=== PATIENT | female | born 1955 | race Caucasian/White ===

== ENCOUNTER → 2017-07-01 12:02 | Outpatient (CLI) | payer MEDICARE, SELFPAY ==
[2017-07-01 13:16] LABS: Absolute Lymphocyte Count 2.76 X10^3/ul (0.83-4.51); Absolute Neutrophil Count 7.7 X10^3/uL (2.0-7.7); Basophil# 0.02 X10^3/uL; Basophil% 0.2 % (0-1); Eosinophil# 0.08 X10^3/uL; Eosinophils% 0.7 % (0-5); Hematocrit 40.4 % (37-47); Hemoglobin 12.9 g/dl (12.0-15.0); Lymphocyte # 2.76 X10^3/ul (4.0); Lymphocyte % 24.5 % (19-41); Mean Corp Hgb Conc 31.9 g/gl (32-36); Mean Corpuscular Hgb 30.1 pg (27.0-32.0); Mean Corpuscular Volume 94.2 fL (81-99); Mean Platelet Vol. 9.1 fl (6.2-12.0); Monocyte# 0.63 X10^3/uL; Monocyte% 5.6 % (0-10); Neutrophil # 7.74 X10^3/uL (2.7-7.7); Neutrophil % 68.6 % (47-70); Platelet Count 457 K/mm3 (150-450); RBC Distribution Width CV 13.6 % (11.6-14.6); RBC Distribution Width SD 46.6 fl (35.1-43.9); Red Blood Count 4.29 M/mm3 (4.2-5.4); White Blood Count 11.3 K/mm3 (4.4-11.0)
[2017-07-01 13:17] LABS: POSITIVE COUNT NO; POSITIVE DIFFERENTIAL NO; POSITIVE MORPHOLOGY NO
[2017-07-01 13:49] LABS: ALB/GLOB Ratio 0.8 RATIO (0.9-2.4); AST(SGOT) 23 U/L (15-37); Alanine Aminotransfer ALT/SGPT 35 U/L (13-56); Albumin, Serum 3.6 g/dL (3.2-5.0); Alkaline Phosphatase 213 U/L (45-117); Anion Gap 10 (5-15); BUN 8 mg/dL (7-18); BUN/Creat Ratio 10.9 RATIO (10-20); Chloride 95 mmol/L (98-107); Cholesterol 181 mg/dL (200); Creatinine, Serum 0.73 mg/dL (0.55-1.02); EST Glomerular Filtration Rate 85 mL/min (>60); Est Glom Filt Rate - Afr Amer 103 mL/min (>60); Globulin 4.7 g/dL (2.2-4.2); Glucose 94 mg/dL (74-106); High Density Lipoprotein 74 mg/dL; Potassium 4.1 mmol/L (3.5-5.1); Protein, Total 8.3 g/dL (6.4-8.2); Sodium Level 132 mmol/L (136-145); Thyroid Stim Hormone (TSH) 1.32 uIU/mL (0.358-3.74); Triglycerides 105 mg/dL; Very Low Density Lipoprotein 21 mg/dL (5-40)
[2017-07-02 08:49] LABS: Vitamin D,25 Hydroxy 14.6 ng/mL (29.95-100.01)
== END ==
PROVIDERS: Family Provider Family Medicine Geriatric Medicine; PCP Family Medicine Geriatric Medicine; Visit Provider Family Medicine Geriatric Medicine
DX: I10 Essential (primary) hypertension (principal); E03.9 Hypothyroidism, unspecified; E78.4 Other hyperlipidemia; E55.9 Vitamin D deficiency, unspecified
CPT/HCPCS: 36415; 80053; 80061; 82306; 84443; 85025

== ENCOUNTER → 2017-10-14 13:31 | Outpatient (CLI) | payer MEDICARE, SELFPAY ==
[2017-10-14 17:38] LABS: Absolute Neutrophil Count 6.1 X10^3/uL (2.0-7.7); Basophil# 0.01 X10^3/uL; Basophil% 0.1 % (0-1); Eosinophil# 0.06 X10^3/uL; Eosinophils% 0.7 % (0-5); Hematocrit 40.1 % (37-47); Hemoglobin 13.1 g/dl (12.0-15.0); Lymphocyte % 21.1 % (19-41); Mean Corp Hgb Conc 32.7 g/gl (32-36); Mean Corpuscular Hgb 29.3 pg (27.0-32.0); Mean Corpuscular Volume 89.7 fL (81-99); Mean Platelet Vol. 9.5 fl (6.2-12.0); Monocyte# 0.58 X10^3/uL; Monocyte% 6.8 % (0-10); Neutrophil # 6.08 X10^3/uL (2.7-7.7); Neutrophil % 71.1 % (47-70); Platelet Count 467 K/mm3 (150-450); RBC Distribution Width CV 13.4 % (11.6-14.6); RBC Distribution Width SD 43.3 fl (35.1-43.9); Red Blood Count 4.47 M/mm3 (4.2-5.4); White Blood Count 8.6 K/mm3 (4.4-11.0)
[2017-10-14 17:40] LABS: POSITIVE COUNT NO; POSITIVE DIFFERENTIAL NO; POSITIVE MORPHOLOGY NO
[2017-10-14 17:56] LABS: ALB/GLOB Ratio 0.8 RATIO (0.9-2.4); AST(SGOT) 51 U/L (15-37); Alanine Aminotransfer ALT/SGPT 79 U/L (13-56); Albumin, Serum 3.5 g/dL (3.2-5.0); Alkaline Phosphatase 251 U/L (45-117); Anion Gap 7 (5-15); BUN 11 mg/dL (7-18); BUN/Creat Ratio 14.6 RATIO (10-20); Chloride 98 mmol/L (98-107); Cholesterol 193 mg/dL (200); Creatinine, Serum 0.75 mg/dL (0.55-1.02); EST Glomerular Filtration Rate 83 mL/min (>60); Est Glom Filt Rate - Afr Amer 100 mL/min (>60); Globulin 4.4 g/dL (2.2-4.2); Glucose 112 mg/dL (74-106); High Density Lipoprotein 69 mg/dL; Potassium 4.6 mmol/L (3.5-5.1); Protein, Total 7.9 g/dL (6.4-8.2); Sodium Level 131 mmol/L (136-145); Thyroid Stim Hormone (TSH) 0.79 uIU/mL (0.358-3.74); Triglycerides 77 mg/dL; Very Low Density Lipoprotein 15 mg/dL (5-40)
== END ==
PROVIDERS: Family Provider Family Medicine Geriatric Medicine; PCP Family Medicine Geriatric Medicine; Visit Provider Family Medicine Geriatric Medicine
DX: E78.4 Other hyperlipidemia (principal); I10 Essential (primary) hypertension; Z13.89 Encounter for screening for other disorder
CPT/HCPCS: 36415; 80053; 80061; 84443; 85025

== ENCOUNTER → 2017-11-03 07:46 | Outpatient (CLI) | payer MEDICARE, SELFPAY ==
--- NOTE | 2017-11-03 07:53 | US_ITS ---
STUDY: ABDOMINAL ULTRASOUND - RIGHT UPPER QUADRANT REASON FOR VISIT: Female, 61 years old. Elevated liver enzymes. TECHNIQUE: Ultrasound evaluation of the right upper quadrant was performed with real-time and static madera-scale imaging. TECHNICAL QUALITY: Adequate. COMPARISON: None. FINDINGS: Liver: The liver is enlarged and measures 18.8 cm. There is increased echogenicity consistent with fatty infiltration. The bile ducts are within normal limits. There is hepatic color flow. The direction of portal flow is hepatopetal. There is no demonstrated mass lesion. Gallbladder: Normal distended gallbladder. The gallbladder wall measures 2.0 mm. There is a negative sonographic Sy's sign. There is no pericholecystic fluid. There are no gallstones. Several small polyps are seen. The largest measures 6 mm. There is a 5 mm polyp with a ringdown artifact. This is suggestive of cholesterolosis. Common Bile Duct (C.B.D.): The common bile duct measures 4.0 mm. Pancreas: There is nonvisualization of the pancreas due to overlying bowel gas. Right Kidney: Normal size of the right kidney. The right kidney measures 11.6 cm x 4.6 cm x 6.5 cm. Normal renal cortex. The right cortex measures 1.0 cm. There is no demonstrated renal mass or cyst. There is no right hydronephrosis. US/Abdomen Limited IMPRESSION: Gallbladder polyp. Findings suggestive of cholesterolosis. Electronically Signed: Jose Segura MD at 13:31 EDT Tel [phone], Service support ,
== END ==
PROVIDERS: Family Provider Family Medicine Geriatric Medicine; PCP Family Medicine Geriatric Medicine; Visit Provider Family Medicine Geriatric Medicine
DX: R74.8 Abnormal levels of other serum enzymes (principal)
CPT/HCPCS: 76705

== ENCOUNTER → 2017-11-27 13:40 | Outpatient (CLI) | payer MEDICARE, SELFPAY ==
--- NOTE | 2017-11-27 13:42 | CT_ITS ---
STUDY: LOW DOSE CT LUNG CANCER SCREENING REASON FOR EXAM: Female, 62 years old. Tobacco use. Between 1 and 2 pack per day smoker, 55 years. Screening. RADIATION DOSAGE (If Supplied By Facility): CTDIvol = ( 2.55 ) mGy, DLP = ( 84.87 ) mGycm TECHNIQUE: No contrast was administered. Low dose technique was utilized (average mAS-38 and kVp 120). 1.25 mm axial source images with a slice interval of 1.25-mm were reconstructed in lung windows. Nodule measured using lung windows on PACS and/or independent workstation with automated measurement of minimum and maximum diameter. Nodule measurement reported as average diameter rounded to the nearest whole number. Growth is defined as an increase ins size of greater than 1.5 mm. COMPARISON: Low dose CT 10/15/2016. FINDINGS: Total lung nodules (excluding granulomas): Only a few scattered tiny pulmonary nodules are present, the most conspicuous lying within the right upper lobe anterior segment, image 130, measuring about 3.5 mm. Stable compared to prior imaging. Emphysema: Generalized mild hyperlucency without chloé features of centrilobular or paraseptal emphysema. Endobronchial lesion: There are no endobronchial lesions. Aorta: Nondilated aorta with mild arch atherosclerosis. Coronary arteries: Three-vessel coronary calcifications most prominent in the proximal to mid LAD. Heart: There is no cardiomegaly or pericardial effusion. Pulmonary artery: Nondilated central pulmonary arteries. Mediastinal nodes: Normal esophagus. No mediastinal or hilar mass or lymphadenopathy. A few small mediastinal lymph nodes are unchanged compared to prior imaging. Chronic. Other chest and abdominal findings: No other acute thoracic process is evident in limited evaluation. CT/Low Dose CT Lung Screening IMPRESSION: No acute cardiopulmonary process. Three-vessel coronary atherosclerosis. Pulmonary features suspicious for mild COPD without chloé emphysematous changes. A few scattered tiny pulmonary nodules the largest measuring about 3.5 mm are stable. ACR Lung RADS criteria: Recommendation is for follow-up annual low dose screening CT. IMPORTANT NOTES FOR USE: ACR Lung-RADS Version 1.0 Assessment Categories Release Date: August 23, 2013 Category: Coded 0-4 bases on nodule(s) with highest degree of suspicion. Negative screen is defined as categories 1 and 2; a positive screen is defined as categories 3 and 4. Category 3 and 4A nodules that are unchanged on interval CT should be coded as category 2, and individuals returned to screening in 12 months. Category 4X: Category 3 or 4 nodules with additional imaging findings that increase the suspicion of lung cancer, such as spiculation, GGN that doubles in size in 1 year, enlarged lymph notes, etc. Category Modifiers: S (significant finding unrelated to lung cancer) and C (prior history of treated lung cancer) may be added to the 0-4 Lung-RADS Electronically Signed: All Pittman, at 18:14 EDT Tel , Service support ,
== END ==
PROVIDERS: Family Provider Family Medicine Geriatric Medicine; PCP Family Medicine Geriatric Medicine; Visit Provider Family Medicine Geriatric Medicine
DX: Z12.2 Encounter for screening for malignant neoplasm of respiratory organs (principal); Z87.891 Personal history of nicotine dependence
CPT/HCPCS: G0297

== ENCOUNTER → 2017-12-16 10:15 | Outpatient (CLI) | payer MEDICARE, SELFPAY ==
[2017-12-16 13:30] LABS: ALB/GLOB Ratio 0.8 RATIO (0.9-2.4); AST(SGOT) 44 U/L (15-37); Alanine Aminotransfer ALT/SGPT 61 U/L (13-56); Albumin, Serum 3.7 g/dL (3.2-5.0); Alkaline Phosphatase 253 U/L (45-117); Anion Gap 9 (5-15); BUN 10 mg/dL (7-18); BUN/Creat Ratio 12.2 RATIO (10-20); Calcium,Total 9.6 mg/dL (8.5-10.1); Chloride 99 mmol/L (98-107); Creatinine, Serum 0.82 mg/dL (0.55-1.02); EST Glomerular Filtration Rate 75 mL/min (>60); Est Glom Filt Rate - Afr Amer 91 mL/min (>60); Globulin 4.9 g/dL (2.2-4.2); Glucose 105 mg/dL (74-106); Potassium 4.4 mmol/L (3.5-5.1); Protein, Total 8.6 g/dL (6.4-8.2); Sodium Level 134 mmol/L (136-145)
== END ==
PROVIDERS: Family Provider Family Medicine Geriatric Medicine; PCP Family Medicine Geriatric Medicine; Visit Provider Family Medicine Geriatric Medicine
DX: R74.8 Abnormal levels of other serum enzymes (principal)
CPT/HCPCS: 36415; 80053

== ENCOUNTER → 2018-01-05 06:03 | Outpatient (CLI) | payer MEDICARE, SELFPAY ==
--- NOTE | 2018-01-05 06:06 | ECHOD_ITS ---
Reason For Study: CAD/ASHD Procedure This was a 2D Doppler, Color Flow transthoracic echocardiogram. Exam performed in department. Left Ventricle Normal LV size. Left ventricular systolic function is normal. The estimated ejection fraction is 65 %. Stage 2 diastolic dysfunction. No regional wall motion abnormalities noted. Right Ventricle Normal RV size. Normal systolic function. Atria Normal left atrium. Normal right atrium. Mitral Valve Normal mitral valve. Tricuspid Valve Normal tricuspid valve. Aortic Valve Normal aortic valve. Trisinus/trileaflet aortic valve. Pulmonic Valve Normal pulmonic valve. Great Vessels Normal aortic root. The pulmonary artery is normal size. Normal inferior vena cava. MMode/2D Measurements & Calculations LVIDd: 3.8 cm IVSd: 1.7 cm Ao root diam: 3.1 cm LVIDs: 2.7 cm LVPWd: 1.0 cm LA dimension: 4.1 cm RVDd: 3.7 cm FS: 29.8 % LAV(MOD-bp): 48.3 ml LVAd ap4: 23.2 cm2 SV(MOD-sp4): 45.1 ml LAV(MOD-bp) Indexed: 26.2 ml/m2 EDV(MOD-sp4): 64.8 ml LAV(MOD-sp2): 40.0 ml EDV(sp4-el): 64.4 ml LAV(MOD-sp4): 53.5 ml LVAs ap4: 11.4 cm2 ESV(MOD-sp4): 19.7 ml ESV(sp4-el): 20.2 ml EF(MOD-sp4): 69.6 % EF(sp4-el): 68.7 % SV(sp4-el): 44.2 ml LA A4 area: 18.9 cm2 RA A4 area: 11.4 cm2 Doppler Measurements & Calculations MV E max ramiro: 85.2 cm/sec Lat Peak E' Ramiro: 5.7 cm/sec Med Peak E' Ramiro: 6.2 cm/sec MV A max ramiro: 79.3 cm/sec E/E' lat: 14.8 E/E' med: 13.8 MV E/A: 1.1 Ao V2 max: 168.9 cm/sec LV V1 max: 137.9 cm/sec PA V2 max: 131.9 cm/sec Ao max P.4 mmHg LV V1 max P.6 mmHg Ao V2 mean: 125.5 cm/sec Ao mean P.8 mmHg Ao V2 VTI: 32.7 cm Interpretation Summary Normal LV size. Left ventricular systolic function is normal. The estimated ejection fraction is 65 %. Stage 2 diastolic dysfunction. Structurally normal valves. Ordering Physician: Jesus Gillette Referring Physician: Cornelius Srinivasan Chi Performed By: Bryanna Rodriguez, DHARMESH, RVT
--- NOTE | 2018-01-05 09:02 | STRESSREP ---
Stress Test Report Pharmacologic myocardial perfusion stress test. 62-year-old lady with a history of coronary artery disease and chest pain. Medications: Amlodipine, lisinopril, amitriptyline. Stress protocol: Resting EKG demonstrates normal sinus rhythm with a rate of 91 bpm normal intervals and noted resting blood pressure is 148/80 mmHg. 0.4 mg of regadenoson was infused per usual protocol followed by rapid intravenous saline flush injection continuous EKG monitoring was performed. The patient maintained sinus rhythm throughout the recording. At rest were no ST or T-wave changes noted suggest abnormal flow reserve. The maximum heart rate attained was 131 bpm which was 83% of maximum predicted heart rate the maximum workload attained was 1 metabolic equivalent. The resting blood pressure is 148/80 mmHg with a final blood pressure 144/60 mmHg. Myocardial perfusion protocol. 14.3 mCi of technetium 99m sestamibi was injected at rest. 0.4 mg of regadenoson was infused per usual protocol peak infusion 44.2 mCi of technetium 99m sestamibi was injected stress images were obtained stress and rest images were reconstructed and compared in the short axis vertical long and horizontal long axis. Gated images were also obtained pre- Perfusion SPECT analysis: Review of the stress images demonstrate normal uptake of tracer noted in all areas of the myocardium. The resting images similarly demonstrate normal uptake of tracer noted in all areas of the myocardium. No areas of reversibility are noted suggest ischemia. Gated SPECT analysis: The gated ejection fraction is noted to be 82%. Conclusion: Normal pharmacologic myocardial perfusion stress test. Preserved ejection fraction.
== END ==
PROVIDERS: Family Provider Family Medicine Geriatric Medicine; PCP Family Medicine Geriatric Medicine; Visit Provider Internal Medicine Cardiovascular Disease
DX: I25.10 Atherosclerotic heart disease of native coronary artery without angina pectoris (principal); I25.84 Coronary atherosclerosis due to calcified coronary lesion; R07.9 Chest pain, unspecified
CPT/HCPCS: 78452; 93017; 93306; A9500; A4216; J2785

== ENCOUNTER → 2018-01-19 14:21 | Outpatient (CLI) | payer MEDICARE, SELFPAY ==
[2018-01-19 15:38] LABS: AST(SGOT) 40 U/L (15-37); Alanine Aminotransfer ALT/SGPT 59 U/L (13-56); Albumin, Serum 3.6 g/dL (3.2-5.0); Alkaline Phosphatase 213 U/L (45-117); Bilirubin, Direct 0.08 mg/dL (0.00-0.30); Ferritin 127 ng/mL (8-252); Globulin 4.6 g/dL (2.2-4.2); Protein, Total 8.2 g/dL (6.4-8.2)
[2018-01-20 08:41] LABS: GGTP 591 U/L (5-55)
[2018-01-21 16:10] LABS: ANTINUCLEAR ANTIBODIES DIRECT Negative (Negative)
[2018-01-23 08:20] LABS: Alpha Antitrypsin Serum 182 mg/dL (90-200); Anti-Mitochondrial AB <20.0 Units (0.0-20.0); Anti-Smooth Muscle ABS 14 Units (0-19)
== END ==
PROVIDERS: Family Provider Family Medicine Geriatric Medicine; PCP Family Medicine Geriatric Medicine; Visit Provider Internal Medicine Gastroenterology
DX: K75.9 Inflammatory liver disease, unspecified (principal)
CPT/HCPCS: 36415; 80076; 82103; 82728; 82977; 83516; 86038

== ENCOUNTER → 2018-04-15 10:02 | Outpatient (CLI) | payer MEDICARE, SELFPAY ==
[2018-04-15 11:30] LABS: Absolute Lymphocyte Count 1.69 X10^3/ul (0.83-4.51); Absolute Neutrophil Count 7.5 X10^3/uL (2.0-7.7); Basophil# 0.02 X10^3/uL; Basophil% 0.2 % (0-1); Eosinophil# 0.13 X10^3/uL; Eosinophils% 1.3 % (0-5); Hematocrit 37.7 % (37-47); Hemoglobin 11.9 g/dl (12.0-15.0); Lymphocyte # 1.69 X10^3/ul (4.0); Lymphocyte % 16.6 % (19-41); Mean Corp Hgb Conc 31.6 g/gl (32-36); Mean Corpuscular Hgb 29.5 pg (27.0-32.0); Mean Corpuscular Volume 93.5 fL (81-99); Mean Platelet Vol. 9.3 fl (6.2-12.0); Monocyte# 0.78 X10^3/uL; Monocyte% 7.7 % (0-10); Neutrophil # 7.47 X10^3/uL (2.7-7.7); Neutrophil % 73.4 % (47-70); Platelet Count 442 K/mm3 (150-450); RBC Distribution Width CV 13.9 % (11.6-14.6); Red Blood Count 4.03 M/mm3 (4.2-5.4); White Blood Count 10.2 K/mm3 (4.4-11.0)
[2018-04-15 11:36] LABS: POSITIVE COUNT NO; POSITIVE DIFFERENTIAL NO; POSITIVE MORPHOLOGY NO
[2018-04-15 12:11] LABS: ALB/GLOB Ratio 0.8 RATIO (0.9-2.4); AST(SGOT) 38 U/L (15-37); Alanine Aminotransfer ALT/SGPT 64 U/L (13-56); Albumin, Serum 3.3 g/dL (3.2-5.0); Alkaline Phosphatase 312 U/L (45-117); Anion Gap 11 (5-15); BUN 12 mg/dL (7-18); BUN/Creat Ratio 13.9 RATIO (10-20); Calcium,Total 8.5 mg/dL (8.5-10.1); Chloride 93 mmol/L (98-107); Creatinine, Serum 0.86 mg/dL (0.55-1.02); EST Glomerular Filtration Rate 71 mL/min (>60); Est Glom Filt Rate - Afr Amer 85 mL/min (>60); Globulin 4.3 g/dL (2.2-4.2); Glucose 109 mg/dL (74-106); Potassium 4.6 mmol/L (3.5-5.1); Protein, Total 7.6 g/dL (6.4-8.2); Sodium Level 129 mmol/L (136-145); Thyroid Stim Hormone (TSH) 1.89 uIU/mL (0.358-3.74)
--- OUTSIDE RECORDS SUMMARY | 2018-07-17 13:12 | XMS RPT_ITS ---
:1955 Author Organization OHIP Support Name Relationship Address Phone NACHO ROBERSON Unavailable [address] + [place] [address] D Unavailable Unavailable Unavailable NACHO ROBERSON Unavailable Unavailable + NACHO ROBERSON Unavailable Unavailable + NACHO ROBERSON Unavailable Unavailable + NACHO ROBERSON Unavailable Unavailable + NACHO ROBERSON Unavailable [address] + [place] [address] D Unavailable Unavailable Unavailable NACHO ROBERSON Unavailable [address] + [place] [address] D Unavailable Unavailable Unavailable NACHO ROBERSON Unavailable [address] + [place] [address] D Unavailable Unavailable Unavailable NACHO ROBERSON Unavailable Unavailable + NACHO ROBERSON Unavailable Unavailable + NACHO ROBERSON Unavailable [address] + [place] [address] D Unavailable Unavailable Unavailable NACHO ROBERSON Unavailable [address] + [place] [address] D Unavailable Unavailable Unavailable NACHO ROBERSON Unavailable [address] + [place] [address] D Unavailable Unavailable Unavailable NACHO ROBERSON Unavailable [address] + [place] [address] D Unavailable Unavailable Unavailable NACHO ROBERSON Unavailable [address] + [place] [address] D Unavailable Unavailable Unavailable NACHO ROBERSON Unavailable [address] + [place] [address] D Unavailable Unavailable Unavailable NACHO ROBERSON Unavailable Unavailable + NACHO ROBERSON Unavailable Unavailable + NACHO ROBERSON Unavailable [address] + [place] [address] D Unavailable Unavailable Unavailable Care Team Providers Name Role Phone MANDO DALEY, DR. GAN Primary Care Unavailable LEONA DALEY, DR. GARCIA Attending Unavailable NACHO CARRILLO Attending Unavailable MANDO DALEY, DR. GAN Primary Care Unavailable NACHO CARRILLO Attending Unavailable MANDO DALEY, DR. GAN Primary Care Unavailable NACHO CARRILLO Attending Unavailable MANDO DALEY, DR. GAN Primary Care Unavailable Leona, Cornelius Chi Attending Unavailable Leona, Cornelius Chi Primary Care Unavailable Leona, Cornelius Chi Attending Unavailable Leona, Cornelius Chi Primary Care Unavailable Leona, Cornelius Chi Attending Unavailable Leona, Cornelius Chi Primary Care Unavailable Leona, Cornelius Chi Attending Unavailable Leona, Cornelius Chi Referring Unavailable Leona, Cornelius Chi Primary Care Unavailable Leona, Cornelius Chi Attending Unavailable Leona, Cornelius Chi Primary Care Unavailable Leona, Cornelius Chi Attending Unavailable Leona, Cornelius Chi Referring Unavailable Leona, Cornelius Chi Primary Care Unavailable Catalina Montoya Attending Unavailable Leta, Vancouver Attending Unavailable Leona, Cornelius Chi Referring Unavailable Leona, Cornelius Chi Primary Care Unavailable Leta, [place] Attending Unavailable Leta, Jesus Referring Unavailable Leona, Cornelius Chi Primary Care Unavailable Jabour, Vincent Attending Unavailable Jabour, Vincent Referring Unavailable Leona, Cornelius Chi Primary Care Unavailable Leta, Vancouver Attending Unavailable Leta, Vancouver Referring Unavailable PROBLEMS PROBLEMS DATE TYPE CONDITION / CODE ATTENDING STATUS SOURCE 02/02/2018 Unknown R07.9 - Chest pain, Leta, Vancouver Active [place] unspecified / Community R07.9(ICD-10) Hospital Repository 12/17/2017 Unknown I10 - Essential Leta, Jesus Active [place] (primary) Community hypertension / Hospital I10(ICD-10) Repository 12/17/2017 Unknown E78.5 - Leta, Vancouver Active [facility]lipidemia, Community unspecified / Hospital E78.5(ICD-10) Repository 12/17/2017 Unknown F17.200 - Nicotine Leta, Jesus Active [facility] dependence, Community unspecified, Hospital uncomplicated / Repository F17.200(ICD-10) 12/17/2017 Unknown E66.9 - Obesity, Leta, Jesus Active [facility] unspecified / Community E66.9(ICD-10) Hospital Repository 12/03/2017 Unknown Z87.891 - Personal Cornelius Srinivasan Chi Active [place] history of nicotine Community dependence / Hospital Z87.891(ICD-10) Repository 10/16/2017 Unknown E78.4 - Other Leona Cornelius Chi Active [facility] hyperlipidemia / Community E78.4(ICD-10) Hospital Repository 07/01/2017 Unknown E55.9 - Vitamin D Leona Cornelius Chi Active [place] deficiency, Community unspecified / Hospital E55.9(ICD-10) Repository PROCEDURES PROCEDURES No Procedure Records FoundRESULTS RESULTS CBC W/DIFF, AUTOMATED Collected: 04/15/2018 Status: F Source: [place] 10:09 AM [facility] TYPE CODE TESTS RESULT OUT OF RANGE REFERENCE UNITS LAB L100.1000 4.4-11.0 K/mm3 Normal WBC 10.2 LAB L100.1200 4.2-5.4 M/mm3 Low RBC 4.03 LAB L100.1300 12.0-15.0 g/dl Low HGB 11.9 LAB L100.1400 37-47 % Normal HCT 37.7 LAB L100.1500 81-99 fL Normal MCV 93.5 LAB L100.1600 27.0-32.0 pg Normal MCH 29.5 LAB L100.1700 32-36 g/gl Low MCHC 31.6 LAB L100.1810 11.6-14.6 % Normal RDW CV 13.9 LAB L100.1820 35.1-43.9 fl High RDW SD 46.0 LAB L100.1900 150-450 K/mm3 Normal PLT 442 LAB L100.2000 6.2-12.0 fl Normal MPV 9.3 LAB L100.2100 47-70 % High NEUT% 73.4 LAB L100.2200 19-41 % Low LY% 16.6 LAB L100.2300 0-10 % Normal MONO% 7.7 LAB L100.2400 0-5 % Normal EO% 1.3 LAB L100.2500 0-1 % Normal BASO% 0.2 LAB L100.2550 0.0-0.9 % Normal IM GRAN % 0.800 Result Comment: IG% - Immature Granulocytes (promyelocytes, myelocytes and metamyelocytes) > 1% indicates that a LEFT SHIFT is Present. LAB L100.2620 2.0-7.7 X10 3/uL Normal Absolute Neut 7.5 LAB L100.2720 0.83-4.51 X10 3/ul Normal Absolute Lymph 1.69 Performed By: #### L100.0100 #### [facility] [address] [place], [address] COMPREHENSIVE METABOLIC Collected: 04/15/2018 Status: F Source: [place] [facility] 10:09 AM [facility] REPOSITORY TYPE CODE TESTS RESULT OUT OF RANGE REFERENCE UNITS LAB L501.0100 74-106 mg/dL High GLU 109 Result Comment: Fasting Glucose result from 100 to 125 mg/dL suggests IMPAIRED HOMEOSTASIS per A.D.A. criteria. Please note revised GLUCOSE reference range effective 2017. LAB L501.1000 7-18 mg/dL Normal BUN 12 LAB L501.1100 0.55-1.02 mg/dL Normal CREAT,SERUM 0.86 Result Comment: The validity of the calculated GFR AND GFRAA in patients over 70 years has not been determined. Clinical correlation is essential. LAB L501.1110 >60 mL/min Normal EST GFR 71 Result Comment: Non- GFR Calc LAB L501.1115 >60 mL/min Normal EST GFR - AA 85 Result Comment: GFR Calc LAB L501.1300 10-20 RATIO Normal BUN/CRE 13.9 LAB L501.1500 6.4-8.2 g/dL T Normal PROT 7.6 LAB L501.1800 3.2-5.0 g/dL Normal ALB 3.3 LAB L501.1950 2.2-4.2 g/dL High GLOB 4.3 LAB L501.2000 0.9-2.4 RATIO Low A/G 0.8 LAB L501.2200 8.5-10.1 mg/dL CA Normal 8.5 LAB L501.4100 15-37 U/L High AST 38 LAB L501.4305 45-117 U/L High ALK P 312 LAB L501.4405 13-56 U/L High ALT 64 LAB L501.4600 0.20-1.00 mg/dL T Normal BILI 0.40 LAB L501.5300 136-145 mmol/L Low NA 129 LAB L501.5600 3.5-5.1 mmol/L K Normal 4.6 LAB L501.5900 98-107 mmol/L Low CL 93 LAB L501.6100 21.0-32.0 mmol/L Normal CO2 25.0 LAB L501.6200 5-15 Normal GAP 11 Performed By: #### L500.4050, L501.9520 #### [facility] [address] [place], [place], [address] THYROID STIM HORMONE Collected: 04/15/2018 Status: F Source: [place] ([facility]) 10:09 AM [facility] REPOSITORY TYPE CODE TESTS RESULT OUT OF RANGE REFERENCE UNITS LAB L501.9520 0.358-3.74 uIU/mL Normal TSH 1.89 Performed By: #### L500.4050, L501.9520 #### [facility] [address] [facility] [place], [place], [address] XR FLUORO GUIDANCE FOR Observed: 02/26/2018 Status: F Source: [facility] THERAPY INJECTION 10:12 AM [facility] REPOSITORY ORIGINAL Images acquired, not reported on this accession number. LIVER PROFILE Collected: 01/19/2018 Status: F Source: [place] 2:27 PM [facility] REPOSITORY Order Comment: GGTP ADDED TYPE CODE TESTS RESULT OUT OF RANGE REFERENCE UNITS LAB L501.1500 6.4-8.2 g/dL Normal T PROT 8.2 LAB L501.1800 3.2-5.0 g/dL Normal ALB 3.6 LAB L501.1950 2.2-4.2 g/dL High GLOB 4.6 LAB L501.4100 15-37 U/L High AST 40 LAB L501.4305 45-117 U/L High ALK P 213 LAB L501.4405 13-56 U/L High ALT 59 LAB L501.4600 0.20-1.00 mg/dL Normal T BILI 0.20 LAB L501.4700 0.00-0.30 mg/dL Normal D BILI 0.08 Performed By: #### L500.3400, L503.6550, L501.5100 #### [facility] [address] [place], [place], [address] FERRITIN Collected: 01/19/2018 Status: F Source: [place] 2:27 PM [facility] REPOSITORY Order Comment: GGTP ADDED TYPE CODE TESTS RESULT OUT OF RANGE REFERENCE UNITS LAB L503.6550 8-252 ng/mL Normal FERRITIN 127 Performed By: #### L500.3400, L503.6550, L501.5100 #### [facility] [address] [place], [place], [address] GGTP Collected: 01/19/2018 Status: F Source: [place] 2:27 PM [facility] REPOSITORY Order Comment: GGTP ADDED TYPE CODE TESTS RESULT OUT OF RANGE REFERENCE UNITS LAB L501.5100 5-55 U/L High GGTP 591 Performed By: #### L500.3400, L503.6550, L501.5100 #### [facility] [address] [place], [place], [address] ANTI-MITOCHONDRIAL AB Collected: Status: F Source: [place] 01/19/2018 2:27 PM [facility] REPOSITORY TYPE CODE TESTS RESULT OUT OF RANGE REFERENCE UNITS LAB L800.1280 0.0-20.0 Units Normal MITOCHN AB <20.0 Result Comment: Negative 0.0 - 20.0 Equivocal 20.1 - 24.9 Positive >24.9 Mitochondrial (M2) Antibodies are found in 90-96% of patients with primary biliary cirrhosis. Performed By: #### L800.1280, L3100.5475, L3900.2100 #### [facility] (refer to report for specific site) refer to report for address and phone number ANTINUCLEAR ANTIBODIES Collected: 01/19/2018 Status: F Source: [place] DIRECT 2:27 PM [facility] REPOSITORY TYPE CODE TESTS RESULT OUT OF RANGE REFERENCE UNITS LAB L3100.5475 Negative Normal Negative [facility] Performed By: #### L800.1280, L3100.5475, L3900.2100 #### [facility] (refer to report for specific site) refer to report for address and phone number ALPHA ANTITRYPSIN SERUM Collected: 01/19/2018 Status: F Source: [place] 2:27 PM [facility] REPOSITORY TYPE CODE TESTS RESULT OUT OF RANGE REFERENCE UNITS LAB L3900.2100 90-200 mg/dL Normal A- 182 [id number] Result Comment: Performed at: [facility] [address] [place], [place] [id number] Solar Tech: Arpit Bernstein PhD, Phone: [phone] Performed By: #### L800.1280, L3100.2674, L3900.1980 #### [facility] (refer to report for specific site) refer to report for address and phone number ANTI-SMOOTH MUSCLE ABS Collected: 01/19/2018 Status: F Source: [place] 2:27 PM [facility] REPOSITORY TYPE CODE TESTS RESULT OUT OF RANGE REFERENCE UNITS LAB L803.2200 0-19 Units Normal ANTISMOOTH 6643 14 Result Comment: Negative 0 - 19 Weak positive 20 - 30 Moderate to strong positive >30 Actin Antibodies are found in 52-85% of patients with autoimmune hepatitis or chronic active hepatitis and in 22% of patients with primary biliary cirrhosis. Performed at: [facility] [address] [id number] Solar Tech: Arpit Bernstein PhD, Phone: [phone] Performed By: #### L803.2200 #### [facility] (refer to report for specific site) refer to report for address and phone number ECHOCARDIOGRAM COMPLETE Observed: 01/05/2018 Status: F Source: [place] 3:05 PM [facility] REPOSITORY [facility] Services [address] [place] [address] Echo Complete 01/05/18 0938 MR#: [id number] Acct: [id number] Name: NALLELY MOYA Rep #: [id number] : 1955 62 From: Jesus Gillette MD Attending Dr: Jesus Gillette MD Status: REG CLI Ordering Dr: Jesus Gillette MD Date: 01/05/18 Location: [facility] Sex: F C Admitted: Reason For Study: CAD/ASHD Procedure This was a 2D Doppler, Color Flow transthoracic echocardiogram. Exam performed in department. Left Ventricle Normal LV size. Left ventricular systolic function is normal. The estimated ejection fraction is 65 %. Stage 2 diastolic dysfunction. No regional wall motion abnormalities noted. Right Ventricle Normal RV size. Normal systolic function. Atria Normal left atrium. Normal right atrium. Mitral Valve Normal mitral valve. Tricuspid Valve Normal tricuspid valve. Aortic Valve Normal aortic valve. Trisinus/trileaflet aortic valve. Pulmonic Valve Normal pulmonic valve. Great Vessels Normal aortic root. The pulmonary artery is normal size. Normal inferior vena cava. MMode/2D Measurements AND Calculations LVIDd: 3.8 cm IVSd: 1.7 cm Ao root diam: 3.1 cm LVIDs: 2.7 cm LVPWd: 1.0 cm LA dimension: 4.1 cm RVDd: 3.7 cm FS: 29.8 % LAV(MOD-bp): 48.3 ml LVAd ap4: 23.2 cm2 SV(MOD-sp4): 45.1 ml LAV(MOD-bp) Indexed: 26.2 ml/m2 EDV(MOD-sp4): 64.8 ml LAV(MOD-sp2): 40.0 ml EDV(sp4-el): 64.4 ml LAV(MOD-sp4): 53.5 ml LVAs ap4: 11.4 cm2 ESV(MOD-sp4): 19.7 ml ESV(sp4-el): 20.2 ml EF(MOD-sp4): 69.6 % EF(sp4-el): 68.7 % SV(sp4-el): 44.2 ml LA A4 area: 18.9 cm2 RA A4 area: 11.4 cm2 Doppler Measurements AND Calculations MV E max ramiro: 85.2 cm/sec Lat Peak E' Ramiro: 5.7 cm/sec Med Peak E' Ramiro: 6.2 cm/sec MV A max ramiro: 79.3 cm/sec E/E' lat: 14.8 E/E' med: 13.8 MV E/A: 1.1 Ao V2 max: 168.9 cm/sec LV V1 max: 137.9 cm/sec PA V2 max: 131.9 cm/sec Ao max P.4 mmHg LV V1 max P.6 mmHg Ao V2 mean: 125.5 cm/sec Ao mean P.8 mmHg Ao V2 VTI: 32.7 cm Interpretation Summary Normal LV size. Left ventricular systolic function is normal. The estimated ejection fraction is 65 %. Stage 2 diastolic dysfunction. Structurally normal valves. Ordering Physician: Jesus Gillette Referring Physician: Cornelius Srinivasan Chi Performed By: Bryanna Rodriguez, DHARMESH, RVT 01/05/18 1504 Date Jesus Gillette MD CC: Jesus Gillette MD; Cornelius Srinivasan MD Date Dictated: 01/05/18 0938 Date Transcribed: 01/05/18 1504 Transportation Refrigeration Technician: Signed STRESS REPORT Observed: 01/05/2018 Status: F Source: [place] 9:05 AM [facility] REPOSITORY [facility] Cardiovascular Services [facility] [place] [address] MR#: [id number] Acct: [id number] Name: NALLELY MOYA Rep #: [id number] : 1955 62 From: Jesus Gillette MD Primary Care: Leona GARCIA,Cornelius Watkins Status: REG CLI Ordering Dr: Sex: F C Stress Test Report Pharmacologic myocardial perfusion stress test. 62-year-old lady with a history of coronary artery disease and chest pain. Medications: Amlodipine, lisinopril, amitriptyline. Stress protocol: Resting EKG demonstrates normal sinus rhythm with a rate of 91 bpm normal intervals and noted resting blood pressure is 148/80 mmHg. 0.4 mg of regadenoson was infused per usual protocol followed by rapid intravenous saline flush injection continuous EKG monitoring was performed. The patient maintained sinus rhythm throughout the recording. At rest were no ST or T-wave changes noted suggest abnormal flow reserve. The maximum heart rate attained was 131 bpm which was 83% of maximum predicted heart rate the maximum workload attained was 1 metabolic equivalent. The resting blood pressure is 148/80 mmHg with a final blood pressure 144/60 mmHg. Myocardial perfusion protocol. 14.3 mCi of technetium 99m sestamibi was injected at rest. 0.4 mg of regadenoson was infused per usual protocol peak infusion 44.2 mCi of technetium 99m sestamibi was injected stress images were obtained stress and rest images were reconstructed and compared in the short axis vertical long and horizontal long axis. Gated images were also obtained pre- Perfusion SPECT analysis: Review of the stress images demonstrate normal uptake of tracer noted in all areas of the myocardium. The resting images similarly demonstrate normal uptake of tracer noted in all areas of the myocardium. No areas of reversibility are noted suggest ischemia. Gated SPECT analysis: The gated ejection fraction is noted to be 82%. Conclusion: Normal pharmacologic myocardial perfusion stress test. Preserved ejection fraction. 01/05/18904 <Electronically signed by Jesus Gillette MD> Date Jesus Gillette MD CC: Jesus Gillette MD; Cornelius Srinivasan MD Date Dictated: 01/05/18901 Date Transcribed: 01/05/18901 Transportation Refrigeration Technician: ALEXIS Signed XR FLUORO GUIDANCE FOR Observed: 12/25/2017 Status: F Source: [facility] THERAPY INJECTION 3:44 PM [facility] REPOSITORY [facility]IGINAL Images acquired, not reported on this accession number. CARDIOLOGY VISIT Observed: 12/17/2017 Status: F Source: [place] REPORT 11:46 AM [facility] REPOSITORY [facility] [address] [place] [address] OFFICE VISIT Date of Service: 12/17/17 MR#: [id number] Acct: [id number] Name: NALLELY MOYA Rep #: [id number] : 1955 Provider: Jesus Gillette MD Age/Sex: 62/F Location: [email or web address] Status: Signed [facility] HPI Chief Complaint: Initial visit Details: NALLELY MOYA, is a 62 F who presents to the office today for an initial visit. She is a lady with a history of obstructive lung disease with some shortness of breath. She was noted on a CAT scan for cancer screening to have evidence of calcification in the proximal to mid left anterior descending artery. This was not a detailed CT angiogram but on the basis of the above as well as risk factors she was asked to see us. She has had no dizziness or diaphoresis no near syncope or syncope she does have a history of hypertension for which she is on lisinopril and amlodipine. She has been compliant with all her medications. Unfortunately she does use tobacco products. Her physical exam today demonstrated clear lung pro regular rate and rhythm soft 1/6 systolic murmur noted left sternal border and no pedal edema. Electrocardiogram demonstrates sinus rhythm with a rate of 95 bpm a previous inferior infarct cannot be completely excluded. Intake Vital Signs12/17/17 Height 5 ft 2 in 12/17/17 Weight: 189 lb 12/17/17 Body Mass Index (BMI) 34.5 12/17/17 Blood Pressure 118/58 12/17/17 Respiratory Rate 18 12/17/17 Pulse Rate 90 Intake Visit Reasons: PCP ref'd for CAD, no other cardiac Hx Allergies No Known Allergies Allergy (Verified 12/17/17 10:47) Medications Amitriptyline HCl 10 mg PO QHS 06/13/15 [History Confirmed 12/17/17] Amlodipine [Norvasc] 10 mg PO DAILY 06/13/15 [History Confirmed 12/17/17] Clonazepam [Klonopin] 0.5 mg PO PRN PRN 06/13/15 [History Confirmed 12/17/17] Lamotrigine [Lamictal] 200 mg PO DAILY 06/13/15 [History Confirmed 12/17/17] Lisinopril [Zestril] 40 mg PO DAILY 06/13/15 [History Confirmed 12/17/17] Risperidone [Risperdal] 1 mg PO DAILY 06/13/15 [History Confirmed 12/17/17] Tizanidine HCl [Zanaflex] 2 mg PO PRN PRN 06/13/15 [History Confirmed 12/17/17] morphine SR tablet [MS Contin] 30 mg PO Q12H 06/13/15 [History Confirmed 12/17/17] cholecalciferol (vitamin D3) 50,000 unit capsule 50,000 unit PO .qmonthly cap 12/13/17 [History Confirmed 12/13/17] pravastatin 40 mg tablet 40 mg PO QHS tab 12/13/17 [History Confirmed 12/17/17] bupropion HCl 75 mg tablet 150 mg PO BID tab 12/17/17 [History Confirmed 12/17/17] levothyroxine 50 mcg capsule 25 mcg PO QDAY cap 12/17/17 [History Confirmed 12/17/17] PFSH Medical History Hyperlipidemia (Chronic) Nicotine dependence (Chronic) Obesity (Chronic) Hypertension (Chronic) Cholesterolosis gallbladder (Acute) Elevated LFTs (Acute) Anxiety and depression (Chronic) Arthritis (Chronic) Bipolar disorder (Chronic) Hypothyroidism (Chronic) Insomnia (Chronic) Pulmonary nodule (Chronic) Surgical History History of cataract surgery (Resolved) Family History Mother CAD (coronary artery disease) CABG x 3 post op age 63 Brother CAD (coronary artery disease) CABG x 3 age 65 Social History Smoking Status: Heavy Smoker (>10/day) ROS Const Const: Negative for fatigue, weakness, difficulty sleeping, frequent falls, excessive sweating or headache(s) Eyes Eyes: Negative for loss of peripheral vision, transient loss of vision, blurry vision, tunnel vision or double vision ENT ENT: Negative for headache(s), dizziness, Nosebleed/epistaxis or balance problems Cardio Chest Pain: Yes (Occasional) Frequency: monthly Character: tightness Onset: exercise Location: mid sternal, left chest Duration: brief Palpitations: No Edema: None Muscle aches with walking: None Resp Respiratory: Positive for SOB with activity; negative for SOB at rest, SOB orthopnea\SOB lying down, paroxysmal nocturnal dyspnea or Cough GI GI: Negative nausea, heartburn, black,tarry stools or vomiting : Negative for hematuria Musc Musc: Positive for joint pain (back pain); negative for balance problems, muscle aches/ myalgia or muscle weakness Skin Skin: Negative non-healing lesions, unusual bruising or rash Neuro Neuro: Negative for weakness, frequent falls, headache(s), blurry vision, double vision, dizziness, lightheadedness, orthostatic symptoms, near syncope, syncope or lack of coordination [place] Hematologic/Lymphatic: Negative for easy bruising or easy bleeding Endo Endo: Negative for fatigue, excessive sweating or increased thirst/drinking Psych Psych: Negative for anxiety or depression Allergy Allergy/Immunology: Negative for hives, Negative for rash Cardiology Exam Const Appearance: cooperative, healthy appearing, well developed, well groomed and no acute distress Nutritional Appearance: well nourished and average body habitus Orientation: alert, awake and oriented x3 Head Head: normal to inspection, normocephalic and atraumatic Ears: hearing grossly normal bilaterally and external ears normal Nose: external nose normal, nasal mucous membranes and turbinates normal, nares normal, septum normal, no nasal discharge Face and Sinus: face symmetric Mouth: oral mucosae normal, tongue normal, oropharynx normal and moist mucous membranes Teeth and gingiva: dentition normal Throat: posterior oropharynx normal, tonsils normal and uvula midline Eyes General: appearance normal, both eyes and all related structures Eyelids: eyelids normal Conjunctivae: conjunctivae normal Pupils: PERRL, normal by confrontation and accommodation normal EOM: EOM intact bilaterally Neck Neck: normal visual inspection, trachea midline and no JVD JVD: +5 Carotids: normal carotid upstroke and bounding pulses Chest Chest inspection: normal inspection of the chest, symmetric chest movement and normal respiratory effort Auscultation: Bilateral: Clear to Auscultation Cardio Palpation: normal PMI Rate: regular rate Rhythm: regular rhythm Heart sounds: S1 normal, S2 normal and normal, physiologic split S2; negative rub, gallop or murmur GI GI: normal to inspection, soft, no hepatosplenomegaly and bowel sounds present Neuro General: alert, awake, oriented x3, no focal sensory deficit, gait normal and moves all extremities Skin Skin: no rashes or lesions noted Extremities Pulses: Normal: Right Femoral Pulse, Left Femoral Pulse, Right Dorsalis Pedis Pulse, Left Dorsalis Pedis Pulse, Right Posterior Tibial Pulse, Left Posterior Tibial Pulse, Right Radial Pulse, Left Radial Pulse Lower Extremity Edema: None: Bilateral Musculoskel Musculoskeletal: No joint tenderness Psych Psychological: normal affect Assessment AND Plan 1. Chest pain, unspecified type R07.9 Plan She does have atypical chest pain shortness breath and coronary calcification my recommendation will be for us to obtain a formal pharmacologic myocardial perfusion stress test. Depending on the results of the above further recommendations will be made. In addition an echocardiogram should be performed to exclude any previous inferior LA which demonstrates on the EKG. 2. Essential hypertension I10 Plan She does have a history of hypertension which appears to well controlled on the current medical therapy. She will continue with amlodipine as well as the lisinopril. Orders Orders: 3. Pure hypercholesterolemia E78.00; E78.0 Plan She has a history of hyperlipidemia. Her most recent lipid profile demonstrated total cholesterol 193, LDL of 109 and HDL of 69. 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 technical designer) Coding Level of Care Code Off vis,new,level 3 Diagnoses Chest pain, unspecified type R07.9 Chest pain type: unspecified Essential hypertension I10 Hypertension type: essential hypertension Pure hypercholesterolemia E78.00; E78.0 Hyperlipidemia type: pure hypercholesterolemia Coding Level of Care Code Off vis,new,level 3 Diagnoses Chest pain, unspecified type R07.9 Chest pain type: unspecified Essential hypertension I10 Hypertension type: essential hypertension Pure hypercholesterolemia E78.00; E78.0 Hyperlipidemia type: pure hypercholesterolemia 12/17/17 1146 <Electronically signed by Jesus Gillette MD> Date Jesus Gillette MD Cosigner Signature: Date (if applicable) CC: Cornelius Srinivasan MD 12 LEAD EKG PERFORMED Observed: 12/17/2017 Status: F Source: [place] BY [facility] 11:04 AM [facility] RE[facility] [address] [place] [address] 12 Lead EKG performed by [facility] 12/17/17 1104 MR#: [id number] Acct: [id number] Name: NALLELY MOYA Rep #: [id number] : 1955 62 From: Jesus Gillette MD Attending Dr: Jesus Gillette MD Status: DEP AMB Ordering Dr: Jesus Gillette MD Date: 12/17/17 [place] [facility] [place] F C Admitted: [facility]/12 Lead EKG performed by 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 ABNORMAL Electronically signed on 04/01/2018 at 11:32 by Jesus Gillettewood Software Version [id number] 04/01/18 1140 Date Jesus Gillette MD CC: Cornelius Srinivasan MD Date Dictated: 12/17/17 1104 Date Transcribed: 12/17/174 Transportation Refrigeration Technician: [place] Signed COMPREHENSIVE METABOLIC Collected: 12/16/2017 Status: F Source: [place]IL 10:17 AM [facility] REPOSITORY TYPE CODE TESTS RESULT OUT OF RANGE REFERENCE UNITS LAB L501.0100 74-106 mg/dL Normal GLU 105 Result Comment: Fasting Glucose result from 100 to 125 mg/dL suggests IMPAIRED HOMEOSTASIS per A.D.A. criteria. Please note revised GLUCOSE reference range effective 2017. LAB L501.1000 7-18 mg/dL Normal BUN 10 LAB L501.1100 0.55-1.02 mg/dL Normal CREAT,SERUM 0.82 Result Comment: The validity of the calculated GFR AND GFRAA in patients over 70 years has not been determined. Clinical correlation is essential. LAB L501.1110 >60 mL/min Normal EST GFR 75 Result Comment: Non- GFR Calc LAB L501.1115 >60 mL/min Normal EST GFR - AA 91 Result Comment: GFR Calc LAB L501.1300 10-20 RATIO Normal BUN/CRE 12.2 LAB L501.1500 6.4-8.2 g/dL High T PROT 8.6 LAB L501.1800 3.2-5.0 g/dL Normal ALB 3.7 LAB L501.1950 2.2-4.2 g/dL High GLOB 4.9 LAB L501.2000 0.9-2.4 RATIO Low A/G 0.8 LAB L501.2200 8.5-10.1 mg/dL CA Normal 9.6 LAB L501.4100 15-37 U/L High AST 44 LAB L501.4305 45-117 U/L High ALK P 253 LAB L501.4405 13-56 U/L High ALT 61 LAB L501.4600 0.20-1.00 mg/dL T Normal BILI 0.40 LAB L501.5300 136-145 mmol/L Low NA 134 LAB L501.5600 3.5-5.1 mmol/L K Normal 4.4 LAB L501.5900 98-107 mmol/L CL Normal 99 LAB L501.6100 21.0-32.0 mmol/L Normal CO2 26.0 LAB L501.6200 5-15 Normal GAP 9 Performed By: #### L500.4050 #### [facility] [address] [facility] [place], [address] LUNG Observed: 11/27/2017 Status: F Source: [place] SCREENING 1:42 PM [facility] Imaging Services [address] [place] [address] Lung Screening MR#: [id number] Acct: [id number] Name: NALLELY MOYA E Rep #: [id number] : 1955 F 62 From: All Pittman MD PCP: Cornelius Srinivasan MD, Chi Status: REG CLI Study: Low Dose CT Lung Screening Date of Exam: 11/27/17 Exam# [id number] Ordering Dr: Cornelius Srinivasan MD STUDY: LOW DOSE CT LUNG CANCER SCREENING REASON FOR EXAM: Female, 62 years old. Tobacco use. Between 1 and 2 pack per day smoker, 55 years. Screening. RADIATION DOSAGE (If Supplied By Facility): CTDIvol = ( 2.55 ) mGy, DLP = ( 84.87 ) mGycm TECHNIQUE: No contrast was administered. Low dose technique was utilized (average mAS-38 and kVp 120). 1.25 mm axial source images with a slice interval of 1.25- mm were reconstructed in lung windows. Nodule measured using lung windows on PACS and/or independent workstation with automated measurement of minimum and maximum diameter. Nodule measurement reported as average diameter rounded to the nearest whole number. Growth is defined as an increase ins size of greater than 1.5 mm. COMPARISON: Low dose CT 10/15/2016. FINDINGS: Total lung nodules (excluding granulomas): Only a few scattered tiny pulmonary nodules are present, the most conspicuous lying within the right upper lobe anterior segment, image 130, measuring about 3.5 mm. Stable compared to prior imaging. Emphysema: Generalized mild hyperlucency without chloé features of centrilobular or paraseptal emphysema. Endobronchial lesion: There are no endobronchial lesions. Aorta: Nondilated aorta with mild arch atherosclerosis. Coronary arteries: Three-vessel coronary calcifications most prominent in the proximal to mid LAD. Heart: There is no cardiomegaly or pericardial effusion. Pulmonary artery: Nondilated central pulmonary arteries. Mediastinal nodes: Normal esophagus. No mediastinal or hilar mass or lymphadenopathy. A few small mediastinal lymph nodes are unchanged compared to prior imaging. Chronic. Other chest and abdominal findings: No other acute thoracic process is evident in limited evaluation. CT/Low Dose CT Lung Screening IMPRESSION: No acute cardiopulmonary process. Three-vessel coronary atherosclerosis. Pulmonary features suspicious for mild COPD without chloé emphysematous changes. A few scattered tiny pulmonary nodules the largest measuring about 3.5 mm are stable. ACR Lung RADS criteria: Recommendation is for follow-up annual low dose screening CT. IMPORTANT NOTES FOR USE: ACR Lung-RADS Version 1.0 Assessment Categories Release Date: August 23, 2013 Category: Coded 0-4 bases on nodule(s) with highest degree of suspicion. Negative screen is defined as categories 1 and 2; a positive screen is defined as categories 3 and 4. Category 3 and 4A nodules that are unchanged on interval CT should be coded as category 2, and individuals returned to screening in 12 months. Category 4X: Category 3 or 4 nodules with additional imaging findings that increase the suspicion of lung cancer, such as spiculation, GGN that doubles in size in 1 year, enlarged lymph notes, etc. Category Modifiers: S (significant finding unrelated to lung cancer) and C (prior history of treated lung cancer) may be added to the 0-4 Lung-RADS Electronically Signed: All Pittman, at 18:14 EDT Tel , Service support , CC: Cornelius Srinivasan MD Transportation Refrigeration Technician: Signed ABDOMEN LIMITED Observed: 11/03/2017 Status: F Source: [place] 7:54 AM [facility]IT[facility] Imaging Services [address] [place] [address] Abdomen Limited MR#: [id number] Acct: [id number] Name: NALLELY MOYA Rep #: [id number] : 1955 F 61 From: Jose Segura MD PCP: Cornelius Srniivasan MD, Chi Status: REG CLI Study: Abdomen Limited Date of Exam: 11/03/17 Exam# [id number] Ordering Dr: Cornelius Srinivasan MD STUDY: ABDOMINAL ULTRASOUND - RIGHT UPPER QUADRANT REASON FOR VISIT: Female, 61 years old. Elevated liver enzymes. TECHNIQUE: Ultrasound evaluation of the right upper quadrant was performed with real-time and static madera-scale imaging. TECHNICAL QUALITY: Adequate. COMPARISON: None. FINDINGS: Liver: The liver is enlarged and measures 18.8 cm. There is increased echogenicity consistent with fatty infiltration. The bile ducts are within normal limits. There is hepatic color flow. The direction of portal flow is hepatopetal. There is no demonstrated mass lesion. Gallbladder: Normal distended gallbladder. The gallbladder wall measures 2.0 mm. There is a negative sonographic Sy's sign. There is no pericholecystic fluid. There are no gallstones. Several small polyps are seen. The largest measures 6 mm. There is a 5 mm polyp with a ringdown artifact. This is suggestive of cholesterolosis. Common Bile Duct (C.B.D.): The common bile duct measures 4.0 mm. Pancreas: There is nonvisualization of the pancreas due to overlying bowel gas. Right Kidney: Normal size of the right kidney. The right kidney measures 11.6 cm x 4.6 cm x 6.5 cm. Normal renal cortex. The right cortex measures 1.0 cm. There is no demonstrated renal mass or cyst. There is no right hydronephrosis. US/Abdomen Limited IMPRESSION: Gallbladder polyp. Findings suggestive of cholesterolosis. Electronically Signed: Jose Segura MD at 13:31 EDT Tel [phone], Service support , CC: Cornelius Srinivasan MD Transportation Refrigeration Technician: Signed CBC W/DIFF, AUTOMATED Collected: 10/14/2017 Status: F Source: [place] 1:39 PM [facility] REPOS[facility] TYPE CODE TESTS RESULT OUT OF RANGE REFERENCE UNITS LAB L100.1000 4.4-11.0 K/mm3 Normal WBC 8.6 LAB L100.1200 4.2-5.4 M/mm3 Normal RBC 4.47 LAB L100.1300 12.0-15.0 g/dl Normal HGB 13.1 LAB L100.1400 37-47 % Normal HCT 40.1 LAB L100.1500 81-99 fL Normal MCV 89.7 LAB L100.1600 27.0-32.0 pg Normal MCH 29.3 LAB L100.1700 32-36 g/gl Normal MCHC 32.7 LAB L100.1810 11.6-14.6 % Normal RDW CV 13.4 LAB L100.1820 35.1-43.9 fl Normal RDW SD 43.3 LAB L100.1900 150-450 K/mm3 High PLT 467 LAB L100.2000 6.2-12.0 fl Normal MPV 9.5 LAB L100.2100 47-70 % High NEUT% 71.1 LAB L100.2200 19-41 % Normal LY% 21.1 LAB L100.2300 0-10 % Normal MONO% 6.8 LAB L100.2400 0-5 % Normal EO% 0.7 LAB L100.2500 0-1 % Normal BASO% 0.1 LAB L100.2550 0.0-0.9 % Normal IM GRAN % 0.200 Result Comment: IG% - Immature Granulocytes (promyelocytes, myelocytes and metamyelocytes) > 1% indicates that a LEFT SHIFT is Present. LAB L100.2620 2.0-7.7 X10 3/uL Normal Absolute Neut 6.1 LAB L100.2720 0.83-4.51 X10 3/ul Normal Absolute Lymph 1.80 Performed By: #### L100.0100 #### [facility] [address] [place], [place], [address] COMPREHENSIVE METABOLIC Collected: 10/14/2017 Status: F Source: [facility] 1:39 PM [facility] REPOSIT[facility] TYPE CODE TESTS RESULT OUT OF RANGE REFERENCE UNITS LAB L501.0100 74-106 mg/dL High GLU 112 Result Comment: Fasting Glucose result from 100 to 125 mg/dL suggests IMPAIRED HOMEOSTASIS per A.D.A. criteria. Please note revised GLUCOSE reference range effective 2017. LAB L501.1000 7-18 mg/dL Normal BUN 11 LAB L501.1100 0.55-1.02 mg/dL Normal CREAT,SERUM 0.75 Result Comment: The validity of the calculated GFR AND GFRAA in patients over 70 years has not been determined. Clinical correlation is essential. LAB L501.1110 >60 mL/min Normal EST GFR 83 Result Comment: Non- GFR Calc LAB L501.1115 >60 mL/min Normal EST GFR - AA 100 Result Comment: GFR Calc LAB L501.1300 10-20 RATIO Normal BUN/CRE 14.6 LAB L501.1500 6.4-8.2 g/dL T Normal PROT 7.9 LAB L501.1800 3.2-5.0 g/dL Normal ALB 3.5 LAB L501.1950 2.2-4.2 g/dL High GLOB 4.4 LAB L501.2000 0.9-2.4 RATIO Low A/G 0.8 LAB L501.2200 8.5-10.1 mg/dL CA Normal 9.0 LAB L501.4100 15-37 U/L High AST 51 LAB L501.4305 45-117 U/L High ALK P 251 LAB L501.4405 13-56 U/L High ALT 79 LAB L501.4600 0.20-1.00 mg/dL T Normal BILI 0.40 LAB L501.5300 136-145 mmol/L Low NA 131 LAB L501.5600 3.5-5.1 mmol/L K Normal 4.6 LAB L501.5900 98-107 mmol/L CL Normal 98 LAB L501.6100 21.0-32.0 mmol/L Normal CO2 26.0 LAB L501.6200 5-15 Normal GAP 7 Performed By: #### L500.4050, L500.4100, L501.9520 #### [facility] [address] [place], [address] LIPID PROFILE Collected: 10/14/2017 Status: F Source: [place] 1:39 PM [facility] REPOSITORY TYPE CODE TESTS RESULT OUT OF RANGE REFERENCE UNITS LAB L501.4900 200 mg/dL Normal CHOL 193 Result Comment: <200 mg/dL Desirable 200-240 mg/dL Borderline >240 mg/dL High Risk LAB L501.5000 mg/dL Normal TRIG 77 Result Comment: The drugs N-Acetylcysteine and Metamizole may falsely depress this assay. Serum Triglycerides Reference Interval Normal <150 mg/dL Borderline high 150 - 199 mg/dL High 200 - 499 mg/dL Very High > or = 500 mg/dL LAB L501.6400 mg/dL Normal HDL 69 Result Comment: The drugs N-Acetylcysteine and Metamizole may falsely depress this assay. Reference Range HDL <40 mg/dL Low HDL Cholesterol HDL >or= 60 mg/dL High HDL Cholesterol LAB L501.6500 0-130 mg/dL Normal LDL 109 LAB L501.6600 5-40 mg/dL Normal VLDL 15 Performed By: #### L500.4050, L500.4100, L501.9520 #### [facility] [address] [place], [address] THYROID STIM HORMONE Collected: 10/14/2017 Status: F Source: [place] (TSH) 1:39 PM [facility] REPOSITORY TYPE CODE TESTS RESULT OUT OF RANGE REFERENCE UNITS LAB L501.9520 0.358-3.74 uIU/mL Normal TSH 0.79 Performed By: #### L500.4050, L500.4100, L501.9520 #### [facility] [address] [facility] [place], [address] XR FLUORO GUIDANCE FOR Observed: 07/08/2017 Status: F Source: [facility] THERAPY INJECTION 8:14 AM [facility] REPOSITORY ORIGINAL Images acquired, not reported on this accession number. CBC W/DIFF, AUTOMATED Collected: 07/01/2017 Status: F Source: [place] 12:04 PM [facility] REPOSITORY TYPE CODE TESTS RESULT OUT OF RANGE REFERENCE UNITS LAB L100.1000 4.4-11.0 K/mm3 High WBC 11.3 LAB L100.1200 4.2-5.4 M/mm3 Normal RBC 4.29 LAB L100.1300 12.0-15.0 g/dl Normal HGB 12.9 LAB L100.1400 37-47 % Normal HCT 40.4 LAB L100.1500 81-99 fL Normal MCV 94.2 LAB L100.1600 27.0-32.0 pg Normal MCH 30.1 LAB L100.1700 32-36 g/gl Low MCHC 31.9 LAB L100.1810 11.6-14.6 % Normal RDW CV 13.6 LAB L100.1820 35.1-43.9 fl High RDW SD 46.6 LAB L100.1900 150-450 K/mm3 High PLT 457 LAB L100.2000 6.2-12.0 fl Normal MPV 9.1 LAB L100.2100 47-70 % Normal NEUT% 68.6 LAB L100.2200 19-41 % Normal LY% 24.5 LAB L100.2300 0-10 % Normal MONO% 5.6 LAB L100.2400 0-5 % Normal EO% 0.7 LAB L100.2500 0-1 % Normal BASO% 0.2 LAB L100.2550 0.0-0.9 % Normal IM GRAN % 0.400 Result Comment: IG% - Immature Granulocytes (promyelocytes, myelocytes and metamyelocytes) > 1% indicates that a LEFT SHIFT is Present. LAB L100.2620 2.0-7.7 X10 3/uL Normal Absolute Neut 7.7 LAB L100.2720 0.83-4.51 X10 3/ul Normal Absolute Lymph 2.76 Performed By: #### L100.0100 #### [facility] [address] [place], [address] COMPREHENSIVE METABOLIC Collected: 07/01/2017 Status: F Source: [facility] 12:04 PM [facility] REPOSITORY TYPE CODE TESTS RESULT OUT OF RANGE REFERENCE UNITS LAB L501.0100 74-106 mg/dL Normal GLU 94 Result Comment: Please note revised GLUCOSE reference range effective 2017. LAB L501.1000 7-18 mg/dL Normal BUN 8 LAB L501.1100 0.55-1.02 mg/dL Normal CREAT,SERUM 0.73 Result Comment: The validity of the calculated GFR AND GFRAA in patients over 70 years has not been determined. Clinical correlation is essential. LAB L501.1110 >60 mL/min Normal EST GFR 85 Result Comment: Non- GFR Calc LAB L501.1115 >60 mL/min Normal EST GFR - AA 103 Result Comment: GFR Calc LAB L501.1300 10-20 RATIO Normal BUN/CRE 10.9 LAB L501.1500 6.4-8.2 g/dL High T PROT 8.3 LAB L501.1800 3.2-5.0 g/dL Normal ALB 3.6 LAB L501.1950 2.2-4.2 g/dL High GLOB 4.7 LAB L501.2000 0.9-2.4 RATIO Low A/G 0.8 LAB L501.2200 8.5-10.1 mg/dL CA Normal 9.0 LAB L501.4100 15-37 U/L Normal AST 23 LAB L501.4305 45-117 U/L High ALK P 213 LAB L501.4405 13-56 U/L Normal ALT 35 Result Comment: Please note revised ALT reference range effective 2017. LAB L501.4600 0.20-1.00 mg/dL Normal T BILI 0.30 LAB L501.5300 136-145 mmol/L Low NA 132 LAB L501.5600 3.5-5.1 mmol/L Normal K 4.1 LAB L501.5900 98-107 mmol/L Low CL 95 LAB L501.6100 21.0-32.0 mmol/L Normal CO2 27.0 LAB L501.6200 5-15 Normal GAP 10 Performed By: #### L500.4050, L500.4100, L501.9520 #### [facility] [address] [facility] [place], [place], [id number] LIPID PROFILE Collected: 07/01/2017 Status: F Source: [place] 12:04 PM [facility] REPOSITORY TYPE CODE TESTS RESULT OUT OF RANGE REFERENCE UNITS LAB L501.4900 200 mg/dL Normal CHOL 181 Result Comment: <200 mg/dL Desirable 200-240 mg/dL Borderline >240 mg/dL High Risk LAB L501.5000 mg/dL Normal TRIG 105 Result Comment: The drugs N-Acetylcysteine and Metamizole may falsely depress this assay. Serum Triglycerides Reference Interval Normal <150 mg/dL Borderline high 150 - 199 mg/dL High 200 - 499 mg/dL Very High > or = 500 mg/dL LAB L501.6400 mg/dL Normal HDL 74 Result Comment: The drugs N-Acetylcysteine and Metamizole may falsely depress this assay. Reference Range HDL <40 mg/dL Low HDL Cholesterol HDL >or= 60 mg/dL High HDL Cholesterol LAB L501.6500 0-130 mg/dL Normal LDL 86 LAB L501.6600 5-40 mg/dL Normal VLDL 21 Performed By: #### L500.4050, L500.4100, L501.9520 #### [facility] [address] [place], [place], [id number] THYROID STIM HORMONE Collected: 07/01/2017 Status: F Source: [place] ([place]SH) 12:04 PM [facility] REPOSITORY TYPE CODE TESTS RESULT OUT OF RANGE REFERENCE UNITS LAB L501.9520 0.358-3.74 uIU/mL Normal TSH 1.32 Performed By: #### L500.4050, L500.4100, L501.9520 #### [facility] [address] [place], [address] VITAMIN D,25 HYDROXY Collected: 07/01/2017 Status: F Source: [place] 12:04 PM [facility] REPOSITORY TYPE CODE TESTS RESULT OUT OF REFERENCE UNITS RANGE LAB L506.1000 29.95-100.01 ng/mL Low Vitamin D 14.6 25-OH Result Comment: Vitamin D 25(OH) Status Range Deficiency <20 ng/mL (50nmol/L) Insuffciency 20 - 30 ng/mL (50 - 75 nmol/L) Sufficiency 30 - 100 ng/mL (75 - 250 nmol/L) Toxicity >100 ng/mL (>250 nmol/L) Performed By: #### L506.1000 #### [facility] [address] [place], [address] ALLERGIES ALLERGIES DATE TYPE / CODE NAME / CODE REACTION SEVERITY SOURCE 12/17/2017 Drug No Known Unknown [facility] Allergy/4160 Allergies/F00 [facility] [address](SNOMED 4718572(RXNOR Repository CT) M) ENCOUNTERS ENCOUNTERS ADMIT/DISCHARGE ACCOUNT NUMBER ADMITTING ENCOUNTER LOCATION SOURCE CLASS 04/15/2018 [id number] Ambulatory [facility] ding:POLAB3 Repository 04/09/2018 [id number] Ambulatory [facility]Building:[facility] Repository 02/26/2018/02/27/20 [id number] Ambulatory BBuilding:OS [facility] 18 DURm: Health 0001Bed: A [facility] Repository 01/19/2018 [id number] Ambulatory [facility] ding:MTLAB Repository 01/05/2018 [id number] Ambulatory [facility] ding:CVS Repository 01/05/2018 [id number] Ambulatory BMSBuilding: [facility] Repository 12/25/2017/12/26/19 [id number] Ambulatory BBuilding:OS [facility] 18 DURoom: Health 0001Bed: C [facility] Repository 12/17/2017/12/18/19 [id number] Ambulatory BMSBuilding: [place] 18 BMS.[facility] Repository 12/16/2017 [id number] Ambulatory [facility] ding:POLAB3 Repository 12/13/2017 [id number] Ambulatory BMSBuilding: [place] BMS.[facility] Repository 11/27/2017 [id number] Ambulatory [facility] ding:CT Repository 11/03/2017 [id number] Ambulatory [facility] ding:US Repository 10/14/2017 [id number] Ambulatory [facility] ding:POLAB3 Repository 07/08/2017/07/09/19 [id number] Ambulatory BBuilding:OS [facility] 18 DURoom: Health 0001Bed: A [facility] Repository 07/01/2017 [id number] Ambulatory [facility] ding:POLAB3 Repository PAYERS PAYERS ENCOUNTER GUARANTOR PAYER SUBSCRIBER SOURCE 04/15/2018 NALLELY Ha [id number] Primary NALLELY Asencio [facility] Insurance:EFRAIN ROSASOB[place] [id number] Hospital [address]Bdm: 330 ADVANTAPolicy Number: Repository [phone] ) [id number] Date:[id number] [address]RP: 04/15/2018 Secondary NOT GIVENUNK [place] Insurance:SELF PAY [facility] Number: Effective Repository Date:2018-04-15 04/09/2018 LIANA [facility] Insurance:EFRAIN ROSASOB: [facility]BLUEUniversal [facility] Services [id number] Repository [facility], Number: [facility] [id number] [place], [place] [address] [address] Date:2018-01-05Tel: (330) @[email or web address]: [phone] [phone] Name:NPO Box (HP)Tel: (000) (HP)Tel: [phone], [place] 000-0000 (WP) [phone] (WP) 769[address]HZ: 02/26/2018 LIANA Primary NALLELY Ha [facility] BRADENDOB: Insurance:ANTHEM BRADENDOB: [facility] W [facility] [id number] Repository [facility], Number: [facility] [id number] [place] [address]~[place] [address] Date:2018-02-18Tel: (330) @[email or web address]: [phone] [phone] Name:NPO Box (HP)Tel: (000) (HP)Tel: [phone], [place] 000-0000 (WP) [phone] (WP) [phone]: 01/19/2018 NALLELY MOYA410 Primary NALLELY Shah W [employer] Insurance:EFRAIN ROSASOB: [place] [id number] Hospital [address]Rzi: (330) ADVANTAPolicy Number: Repository [phone] () [id number] Date:6573-82-70AO [address] [place] [address]IJ: 01/19/2018 Secondary NOT GIVENUNK [place] Insurance:SELF PAY [facility] Number: Effective Repository Date:2018-01-19 01/05/2018 NALLELY MOYA410 Primary NALLELY Shah W [facility] Insurance:EFRAIN ROSASOB: [place] [id number] Hospital [address]Fey: (330) ADVANTAPolicy Number: Repository [phone] () [id number] Date:3913-73-32ND [address] [place] [address] 19[address]FT: 01/05/2018 Secondary NOT GIVENUNK [place] Insurance:SELF PAY [facility] Number: Effective Repository Date:2017-12-17 01/05/2018 NALLELY MOYA410 Primary LIANANisha Shah W [place] Insurance:ANTHEM BRADENDOB: [place] [id number] Hospital [address]Huh: ([phone]) ADVANTAPolicy Number: Repository [phone] () [id number] Date:9437-04-91XU [address] [place] [address] 288[address]BX: 01/05/2018 Secondary NOT GIVENUNK [place] Insurance:SELF PAY [facility] Number: Effective Repository Date:2018-01-05 12/25/2017 LIANA Primary NALLELY Ha [facility] BRADENDOB: Insurance:ANTHEM BRADENDOB: [facility] W MEDIBLUEPolicy [id number] Repository [facility], Number: [facility] [id number] [place] [address]~[id number] Date:2017-12-22Tel: 330) @[facility]ULLIVANel: [id number] [phone] Name:KERRY Malagon ()Tel: (000) ()Tel: [phone] [place] [address] 000-0000 (WP) [phone] (WP) [phone]: 12/17/2017 NALLELY MOYA410 Primary NALLELY Shah [address] [employer] Insurance:ANTHEM BRADENDOB: [place] [id number] Hospital [address]Mol: (330) ADVANTAPolicy Number: Repository [phone] () [id number] Date:3064-24-28[id number] [place] [address]TF: 12/17/2017 Secondary NOT GIVENUNK [place] Insurance:SELF PAY [facility] Number: Effective Repository Date:2017-12-17 12/16/2017 NALLELY MOYA410 Primary LIANA [place] [address] Insurance:EFRAIN ROSASOB: [place] [id number] Hospital [address]Irb: (330) ADVANTAPolicy Number: Repository [phone] () [id number] Date:7817-69-11SL [address] [place] [address]HG: 12/16/2017 Secondary NOT GIVENUNK [place] Insurance:SELF PAY [facility] Number: Effective Repository Date:2017-11-11 12/13/2017 NALLELY MOYA410 Primary LIANA [place] [address] Insurance:SUSANASTEPH ROSASOB: [place] MEDICARE SENIOR [id number] Ville [id number]: [phone] ADVANTAPolicy Number: Repository [phone] () [id number] Date:[id number] [address] [place] [address] 844[address]EP: 12/13/2017 Secondary NOT GIVENUNK Alyssa Insurance:SELF PAY [facility] Number: Effective Repository Date:2017-12-13 11/27/2017 NALLELY MOYA410 Primary LIANA Venus [address] Insurance:SUSANASTEPH ALISONOB: [place] SEN[place] [id number] [facility] [address]Enn: [phone]) ADVANTAPolicy Number: Repository [phone] () [id number] Date:[id number] [address] [place] [address] 08840IW: 11/27/2017 Secondary NOT GIVENUNK Alyssa Insurance:SELF PAY [facility] Number: Effective Repository Date:2017-11-24 11/03/2017 NALLELY MOYA410 Primary LIANA Venus [address] Insurance:EFRAIN ROSASOB: [place] [id number] Hospital [address]Dmd: [phone] ADVANTAPolicy Number: Repository [phone] () [id number] Date:[id number] [address], [place] [address]OV: 11/03/2017 Secondary NOT GIVENUNK Alyssa Insurance:SELF PAY [facility] Number: Effective Repository Date:2017-10-28 10/14/2017 NALLELY MOYA410 Primary NALLELY Shah [address] [facility] Insurance:ANTHEM BRADENDOB: [place], [place] SENIOR [id number] [address]Rtc: ADVANTAPolicy Number: Repository [id number] (HP) Date:[id number] [address], [place] [address]WM: 10/14/2017 Secondary NOT GIVENUNK Alyssa Insurance:SELF PAY [facility] Number: Effective Repository Date:2017-10-14 07/08/2017 NALLELY Ha Primary NALLELY Ha [facility] BRADENDOB: Insurance:HUMANA GOLD BRADENDOB: [facility] W CHOICE MEDICAREPolicy [id number] Repository [facility], Number: [facility] [id number] [address]~[id number] Date:2017-07-04Tel: 330 @[facility]ULLIVANel: [id number] [phone] Name:[address] ()Tel: [phone]) (HP)Tel: [phone] [place] [address] [phone] (JY) [id number]: 07/01/2017 Nallely Moya410 Primary Nallely Shah [address] [place] Insurance:HUMANA BradenDOB: [place], MEDICARE PPOPolicy [id number] [facility] Health Center [address]Vri: Number: Repository [id number] (HP) Date:[id number] [address] [place] [id number]: 07/01/2017 Secondary NOT GIVENUNK Venus Insurance:SELF PAY [facility] Number: Effective Repository Date:2017-03-10
== END ==
PROVIDERS: Family Provider Family Medicine Geriatric Medicine; PCP Family Medicine Geriatric Medicine; Visit Provider Family Medicine Geriatric Medicine
DX: I10 Essential (primary) hypertension (principal)
CPT/HCPCS: 36415; 80053; 84443; 85025

== ENCOUNTER → 2018-10-20 10:18 | Outpatient (CLI) | payer MEDICARE, SELFPAY ==
[2018-10-20 12:44] LABS: Absolute Lymphocyte Count 1.99 X10^3/ul (0.83-4.51); Absolute Neutrophil Count 11.2 X10^3/uL (2.0-7.7); Basophil# 0.02 X10^3/uL; Basophil% 0.1 % (0-1); Eosinophil# 0.06 X10^3/uL; Eosinophils% 0.4 % (0-5); Hematocrit 43.1 % (37-47); Hemoglobin 14.2 g/dl (12.0-15.0); Lymphocyte # 1.99 X10^3/ul (4.0); Lymphocyte % 13.8 % (19-41); Mean Corp Hgb Conc 32.9 g/gl (32-36); Mean Corpuscular Hgb 28.9 pg (27.0-32.0); Mean Corpuscular Volume 87.8 fL (81-99); Mean Platelet Vol. 9.4 fl (6.2-12.0); Monocyte# 1.08 X10^3/uL; Monocyte% 7.5 % (0-10); Neutrophil # 11.17 X10^3/uL (2.7-7.7); Neutrophil % 77.7 % (47-70); Platelet Count 530 K/mm3 (150-450); RBC Distribution Width CV 14.8 % (11.6-14.6); RBC Distribution Width SD 47.2 fl (35.1-43.9); Red Blood Count 4.91 M/mm3 (4.2-5.4); White Blood Count 14.4 K/mm3 (4.4-11.0)
[2018-10-20 12:45] LABS: POSITIVE COUNT NO; POSITIVE DIFFERENTIAL NO; POSITIVE MORPHOLOGY NO
[2018-10-20 13:11] LABS: ALB/GLOB Ratio 0.7 RATIO (0.9-2.4); AST(SGOT) 55 U/L (15-37); Alanine Aminotransfer ALT/SGPT 77 U/L (13-56); Albumin, Serum 3.4 g/dL (3.2-5.0); Alkaline Phosphatase 410 U/L (45-117); Anion Gap 11 (5-15); BUN 14 mg/dL (7-18); BUN/Creat Ratio 18.5 RATIO (10-20); Calcium,Total 9.2 mg/dL (8.5-10.1); Chloride 94 mmol/L (98-107); Creatinine, Serum 0.76 mg/dL (0.55-1.02); EST Glomerular Filtration Rate 82 mL/min (>60); Est Glom Filt Rate - Afr Amer 99 mL/min (>60); Globulin 4.9 g/dL (2.2-4.2); Glucose 94 mg/dL (74-106); Potassium 4.2 mmol/L (3.5-5.1); Protein, Total 8.3 g/dL (6.4-8.2); Sodium Level 130 mmol/L (136-145); Thyroid Stim Hormone (TSH) 1.68 uIU/mL (0.358-3.74)
== END ==
PROVIDERS: Family Provider Family Medicine Geriatric Medicine; PCP Family Medicine Geriatric Medicine; Visit Provider Family Medicine Geriatric Medicine
DX: I10 Essential (primary) hypertension (principal)
CPT/HCPCS: 36415; 80053; 84443; 85025

== ENCOUNTER → 2019-01-22 14:39 | Outpatient (CLI) | payer MEDICARE, SELFPAY ==
[2018-12-17 09:44] VITALS: BMI 34.5
--- NOTE | 2019-01-22 14:44 | CT_ITS ---
STUDY: LOW DOSE CT LUNG CANCER SCREENING REASON FOR EXAM: Female, 63 years old. Tobacco use RADIATION DOSAGE (If Supplied By Facility): CTDIvol = ( 3.02 ) mGy, DLP = ( 91.01 ) mGycm COMPARISON: CT chest November 27, 2017 TECHNIQUE: No contrast was administered. Low dose technique was utilized (average mAS-38 and kVp 120). 1.25 mm axial source images with a slice interval of 1.25-mm were reconstructed in lung windows. 2.5 mm axial source images with a slice interval of 2.5-mm were reconstructed in lung windows. 5.0 mm axial source images with a slice interval of 5.0-mm were reconstructed in soft tissue windows. Nodule measured using lung windows on PACS and/or independent workstation with automated measurement of minimum and maximum diameter. Nodule measurement reported as average diameter rounded to the nearest whole number. Growth is defined as an increase ins size of greater than 1.5 mm. COMPARISON: None. NODULES: Total lung nodules (excluding granulomas): 0 Emphysema: Minimal Endobronchial lesion: None Aorta: Normal Coronary arteries: Coronary artery calcifications. Heart: Normal Pulmonary artery: Normal Mediastinal nodes: Normal Other chest and abdominal findings: Unremarkable CT/Low Dose CT Lung Screening IMPRESSION: No significant pulmonary nodules. Coronary artery calcifications. LRADS 1. IMPORTANT NOTES FOR USE: ACR Lung-RADS Version 1.0 Assessment Categories Release Date: August 23, 2013 Category: Coded 0-4 bases on nodule(s) with highest degree of suspicion. Negative screen is defined as categories 1 and 2; a positive screen is defined as categories 3 and 4. Category 3 and 4A nodules that are unchanged on interval CT should be coded as category 2, and individuals returned to screening in 12 months. Category 4X: Category 3 or 4 nodules with additional imaging findings that increase the suspicion of lung cancer, such as spiculation, GGN that doubles in size in 1 year, enlarged lymph notes, etc. Category Modifiers: S (significant finding unrelated to lung cancer) and C (prior history of treated lung cancer) may be added to the 0-4 Lung-RADS Electronically Signed: Narendra Lemos, at 19:00 EDT Tel , Service support ,
== END ==
PROVIDERS: Family Provider Family Medicine Geriatric Medicine; PCP Family Medicine Geriatric Medicine; Referring Provider Family Medicine Geriatric Medicine; Visit Provider Family Medicine Geriatric Medicine
DX: Z87.891 Personal history of nicotine dependence (principal)
CPT/HCPCS: G0297

== ENCOUNTER 2019-05-31 14:51 | Emergency (ER) | payer MEDICARE, SELFPAY ==
[2018-12-17 09:44] VITALS: BMI 34.5
[2019-05-31 14:52] VITALS: BP 140/62; PULSE 95; RESP 18; TEMP 36.9; O2SAT 90; BMI 35.4
--- NOTE | 2019-05-31 15:15 | RAD_ITS ---
STUDY: X-RAY - LEFT WRIST REASON FOR EXAM: Female, 63 years old. PAIN AND DEFORMITY S/P FALL TECHNIQUE: 3 view(s) of the wrist were obtained. COMPARISON: None. FINDINGS: There is a comminuted fracture of the distal radial metaphysis with extension to the articular surface. The alignment is maintained. Avulsion fracture of the ulnar styloid. Normal distal radioulnar articulation. Normal carpal bones. Normal carpal articulations. Normal carpometacarpal articulation of the thumb. Normal second through fifth carpometacarpal articulations. Normal visualized metacarpal bones. Soft tissue swelling. RAD/Wrist min 3 Views IMPRESSION: Comment fracture of the distal radial metaphysis with extension of the articular surface as well as an avulsion fracture of the ulnar styloid. Soft tissue swelling. Electronically Signed: Jose Segura, at 15:30 EST , Service support ,
--- NOTE | 2019-05-31 15:38 | ED.DCSUM_ITS ---
- ER Visit Summary Date of Service: 05/31/19 Chief Complaint: Fall History of Present Illness: The patient is a 63 F presenting after fall. Patient was chasing her puppy and slipped and fell on a hill. She landed on outstretched left upper extremity. She did not hit her head or lose consciousness. She is not on anticoagulants. She is on morphine for chronic back pain per pain management. She denies other injuries. She is able to ambulate. Physical Examination: Vitals are stable. Patient is afebrile. Alert no acute distress. HEENT exam is unremarkable. Neck is nontender. Lungs are clear and equal bilaterally. Heart is regular rate and rhythm. Abdomen is soft nontender nondistended. Extremities left wrist diffuse tenderness with painful range of motion. Neurovascularly intact distally. Skin is warm and dry. No focal neurologic deficit. Remainder of exam is unremarkable. Emergency Department Course and Treatment: Ice pack was applied. Left wrist x- ray shows comminuted fracture of the distal radial metaphysis with extension to the articular surface. The alignment is maintained. Avulsion fracture of the ulnar styloid. Patient was given morphine, Zofran IM. Ortho- Glass splint was applied. Neurovascularly intact. Advised to follow-up with orthopedics. Advised return to ED if worsening complaints. Disposition: Discharge home Impression: Left distal radius fracture status post mechanical fall This note was generated with [employer] dictation software. It may contain incorrect words, spelling, and punctuation that were not noted in review of the chart prior to signing ED Disposition - Plan for ED Patient: Instructions: FRACTURE, Wrist [General] Referrals: Sophy Shah DO [STAFF PHYSICIAN] - Cornelius Srinivasan Chi, MD [Primary Care Provider] -
--- NOTE | 2019-05-31 15:43 | ED.DEP ---
ED Disposition - Plan for ED Patient: Instructions: FRACTURE, Wrist [General] Referrals: Cornelius Srinivasan Chi, MD [Primary Care Provider] - Sophy Shah DO [STAFF PHYSICIAN] -
[2019-05-31] MEDS: Morphine 4 MG/ML Syringe 8 MG IM (15:56)
[2019-05-31] MEDS: Ondansetron 4 MG/2 ML Vial IM (15:56)
[2019-05-31 16:33] VITALS: BP 135/72; PULSE 90; RESP 16; O2SAT 90
== END 2019-05-31 16:34 | disposition home or self-care (01) ==
LOC: ED 15:40
PROVIDERS: Emergency Provider Emergency Medicine; PCP Family Medicine Geriatric Medicine
DX: S52.532A Colles' fracture of left radius, initial encounter for closed fracture (principal); S52.612A Displaced fracture of left ulna styloid process, initial encounter for closed fracture; W01.0XXA Fall on same level from slipping, tripping and stumbling without subsequent striking against object, initial encounter; G89.29 Other chronic pain
CPT/HCPCS: 73110; 96372; 99282; J2405

== ENCOUNTER 2019-06-04 08:41 | Day surgery (SDC) | payer MEDICARE, SELFPAY ==
[2019-06-02 09:33] VITALS: BMI 35.4
[2019-06-04] VITALS (7 sets, daily range): BP systolic 85–132; BP diastolic 50–85; PULSE 76–80; RESP 16–17; TEMP 36.4–36.7; O2SAT 88–97; BMI 33.8
--- NOTE | 2019-06-04 09:03 | EKG12_ITS ---
Test Reason : PREOP Blood Pressure : / mmHG Vent. Rate : 077 BPM Atrial Rate : 077 BPM P-R Int : 124 ms QRS Dur : 094 ms QT Int : 386 ms P-R-T Axes : 000 023 085 degrees QTc Int : 436 ms Normal sinus rhythm Nonspecific ST abnormality Abnormal ECG When compared with ECG of 03-JUL-2015 12:44, No significant change was found Confirmed by JA GARCIA, KAMRYN ([id number]), power plant operations manager [address] ([id number]) on 06/07/2019 11:12:47 AM Referred By: Miguel Vieyra Confirmed By:BENY PERES MD
[2019-06-04 09:30] LABS: Hematocrit 40.4 % (37-47); Hemoglobin 13.8 g/dL (12.0-15.0); Mean Corp Hgb Conc 34.2 g/dL (32-36); Mean Corpuscular Hgb 29.9 pg (27.0-32.0); Mean Corpuscular Volume 87.4 fL (81-99); Mean Platelet Vol. 8.7 fl (6.2-12.0); Platelet Count 365 K/mm3 (150-450); RBC Distribution Width CV 13.4 % (11.6-14.6); Red Blood Count 4.62 M/mm3 (4.2-5.4)
[2019-06-04] MEDS: Lactated Ringers 1,000 ML 100 ML IV (09:31)
[2019-06-04 09:52] LABS: Thyroid Stim Hormone (TSH) 0.84 uIU/mL (0.358-3.74)
--- NOTE | 2019-06-04 10:06 | HP.PCM_ITS ---
History and Physical Date of Admission: 06/04/19 Intake Intake Visit Reasons: LEFT WRIST Is patient in pain?: Yes Allergies No Known Allergies Allergy (Verified 05/31/19 14:52) Medications Amlodipine [Norvasc] 10 mg PO DAILY 06/13/15 [History Confirmed 06/02/19] Clonazepam [Klonopin] 0.5 mg PO PRN PRN 06/13/15 [History Confirmed 06/02/19] Lisinopril [Zestril] 40 mg PO DAILY 06/13/15 [History Confirmed 06/02/19] Risperidone [Risperdal] 1 mg PO DAILY 06/13/15 [History Confirmed 06/02/19] morphine SR tablet [MS Contin] 30 mg PO Q12H 06/13/15 [History Confirmed 06/02/19] cholecalciferol (vitamin D3) 1,250 mcg (50,000 unit) capsule 50,000 unit PO . qmonthly cap 12/13/17 [History Confirmed 06/02/19] bupropion HCl 75 mg tablet 150 mg PO BID tab 12/17/17 [History Confirmed 06/02/19] levothyroxine 50 mcg capsule 25 mcg PO QDAY cap 12/17/17 [History Confirmed 06/02/19] amitriptyline 50 mg tablet 10 mg PO QHS 06/02/19 [History Confirmed 06/02/19] lamotrigine 100 mg tablet 200 mg PO DAILY 06/02/19 [History Confirmed 06/02/19] tizanidine 2 mg tablet 4 mg PO PRN PRN tab 06/02/19 [History Confirmed 06/02/19] PFSH Social History (Updated 06/02/19 @ 10:23 by Miguel Vieyra DO) Smoking Status: Current every day smoker HPI LEFT WRIST: Details: Parts of this documentation were recorded by a scribe, this documentation accurately reflects the service provided and the decisions made by me, Miguel Vieyra DO 06/02/19 0758. ERIKA MOYA is a 63 year old F here today for ED f/u from 05/31/2019, patient was trying to get her puppy from running away when she slipped on a hill in the yard. She had immediate swelling and pain with a deformity. She presents today in the splint from the ED that was wrapped with non giving kerlix, she has swelling of her fingers and pain with any finger rom. There is tingling in the fingers that comes and goes. She is using pain meds from her back pain 30 mg extended release morphine twice a day from her pain management doctor she does smoke home rolled cigarettes [address] [facility] [place] as per HPI, Reports joint pain, Reports joint swelling, Reports limited joint movement, Reports stiffness Skin/Breast Reports system reviewed and no additional complaints, except as docu Neuro Yes system reviewed and no additional complaints, except as docu Ortho Exam Right Wrist/Hand Skin/Wound: Yes Swelling (moderate), Yes Ecchymosis Left Wrist/Hand Date of injury: 05/31/19 Skin/Wound: Yes wound care, Yes Swelling (moderate), Yes Ecchymosis, Yes capillary refill normal Left Wrist: Yes TTP Fracture site; no ROM-Extension 0-60, no ROM-Flexion 0-80, no ROM-Pronation 0-80 or no ROM-Supination 0-90 WRIST: small superficial abrasion approx 5mm on dorsal lateral forearm, intact sensation to light touch throughout all fingers compartments soft moderate swell ing but able to make a wrinkle Supplemental Info 05/31/2019 x-ray left wrist: X-rays comminuted intra-articular displaced distal radius fracture ulnar styloid tip fracture Assessment & Plan Problems 1. Other closed intra-articular fracture of distal end of right radius, initial encounter S52.961A Plan Reviewed the severity of her fracture and that it needs surgical repair, the risk of developing OA but that surgery will align the joint and decrease the risk of OA development sooner. Reviewed the surgical options of ex fix vs orif. Instructed to elevate higher than heart to decrease swelling so that she can have surgery on friday. Reviewed the pre-operative plans with the patient. Risks and benefits of the procedure were fully explained, including but not limited to infection, neurovascular injury, continued pain, arthritis, stiffness, need for further surgery, re-injury, DVT, PE, general risks of anesthesia, and loss of limb or life. The patient understands all the risks and does wish to proceed with written consent. Follow up postop or sooner if pain, swelling, numbness or associated symptoms, or concerns develop. All questions answered. Patient in agreement of plan. Coding Level of Care Code Off vis,new,level 3 Diagnoses Other closed intra-articular fracture of distal end of right radius, initial encounter S52.365U ??Encounter type: initial encounter ??Fracture morphology: other intra-articular ??Fracture type: closed ??Radius location: distal I have re-examined the patient. There are no clinical changes since date of exam
--- NOTE | 2019-06-04 10:30 | RAD_ITS ---
STUDY: X-RAY - LEFT WRIST REASON FOR EXAM: Female, 63 years old. ORIF of a distal radial fracture TECHNIQUE: 5 intraoperative view(s) of the wrist were obtained. COMPARISON: None. FINDINGS: 5 limited intraoperative C-arm films were performed as a distal radial fracture has been stabilized with external fixators attached to the radius proximal to the fracture and in the second metacarpal. Alignment at the fracture site is anatomic. Follow up is recommended to ensure complete osseous union RAD/Wrist min 3 Views IMPRESSION: Placement of external fixators to stabilize a distal radial fracture. Alignment is anatomic. Follow-up recommended to ensure osseous union Electronically Signed: Dhaval Castro MD at 11:50 EST , Service support ,
[2019-06-04] MEDS: Cefazolin 2 GM in 0.9% Normal Saline 100 ML IV (10:35)
--- NOTE | 2019-06-04 11:10 | PCM.DC.ORTHO ---
Discharge Diet: No Restrictions Call your doctor if you observe: Shortness of breath, Chest pain Additional Instructions: Strict ice and elevation next 2 weeks okay to move fingers but no lifting anything with operative extremity keep bandage on clean and dry do not get wet. Not let animals near incisional areas. Only use narcotic as needed substitute with Tylenol and NSAID when able to. Call pain management for narcotic management although oxycodone will be prescribed today oral morphine chronic use and adjustments should be maintained by pain management physician. Follow-up 2 weeks Allergies/Adverse Reactions: Allergies No Known Allergies Allergy (Verified 06/04/19 08:59) Medications to take at Discharge Amlodipine [Norvasc] 10 mg PO DAILY 06/13/15 Clonazepam [Klonopin] 0.5 mg PO PRN PRN 06/13/15 Lisinopril [Zestril] 40 mg PO DAILY 06/13/15 Risperidone [Risperdal] 1 mg PO DAILY 06/13/15 morphine SR tablet [MS Contin] 30 mg PO Q12H 06/13/15 bupropion HCl 75 mg tablet 150 mg PO BID tab 12/17/17 levothyroxine 50 mcg capsule 25 mcg PO QDAY cap 12/17/17 amitriptyline 50 mg tablet 10 mg PO QHS 06/02/19 lamotrigine 100 mg tablet 200 mg PO DAILY 06/02/19 tizanidine 2 mg tablet 4 mg PO PRN PRN tab 06/02/19 Cholecalciferol (Vitamin D3) [Vitamin D3] 2,000 unit PO DAILY 06/03/19 Oxycodone [Oxyir] 5 mg PO Q4H PRN PRN #60 tablet 06/04/19 The following prescriptions were given: Oxycodone [Oxyir] 5 mg PO Q4H PRN PRN #60 tablet PRN Reason: Pain Score 6-10/10 Transmission Status: Received by [facility]/pharmacy #[id number] Primary Care Physician: Cornelius Srinivasan Chi, MD [Primary Care Provider] - Test Results: Test results from this visit will be discussed in further detail at your follow-up appointment, if applicable. Please Follow Up With: Miguel Vieyra DO - 2 weeks
--- NOTE | 2019-06-04 11:16 | PCM.OPRPT ---
Report of Operation Date of Procedure: 06/04/19 Description of Surgical Findings:: Preoperative diagnosis: Left comminuted intra-articular distal radius fracture with displacement Postoperative diagnosis: Same Procedure: Spanning external fixation of left distal radius Anesthesia: General EBL: 2cc Complications: None Condition: Stable to PACU Implants: External fixator Synthes distal radius Indication for procedure: 63-year-old smoker on 60 mg of morphine twice daily for chronic back pain sustained a ground-level fall injuring her left nondominant wrist proceeded to an outside facility ER did follow-up in my office for definitive care discussed operative versus nonoperative intervention including risk benefits and alternatives of both surgical nonsurgical fixation as well as open reduction internal fixation and external fixation. Including the fact that pins will be exposed through the skin with the external fixator and will require a second surgery for removal. However some benefits of not opening include low risk of hardware infection and need for hardware removal flexor tendon irritation. She agreed to proceed with attempted closed reduction and external fixation and if any adequate reduction could be obtained would proceed with this if not we would proceed to open the wrist. She was okay with this risk benefits and alternatives were reviewed including risk of bleeding infection nerve, artery, bone, tissue damage, blood clot need for further surgery and continued pain. Procedure: Patient was met in the preoperative holding area once again the operative extremity was identified by both patient and physician and was marked. Axillary block was placed by anesthesia preoperatively patient was brought back to the operating room and will cart transfer the operative table in supine position anesthesia was started. A well-padded tourniquet was applied but was not inflated. Patient was prepped and draped in the usual sterile fashion a timeout was called to ensure the proper patient procedure and extremity are being contemplated. Fluoroscopy was brought in and close reduction was performed it was felt an adequate closed reduction could be performed with articular reduction. Therefore we did proceed placing 2 Steinmann pins in the radius forearm at 40 degrees and then repeated this in the second metacarpal stab incisions were used as well as a hemostat and pins were placed bicortically. The external fixator clamps were applied close reduction was performed checked under fluoroscopy and while alignment was maintained clamps were saved tightened we then proceeded to take final fluoroscopic images both AP lateral projections which maintained alignment of the articular surface and were saved to the PACS system Xeroform was wrapped around the pins followed by pain and an J Carlos wrap simple sling applied patient tolerated the procedure well all counts were correct no intraoperative complications patient will follow-up in 2 weeks. We will need to obtain morphine from her pain management doctor however I will write her with a temporary prescription of oxycodone 5 mg as she states she is out of her pain medication.
== END 2019-06-04 12:29 | disposition home or self-care (01) ==
LOC: SDC 08:41 → AC 08:42
PROVIDERS: Anesthesiology; PCP Family Medicine Geriatric Medicine; Referring Provider Orthopaedic Surgery; Visit Provider Orthopaedic Surgery
PROC: (CPT 25605; principal; 2019-06-04 10:15)
DX: S52.571A Other intraarticular fracture of lower end of right radius, initial encounter for closed fracture (principal); W18.30XA Fall on same level, unspecified, initial encounter; G89.29 Other chronic pain; M54.9 Dorsalgia, unspecified; I10 Essential (primary) hypertension; F17.210 Nicotine dependence, cigarettes, uncomplicated
CPT/HCPCS: 25605; 64418; 73110; 76000; 84443; 85027; 93005; C1713; J7120; J2405

== ENCOUNTER → 2019-06-18 10:50 | Outpatient (CLI) | payer MEDICARE, SELFPAY ==
[2019-06-04 09:12] VITALS: BMI 33.8
== END ==
PROVIDERS: PCP Family Medicine Geriatric Medicine; Referring Provider Orthopaedic Surgery; Visit Provider Orthopaedic Surgery
DX: Z00.00 Encounter for general adult medical examination without abnormal findings (principal)

== ENCOUNTER → 2019-06-22 11:13 | Outpatient (CLI) | payer MEDICARE, SELFPAY ==
[2019-06-18 11:24] VITALS: BMI 33.8
[2019-06-22 12:37] LABS: Absolute Lymphocyte Count 1.36 X10^3/uL (0.83-4.51); Absolute Neutrophil Count 5.5 X10^3/uL (2.0-7.7); Basophil# 0.03 X10^3/uL; Basophil% 0.4 % (0-1); Eosinophils% 1.3 % (0-5); Hematocrit 39.4 % (37-47); Hemoglobin 12.7 g/dL (12.0-15.0); Lymphocyte # 1.36 X10^3/ul (4.0); Lymphocyte % 17.9 % (19-41); Mean Corp Hgb Conc 32.2 g/dL (32-36); Mean Corpuscular Hgb 28.8 pg (27.0-32.0); Mean Corpuscular Volume 89.3 fL (81-99); Mean Platelet Vol. 9.6 fl (6.2-12.0); Monocyte% 7.9 % (0-10); NRBC Flagged by Analyzer 0 % (0-5); Neutrophil # 5.46 X10^3/uL (2.7-7.7); Neutrophil % 72.1 % (47-70); Platelet Count 489 K/mm3 (150-450); RBC Distribution Width CV 13.6 % (11.6-14.6); RBC Distribution Width SD 44.7 fl (35.1-43.9); Red Blood Count 4.41 M/mm3 (4.2-5.4); White Blood Count 7.6 K/mm3 (4.4-11.0)
[2019-06-22 12:51] LABS: Vitamin D,25 Hydroxy 15.7 ng/mL
[2019-06-22 13:01] LABS: ALB/GLOB Ratio 0.6 RATIO (0.9-2.4); AST(SGOT) 28 U/L (15-37); Alanine Aminotransfer ALT/SGPT 41 U/L (13-56); Alkaline Phosphatase 386 U/L (45-117); Anion Gap 7 (5-15); BUN 15 mg/dL (7-18); BUN/Creat Ratio 15.6 RATIO (10-20); Calcium,Total 9.2 mg/dL (8.5-10.1); Chloride 99 mmol/L (98-107); Creatinine, Serum 0.96 mg/dL (0.55-1.02); EST Glomerular Filtration Rate 62 mL/min (>60); Est Glom Filt Rate - Afr Amer 75 mL/min (>60); Globulin 4.7 g/dL (2.2-4.2); Glucose 146 mg/dL (74-106); Potassium 4.9 mmol/L (3.5-5.1); Protein, Total 7.7 g/dL (6.4-8.2); Sodium Level 130 mmol/L (136-145); Thyroid Stim Hormone (TSH) 2.07 uIU/mL (0.358-3.74)
== END ==
PROVIDERS: PCP Family Medicine Geriatric Medicine; Visit Provider Family Medicine Geriatric Medicine
DX: E55.9 Vitamin D deficiency, unspecified (principal); I10 Essential (primary) hypertension
CPT/HCPCS: 36415; 80053; 82306; 84443; 85025

== ENCOUNTER 2019-07-15 11:08 | Inpatient (IN) | payer MEDICARE, SELFPAY ==
[2019-06-18 11:24] VITALS: BMI 33.8
[2019-07-15] VITALS (13 sets, daily range): BP systolic 145–158; BP diastolic 53–78; PULSE 53–88; RESP 16–22; TEMP 36.1–37.4; O2SAT 85–95; BMI 33.6; BMI 33.9; BMI 34.0
--- NOTE | 2019-07-15 11:34 | CT_ITS ---
STUDY: CT CERVICAL SPINE WITHOUT CONTRAST REASON FOR EXAM: Female, 63 years old. PT STATED FALL, RECENTLY SHORT OF BREATH RADIATION DOSAGE (If Supplied By Facility): CTDIvol = ( 38.07 ) mGy, DLP = ( 784.88 ) mGycm TECHNIQUE: High resolution transaxial imaging was performed without contrast material. Sagittal and coronal images were reconstructed. Individualized dose optimization techniques were used for this CT. COMPARISON: None FINDINGS: Normal craniovertebral junction. Normal anterior atlantoaxial articulation. Normal odontoid process. There is straightening of the normal cervical lordosis. Normal vertebral bodies and posterior osseous elements. C2-3: Normal endplates. Normal disc height and morphology. Normal central canal and intervertebral neuroforamina. C3-4: Normal endplates. Normal disc height and morphology. Normal central canal and intervertebral neuroforamina. C4-5: Moderate degree of disc space narrowing. Anterior spondylosis. No evidence of stenosis. C5-6: Marked degree of disc space narrowing. Anterior spondylosis. Uncovertebral arthrosis. C6-7: Moderate degree of disc space narrowing. Uncovertebral arthrosis. Facet joint osteoarthritis. Mild degree of bilateral neural foraminal stenosis. C7-T1: Normal endplates. Normal disc height and morphology. Normal central canal and intervertebral neuroforamina. Is evidence of a right pleural effusion with patchy infiltrates in the upper lobes. CT/Spine Cervical without Contras IMPRESSION: Multilevel degenerative changes, as described above. Right pleural effusion with patchy infiltrates in the upper lobes. Electronically Signed: Jose Segura, at 12:44 EDT , Service support ,
--- NOTE | 2019-07-15 11:34 | CT_ITS ---
STUDY: CT BRAIN WITHOUT CONTRAST REASON FOR EXAM: Female, 63 years old. PT STATED FALL, RECENTLY SHORT OF BREATH RADIATION DOSAGE (If Supplied By Facility): CTDIvol = ( 60.81 ) mGy, DLP = ( 1021.47 ) mGycm TECHNIQUE: Transaxial CT imaging of the brain was performed without administration of intravenous contrast material. Individualized dose optimization techniques were used for this CT. COMPARISON: No relevant priors. FINDINGS: Normal soft tissue structures. Normal calvarium. There is mild cerebral atrophy with widening of the extra-axial spaces and ventricular dilatation. There are areas of decreased attenuation within the white matter tracts of the supratentorial brain, consistent with microvascular disease changes. Normal basal ganglia and thalami. Normal brainstem. Normal cerebellum. There is no intracranial hemorrhage. There are no findings of an acute ischemic infarction. Atherosclerotic calcification of the cavernous portions of the internal carotid arteries bilaterally. Normal visualized paranasal sinuses. CT/Brain/Head without Contrast IMPRESSION: Chronic involutional changes of the brain. Electronically Signed: Jose Segura, at 12:38 EDT , Service support ,
--- NOTE | 2019-07-15 11:37 | ED.VIS.GEN ---
History of Present Illness Chief Complaint: Fall Narrative: Patient presents after a head injury that she sustained earlier today. She denies any other injury. She was in a car, she was getting out fell and hit her head she does not have any arm injury any buttock injury any extremity injury she denies chest pain or shortness of breath. She denies loss of consciousness. She is not anticoagulated. She felt slightly dazed. She is not vomiting. Past Medical History - Allergies and Home Meds Allergies/Adverse Reactions: Allergies No Known Allergies Allergy (Verified 07/15/19 11:10) Primary Care Physician: Cornelius Srinivasan Chi, MD [Primary Care Provider] - Past Medical History: - - She has chronic back pain, she is a current smoker she has multiple medical problems that were reviewed. Smoking Status: Current every day smoker Review of Systems All systems negative except as indicated General: Reports: - - No loss of consciousness Eyes: Denies: Visual changes - bilaterally, Diplopia Cardiovascular: Denies: Chest pain, Heart racing Respiratory: Reports: Dyspnea, Cough, - - She has had a cough for a few months, she is a smoker Gastrointestinal: Denies: Abdominal pain Genitourinary: Denies: Dysuria Musculoskeletal: Denies: Myalgias, Neck pain Neurological: Reports: Headache. Denies: Weakness Hematologic: Denies: Easy bruising Allergy: Denies: Uticaria, Swelling of the mouth, Swelling of the tongue Physical Exam Vital Signs/Narrative: Vital Signs Temp Pulse Resp BP Pulse Ox 07/15/19 11:09 97 F L 56 L 16 158/78 H 85 General: Well nourished, Well developed Head: Normocephalic, - - There is a posterior contusion about 7 cm. Eyes: Perrl, EOMI ENT: Moist mucous membranes, No rhinorrhea Neck: Supple Cardiovascular: Regular rate, Regular rhythm Respiratory: - - Coarse bilateral breath sounds some bronchial breath sounds no obvious wheezing, she is hypoxic Abdomen: Soft, Nontender Back: Nontender, - - Slight lumbar tenderness, she tells me this is chronic she takes morphine for it every day and has not changed. Extremities: Nontender. Negative for: No edema, Tenderness Skin: Negative for: Normal color Neurological: Alert, Oriented x3, Cranial nerves II-XII grossly intact, Normal Strength, Normal Sensation Diagnostic/Tx/Re-eval Chest X-Ray - ED: 1 View, Read by ED Physician, Normal, Heart, Lungs - Medical Decision Making Patient is found to be hypoxic the x-ray does not show pneumonia however the CT of the C-spine does show infiltrates, patient will be worked up, antibiotics will be given and patient will be admitted for pneumonia and hypoxia. She likely has underlying COPD. She is also hyponatremic, and discussing further she admits to occasional drinking however when I talked to family they claimed that she drinks quite a bit. I will talk to the hospitalist she will need withdrawal precautions. She may also be in failure based on x-ray therefore Lasix was given. Patient was seen by me during peak influenza as well as the coronavirus outbreak. It is an epidemic. It is in National state of emergency. Emergency departments are full. The hospitals are full. There is quite a bit of a risk in all patients presenting to the emergency department. However per [facility] protocol all attempts were made by myself as well as the staff to keep the contamination level down. I was fully mask and gloved the entire time in the patient's presence. ED Disposition - Plan for ED Patient: Disposition: Acute Care Hospital [facility] Diagnosis: Pneumonia, Hyponatremia Referrals: Cornelius Srinivasan Chi, MD [Primary Care Provider] -
--- NOTE | 2019-07-15 11:43 | RAD_ITS ---
STUDY: X-RAY CHEST REASON FOR EXAM: Female, 63 years old. COUGH, SOB, WHEEZING -- S/P FALL TECHNIQUE: Single AP portable view of the chest. COMPARISON: None. FINDINGS: EKG electrodes are seen. There is evidence of vascular congestion and CHF. There is no demonstrated pleural abnormality. There is mild cardiac enlargement. Normal mediastinum and tiffany. Normal visualized pulmonary arteries. There is atherosclerotic calcification of the aortic arch with tortuosity. Normal visualized thoracic spine. There is degenerative osteoarthritis of the bilateral shoulders. There is no demonstrated abnormality of the visualized soft tissue structures of the upper abdomen. RAD/Chest 1 View (Portable) IMPRESSION: Mild cardiomegaly and CHF. Electronically Signed: Jose Segura, at 12:02 EDT , Service support ,
[2019-07-15] MEDS: Ipratropium/Albuterol Sulfate 3 ML AMPUL.NEB INHALATION (12:18)
--- NOTE | 2019-07-15 13:02 | EKG12_ITS ---
Test Reason : Blood Pressure : / mmHG Vent. Rate : 055 BPM Atrial Rate : 055 BPM P-R Int : 200 ms QRS Dur : 108 ms QT Int : 450 ms P-R-T Axes : 000 032 054 degrees QTc Int : 430 ms Sinus bradycardia Possible Inferior infarct , age undetermined Abnormal ECG Confirmed by TIARA MOJICA ([id number]), fan mail editor [address] ([id number]) on 07/19/2019 11:03:15 AM Referred By: SALMA Confirmed By:TIARA MOJICA
[2019-07-15] MEDS: 0.9% Normal Saline 1,000 ML 1000 ML IV (14:00)
[2019-07-15 14:04] LABS: Absolute Lymphocyte Count 1.19 X10^3/uL (0.83-4.51); Absolute Neutrophil Count 9.1 X10^3/uL (2.0-7.7); Basophil# 0.02 X10^3/uL; Basophil% 0.2 % (0-1); Eosinophil# 0.02 X10^3/uL; Eosinophils% 0.2 % (0-5); Hematocrit 35.4 % (37-47); Hemoglobin 11.7 g/dL (12.0-15.0); Lymphocyte # 1.19 X10^3/ul (4.0); Lymphocyte % 10.7 % (19-41); Mean Corp Hgb Conc 33.1 g/dL (32-36); Mean Corpuscular Hgb 28.9 pg (27.0-32.0); Mean Corpuscular Volume 87.4 fL (81-99); Mean Platelet Vol. 8.1 fl (6.2-12.0); Monocyte# 0.65 X10^3/uL; Monocyte% 5.9 % (0-10); NRBC Flagged by Analyzer 0 % (0-5); Neutrophil # 9.11 X10^3/uL (2.7-7.7); Neutrophil % 82.3 % (47-70); Platelet Count 376 K/mm3 (150-450); RBC Distribution Width CV 14.6 % (11.6-14.6); RBC Distribution Width SD 46.5 fl (35.1-43.9); Red Blood Count 4.05 M/mm3 (4.2-5.4); White Blood Count 11.1 K/mm3 (4.4-11.0)
[2019-07-15 14:16] LABS: ALB/GLOB Ratio 0.8 RATIO (0.9-2.4); AST(SGOT) 21 U/L (15-37); Alanine Aminotransfer ALT/SGPT 33 U/L (13-56); Albumin, Serum 3.1 g/dL (3.2-5.0); Alkaline Phosphatase 450 U/L (45-117); Anion Gap 9 (5-15); BUN 14 mg/dL (7-18); BUN/Creat Ratio 17.8 RATIO (10-20); Calcium,Total 8.5 mg/dL (8.5-10.1); Chloride 92 mmol/L (98-107); Creatinine, Serum 0.79 mg/dL (0.55-1.02); EST Glomerular Filtration Rate 78 mL/min (>60); Est Glom Filt Rate - Afr Amer 94 mL/min (>60); Glucose 99 mg/dL (74-106); Potassium 4.9 mmol/L (3.5-5.1); Protein, Total 7.1 g/dL (6.4-8.2); Sodium Level 122 mmol/L (136-145)
[2019-07-15] MEDS: Ceftriaxone 1 GM/50 ML BAG IV (14:36)
--- NOTE | 2019-07-15 14:52 | PCM.HP.STD ---
<Cristi Joseph - Last Filed: 07/15/19 14:52> Problem List (1) CHF (congestive heart failure) Status: Acute (2) COPD (chronic obstructive pulmonary disease) Status: Chronic (3) Alcohol abuse Status: Chronic (4) Hyponatremia Status: Chronic (5) Essential (primary) hypertension Status: Chronic (6) Hyperlipidemia Status: Chronic Qualifiers: Hyperlipidemia type: pure hypercholesterolemia Qualified Code(s): E78.00 - Pure hypercholesterolemia, unspecified; E78.0 - Pure hypercholesterolemia (7) Nicotine dependence Status: Chronic History of Present Illness Date of Admission: 07/15/19 Chief Complaint: SOB The patient is a 63 year old F with past medical history of alcohol abuse, nicotine abuse, COPD, who presented to the emergency room with complaints of a fall. The patient was attempting to get out of her car at [facility] to go filler picker her prescriptions and she lost balance and fell to the ground striking the right posterior lateral portion of her head. She has also had ongoing shortness of breath. In the ER she was worked up for her fall and head injury. CT brain showed chronic changes, CT C-spine had multilevel degenerative changes, and right pleural effusion with patchy infiltrates in the upper lobes of the lungs, and chest x-ray showed cardiomegaly and CHF. The patient was found to have hypoxia in the ER even though she did not report for hypoxia. She had a pulse ox of 85% on room air. She does not use oxygen at home. She admits that she has been progressively more short of breath over the past 2 weeks. She notes paroxysmal nocturnal dyspnea and orthopnea. She became very short of breath when lying flat for the CAT scans today. She has a rare dry cough. No fevers or chills. No sick contacts. She has not noticed significant weight gain or lower extremity edema. She is currently still short of breath despite supplemental oxygen at 4 L/min via nasal cannula, saturations 90% on 4 L. Also of note the patient has a left wrist splint. She fell and broke her wrist approximately 2 weeks ago, she has been followed up with by Dr. Guidry. Her daughter is present and is concerned about her mothers drinking. The patient states she has not drank in about a month and a half, however the daughter says she lies about her drinking and drinks at least 3 tall beers daily. [] Past Medical History Past Medical History (Chronic Problems): Chronic Problems (Last Reviewed 12/17/18 @ 11:[address] Jesus Gillette MD) Hyponatremia (Chronic) COPD (chronic obstructive pulmonary disease) (Chronic) Alcohol abuse (Chronic) Diastolic dysfunction (Chronic) Essential (primary) hypertension (Chronic) Abnormal electrocardiogram (Chronic) Hyperlipidemia (Chronic) Nicotine dependence (Chronic) Medical History: Medical History (Last Reviewed 12/17/18 @ 11:[address] 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 Elevated LFTs R94.5 Hypothyroidism E03.9 Insomnia G47.00 Obesity E66.9 Pulmonary nodule R91.1 Allergies No Known Allergies Allergy (Verified 07/15/19 11:10) Home Medications: Ambulatory Orders Medication Instructions Recorded Amlodipine [Norvasc] 10 mg PO DAILY 06/13/15 Clonazepam [Klonopin] 0.5 mg PO BID PRN PRN 06/13/15 Lisinopril [Zestril] 40 mg PO DAILY 06/13/15 Risperidone [Risperdal] 1 mg PO DAILY 06/13/15 morphine SR tablet [MS Contin] 30 mg PO Q12H 06/13/15 Amitriptyline HCl 75 mg PO QHS 07/15/19 Lamotrigine 200 mg PO DAILY 07/15/19 Levothyroxine [Synthroid] 50 mcg PO DAILY 07/15/19 Tizanidine HCl 4 mg PO BID 07/15/19 buPROPion XL [Wellbutrin Xl] 300 mg PO DAILY 07/15/19 Surgical History: Surgical History (Last Reviewed 12/17/18 @ 11:[address] Jesus Gillette MD) History of cataract surgery Z98.49 Surgical History: cataract, hysterectomy Psychiatric History: No pertinent psych hx NON PROFIT JOB TITLES History: No pertinent NON PROFIT JOB TITLES history Lives: Spouse/ Significant Other Smoking Status: Current every day smoker Tobacco Use: Cigarettes Review of Systems Constitutional: Reports: Weakness. Denies: Chills, Fever, Weight Change HEENT: Denies: Head Aches, Sinus Congestion, Sinus Drainage Cardiovascular: Reports: Light Headedness, Orthopnea, Paroxysmal Noc. Dyspnea. Denies: Chest Pain, Chest Pressure, Chest Tightness, Edema, Heaviness, Palpitations, Syncope Respiratory: Reports: Cough, Shortness of Breath, Shortness of breath at rest, Shortness of breath upon exertion, Wheezing. Denies: Hemoptysis, Pleuritic Pain, Sputum production Gastrointestinal: Denies: Abdominal Pain, Diarrhea, Nausea, Vomiting Genitourinary: Denies: Dysuria Musculoskeletal: Denies: Joint Pain, Joint Tenderness Skin: Denies: Rash, Wounds Neurological: Denies: Numbness, Tingling, Focal weakness Psychiatric: Denies: Anxiety, Depression, Homicidal Ideations, Suicidal Ideations Hematologic/ Lymphatic: Denies: Easy Bruising, Easy Bleeding VTE Information - Inpt Only VTE Present on Admission: No VTE Mechan Device Prophylaxis: None VTE Pharm Prophylaxis ordered?: Yes Patient Problems: Active and Suspected Problems (Last Reviewed 12/17/18 @ 11:[address] Jesus Gillette MD) Pneumonia (Acute) CHF (congestive heart failure) (Acute) - Physical Exam Vitals/I&O's: Vital Signs Temp Pulse Resp BP Pulse Ox 97 F L 53 L 22 H 157/66 H 93 07/15/19 11:09 07/15/19 12:20 07/15/19 12:20 07/15/19 12:20 07/15/19 12:20 Oxygen Flow Rate (L/min) 3 Oxygen Delivery Method Nasal Cannula Weight: 184 lb Body Mass Index (BMI) 33.6 General: Alert, Oriented x3, Cooperative HEENT: Atraumatic, PERRLA, EOMI, Normocephalic Neck: Supple, No JVD, Negative Carotid Bruits Lungs: Clear to auscultation, Normal air movement, Diminished, Rales, Wheezes - faint end expiratory wheeze Cardiovascular: Regular rate, No murmurs Abdomen: Bowel Sounds Present, Soft, Non Tender, Obese Extremities: No edema, Capillary Refill Less than 3 Seconds Skin: No rashes, No breakdown Musculoskeletal: No Tenderness to Palpation of Joints or Extremities Neurological: Cranial nerves II-XII grossly intact Psych/Mental Status: Normal Affect, Appropriate, Alert and oriented to time, place, person, mood and affect Microbiology Past 72 Hours 07/15/19 13:20 Mucosa - Nose Influenza Types A,B Direct FA ([facility]) - Final Laboratory Results 07/15/19 13:49: WBC 11.1 H, RBC 4.05 L, Hgb 11.7 L, Hct 35.4 L, MCV 87.4, MCH 28.9, MCHC 33.1, RDW Std Deviation 46.5 H, RDW Coeff of Lisa 14.6, Plt Count 376, MPV 8.1, Immature Gran % (Auto) 0.700, Neut % (Auto) 82.3 H, Lymph % (Auto) 10.7 L, Moca % (Auto) 5.9, Eos % (Auto) 0.2, Baso % (Auto) 0.2, Absolute Neuts (auto) 9.1 H, Absolute Lymphs (auto) 1.19, Nucleated RBC % 0 07/15/19 13:49: Sodium 122 L, Potassium 4.9, Chloride 92 L, Carbon Dioxide 21.0, Anion Gap 9, BUN 14, Creatinine 0.79, Estim Creat Clear Calc 56.90, Est GFR (MDRD) Af Amer 94, Est GFR (MDRD) Non-Af 78, BUN/Creatinine Ratio 17.8, Glucose 99, Calcium 8.5, Total Bilirubin 1.30 H, AST 21, ALT 33, Alkaline Phosphatase 450 H, Total Protein 7.1, Albumin 3.1 L, Globulin 4.0, Albumin/Globulin Ratio 0.8 L 07/15/19 13:49: Lactic Acid 1.0 Assessment/Plan All Active Problems (Last Reviewed 12/17/18 @ 11:[address] Jesus Gillette MD) Pneumonia (Acute) CHF (congestive heart failure) (Acute) Chest pain (Resolved) Dyspnea (Resolved) 1. Acute hypoxic respiratory failure 2/2 Acute diastolic CHF - pt requiring 4 additional LPM o2 to maintain sat of 90%. She doesnt use home o2. prior echo 2018 with EF 65%, stage 2 diastolic dysfunction. Will need repeat echo. CXR suggestive of CHF, carmdiomegaly. Doubt pna. Given abx in ER. Will defer further abx for now. Check BNP. Start IV lasix. 2. COPD - doubt acute exacerbation at this time, but contributing to above. Continue aerosols, incentive spirometer. 3. Hyponatremia - suspect volume overload, possibly potomania. Will monitor with lasix. 4. Alcohol abuse- per daughter pt drinking at least 3 tall beers daily. Pt denies drinking. Provide prn ativan, CIWA protocol, folate/thiamine, case management consult. 5. Hx Bipolar disorder - continue lamictal, risperdal, klonopin, wellbutrin, amitriptyline 6. Hypothyroidism - check tsh with heart failure. continue synthroid,. 7. Chronic back pain - morphine, zanaflex, elavil DVT ppx: lovenox. DC planning: many falls, recent wrist fracture. PTOT. This patient was seen by Cristi Joseph PA-C under the supervision of Dr. Alcala. <Сергей Alcala - Last Filed: 07/15/19 15:19> History of Present Illness The patient is a 63 year old F [] Past Medical History Medical History: Medical History (Last Reviewed 12/17/18 @ 11:[address] 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 Jesus Gillette MD) History of cataract surgery Z98.49 - Physical Exam Vitals/I&O's: Vital Signs Temp Pulse Resp BP Pulse Ox 36.9 C 54 L 21 H 153/63 H 92 07/15/19 14:51 07/15/19 14:51 07/15/19 14:51 07/15/19 14:51 07/15/19 14:51 Oxygen Flow Rate (L/min) 5 Oxygen Delivery Method Nasal Cannula Weight: 83.461 kg Body Mass Index (BMI) 33.6 General: Alert, Cooperative, - - Appears older than stated age HEENT: Atraumatic, Normocephalic Lungs: Clear to auscultation, Normal air movement, Wheezes Cardiovascular: Regular rate, No murmurs Abdomen: Bowel Sounds Present, Soft, Non Tender, Obese Extremities: No edema, No Calf Tenderness Skin: No rashes, No breakdown Psych/Mental Status: Normal Affect, Appropriate Microbiology Past 72 Hours 07/15/19 13:20 Mucosa - Nose Influenza Types A,B Direct FA ([facility]) - Final Laboratory Results 07/15/19 13:49: WBC 11.1 H, RBC 4.05 L, Hgb 11.7 L, Hct 35.4 L, MCV 87.4, MCH 28.9, MCHC 33.1, RDW Std Deviation 46.5 H, RDW Coeff of Lisa 14.6, Plt Count 376, MPV 8.1, Immature Gran % (Auto) 0.700, Neut % (Auto) 82.3 H, Lymph % (Auto) 10.7 L, Moca % (Auto) 5.9, Eos % (Auto) 0.2, Baso % (Auto) 0.2, Absolute Neuts (auto) 9.1 H, Absolute Lymphs (auto) 1.19, Nucleated RBC % 0 07/15/19 13:49: Sodium 122 L, Potassium 4.9, Chloride 92 L, Carbon Dioxide 21.0, Anion Gap 9, BUN 14, Creatinine 0.79, Estim Creat Clear Calc 56.90, Est GFR (MDRD) Af Amer 94, Est GFR (MDRD) Non-Af 78, BUN/Creatinine Ratio 17.8, Glucose 99, Calcium 8.5, Total Bilirubin 1.30 H, AST 21, ALT 33, Alkaline Phosphatase 450 H, Total Protein 7.1, Albumin 3.1 L, Globulin 4.0, Albumin/Globulin Ratio 0.8 L 07/15/19 13:49: Lactic Acid 1.0 07/15/19 14:58: Ethyl Alcohol Pending Assessment/Plan Patient seen and examined independently. Data reviewed. I agree with the above note by the physician therapy administrative assistant. 1. Acute hypoxic respiratory failure: Secondary to CHF. Treating underlying process. I do not suspect pneumonia at this time. May be complicated by underlying COPD. 2. Acute heart failure with preserved ejection fraction: Patient had an EF of 6 5% from 2018. Patient will be initiated on furosemide. Recheck echocardiogram. 3. Hyponatremia: Unclear etiology. May be volume overload versus beer Poto gregor. Monitor. Check urine for sodium as well as osmolality. Check serum osmolality and TSH. Based on those results, may consider checking a ACTH stim test. If an ACTH stim test is ordered make sure that is performed in the morning. 4. Alcohol abuse: Patient drinking 3 tall beers per day though she denies it. Thiamine and folate. No signs or symptoms of withdrawal at this time. 5. Recent falls. Patient has been falling frequently lately. Patient did fracture her left wrist. Patient currently has an external fixator in place. Check a 25-hydroxy vitamin D level. Patient to follow-up with orthopedics for the wrist fracture. 6. Advanced care planning: Patient wishes to be full CODE STATUS. Inpatient E&M: [id number] Init Hosp L3
[2019-07-15] MEDS: Furosemide 40 MG/4 ML Vial IV ×2 (15:16→17:43)
--- NOTE | 2019-07-15 15:58 | ECHOCS_ITS ---
Reason For Study: CHF Procedure This was a 2D Doppler, Color Flow transthoracic echocardiogram. Exam performed portable in patient room. Left Ventricle Mild concentric left ventricular hypertrophy. The estimated ejection fraction is 65 %. Stage 2 diastolic dysfunction. No regional wall motion abnormalities noted. Right Ventricle Moderately dilated right ventricle. Normal systolic function. Atria The left atrium is mildly enlarged. Normal right atrium. Normal atrial septum. Mitral Valve The mitral valve is structurally normal. No prolapse or stenosis seen. Tricuspid Valve Normal tricuspid valve. Mild (1+) tricuspid valve insufficiency. Right ventricular systolic pressure estimated to be 51 mmHg. Moderate pulmonary hypertension. Aortic Valve Trisinus/trileaflet aortic valve. Aortic sclerosis, no stenosis. Pulmonic Valve Normal pulmonic valve. Trivial pulmonic valve insufficiency. Great Vessels Normal aortic root. Normal arch. The inferior vena cava is dilated. Inferior vena cava collapse with sniff. Pericardium/Pleural No pericardial effusion. Medication Diluted definity 4.0ml given slow IV push to enhance endocardial definition. MMode/2D Measurements & Calculations LVIDd: 4.1 cm IVSd: 1.3 cm Ao root diam: 3.3 cm LVIDs: 2.4 cm LVPWd: 1.2 cm RVDd: 4.3 cm FS: 42.7 % LAV(MOD-bp): 73.0 ml LVAd ap4: 29.5 cm2 SV(MOD-sp4): 64.4 ml LAV(MOD-bp) Indexed: 39.5 ml/m2 EDV(MOD-sp4): 95.7 ml LAV(MOD-sp2): 70.2 ml EDV(sp4-el): 100.9 ml LAV(MOD-sp4): 67.4 ml LVAs ap4: 15.2 cm2 ESV(MOD-sp4): 31.3 ml ESV(sp4-el): 32.4 ml EF(MOD-sp4): 67.3 % EF(sp4-el): 67.9 % SV(sp4-el): 68.5 ml LA A4 area: 22.8 cm2 LA dimension(2D): 4.1 cm RA A4 area: 19.3 cm2 Time Measurements MV dec time: 0.18 sec Doppler Measurements & Calculations MV E max ramiro: 130.3 cm/sec Lat Peak E' Ramiro: 7.0 cm/sec Med Peak E' Ramiro: 6.5 cm/sec MV A max ramiro: 70.7 cm/sec E/E' lat: 18.5 E/E' med: 20.2 MV E/A: 1.8 Ao V2 max: 189.9 cm/sec LV V1 max: 173.2 cm/sec PA V2 max: 115.1 cm/sec Ao max P.4 mmHg LV V1 max P.0 mmHg PI end-d ramiro: 115.6 cm/sec TR max ramiro: 337.6 cm/sec TR max P.6 mmHg Interpretation Summary Mild concentric left ventricular hypertrophy. The estimated ejection fraction is 65 %. Stage 2 diastolic dysfunction. Moderately dilated right ventricle. The left atrium is mildly enlarged. Mild (1+) tricuspid valve insufficiency. Right ventricular systolic pressure estimated to be 51 mmHg. Moderate pulmonary hypertension. Compared to echo report dated 01/05/2018, LV function has remained the same, RVSP was not noted at that time. The study was technically difficult. Contrast injection was performed. Ordering Physician: Сергей Alcala Referring Physician: ZOILA DELGADILLO [facility] Performed By: Kenya Blanca, RDCS, RVT
[2019-07-15 16:27] LABS: BNP,B-Type NATRIURETIC PEPTIDE 801.9 pg/mL (0-100)
[2019-07-15 16:32] LABS: Vitamin D,25 Hydroxy 20.2 ng/mL
[2019-07-15 16:55] LABS: Thyroid Stim Hormone (TSH) 1.89 uIU/mL (0.358-3.74)
[2019-07-15 17:39] LABS: Mucous, Urine 0 SEEN /hpf (<or=2+); Red Blood Cells-Urine 0 SEEN /hpf (0-5); White Blood Cells 0 SEEN /hpf (0-5)
[2019-07-15 17:42] LABS: Color, Urine Straw (Yellow); Glucose, Dipstick Normal (Normal); Ketone-Dipstick Negative (Negative); Leukocyte Esterase-Dipstick Negative /ul (Negative); Nitrite-Dipstick Negative (Negative); Occult Blood-Urine Negative /ul (Negative); Protein-Dipstick Negative (Negative); Urine Bilirubin Dipstick Negative (Negative); Urine Clarity Clear (Clear); Urine Urobilinogen Normal (Normal)
[2019-07-15] MEDS: 0.9% Saline Lock 10 ML Syringe IV (17:43)
[2019-07-15] MEDS: Thiamine Hydrochloride 100 MG Tablet PO (17:43)
[2019-07-15 17:48] LABS: Urine Sodium 43 mmol/L (Not Establ.)
[2019-07-15 18:23] LABS: Squamous Epithelial Cells - UA 0-5 SEEN /hpf (5-10)
[2019-07-15 18:24] LABS: Bacteria RARE /hpf (None Seen)
[2019-07-15 18:28] LABS: Osmolality, Urine 153 mOsm/KG
[2019-07-15 18:28] LABS: Osmolality, Serum 249 mOsm/KG (280-301)
[2019-07-15] MEDS: Amitriptyline 25 MG Tablet 75 MG PO (22:14)
[2019-07-15] MEDS: tiZANidine HCl 2 MG Tablet 4 MG PO (22:16)
[2019-07-16] VITALS (14 sets, daily range): BP systolic 123–146; BP diastolic 39–73; PULSE 43–92; RESP 12–24; TEMP 36.4–37; O2SAT 92–98
[2019-07-16] MEDS: Levothyroxine 50 MCG Tablet PO (05:33)
[2019-07-16 06:55] LABS: Absolute Lymphocyte Count 1.39 X10^3/uL (0.83-4.51); Basophil# 0.04 X10^3/uL; Basophil% 0.5 % (0-1); Eosinophils% 1.2 % (0-5); Hematocrit 35.2 % (37-47); Hemoglobin 11.5 g/dL (12.0-15.0); Lymphocyte # 1.39 X10^3/ul (4.0); Lymphocyte % 17.1 % (19-41); Mean Corp Hgb Conc 32.7 g/dL (32-36); Mean Corpuscular Hgb 29.1 pg (27.0-32.0); Mean Corpuscular Volume 89.1 fL (81-99); Mean Platelet Vol. 8.4 fl (6.2-12.0); Monocyte# 0.55 X10^3/uL; Monocyte% 6.8 % (0-10); NRBC Flagged by Analyzer 0 % (0-5); Neutrophil # 5.99 X10^3/uL (2.7-7.7); Neutrophil % 73.7 % (47-70); Platelet Count 390 K/mm3 (150-450); RBC Distribution Width CV 14.6 % (11.6-14.6); RBC Distribution Width SD 46.9 fl (35.1-43.9); Red Blood Count 3.95 M/mm3 (4.2-5.4); White Blood Count 8.1 K/mm3 (4.4-11.0)
[2019-07-16 07:17] LABS: Anion Gap 7 (5-15); BUN 14 mg/dL (7-18); BUN/Creat Ratio 15.9 RATIO (10-20); Calcium,Total 8.6 mg/dL (8.5-10.1); Chloride 97 mmol/L (98-107); Creatinine, Serum 0.88 mg/dL (0.55-1.02); EST Glomerular Filtration Rate 69 mL/min (>60); Est Glom Filt Rate - Afr Amer 83 mL/min (>60); Estimated Creatinine Clearance 51.08 ml/min; Glucose 91 mg/dL (74-106); Potassium 3.6 mmol/L (3.5-5.1); Sodium Level 130 mmol/L (136-145)
--- NOTE | 2019-07-16 09:05 | RAD_ITS ---
STUDY: X-RAY CHEST REASON FOR EXAM: Female, 63 years old. CHF;SOB TECHNIQUE: PA and lateral views of the chest. COMPARISON: Comparison is made with prior study dated July 15, 2019. FINDINGS: EKG electrodes are seen. Stable appearance of the thoracic congestion and mild CHF with probable mild atelectasis at the lung bases. Small bilateral pleural effusions posteriorly. Normal size heart. Normal mediastinum and tiffany. Normal visualized pulmonary arteries. There is atherosclerotic calcification of the aortic arch with tortuosity. There are diffuse degenerative changes of the visualized thoracic spine. Normal visualized ribs, clavicles, and shoulders. There is no demonstrated abnormality of the visualized soft tissue structures of the upper abdomen. RAD/Chest PA and Lateral IMPRESSION: Stable mild degree of CHF with small bilateral pleural effusions. Electronically Signed: Jose Segura, at 9:44 EDT , Service support ,
--- NOTE | 2019-07-16 09:42 | CASEMGMT ---
KRISTIE LOPEZ assessment: Face to Face with patient for initial transition planning/care coordination assessment. KRISTIE LOPEZ introduced self and role at [facility], pt voices understanding and consents to assessment at this time. Pt is lying in bed in no distress at this time but does complaint of fatigue as she states she was up most of the night. Pt is A/Ox4 at this time and answers all questions appropriately at this time. Care providers, pharmacy, and demographics verified at this time. Presentation: Fall at [facility], squad called/refused transport, hit head Admitting dx: CHF PCP: Craig Specialists: Pt states currently no specialists. Preferred Pharmacy: [facility] Alyssa Insurance: [employer] Prescription Benefit: [employer] Living Will/HPOA: Pt states does not have LW/HPOA and declines need for AD info at this time. LNOK: Michael Camarena, sig other; Bianca Gray, daughter Living Arrangements: Pt states lives with sig other in 2 story home and states no concerns at home at this time. Pt states is independent with ADL's but per reports, pt has had frequent falls at home and recently fractured wrist from on of the falls. Transportation: Pt states drives self and states no transportation concerns at this time. DME/HHC: Pt states no current DME and declines need for any DME at this time. Pt states no hx of HHC or SNF in the past. Pt states no concerns with going home at time of discharge. Pt states is on disability. Pt states smokes 5 cigs/day and states 'drinks occasionally' but per daughters report, pt drinks '3 tall boys daily.' Pt states no further concerns/needs at this time. CM to follow for home oxygen need(list in-network provided), PT/OT evals, and for any further discharge planning/needs. Advised pt to ask for CM if any further questions/concerns/needs arise, voices understanding. Pt Goal: Home Plan: TBD, pending PT/OT evals, home oxygen testing. [place] KRISTIE LOPEZ
[2019-07-16] MEDS: Folic Acid 1 MG Tablet PO (10:04)
[2019-07-16] MEDS: lamoTRIgine 100 MG Tablet 200 MG PO (10:04)
[2019-07-16] MEDS: amLODIPine 10 MG Tablet PO (10:04)
[2019-07-16] MEDS: buPROPion (XL) 300 MG TABLET.XL PO (10:04)
[2019-07-16] MEDS: tiZANidine HCl 2 MG Tablet 4 MG PO ×2 (10:04→21:55)
[2019-07-16] MEDS: Lisinopril 40 MG Tablet PO (10:05)
[2019-07-16] MEDS: Furosemide 40 MG/4 ML Vial IV ×2 (10:07→17:30)
[2019-07-16] MEDS: 0.9% Saline Lock 10 ML Syringe IV ×2 (10:08→17:30)
[2019-07-16] MEDS: Enoxaparin 40 MG/0.4 ML Syringe SC (10:11)
[2019-07-16] MEDS: Ipratropium/Albuterol Sulfate 3 ML AMPUL.NEB INHALATION ×2 (11:35→19:41)
--- NOTE | 2019-07-16 12:01 | PN_ITS ---
<Cristi Joseph - Last Filed: 07/16/19 12:15> Patient Problems: Active and Suspected Problems (Last Reviewed 12/17/18 @ 11:[address] Jesus Gillette MD) CHF (congestive heart failure) (Acute) Reason for Visit: sob Subjective: pt with sob, worse with exertion. Still requiring o2 - baseline none. Wheezing resolved. still very weak/fatigued - cannot sit up in bed without assistance. No CP/pressure/heaviness/palpitations. Vitals/I&O's: Vital Signs Temp Pulse Resp BP Pulse Ox 98.2 F 80 24 H 146/51 H 92 07/16/19 10:00 07/16/19 11:35 07/16/19 11:35 07/16/19 10:00 07/16/19 11:35 Oxygen Flow Rate (L/min) 4 Oxygen Delivery Method Nasal Cannula Weight: 182 lb 8.684 oz Body Mass Index (BMI) 33.9 Intake and Output for Last 24 Hours 07/14/19 07/15/19 07/16/19 23:59 23:59 23:59 Intake Total 1605 / 1605 180 / 180 Output Total 2850 / 2850 600 / 600 Balance -1245 / -1245 -420 / -420 General: Alert, Oriented x3, Cooperative HEENT: Atraumatic, PERRLA, EOMI, Normocephalic Neck: Supple, No JVD, Negative Carotid Bruits Lungs: Clear to auscultation, Normal air movement Cardiovascular: Regular rate, No murmurs Abdomen: Bowel Sounds Present, Soft, Non Tender, Obese Extremities: No edema, Capillary Refill Less than 3 Seconds Skin: No rashes, No breakdown Musculoskeletal: No Tenderness to Palpation of Joints or Extremities Neurological: Cranial nerves II-XII grossly intact Psych/Mental Status: Normal Affect, Appropriate, Alert and oriented to time, place, person, mood and affect Microbiology Past 72 Hours 07/15/19 13:20 Mucosa - Nose Influenza Types A,B Direct FA (PAM) - Final Laboratory Results 07/15/19 13:49: WBC 11.1 H, RBC 4.05 L, Hgb 11.7 L, Hct 35.4 L, MCV 87.4, MCH 28.9, MCHC 33.1, RDW Std Deviation 46.5 H, RDW Coeff of Lisa 14.6, Plt Count 376, MPV 8.1, Immature Gran % (Auto) 0.700, Neut % (Auto) 82.3 H, Lymph % (Auto) 10.7 L, [place] % (Auto) 5.9, Eos % (Auto) 0.2, Baso % (Auto) 0.2, Absolute Neuts (auto) 9.1 H, Absolute Lymphs (auto) 1.19, Nucleated RBC % 0 07/15/19 13:49: Sodium 122 L, Potassium 4.9, Chloride 92 L, Carbon Dioxide 21.0, Anion Gap 9, BUN 14, Creatinine 0.79, Estim Creat Clear Calc 56.90, Est GFR (MDRD) Af Amer 94, Est GFR (MDRD) Non-Af 78, BUN/Creatinine Ratio 17.8, Glucose 99, Calcium 8.5, Total Bilirubin 1.30 H, AST 21, ALT 33, Alkaline Phosphatase 450 H, Total Protein 7.1, Albumin 3.1 L, Globulin 4.0, Albumin/Globulin Ratio 0.8 L 07/15/19 13:49: Lactic Acid 1.0 07/15/19 13:49: Ethyl Alcohol 6.0 07/15/19 13:49: B-Natriuretic Peptide 801.9 H 07/15/19 13:49: Serum Osmolality 249 L 07/15/19 13:49: TSH 1.89 07/15/19 13:49: Vitamin D 25-Hydroxy 20.2 07/15/19 17:25: Urine Osmolality 153 07/15/19 17:25: Urine Color Straw, Urine Clarity Clear, Urine pH 6.0, Ur Specific [place] 1.010, Urine Protein Negative, Urine Glucose (UA) Normal, Urine Ketones Negative, Urine Occult Blood Negative, Urine Nitrite Negative, Urine Bilirubin Negative, Urine Urobilinogen Normal, Ur Leukocyte Esterase Negative, Urine RBC 0 SEEN, Urine WBC 0 SEEN, Ur Squamous Epith Cells 0-5 SEEN, Urine Bacteria RARE, Urine Mucus 0 SEEN 07/15/19 17:25: Ur Random Sodium 43 07/16/19 06:05: Sodium 130 L, Potassium 3.6, Chloride 97 L, Carbon Dioxide 26.0, Anion Gap 7, BUN 14, Creatinine 0.88, Estim Creat Clear Calc 51.08, Est GFR (MDRD) Af Amer 83, Est GFR (MDRD) Non-Af 69, BUN/Creatinine Ratio 15.9, Glucose 91, Calcium 8.6 07/16/19 06:05: WBC 8.1, RBC 3.95 L, Hgb 11.5 L, Hct 35.2 L, MCV 89.1, MCH 29.1, MCHC 32.7, RDW Std Deviation 46.9 H, RDW Coeff of Lisa 14.6, Plt Count 390, MPV 8.4, Immature Gran % (Auto) 0.700, Neut % (Auto) 73.7 H, Lymph % (Auto) 17.1 L, [place] % (Auto) 6.8, Eos % (Auto) 1.2, Baso % (Auto) 0.5, Absolute Neuts (auto) 6.0, Absolute Lymphs (auto) 1.39, Nucleated RBC % 0 Current Medications Acetaminophen (Tylenol) 650 mg PO Q6H PRN PRN PRN Reason: Pain Score 1-10/Temp > 100.7 F Albuterol/Ipratropium (Duoneb) 3 ml INHALATION Q6HWA.RT [facility] Last Admin: 07/16/19 11:35 Dose: 3 ml Documented by: Amitriptyline HCl (Elavil) 75 mg PO QHS [facility] Last Admin: 07/15/19 22:14 Dose: 75 mg Documented by: Amlodipine Besylate (Norvasc) 10 mg PO DAILY [facility] Last Admin: 07/16/19 10:04 Dose: 10 mg Documented by: Bupropion HCl (Wellbutrin Xl) 300 mg PO DAILY [facility] Last Admin: 07/16/19 10:04 Dose: 300 mg Documented by: Clonazepam (Klonopin) 0.5 mg PO BID PRN PRN PRN Reason: ANXIETY Dextrose (D50w Syringe) 0 gm IV X1 PRN; Protocol PRN Reason: Hypoglycemia Enoxaparin Sodium (Lovenox) 40 mg SC DAILY [facility] Last Admin: 07/16/19 10:11 Dose: 40 mg Documented by: Folic Acid (Folic Acid) 1 mg PO DAILY@0800 [facility] Last Admin: 07/16/19 10:04 Dose: 1 mg Documented by: Furosemide (Lasix) 40 mg IV BID@1000,1800 [facility] Last Admin: 07/16/19 10:07 Dose: 40 mg Documented by: Glucagon () 1 mg IM .X1 PRN PRN Reason: Hypoglycemia Hydrogen Peroxide/Benzyl Alcohol (Hydrogen Peroxide) 1 applic TOPICAL DAILY [facility]; Protocol Last Admin: 07/16/19 10:10 Dose: 1 applic Documented by: Lamotrigine (Lamictal) 200 mg PO DAILY [facility] Last Admin: 07/16/19 10:04 Dose: 200 mg Documented by: Levothyroxine Sodium (Synthroid) 50 mcg PO DAILY@0600 [facility] Last Admin: 07/16/19 05:33 Dose: 50 mcg Documented by: Lisinopril (Zestril) 40 mg PO DAILY [facility] Last Admin: 07/16/19 10:05 Dose: 40 mg Documented by: Morphine Sulfate (Ms Contin) 30 mg PO Q12 [facility] Last Admin: 07/16/19 10:03 Dose: 30 mg Documented by: Nutritional Formula (Lactose Free) (Ensure Enlive) 60 ml PO TID [facility] Last Admin: 07/16/19 05:33 Dose: 60 ml Documented by: Ondansetron HCl (Zofran) 4 mg IV Q8H PRN PRN PRN Reason: NAUSEA/VOMITING Risperidone (Risperdal) 1 mg PO QHS [facility] Sodium Chloride () 10 - 40 ml IV UD PRN PRN Reason: SALINE FLUSH Last Admin: 07/16/19 10:08 Dose: 10 ml Documented by: Tizanidine HCl (Zanaflex) 4 mg PO BID [facility] Last Admin: 07/16/19 10:04 Dose: 4 mg Documented by: STROKE Vital Signs/Narrative: Vital Signs Temp Pulse Resp BP Pulse Ox 07/16/19 11:35 80 24 H 92 07/16/19 11:00 92 07/16/19 10:00 98.2 F 85 16 146/51 H 96 Medical Necessity - Tobacco Use Smoking Status: Current every day smoker Tobacco Use: Cigarettes Assessment/Plan All Active Problems (Last Reviewed 12/17/18 @ 11:[address] Jesus Gillette MD) CHF (congestive heart failure) (Acute) 1. Acute hypoxic respiratory failure 2/2 Acute diastolic CHF, complicated by pulmonary htn - wean o2 if possble, She doesnt use home o2. CXR suggestive of CHF, carmdiomegaly. Pna ruled out. Elevated BNP. Continue IV lasix. -Junctional rhythm on monitor. will monitor overnight. -Echo shows diastolic dysfunction stage 2, EF 65%, moderate pulmonary HTN -subjective improvement of breathing and lungs are clear today. 2. COPD - doubt acute exacerbation at this time, but contributing to above. Continue aerosols, incentive spirometer. 3. Hyponatremia - suspect volume overload, possibly potomania. Improving with lasix. 4. Alcohol abuse- per daughter pt drinking at least 3 tall beers daily. Pt denies drinking. folate/thiamine, case management consult. 5. Hx Bipolar disorder - continue lamictal, risperdal, klonopin, wellbutrin, amitriptyline 6. Hypothyroidism - check tsh with heart failure. continue synthroid,. 7. Chronic back pain - morphine, zanaflex, elavil 8. Nicotine abuse - smoked since teenager. patch if desired. DVT ppx: lovenox. DC planning: many falls, recent wrist fracture. PTOT. This patient was seen by Cristi Joseph PA-C under the supervision of Dr. Jensen <Mario Jensen E - Last Filed: 07/16/19 13:16> Vitals/I&O's: Vital Signs Temp Pulse Resp BP Pulse Ox 98.2 F 80 24 H 146/51 H 92 07/16/19 10:00 07/16/19 11:35 07/16/19 11:35 07/16/19 10:00 07/16/19 11:35 Oxygen Flow Rate (L/min) 4 Oxygen Delivery Method Nasal Cannula Weight: 182 lb 8.684 oz Body Mass Index (BMI) 33.9 Intake and Output for Last 24 Hours 07/14/19 07/15/19 07/16/19 23:59 23:59 23:59 Intake Total 1605 / 1605 180 / 180 Output Total 2850 / 2850 600 / 600 Balance -1245 / -1245 -420 / -420 Microbiology Past 72 Hours 07/15/19 13:20 Mucosa - Nose Influenza Types A,B Direct FA (PAM) - Final Laboratory Results 07/15/19 13:49: WBC 11.1 H, RBC 4.05 L, Hgb 11.7 L, Hct 35.4 L, MCV 87.4, MCH 28.9, MCHC 33.1, RDW Std Deviation 46.5 H, RDW Coeff of Lisa 14.6, Plt Count 376, MPV 8.1, Immature Gran % (Auto) 0.700, Neut % (Auto) 82.3 H, Lymph % (Auto) 10.7 L, [place] % (Auto) 5.9, Eos % (Auto) 0.2, Baso % (Auto) 0.2, Absolute Neuts (auto) 9.1 H, Absolute Lymphs (auto) 1.19, Nucleated RBC % 0 07/15/19 13:49: Sodium 122 L, Potassium 4.9, Chloride 92 L, Carbon Dioxide 21.0, Anion Gap 9, BUN 14, Creatinine 0.79, Estim Creat Clear Calc 56.90, Est GFR (MDR D) Af Amer 94, Est GFR (MDRD) Non-Af 78, BUN/Creatinine Ratio 17.8, Glucose 99, Calcium 8.5, Total Bilirubin 1.30 H, AST 21, ALT 33, Alkaline Phosphatase 450 H, Total Protein 7.1, Albumin 3.1 L, Globulin 4.0, Albumin/Globulin Ratio 0.8 L 07/15/19 13:49: Lactic Acid 1.0 07/15/19 13:49: Ethyl Alcohol 6.0 07/15/19 13:49: B-Natriuretic Peptide 801.9 H 07/15/19 13:49: Serum Osmolality 249 L 07/15/19 13:49: TSH 1.89 07/15/19 13:49: Vitamin D 25-Hydroxy 20.2 07/15/19 17:25: Urine Osmolality 153 07/15/19 17:25: Urine Color Straw, Urine Clarity Clear, Urine pH 6.0, Ur Specific [place] 1.010, Urine Protein Negative, Urine Glucose (UA) Normal, Urine Ketones Negative, Urine Occult Blood Negative, Urine Nitrite Negative, Urine Bilirubin Negative, Urine Urobilinogen Normal, Ur Leukocyte Esterase Negative, Urine RBC 0 SEEN, Urine WBC 0 SEEN, Ur Squamous Epith Cells 0-5 SEEN, Urine Bacteria RARE, Urine Mucus 0 SEEN 07/15/19 17:25: Ur Random Sodium 43 07/16/19 06:05: Sodium 130 L, Potassium 3.6, Chloride 97 L, Carbon Dioxide 26.0, Anion Gap 7, BUN 14, Creatinine 0.88, Estim Creat Clear Calc 51.08, Est GFR (MDRD) Af Amer 83, Est GFR (MDRD) Non-Af 69, BUN/Creatinine Ratio 15.9, Glucose 91, Calcium 8.6 07/16/19 06:05: WBC 8.1, RBC 3.95 L, Hgb 11.5 L, Hct 35.2 L, MCV 89.1, MCH 29.1, MCHC 32.7, RDW Std Deviation 46.9 H, RDW Coeff of Lisa 14.6, Plt Count 390, MPV 8.4, Immature Gran % (Auto) 0.700, Neut % (Auto) 73.7 H, Lymph % (Auto) 17.1 L, [place] % (Auto) 6.8, Eos % (Auto) 1.2, Baso % (Auto) 0.5, Absolute Neuts (auto) 6.0, Absolute Lymphs (auto) 1.39, Nucleated RBC % 0 Current Medications Acetaminophen (Tylenol) 650 mg PO Q6H PRN PRN PRN Reason: Pain Score 1-10/Temp > 100.7 F Albuterol/Ipratropium (Duoneb) 3 ml INHALATION Q6HWA.RT [facility] Last Admin: 07/16/19 11:35 Dose: 3 ml Documented by: Amitriptyline HCl (Elavil) 75 mg PO QHS [facility] Last Admin: 07/15/19 22:14 Dose: 75 mg Documented by: Amlodipine Besylate (Norvasc) 10 mg PO DAILY [facility] Last Admin: 07/16/19 10:04 Dose: 10 mg Documented by: Bupropion HCl (Wellbutrin Xl) 300 mg PO DAILY [facility] Last Admin: 07/16/19 10:04 Dose: 300 mg Documented by: Clonazepam (Klonopin) 0.5 mg PO BID PRN PRN PRN Reason: ANXIETY Dextrose (D50w Syringe) 0 gm IV X1 PRN; Protocol PRN Reason: Hypoglycemia Enoxaparin Sodium (Lovenox) 40 mg SC DAILY [facility] Last Admin: 07/16/19 10:11 Dose: 40 mg Documented by: Folic Acid (Folic Acid) 1 mg PO DAILY@0800 [facility] Last Admin: 07/16/19 10:04 Dose: 1 mg Documented by: Furosemide (Lasix) 40 mg IV BID@1000,1800 [facility] Last Admin: 07/16/19 10:07 Dose: 40 mg Documented by: Glucagon () 1 mg IM .X1 PRN PRN Reason: Hypoglycemia Hydrogen Peroxide/Benzyl Alcohol (Hydrogen Peroxide) 1 applic TOPICAL DAILY [facility]; Protocol Last Admin: 07/16/19 10:10 Dose: 1 applic Documented by: Lamotrigine (Lamictal) 200 mg PO DAILY [facility] Last Admin: 07/16/19 10:04 Dose: 200 mg Documented by: Levothyroxine Sodium (Synthroid) 50 mcg PO DAILY@0600 [facility] Last Admin: 07/16/19 05:33 Dose: 50 mcg Documented by: Lisinopril (Zestril) 40 mg PO DAILY [facility] Last Admin: 07/16/19 10:05 Dose: 40 mg Documented by: Morphine Sulfate (Ms Contin) 30 mg PO Q12 [facility] Last Admin: 07/16/19 10:03 Dose: 30 mg Documented by: Nutritional Formula (Lactose Free) (Ensure Enlive) 60 ml PO TID [facility] Last Admin: 07/16/19 05:33 Dose: 60 ml Documented by: Ondansetron HCl (Zofran) 4 mg IV Q8H PRN PRN PRN Reason: NAUSEA/VOMITING Risperidone (Risperdal) 1 mg PO QHS [facility] Sodium Chloride () 10 - 40 ml IV UD PRN PRN Reason: SALINE FLUSH Last Admin: 07/16/19 10:08 Dose: 10 ml Documented by: Tizanidine HCl (Zanaflex) 4 mg PO BID [facility] Last Admin: 07/16/19 10:04 Dose: 4 mg Documented by: STROKE Vital Signs/Narrative: Vital Signs Temp Pulse Resp BP Pulse Ox 07/16/19 11:35 80 24 H 92 07/16/19 11:00 92 07/16/19 10:00 98.2 F 85 16 146/51 H 96 Assessment/Plan Hospitalist note: I am seeing this patient in conjunction with Cristi Joseph. I independently seen and examined the patient. Progress note above, laboratory data and imaging studies reviewed and I concur with above treatment plan. Today, patient reported some improvement in her symptoms, less short of breath but still looks short of breath at rest. Denied chest pain. She is afebrile, blood pressure and heart rate are stable, she is requiring up to 5 L of oxygen. - Physical Exam General: Alert, Oriented x3, Cooperative, mildly short of breath. HEENT: Atraumatic, PERRLA, EOMI. Neck: Supple, No JVD, Negative Carotid Bruits, Trachea Midline, Thyroid Normal. Lungs: Decreased breath sounds at the bases, bilateral rhonchi, no wheezes, no Rales. Short of breath. Cardiovascular: Regular rate, Regular Rhythm, Normal S1, Normal S2, PMI Normal. Abdomen: Bowel Sounds Present, Soft, Non Tender, Non-Distended, No Hepato- splenomegaly, obese. Extremities: No clubbing, No cyanosis, No edema Skin: No rashes, No breakdown Neurological: Cranial nerves are intact, neuro grossly intact Assessment and plan: #1 acute hypoxic respiratory failure: Multifactorial secondary to acute CHF in addition to history of COPD without exacerbation as well as pulmonary hypertension. She is requiring up to 5 L of oxygen. She is not on home oxygen. Chest x-ray reviewed. She is on IV Lasix, bronchodilators as well. Plan to continue IV diuresis and bronchodilators. #2 acute diastolic CHF: She is on IV Lasix, on lisinopril as well. 2D echocardiogram revealed ejection fraction of 65%, stage II diastolic dysfunction, RVSP 51 consistent with moderate pulmonary hypertension. Kidney function stable. #3 COPD: Doubt acute exacerbation. Plan to continue DuoNeb and albuterol, chest physiotherapy and incentive spirometer. #4 hyponatremia: This is chronic and could be exaggerated by volume overload. It is likely due to chronic liver disease. Sodium is improving with IV diuresis. #5 alcohol abuse: She is on folic acid and thiamine supplement, on Klonopin as needed. #6 other chronic medical problems: Stable, continue current medications as ab ove. This note was generated with [employer] dictation software. It may contain incorrect words, spelling, and punctuation that were not noted in checking the note before signing. Inpatient E&M: 25831 Subs Hosp L2
--- NOTE | 2019-07-16 14:22 | CASEMGMT ---
Pt provided with list of in-network DME companies for possible home oxygen need at discharge. This RN CM back to room multiple times to see if pt made a decision and pt is sleeping without distress but will not wake up to knock on door or verbal stimuli. Green sheet left on chart with multiple DME quick scripts at this time. [place] RN CM
[2019-07-16] MEDS: RisperiDONE 1 MG Tablet PO (21:55)
[2019-07-16] MEDS: Amitriptyline 25 MG Tablet 75 MG PO (21:55)
[2019-07-17] VITALS (13 sets, daily range): BP systolic 109–122; BP diastolic 33–56; PULSE 51–92; RESP 16–20; TEMP 36.4–37; O2SAT 92–96
--- NOTE | 2019-07-17 05:55 | EKG12_ITS ---
Test Reason : AM EKG Blood Pressure : / mmHG Vent. Rate : 059 BPM Atrial Rate : 057 BPM P-R Int : 000 ms QRS Dur : 102 ms QT Int : 440 ms P-R-T Axes : 000 011 072 degrees QTc Int : 435 ms Normal sinus rhythm Inferior infarct , age undetermined Abnormal ECG When compared with ECG of 15-JUL-2019 13:11, MANUAL COMPARISON REQUIRED, DATA IS UNCONFIRMED Confirmed by TEENA GARCIA, ARIAN ([id number]), television news video editor BRETT CROOK ([id number]) on 07/20/2019 8:42:26 AM Referred By: DARIO Confirmed By:ARIAN DICKINSON MD
[2019-07-17] MEDS: Levothyroxine 50 MCG Tablet PO (06:26)
[2019-07-17] MEDS: Ipratropium/Albuterol Sulfate 3 ML AMPUL.NEB INHALATION ×3 (07:13→19:24)
[2019-07-17 07:19] LABS: Anion Gap 9 (5-15); BUN 19 mg/dL (7-18); BUN/Creat Ratio 16.4 RATIO (10-20); Calcium,Total 8.3 mg/dL (8.5-10.1); Chloride 94 mmol/L (98-107); Creatinine, Serum 1.16 mg/dL (0.55-1.02); EST Glomerular Filtration Rate 50 mL/min (>60); Est Glom Filt Rate - Afr Amer 60 mL/min (>60); Estimated Creatinine Clearance 38.75 ml/min; Glucose 97 mg/dL (74-106); Potassium 3.7 mmol/L (3.5-5.1); Sodium Level 129 mmol/L (136-145)
[2019-07-17] MEDS: Thiamine Hydrochloride 100 MG Tablet PO (08:54)
[2019-07-17] MEDS: Folic Acid 1 MG Tablet PO (08:54)
[2019-07-17] MEDS: buPROPion (XL) 300 MG TABLET.XL PO (10:06)
[2019-07-17] MEDS: amLODIPine 10 MG Tablet PO (10:07)
[2019-07-17] MEDS: Lisinopril 40 MG Tablet PO (10:07)
[2019-07-17] MEDS: tiZANidine HCl 2 MG Tablet 4 MG PO ×2 (10:07→21:06)
[2019-07-17] MEDS: lamoTRIgine 100 MG Tablet 200 MG PO (10:07)
[2019-07-17] MEDS: 0.9% Saline Lock 10 ML Syringe IV ×2 (10:09→17:15)
[2019-07-17] MEDS: Furosemide 40 MG/4 ML Vial IV ×2 (10:09→17:15)
[2019-07-17] MEDS: Enoxaparin 40 MG/0.4 ML Syringe SC (10:12)
--- NOTE | 2019-07-17 11:26 | PCM.PN.HOSP ---
<Cristi Joseph - Last Filed: 07/17/19 11:26> Patient Problems: Active and Suspected Problems (Last Reviewed 12/17/18 @ 11:[address] Jesus Gillette MD) CHF (congestive heart failure) (Acute) Reason for Visit: sob Subjective: gradual improvement in breathing. remains on o2. + orthopnea, + exertional dyspnea. No cp/palp/LH. No le edema. No difficulty emptying bladder. Vitals/I&O's: Vital Signs Temp Pulse Resp BP Pulse Ox 97.9 F 92 18 121/33 H 95 07/17/19 10:00 07/17/19 10:00 07/17/19 10:00 07/17/19 10:00 07/17/19 10:00 Oxygen Flow Rate (L/min) 3 Oxygen Delivery Method Nasal Cannula Weight: 177 lb 0.499 oz Body Mass Index (BMI) 33.9 Intake and Output for Last 24 Hours 07/15/19 07/16/19 07/17/19 23:59 23:59 23:59 Intake Total 1605 / 1605 470 / 470 115 / 115 Output Total 2850 / 2850 600 / 600 Balance -1245 / -1245 -130 / -130 115 / 115 General: Alert, Oriented x3, Cooperative HEENT: Atraumatic, PERRLA, EOMI, Normocephalic Neck: Supple, No JVD, Negative Carotid Bruits Lungs: Normal air movement, Rales - faint rales BL bases Cardiovascular: Regular rate, No murmurs Abdomen: Bowel Sounds Present, Soft, Non Tender Extremities: No edema, Capillary Refill Less than 3 Seconds Skin: No rashes, No breakdown Musculoskeletal: No Tenderness to Palpation of Joints or Extremities Neurological: Cranial nerves II-XII grossly intact Psych/Mental Status: Normal Affect, Appropriate, Alert and oriented to time, place, person, mood and affect Microbiology Past 72 Hours 07/15/19 13:20 Mucosa - Nose Influenza Types A,B Direct FA (PAM) - Final Laboratory Results 07/17/19 05:58: Sodium 129 L, Potassium 3.7, Chloride 94 L, Carbon Dioxide 26.0, Anion Gap 9, BUN 19 H, Creatinine 1.16 H, Estim Creat Clear Calc 38.75, Est GFR (MDRD) Af Amer 60, Est GFR (MDRD) Non-Af 50 L, BUN/Creatinine Ratio 16.4, Glucose 97, Calcium 8.3 L Current Medications Acetaminophen (Tylenol) 650 mg PO Q6H PRN PRN PRN Reason: Pain Score 1-10/Temp > 100.7 F Albuterol/Ipratropium (Duoneb) 3 ml INHALATION Q6HWA.RT [facility] Last Admin: 07/17/19 07:13 Dose: 3 ml Documented by: Amitriptyline HCl (Elavil) 75 mg PO QHS [facility] Last Admin: 07/16/19 21:55 Dose: 75 mg Documented by: Amlodipine Besylate (Norvasc) 10 mg PO DAILY [facility] Last Admin: 07/17/19 10:07 Dose: 10 mg Documented by: Bupropion HCl (Wellbutrin Xl) 300 mg PO DAILY [facility] Last Admin: 07/17/19 10:06 Dose: 300 mg Documented by: Clonazepam (Klonopin) 0.5 mg PO BID PRN PRN PRN Reason: ANXIETY Dextrose (D50w Syringe) 0 gm IV X1 PRN; Protocol PRN Reason: Hypoglycemia Enoxaparin Sodium (Lovenox) 40 mg SC DAILY [facility] Last Admin: 07/17/19 10:12 Dose: 40 mg Documented by: Folic Acid (Folic Acid) 1 mg PO DAILY@0800 [facility] Last Admin: 07/17/19 08:54 Dose: 1 mg Documented by: Furosemide (Lasix) 40 mg IV BID@1000,1800 [facility] Last Admin: 07/17/19 10:09 Dose: 40 mg Documented by: Glucagon () 1 mg IM .X1 PRN PRN Reason: Hypoglycemia Hydrogen Peroxide/Benzyl Alcohol (Hydrogen Peroxide) 1 applic TOPICAL DAILY [facility]; Protocol Last Admin: 07/17/19 10:06 Dose: 1 applic Documented by: Lamotrigine (Lamictal) 200 mg PO DAILY [facility] Last Admin: 07/17/19 10:07 Dose: 200 mg Documented by: Levothyroxine Sodium (Synthroid) 50 mcg PO DAILY@0600 [facility] Last Admin: 07/17/19 06:26 Dose: 50 mcg Documented by: Lisinopril (Zestril) 40 mg PO DAILY [facility] Last Admin: 07/17/19 10:07 Dose: 40 mg Documented by: Morphine Sulfate (Ms Contin) 30 mg PO Q12 [facility] Last Admin: 07/17/19 10:16 Dose: 30 mg Documented by: Nutritional Formula (Lactose Free) (Ensure Enlive) 60 ml PO TID [facility] Last Admin: 07/17/19 06:26 Dose: 60 ml Documented by: Ondansetron HCl (Zofran) 4 mg IV Q8H PRN PRN PRN Reason: NAUSEA/VOMITING Risperidone (Risperdal) 1 mg PO QHS [facility] Last Admin: 07/16/19 21:55 Dose: 1 mg Documented by: Sodium Chloride () 10 - 40 ml IV UD PRN PRN Reason: SALINE FLUSH Last Admin: 07/17/19 10:09 Dose: 10 ml Documented by: Thiamine HCl (Vitamin B1) 100 mg PO DAILYCM [facility] Last Admin: 07/17/19 08:54 Dose: 100 mg Documented by: Tizanidine HCl (Zanaflex) 4 mg PO BID [facility] Last Admin: 07/17/19 10:07 Dose: 4 mg Documented by: STROKE Vital Signs/Narrative: Vital Signs Temp Pulse Resp BP Pulse Ox 07/17/19 10:00 97.9 F 92 18 121/33 H 95 Medical Necessity - Tobacco Use Smoking Status: Current every day smoker Tobacco Use: Cigarettes Assessment/Plan All Active Problems (Last Reviewed 12/17/18 @ 11:[address] Jesus Gillette MD) CHF (congestive heart failure) (Acute) 1. Acute hypoxic respiratory failure 2/2 Acute diastolic CHF, complicated by pulmonary htn - wean o2, Continue IV lasix. -Junctional rhythm on monitor, EKG. -Echo shows diastolic dysfunction stage 2, EF 65%, moderate pulmonary HTN -subjective improvement of breathing and lungs are clear today. 2. COPD - doubt acute exacerbation at this time, but contributing to above. Continue aerosols, incentive spirometer. 3. Hyponatremia - 130--> 129. recheck in am. 4. Alcohol abuse- per daughter pt drinking at least 3 tall beers daily. Pt denies drinking. folate/thiamine, case management consult. 5. Hx Bipolar disorder - continue lamictal, risperdal, klonopin, wellbutrin, amitriptyline 6. Hypothyroidism - tsh normal, continue synthroid,. 7. Chronic back pain - morphine, zanaflex, elavil 8. Nicotine abuse - smoked since teenager. pt expresses that she plans to go home and smoke. DVT ppx: lovenox. DC planning: per pt / ot no homegoing needs. will likely need home o2. This patient was seen by Cristi Joseph PA-C under the supervision of Dr. Jensen <Mario Jensen E - Last Filed: 07/17/19 11:40> Vitals/I&O's: Vital Signs Temp Pulse Resp BP Pulse Ox 97.9 F 92 18 121/33 H 95 07/17/19 10:00 07/17/19 10:00 07/17/19 10:00 07/17/19 10:00 07/17/19 10:00 Oxygen Flow Rate (L/min) 3 Oxygen Delivery Method Nasal Cannula Weight: 177 lb 0.499 oz Body Mass Index (BMI) 33.9 Intake and Output for Last 24 Hours 07/15/19 07/16/19 07/17/19 23:59 23:59 23:59 Intake Total 1605 / 1605 470 / 470 115 / 115 Output Total 2850 / 2850 600 / 600 Balance -1245 / -1245 -130 / -130 115 / 115 Microbiology Past 72 Hours 07/15/19 13:20 Mucosa - Nose Influenza Types A,B Direct FA (PAM) - Final Laboratory Results 07/17/19 05:58: Sodium 129 L, Potassium 3.7, Chloride 94 L, Carbon Dioxide 26.0, Anion Gap 9, BUN 19 H, Creatinine 1.16 H, Estim Creat Clear Calc 38.75, Est GFR (MDRD) Af Amer 60, Est GFR (MDRD) Non-Af 50 L, BUN/Creatinine Ratio 16.4, Glucose 97, Calcium 8.3 L Current Medications Acetaminophen (Tylenol) 650 mg PO Q6H PRN PRN PRN Reason: Pain Score 1-10/Temp > 100.7 F Albuterol/Ipratropium (Duoneb) 3 ml INHALATION Q6HWA.RT [facility] Last Admin: 07/17/19 07:13 Dose: 3 ml Documented by: Amitriptyline HCl (Elavil) 75 mg PO QHS [facility] Last Admin: 07/16/19 21:55 Dose: 75 mg Documented by: Amlodipine Besylate (Norvasc) 10 mg PO DAILY [facility] Last Admin: 07/17/19 10:07 Dose: 10 mg Documented by: Bupropion HCl (Wellbutrin Xl) 300 mg PO DAILY [facility] Last Admin: 07/17/19 10:06 Dose: 300 mg Documented by: Clonazepam (Klonopin) 0.5 mg PO BID PRN PRN PRN Reason: ANXIETY Dextrose (D50w Syringe) 0 gm IV X1 PRN; Protocol PRN Reason: Hypoglycemia Enoxaparin Sodium (Lovenox) 40 mg SC DAILY [facility] Last Admin: 07/17/19 10:12 Dose: 40 mg Documented by: Folic Acid (Folic Acid) 1 mg PO DAILY@0800 [facility] Last Admin: 07/17/19 08:54 Dose: 1 mg Documented by: Furosemide (Lasix) 40 mg IV BID@1000,1800 [facility] Last Admin: 07/17/19 10:09 Dose: 40 mg Documented by: Glucagon () 1 mg IM .X1 PRN PRN Reason: Hypoglycemia Hydrogen Peroxide/Benzyl Alcohol (Hydrogen Peroxide) 1 applic TOPICAL DAILY [facility]; Protocol Last Admin: 07/17/19 10:06 Dose: 1 applic Documented by: Lamotrigine (Lamictal) 200 mg PO DAILY [facility] Last Admin: 07/17/19 10:07 Dose: 200 mg Documented by: Levothyroxine Sodium (Synthroid) 50 mcg PO DAILY@0600 [facility] Last Admin: 07/17/19 06:26 Dose: 50 mcg Documented by: Lisinopril (Zestril) 40 mg PO DAILY [facility] Last Admin: 07/17/19 10:07 Dose: 40 mg Documented by: Morphine Sulfate (Ms Contin) 30 mg PO Q12 [facility] Last Admin: 07/17/19 10:16 Dose: 30 mg Documented by: Nutritional Formula (Lactose Free) (Ensure Enlive) 60 ml PO TID [facility] Last Admin: 07/17/19 06:26 Dose: 60 ml Documented by: Ondansetron HCl (Zofran) 4 mg IV Q8H PRN PRN PRN Reason: NAUSEA/VOMITING Risperidone (Risperdal) 1 mg PO QHS [facility] Last Admin: 07/16/19 21:55 Dose: 1 mg Documented by: Sodium Chloride () 10 - 40 ml IV UD PRN PRN Reason: SALINE FLUSH Last Admin: 07/17/19 10:09 Dose: 10 ml Documented by: [facility] Admin: 07/17/19 08:54 Dose: 100 mg Documented by: Tizanidine HCl (Zanaflex) 4 mg PO BID [facility] Last Admin: 07/17/19 10:07 Dose: 4 mg Documented by: STROKE Vital Signs/Narrative: Vital Signs Temp Pulse Resp BP Pulse Ox 07/17/19 10:00 97.9 F 92 18 121/33 H 95 Assessment/Plan Hospitalist note: I am seeing this patient in conjunction with Cristi Joseph. I independently seen and examined the patient. Progress note above, laboratory data and imaging studies reviewed and I concur with above treatment plan. She reported gradual slow improvement in terms of her shortness of breath, still requiring oxygen. Leg edema improved. Denied chest pain. Pulse ox is 95% on 3 L, other vital signs are stable. - Physical Exam General: Alert, Oriented x3, Cooperative, mildly short of breath. HEENT: Atraumatic, PERRLA, EOMI. Neck: Supple, No JVD, Negative Carotid Bruits, Trachea Midline, Thyroid Normal. Lungs: Decreased breath sounds at the bases, basilar crackles, scattered rhonchi, no wheezes. Cardiovascular: Regular rate, Regular Rhythm, Normal S1, Normal S2, PMI Normal. Abdomen: Bowel Sounds Present, Soft, Non Tender, Non-Distended, No Hepato-splenomegaly, obese. Extremities: No clubbing, No cyanosis, No edema Skin: No rashes, No breakdown Neurological: Cranial nerves are intact, neuro grossly intact Assessment and plan: #1 acute hypoxic respiratory failure: Multifactorial secondary to acute CHF in addition to history of COPD without exacerbation as well as pulmonary hypertension. Remains on oxygen at 3 L, oxygen requirement is decreasing, she was on 5 L of oxygen yesterday. She is not on home oxygen. Chest x-ray reviewed. She is on IV Lasix, bronchodilators as well. Plan to continue IV diuresis and bronchodilators, possible DC home tomorrow. Patient will probably need home oxygen. #2 acute diastolic CHF: Remained on IV Lasix, on lisinopril as well. 2D echocardiogram revealed ejection fraction of 65%, stage II diastolic dysfunction, RVSP 51 consistent with moderate pulmonary hypertension. Kidney function stable. Plan to continue IV diuresis, discharge home tomorrow. #3 COPD: Doubt acute exacerbation. continue DuoNeb and albuterol, chest physiotherapy and incentive spirometer. #4 hyponatremia: This is chronic and could be exaggerated by volume overload. It is likely due to chronic liver disease. Sodium is improving with IV diuresis. #5 alcohol abuse: She is on folic acid and thiamine supplement, on Klonopin as needed. #6 other chronic medical problems: Stable, continue current medications as above. This note was generated with Ygle dictation software. It may contain incorrect words, spelling, and punctuation that were not noted in checking the note before signing. Inpatient E&M: 78629 Subs Hosp L2
[2019-07-17] MEDS: RisperiDONE 1 MG Tablet PO (21:06)
[2019-07-17] MEDS: Amitriptyline 25 MG Tablet 75 MG PO (21:06)
[2019-07-17] MEDS: Polyethylene Glycol 3350 17 GM PACKET PO (22:37)
[2019-07-18] VITALS (8 sets, daily range): BP systolic 115–120; BP diastolic 45–50; PULSE 52–60; RESP 18; TEMP 36.6–36.7; O2SAT 86–93
[2019-07-18] MEDS: Levothyroxine 50 MCG Tablet PO (06:10)
[2019-07-18] MEDS: Ipratropium/Albuterol Sulfate 3 ML AMPUL.NEB INHALATION ×2 (07:21→13:15)
[2019-07-18] MEDS: Thiamine Hydrochloride 100 MG Tablet PO (08:24)
[2019-07-18] MEDS: Folic Acid 1 MG Tablet PO (08:24)
[2019-07-18] MEDS: Lisinopril 40 MG Tablet PO (09:58)
[2019-07-18] MEDS: lamoTRIgine 100 MG Tablet 200 MG PO (09:58)
[2019-07-18] MEDS: amLODIPine 10 MG Tablet PO (09:59)
[2019-07-18] MEDS: buPROPion (XL) 300 MG TABLET.XL PO (09:59)
[2019-07-18] MEDS: tiZANidine HCl 2 MG Tablet 4 MG PO (10:00)
[2019-07-18] MEDS: Enoxaparin 40 MG/0.4 ML Syringe SC (10:03)
[2019-07-18] MEDS: Furosemide 40 MG/4 ML Vial IV (10:04)
[2019-07-18] MEDS: 0.9% Saline Lock 10 ML Syringe IV (10:05)
--- NOTE | 2019-07-18 10:50 | DCINST_ITS ---
- Discharge Diagnoses Current Active Problems: Current Active and Chronic Problems Hyponatremia (Chronic) CHF (congestive heart failure) (Acute) COPD (chronic obstructive pulmonary disease) (Chronic) Alcohol abuse (Chronic) You will use the following diet at home:: Cardiac - 2-3 g sodium per day, 1800 cc / day fluid restriction, Other - no alcohol Your food should be the consistency of: Regular Your liquids should be the consistency of: Regular/Thin Discharge Activity: Return to Normal Activity, - - no smoking Additional Instructions: Check weight daily: if >2 lb weight gain in 24 hours or 5 lb weight gain in 7 days call doctor for instructions regarding lasix. You will need a BMP (blood test) within a week, talk to your family medicine doctor about having this done. Allergies/Adverse Reactions: Allergies No Known Allergies Allergy (Verified 07/15/19 11:10) Medications to take at Discharge Amlodipine [Norvasc] 10 mg PO DAILY 06/13/15 Clonazepam [Klonopin] 0.5 mg PO BID PRN PRN 06/13/15 Lisinopril [Zestril] 40 mg PO DAILY 06/13/15 Risperidone [Risperdal] 1 mg PO DAILY 06/13/15 morphine SR tablet [Ms Contin] 30 mg PO Q12H 06/13/15 Amitriptyline HCl 75 mg PO QHS 07/15/19 Lamotrigine 200 mg PO DAILY 07/15/19 Levothyroxine [Synthroid] 50 mcg PO DAILY 07/15/19 Tizanidine HCl 4 mg PO BID 07/15/19 buPROPion XL [Wellbutrin Xl] 300 mg PO DAILY 07/15/19 Albuterol Inhaler [Ventolin Hfa] 1 puff INHALATION Q6H PRN PRN #1 inhaler 07/18/19 Furosemide [Lasix] 40 mg PO BID #60 tab 07/18/19 Potassium Chloride [K-Dur] 20 meq PO DAILY #30 tab 07/18/19 The following prescriptions were given: Potassium Chloride [K-Dur] 20 meq PO DAILY #30 tab Transmission Status: Pending to [id number] Furosemide [Lasix] 40 mg PO BID #60 tab Transmission Status: Pending to [id number] Albuterol Inhaler [Ventolin Hfa] 1 puff INHALATION Q6H PRN PRN #1 inhaler PRN Reason: Sob &/Or Wheezing Transmission Status: Pending to [id number] Primary Care Physician: Cornelius Srinivasan Chi, MD [Primary Care Provider] - Please follow up with your Primary Care Physician in: 1-2 weeks Test Results: Test results from this visit will be discussed in further detail at your follow- up appointment, if applicable. Please Follow Up With: Jesus Gillette MD When: 2 weeks Proposed Discharge Date: 07/18/19
--- NOTE | 2019-07-18 11:05 | DS.PCM_ITS ---
<Cristi Joseph - Last Filed: 07/18/19 11:05> Discharge Date and Diagnosis - Problem List Patient Problems: Active and Suspected Problems (Last Reviewed 12/17/18 @ 11:[address] Jesus Gillette MD) CHF (congestive heart failure) (Acute) Date of Admission: 07/15/19 Date of Discharge: 07/18/19 - Primary Discharge Diagnosis Active and Suspected Problems Acute hypoxic respiratory failure secondary to acute diastolic congestive heart failure complicated by pulmonary hypertension Junctional rhythm COPD without acute exacerbation Ongoing nicotine abuse Hyponatremia secondary to hypervolemic hyponatremia Alcohol abuse History of bipolar disorder Hypothyroidism Chronic back pain - Secondary Discharge Diagnosis Chronic Problems (Last Reviewed 12/17/18 @ 11:[address] Jesus Gillette MD) Hyponatremia (Chronic) COPD (chronic obstructive pulmonary disease) (Chronic) Alcohol abuse (Chronic) Diastolic dysfunction (Chronic) Essential (primary) hypertension (Chronic) Abnormal electrocardiogram (Chronic) Hyperlipidemia (Chronic) Nicotine dependence (Chronic) Hospital Course and Treatment Imaging Results: CT/Brain/Head without Contrast IMPRESSION: Chronic involutional changes of the brain. CT/Spine Cervical without Contras IMPRESSION: Multilevel degenerative changes, as described above. Right pleural effusion with patchy infiltrates in the upper lobes. Operations: None Procedures: 2-D Echocardiogram Summary of Care Provided: Hospital course: The patient is a 63 year old F with past medical history as above, no discrete history of congestive heart failure, who presented to the emergency room with complaints of shortness of breath and a fall. Patient had recently fallen and fractured her wrist, left (she is being treated by ortho - Dr. Guidry), and then fell again on the day of presentation as she was getting out of her car at [facility] to pick out hand prescriptions. She struck the right posterior lateral portion of her head. She had had worsening shortness of breath for 2 weeks in addition to this. Initially in the ER she was worked up for her fall and head injury. CT of the brain, CT of the C-spine showed chronic changes. She was hypoxic with a pulse ox of 85% on room air. Chest x-ray was consistent with congestive heart failure. She had severe shortness of breath when lying flat for the CAT scan. She required 4 L of oxygen to maintain adequate saturation of 90% in the ER. Her daughter was present and very concerned that her mother had been drinking heavily, at least 3 tall beers daily. The patient denied this. She had hyponatremia which was felt to be secondary to hypervolemic hyponatremia, possibly some component of possible gregor. She did not have significant lower extremity edema. Her beta natruretic peptide was 801.9. She was admitted to the PCU on telemetry for acute heart failure exacerbation. Echocardiogram was obtained and demonstrated EF 65%, stage II diastolic dysfunction, RVSP 51 mmHg, moderate pulmonary hypertension. She was treated with IV Lasix with good response. She had good improvement in her breathing however was unable to be weaned off of oxygen. She is active at home and in the community and will require up to 4 L of oxygen in order to maintain adequate saturations. This has been ordered for her. With her recent falls and left wrist fracture she was evaluated by PT and OT. She did well and did not require any further ongoing therapy. Unfortunately the patient indicated that she plan to go home and return to smoking. I strongly advised her not to smoke while using oxygen. She will also go on oral Lasix with potassium supplementation. She will need a BMP in 1 week. She will need to follow-up with her PCP in 1 to 2 weeks. I have advised her to follow-up with cardiology in 2 weeks. She was discharged home in stable condition. This patient was seen by Cristi Joseph PA-C under the supervision of Doctor Jensen. [] Patient Problems: Active and Suspected Problems (Last Reviewed 12/17/18 @ 11:[address] Jesus Gillette MD) CHF (congestive heart failure) (Acute) - Physical Exam Vitals/I&O's: Vital Signs Temp Pulse Resp BP Pulse Ox 97.9 F 59 L 18 120/45 L 93 07/18/19 09:15 07/18/19 09:15 07/18/19 09:15 07/18/19 09:15 07/18/19 09:15 Oxygen Flow Rate (L/min) 4 Oxygen Delivery Method Nasal Cannula Weight: 180 lb 15.992 oz Body Mass Index (BMI) 33.9 Intake and Output for Last 24 Hours 07/16/19 07/17/19 07/18/19 23:59 23:59 23:59 Intake Total 470 / 470 895 / 895 50 / 50 Output Total 600 / 600 Balance -130 / -130 895 / 895 50 / 50 General: Alert, Oriented x3, Cooperative HEENT: Atraumatic, PERRLA, EOMI, Normocephalic Neck: Supple, No JVD, Negative Carotid Bruits Lungs: Clear to auscultation, Normal air movement, Rales - faint rales BL bases Cardiovascular: Regular rate, No murmurs Abdomen: Bowel Sounds Present, Soft, Non Tender Extremities: No edema, Capillary Refill Less than 3 Seconds Skin: No rashes, No breakdown Musculoskeletal: No Tenderness to Palpation of Joints or Extremities Neurological: Cranial nerves II-XII grossly intact Psych/Mental Status: Normal Affect, Appropriate, Alert and oriented to time, place, person, mood and affect Microbiology Past 72 Hours 07/15/19 13:49 Blood Culture (Wb) - Anticubital Right Blood Culture - Preliminary No growth in 48 hours. 07/15/19 13:49 Blood Culture (Wb) - Anticubital Left Blood Culture - Preliminary No growth in 48 hours. 07/15/19 13:20 Mucosa - Nose Influenza Types A,B Direct FA (PAM) - Final Current Medications Acetaminophen (Tylenol) 650 mg PO Q6H PRN PRN PRN Reason: Pain Score 1-10/Temp > 100.7 F Albuterol/Ipratropium (Duoneb) 3 ml INHALATION Q6HWA.RT [facility] Last Admin: 07/18/19 07:21 Dose: 3 ml Documented by: Amitriptyline HCl (Elavil) 75 mg PO QHS [facility] Last Admin: 07/17/19 21:06 Dose: 75 mg Documented by: Amlodipine Besylate (Norvasc) 10 mg PO DAILY [facility] Last Admin: 07/18/19 09:59 Dose: 10 mg Documented by: Bupropion HCl (Wellbutrin Xl) 300 mg PO DAILY [facility] Last Admin: 07/18/19 09:59 Dose: 300 mg Documented by: Clonazepam (Klonopin) 0.5 mg PO BID PRN PRN PRN Reason: ANXIETY Dextrose (D50w Syringe) 0 gm IV X1 PRN; Protocol PRN Reason: Hypoglycemia Enoxaparin Sodium (Lovenox) 40 mg SC DAILY [facility] Last Admin: 07/18/19 10:03 Dose: 40 mg Documented by: Folic Acid (Folic Acid) 1 mg PO DAILY@0800 [facility] Last Admin: 07/18/19 08:24 Dose: 1 mg Documented by: Furosemide (Lasix) 40 mg IV BID@1000,1800 [facility] Last Admin: 07/18/19 10:04 Dose: 40 mg Documented by: Glucagon () 1 mg IM .X1 PRN PRN Reason: Hypoglycemia Hydrogen Peroxide/Benzyl Alcohol (Hydrogen Peroxide) 1 applic TOPICAL DAILY [facility]; Protocol Last Admin: 07/18/19 09:59 Dose: 1 applic Documented by: Lamotrigine (Lamictal) 200 mg PO DAILY [facility] Last Admin: 07/18/19 09:58 Dose: 200 mg Documented by: Levothyroxine Sodium (Synthroid) 50 mcg PO DAILY@0600 [facility] Last Admin: 07/18/19 06:10 Dose: 50 mcg Documented by: Lisinopril (Zestril) 40 mg PO DAILY [facility] Last Admin: 07/18/19 09:58 Dose: 40 mg Documented by: Morphine Sulfate (Ms Contin) 30 mg PO Q12 [facility] Last Admin: 07/18/19 09:59 Dose: 30 mg Documented by: Nutritional Formula (Lactose Free) (Ensure Enlive) 60 ml PO TID [facility] Last Admin: 07/18/19 06:10 Dose: 60 ml Documented by: Ondansetron HCl (Zofran) 4 mg IV Q8H PRN PRN PRN Reason: NAUSEA/VOMITING Polyethylene Glycol (Miralax) 17 gm PO DAILY [facility] Last Admin: 07/18/19 09:59 Dose: Not Given Documented by: Risperidone (Risperdal) 1 mg PO QHS [facility] Last Admin: 07/17/19 21:06 Dose: 1 mg Documented by: Sodium Chloride () 10 - 40 ml IV UD PRN PRN Reason: SALINE FLUSH Last Admin: 07/18/19 10:05 Dose: 10 ml Documented by: Thiamine HCl (Vitamin B1) 100 mg PO DAILYCM [facility] Last Admin: 07/18/19 08:24 Dose: 100 mg Documented by: Tizanidine HCl (Zanaflex) 4 mg PO BID [facility] Last Admin: 07/18/19 10:00 Dose: 4 mg Documented by: Discharge Diet: Low fat/ Low Cholesterol, 2000 mg Sodium Diet Discharge Activity: Return to Normal Activity, - - no smoking Home Medications: Medications to take at Discharge Amlodipine [Norvasc] 10 mg PO DAILY 06/13/15 Clonazepam [Klonopin] 0.5 mg PO BID PRN PRN 06/13/15 Lisinopril [Zestril] 40 mg PO DAILY 06/13/15 Risperidone [Risperdal] 1 mg PO DAILY 06/13/15 morphine SR tablet [Ms Contin] 30 mg PO Q12H 06/13/15 Amitriptyline HCl 75 mg PO QHS 07/15/19 Lamotrigine 200 mg PO DAILY 07/15/19 Levothyroxine [Synthroid] 50 mcg PO DAILY 07/15/19 Tizanidine HCl 4 mg PO BID 07/15/19 buPROPion XL [Wellbutrin Xl] 300 mg PO DAILY 07/15/19 Albuterol Inhaler [Ventolin Hfa] 1 puff INHALATION Q6H PRN PRN #1 inhaler 07/18/19 Furosemide [Lasix] 40 mg PO BID #60 tab 07/18/19 Potassium Chloride [K-Dur] 20 meq PO DAILY #30 tab 07/18/19 Following Prescrptions Were Given to Patient: Potassium Chloride [K-Dur] 20 meq PO DAILY #30 tab Transmission Status: Received by [id number] Furosemide [Lasix] 40 mg PO BID #60 tab Transmission Status: Received by [id number] Albuterol Inhaler [Ventolin Hfa] 1 puff INHALATION Q6H PRN PRN #1 inhaler PRN Reason: Sob &/Or Wheezing Transmission Status: Received by [id number] Primary Care Physician: Cornelius Srinivasan Chi, MD [Primary Care Provider] - Please follow up with your Primary Care Physician in: 1-2 weeks Please Follow Up With: Jesus Gillette MD When: 2 weeks Please Follow Up With: Cornelius Srinivasan Chi, MD When: 1-2 weeks Disposition: Home Minutes spent on discharge:: 35 Patient Condition:: Stable Medical Necessity - Tobacco Use Smoking Status: Current every day smoker Tobacco Use: Cigarettes Meaningful Use Info Meaningful Use Diagnoses (Choose all that apply): CHF - CHF SHARRON/ARB ordered at discharge?: Yes Documented LVEF (%): 65 <Mario Jensen E - Last Filed: 07/18/19 12:13> Discharge Date and Diagnosis - Primary Discharge Diagnosis Active and Suspected Problems (Last Reviewed 12/17/18 @ 11:[address] Jesus Gillette MD) CHF (congestive heart failure) (Acute) - Secondary Discharge Diagnosis Chronic Problems (Last Reviewed 12/17/18 @ 11:[address] Jesus Gillette MD) Hyponatremia (Chronic) COPD (chronic obstructive pulmonary disease) (Chronic) Alcohol abuse (Chronic) Diastolic dysfunction (Chronic) Essential (primary) hypertension (Chronic) Abnormal electrocardiogram (Chronic) Hyperlipidemia (Chronic) Nicotine dependence (Chronic) Hospital Course and Treatment Summary of Care Provided: Hospitalist note: Discharge summary above reviewed and I concur with the above discharge treatment plan. Patient presented to the emergency room because of fall and shortness of breath, found to have acute hypoxic respiratory failure and acute diastolic CHF. This patient is a longtime smoker and she does have a history of COPD. There was no evidence of COPD exacerbation at this time. Because of the fall, CT scan brain and cervical spine performed and showed no acute findings. She was treated with IV Lasix for diuresis as well as lisinopril. Chest x-ray revealed cardiomegaly and findings consistent with congestive heart failure. 2D echocardiogram revealed ejection fraction of 65%, stage II diastolic function, RVSP of 51 consistent with moderate pulmonary hypertension. Her routine blood work was remarkable for hyponatremia which is probably chronic due to alcohol abuse and also may be exaggerated by IV Lasix. Other routine blood work was unremarkable. EKG revealed no acute acute changes. TSH was normal. With IV diuresis and breathing treatments, patient symptoms improved. Initially, she required up to 6 L of oxygen and with treatment, her oxygen requirement decreased down to 4 L. Ambulatory pulse oximetry performed and her pulse ox dropped down to 86% on room air with ambulation and that she did qualify for home oxygen as she has been ambulatory at home. Patient discharged home in a stable condition, discharged on home oxygen at 4 L, discharged on Lasix 40 mg p.o. twice daily, with potassium supplement, continued on her home inhalers, recommended follow-up with PCP in 1 to 2 weeks and follow-up with cardiology in 2 weeks. - Physical Exam General: Alert, Oriented x3, Cooperative, mildly short of breath. HEENT: Atraumatic, PERRLA, EOMI. Neck: Supple, No JVD, Negative Carotid Bruits, Trachea Midline, Thyroid Normal. Lungs: Decreased breath sounds at the bases, faint basilar crackles, no rhonchi, no wheezes. Cardiovascular: Regular rate, Regular Rhythm, Normal S1, Normal S2, PMI Normal. Abdomen: Bowel Sounds Present, Soft, Non Tender, Non-Distended, No Hepato- splenomegaly, obese. Extremities: No clubbing, No cyanosis, No edema Skin: No rashes, No breakdown Neurological: Cranial nerves are intact, neuro grossly intact. This note was generated with [employer] dictation software. It may contain incorrect words, spelling, and punctuation that were not noted in checking the note before signing. - Physical Exam Vitals/I&O's: Vital Signs Temp Pulse Resp BP Pulse Ox 97.9 F 59 L 18 120/45 L 93 07/18/19 11:38 07/18/19 11:38 07/18/19 11:38 07/18/19 11:38 07/18/19 11:38 Oxygen Flow Rate (L/min) [ 4 AMBULATION with Oxygen] Oxygen Flow Rate (L/min) 4 Oxygen Delivery Method Nasal Cannula Weight: 180 lb 15.992 oz Body Mass Index (BMI) 33.9 Intake and Output for Last 24 Hours 07/16/19 07/17/19 07/18/19 23:59 23:59 23:59 Intake Total 470 / 470 895 / 895 50 / 50 Output Total 600 / 600 Balance -130 / -130 895 / 895 50 / 50 Microbiology Past 72 Hours 07/15/19 13:49 Blood Culture (Wb) - Anticubital Right Blood Culture - Preliminary No growth in 48 hours. 07/15/19 13:49 Blood Culture (Wb) - Anticubital Left Blood Culture - Preliminary No growth in 48 hours. 07/15/19 13:20 Mucosa - Nose Influenza Types A,B Direct FA (PAM) - Final Current Medications Acetaminophen (Tylenol) 650 mg PO Q6H PRN PRN PRN Reason: Pain Score 1-10/Temp > 100.7 F Albuterol/Ipratropium (Duoneb) 3 ml INHALATION Q6HWA.RT [facility] Last Admin: 07/18/19 07:21 Dose: 3 ml Documented by: Amitriptyline HCl (Elavil) 75 mg PO QHS [facility] Last Admin: 07/17/19 21:06 Dose: 75 mg Documented by: Amlodipine Besylate (Norvasc) 10 mg PO DAILY [facility] Last Admin: 07/18/19 09:59 Dose: 10 mg Documented by: Bupropion HCl (Wellbutrin Xl) 300 mg PO DAILY [facility] Last Admin: 07/18/19 09:59 Dose: 300 mg Documented by: Clonazepam (Klonopin) 0.5 mg PO BID PRN PRN PRN Reason: ANXIETY Dextrose (D50w Syringe) 0 gm IV X1 PRN; Protocol PRN Reason: Hypoglycemia Enoxaparin Sodium (Lovenox) 40 mg SC DAILY [facility] Last Admin: 07/18/19 10:03 Dose: 40 mg Documented by: Folic Acid (Folic Acid) 1 mg PO DAILY@0800 [facility] Last Admin: 07/18/19 08:24 Dose: 1 mg Documented by: Furosemide (Lasix) 40 mg IV BID@1000,1800 [facility] Last Admin: 07/18/19 10:04 Dose: 40 mg Documented by: Glucagon () 1 mg IM .X1 PRN PRN Reason: Hypoglycemia Hydrogen Peroxide/Benzyl Alcohol (Hydrogen Peroxide) 1 applic TOPICAL DAILY [facility]; Protocol Last Admin: 07/18/19 09:59 Dose: 1 applic Documented by: Lamotrigine (Lamictal) 200 mg PO DAILY [facility] Last Admin: 07/18/19 09:58 Dose: 200 mg Documented by: Levothyroxine Sodium (Synthroid) 50 mcg PO DAILY@0600 [facility] Last Admin: 07/18/19 06:10 Dose: 50 mcg Documented by: Lisinopril (Zestril) 40 mg PO DAILY [facility] Last Admin: 07/18/19 09:58 Dose: 40 mg Documented by: Morphine Sulfate (Ms Contin) 30 mg PO Q12 [facility] Last Admin: 07/18/19 09:59 Dose: 30 mg Documented by: Nutritional Formula (Lactose Free) (Ensure Enlive) 60 ml PO TID [facility] Last Admin: 07/18/19 06:10 Dose: 60 ml Documented by: Ondansetron HCl (Zofran) 4 mg IV Q8H PRN PRN PRN Reason: NAUSEA/VOMITING Polyethylene Glycol (Miralax) 17 gm PO DAILY [facility] Last Admin: 07/18/19 09:59 Dose: Not Given Documented by: Risperidone (Risperdal) 1 mg PO QHS [facility] Last Admin: 07/17/19 21:06 Dose: 1 mg Documented by: Sodium Chloride () 10 - 40 ml IV UD PRN PRN Reason: SALINE FLUSH Last Admin: 07/18/19 10:05 Dose: 10 ml Documented by: [facility] Admin: 07/18/19 08:24 Dose: 100 mg Documented by: Tizanidine HCl (Zanaflex) 4 mg PO BID [facility] Last Admin: 07/18/19 10:00 Dose: 4 mg Documented by: Disposition: Home Minutes spent on discharge:: 31 Patient Condition:: Stable Meaningful Use Info Meaningful Use Diagnoses (Choose all that apply): CHF - CHF SHARRON/ARB ordered at discharge?: Yes Documented LVEF (%): 65 Inpatient E&M: 82238 Disch Hosp
--- NOTE | 2019-07-24 15:43 | CM.UR ---
KRISTIE CM Discharge F/U Phone Call LACE: 12 Strata: 3 Discharge date: 07/18/2019 Call date: 07/24/2019 Call time: 15:44 Admission dx: CHF Attempted to call patient however no answer. Unable to leave vm d/t mailbox being full. Maxwell Moreno RN, CCM.
== END 2019-07-18 14:21 | disposition home or self-care (01) | DRG 291 ==
LOC: ED 14:22 → PCU 15:07
PROVIDERS: Physician Assistant; Emergency Provider Emergency Medicine; PCP Family Medicine Geriatric Medicine; Visit Provider Hospitalist
DX: I11.0 Hypertensive heart disease with heart failure (principal); J96.01 Acute respiratory failure with hypoxia; I50.31 Acute diastolic (congestive) heart failure; E87.1 Hypo-osmolality and hyponatremia; I27.20 Pulmonary hypertension, unspecified; J44.9 Chronic obstructive pulmonary disease, unspecified; F10.10 Alcohol abuse, uncomplicated; E03.9 Hypothyroidism, unspecified; G89.29 Other chronic pain; M54.9 Dorsalgia, unspecified; E78.5 Hyperlipidemia, unspecified; F17.210 Nicotine dependence, cigarettes, uncomplicated; F31.9 Bipolar disorder, unspecified
CPT/HCPCS: 36415; 70450; 71045; 71046; 72125; 80048; 80053; 80320; 81001; 82306; 83605; 83880; 83930; 83935; 84300; 84443; 85025; 87040; 87804; 93005; 93306; 94640; 97161; 97166; 97802; 99251; 99285; 99406; J7030; J7050; Q9957; A4216; C8929; G0463; G0480; J1940

== ENCOUNTER → 2019-07-20 15:46 | Outpatient (CLI) | payer MEDICARE, SELFPAY ==
[2019-07-15 15:51] VITALS: BMI 33.9
[2019-07-20 16:33] LABS: Anion Gap 5 (5-15); BUN 20 mg/dL (7-18); BUN/Creat Ratio 21.5 RATIO (10-20); Calcium,Total 9.7 mg/dL (8.5-10.1); Chloride 95 mmol/L (98-107); Creatinine, Serum 0.93 mg/dL (0.55-1.02); EST Glomerular Filtration Rate 64 mL/min (>60); Est Glom Filt Rate - Afr Amer 78 mL/min (>60); Glucose 86 mg/dL (74-106); Potassium 4.3 mmol/L (3.5-5.1); Sodium Level 130 mmol/L (136-145)
[2019-07-20 16:48] LABS: BNP,B-Type NATRIURETIC PEPTIDE 946.3 pg/mL (0-100)
== END ==
PROVIDERS: PCP Family Medicine Geriatric Medicine; Visit Provider Family Medicine Geriatric Medicine
DX: R06.09 Other forms of dyspnea (principal); Z13.89 Encounter for screening for other disorder
CPT/HCPCS: 36415; 80048; 83880

== ENCOUNTER → 2019-07-26 11:47 | Outpatient (CLI) | payer MEDICARE, SELFPAY ==
[2019-07-21 11:34] VITALS: BMI 33.9
[2019-07-26 13:31] LABS: Anion Gap 5 (5-15); BUN 19 mg/dL (7-18); BUN/Creat Ratio 14.3 RATIO (10-20); Calcium,Total 9.7 mg/dL (8.5-10.1); Chloride 93 mmol/L (98-107); Creatinine, Serum 1.33 mg/dL (0.55-1.02); EST Glomerular Filtration Rate 43 mL/min (>60); Est Glom Filt Rate - Afr Amer 52 mL/min (>60); Glucose 104 mg/dL (74-106); Potassium 4.5 mmol/L (3.5-5.1); Sodium Level 129 mmol/L (136-145)
[2019-07-26 13:51] LABS: Osmolality, Serum 277 mOsm/KG (280-301)
[2019-07-27 10:58] LABS: Urine Sodium 38 mmol/L (Not Establ.)
[2019-07-27 11:11] LABS: Osmolality, Urine 234 mOsm/KG
== END ==
PROVIDERS: PCP Family Medicine Geriatric Medicine; Referring Provider Family Medicine Geriatric Medicine; Visit Provider Family Medicine Geriatric Medicine
DX: E87.1 Hypo-osmolality and hyponatremia (principal)
CPT/HCPCS: 36415; 80048; 83930; 83935; 84300

== ENCOUNTER → 2019-08-05 14:13 | Outpatient (CLI) | payer MEDICARE, SELFPAY ==
[2019-07-21 11:34] VITALS: BMI 33.9
[2019-07-30 14:26] VITALS: BMI 29.6
[2019-08-05 15:16] LABS: Absolute Lymphocyte Count 1.85 X10^3/uL (0.83-4.51); Basophil# 0.05 X10^3/uL; Basophil% 0.6 % (0-1); Eosinophil# 0.37 X10^3/uL; Eosinophils% 4.2 % (0-5); Hemoglobin 13.2 g/dL (12.0-15.0); Lymphocyte # 1.85 X10^3/ul (4.0); Lymphocyte % 20.8 % (19-41); Mean Corp Hgb Conc 31.4 g/dL (32-36); Mean Corpuscular Hgb 27.8 pg (27.0-32.0); Mean Corpuscular Volume 88.6 fL (81-99); Mean Platelet Vol. 9.8 fl (6.2-12.0); Monocyte# 0.61 X10^3/uL; Monocyte% 6.9 % (0-10); NRBC Flagged by Analyzer 0 % (0-5); Neutrophil % 67.3 % (47-70); Platelet Count 500 K/mm3 (150-450); RBC Distribution Width CV 14.3 % (11.6-14.6); RBC Distribution Width SD 45.9 fl (35.1-43.9); Red Blood Count 4.74 M/mm3 (4.2-5.4); White Blood Count 8.9 K/mm3 (4.4-11.0)
[2019-08-05 15:43] LABS: ALB/GLOB Ratio 0.7 RATIO (0.9-2.4); AST(SGOT) 25 U/L (15-37); Alanine Aminotransfer ALT/SGPT 23 U/L (13-56); Albumin, Serum 3.5 g/dL (3.2-5.0); Alkaline Phosphatase 247 U/L (45-117); Anion Gap 7 (5-15); BUN 15 mg/dL (7-18); BUN/Creat Ratio 11.4 RATIO (10-20); Calcium,Total 9.4 mg/dL (8.5-10.1); Chloride 96 mmol/L (98-107); Creatinine, Serum 1.32 mg/dL (0.55-1.02); EST Glomerular Filtration Rate 43 mL/min (>60); Est Glom Filt Rate - Afr Amer 52 mL/min (>60); Globulin 4.7 g/dL (2.2-4.2); Glucose 95 mg/dL (74-106); Potassium 4.4 mmol/L (3.5-5.1); Protein, Total 8.2 g/dL (6.4-8.2); Sodium Level 132 mmol/L (136-145); Thyroid Stim Hormone (TSH) 1.39 uIU/mL (0.358-3.74)
== END ==
PROVIDERS: PCP Family Medicine Geriatric Medicine; Visit Provider Family Medicine Geriatric Medicine
DX: E87.1 Hypo-osmolality and hyponatremia (principal)
CPT/HCPCS: 36415; 80053; 84443; 85025

== ENCOUNTER → 2019-08-12 14:22 | Outpatient (CLI) | payer MEDICARE, SELFPAY ==
[2019-08-11 11:35] VITALS: BMI 29.6
[2019-08-12 15:35] LABS: Anion Gap 7 (5-15); BUN 16 mg/dL (7-18); BUN/Creat Ratio 13.3 RATIO (10-20); Calcium,Total 9.3 mg/dL (8.5-10.1); Chloride 97 mmol/L (98-107); EST Glomerular Filtration Rate 48 mL/min (>60); Est Glom Filt Rate - Afr Amer 58 mL/min (>60); Glucose 94 mg/dL (74-106); Potassium 4.3 mmol/L (3.5-5.1); Sodium Level 132 mmol/L (136-145)
== END ==
PROVIDERS: PCP Family Medicine Geriatric Medicine; Visit Provider Family Medicine Geriatric Medicine
DX: N17.9 Acute kidney failure, unspecified (principal)
CPT/HCPCS: 36415; 80048

== ENCOUNTER → 2019-09-15 11:23 | Outpatient (CLI) | payer MEDICARE, SELFPAY ==
[2019-08-11 11:35] VITALS: BMI 29.6
--- NOTE | 2019-09-15 11:33 | RAD_ITS ---
STUDY: X-RAY - LEFT WRIST REASON FOR EXAM: Female, 63 years old. RECHECK LEFT WRIST. HX OF A FALL ON 05/31/2019 WITH SURGERY ON 06/04/2019. TECHNIQUE: 2 view(s) of the wrist were obtained. COMPARISON: 06/04/2019. FINDINGS: The external fixator device has been removed. There is callus formation due to healing fracture across the distal radial metaphyses. There is residual lucency in the distal radial metaphyses due to incomplete osseous union. Nonunion avulsion fracture of the distal ulnar styloid process with smoother margins. Normal radiocarpal articulation. Normal distal radioulnar articulation. Normal carpal bones. Normal carpal articulations. Normal carpometacarpal articulation of the thumb. Normal second through fifth carpometacarpal articulations. Normal visualized metacarpal bones. The soft tissue structures are unremarkable. RAD/Wrist 2 Views IMPRESSION: 1. Healing fracture across the left distal radial metaphysis with incomplete osseous union at this time. 2. Nonunion avulsion fracture fragment of the left distal ulnar styloid process. 3. Interval removal of metallic external fixator device when compared to 06/04/2019. Electronically Signed: Manuel Contreras MD at 11:49 EDT , Service support ,
== END ==
PROVIDERS: PCP Family Medicine Geriatric Medicine; Referring Provider Orthopaedic Surgery; Visit Provider Orthopaedic Surgery
DX: T14.8XXA Other injury of unspecified body region, initial encounter (principal); Z98.890 Other specified postprocedural states
CPT/HCPCS: 73100; 97530

== ENCOUNTER 2019-09-15 13:30 | Outpatient (RCR) | payer MEDICARE, SELFPAY ==
[2019-07-21 11:34] VITALS: BMI 33.9
--- NOTE | 2019-07-23 12:17 | HP.OTEVAL_ITS ---
Patient's Visit Information ERIKA MOYA is a 63 year old F, referred to Occupational Therapy by Miguel Vieyra DO, with a diagnosis of left distal radius fx. Date of Evaluation: 07/23/19 Occupational Therapist: Donna Ordonez OTR/Gabriel, CHT - Subjective Subjective: This 63-year-old female was seen for OT eval with dx of left distal radius fx. pt states she had a fall on 06/04/19 chasing her dog. Pt states she went to ER and pt has sx same day for spanning external fixation of left distal radius fx- external fixation removed on 07-21-19. has ordered skilled OT services for eval/tx, strengthening, ROM, pain relief/desensitization- with 5# restriction for 2 weeks than No restrictions. (lifted on August 04, 2019) pt with recent D/c from hospital with CHF and COPD and now home with 4 liters O2. - ADLs Dressing: Pants Bathing: Handle washcloth & soap, Wash hair, Squeeze shampoo bottle - Pain left wrist 0 Pain Intensity Range: 5 - ROM Forearm: right WNL left N Wrist: right 70/70 left 15/50 - Strength Acid Pumper: right 55# left NT Lateral Pinch: right 12# left NT Tripod Pinch: right 10# left NT - Sensation Sensation Comments: denies - Quick DASH-Disab of Arm,Shoulder& Hand Quick DASH Score: 75.0000 - Hand/Wrist Evaluation Total Score of Pain & Functional Sections: 73 - Goals Goal:: PT will demo an increase in pick up driver strength by 20# to increase independent with basic occupations of daily living to return pt to PLOF by D/C. Pt will demo an increase in lateral and tripod pinch by 2# to increase pts independent with opening baggies, containers at PLOF by D/C. Goal:: Pt will demo an increase in wrist ROM equal to unaffected wrist to return pt to PLOF with grooming, dressing and home mtg tasks by D/C. Pt will demo an increase in forearm supination by 60* or greater to increase pts ind. With ADls and IADLS by d/c Goal:: Pt will report pain no greater than 1/10 with use of affected hand with BADLs and IADLs by d/c. - Rehabilitation General Assessment: Pt currently 7 weeks s/p from spanning external fixation left distal radius. Pts external fixation removed on 07-21-19. Today pt demo limited left forearm supination, wrist and digit ROM along with a decrease in strength limiting pts IND. with ADLs and IALDs. pt would benefit from skilled OT services 1-2x week for 6 weeks to return pt to IND. level with ADLS and IADLS. Today therapist ed. to pt and to neighbor AROM ex for forearm, wrist and digits, along with scar mtg and edema control. Pt was given handouts and agree to POC. Rehabilitation Potential: Good - Anticipated Interventions Anticipated Interventions: A/AAROM/PROM, Strengthening, Triggerpoint Release, Desensitization, Modalities, Joint Protection/Energy Conservation, Ergonomic Education, Caregiver Training, Home Program - Visit Plan Frequency: 2-3x /Week Duration: 6 Weeks TEXT: Thank you for the opportunity to evaluate your patient. For Medicare and Medicare HMO plans, please review the plan of care and approve it. It will need to be FAXED BACK to us at [phone] for Medicare purposes. Please let me know if there are questions or concerns regarding this plan of care. Physician Signature: Date:
--- NOTE | 2019-09-15 14:07 | HP.OTDCSUM_ITS ---
It has been my pleasure to treat ERIKA MOYA under orders from Dr. Miguel Vieyra DO, for the diagnosis of left distal radius fx for a total of 7 visit(s). Please see the following information for a summary of their discharge status. % Improvement: 90 Objective/Function: left wrist 50/50. left forearm supination 15*. supination is limited but pt is compensating with shoulder-. left outsole compressor strength 20# pt asked to continue with HEP Patient Goals: Decrease Pain, Use Hand/Wrist/Arm Normally Again, Be More Independent in ADLS Goal:: PT will demo an increase in outsole compressor strength by 20# to increase independent with basic occupations of daily living to return pt to PLOF by D/C. Pt will demo an increase in lateral and tripod pinch by 2# to increase pts independent with opening baggies, containers at PLOF by D/C. Goal:: Pt will demo an increase in wrist ROM equal to unaffected wrist to return pt to PLOF with grooming, dressing and home mtg tasks by D/C. Pt will demo an increase in forearm supination by 60* or greater to increase pts ind. With ADls and IADLS by d/c Goal:: Pt will report pain no greater than 1/10 with use of affected hand with BADLs and IADLs by d/c. Plan: D/C with HEP Discharge Comments: Pt was seen for 7 OT sessions. Theapy provided guided AROM and PRE to return pt to PLOF. PT reports some discomfortwith doing dishes or lifting sauces pans, but otherwise has returned to normal ADLs at [place] level. pt is to cont. with a PRE for outsole compressor strength. pt was given handouts on HEP If there are questions or concerns regarding this patient's occupational therap y, please fell free to call me at [phone]. Thank you for the referral of this patient. Sincerely, Donna Ordonez, OTR/L, CHT
== END 2019-09-15 19:00 | disposition home or self-care (01) ==
LOC: OT 13:30
PROVIDERS: PCP Family Medicine Geriatric Medicine; Referring Provider Orthopaedic Surgery; Visit Provider Orthopaedic Surgery
DX: Z98.890 Other specified postprocedural states (principal)
CPT/HCPCS: 97110; 97140; 97166; 97530

== ENCOUNTER → 2019-10-22 10:47 | Outpatient (CLI) | payer MEDICARE, SELFPAY ==
[2019-07-21 11:34] VITALS: BMI 33.9
[2019-09-15 11:37] VITALS: BMI 29.6
[2019-10-22 12:21] LABS: Absolute Neutrophil Count 5.7 X10^3/uL (2.0-7.7); Basophil# 0.02 X10^3/uL; Basophil% 0.3 % (0-1); Eosinophils% 1.3 % (0-5); Hematocrit 38.7 % (37-47); Hemoglobin 12.3 g/dL (12.0-15.0); Lymphocyte % 19.3 % (19-41); Mean Corp Hgb Conc 31.8 g/dL (32-36); Mean Corpuscular Hgb 28.6 pg (27.0-32.0); Mean Platelet Vol. 10.4 fl (6.2-12.0); Monocyte# 0.42 X10^3/uL; Monocyte% 5.4 % (0-10); NRBC Flagged by Analyzer 0 % (0-5); Neutrophil # 5.71 X10^3/uL (2.7-7.7); Neutrophil % 73.2 % (47-70); Platelet Count 407 K/mm3 (150-450); RBC Distribution Width CV 15.6 % (11.6-14.6); RBC Distribution Width SD 51.5 fl (35.1-43.9); White Blood Count 7.8 K/mm3 (4.4-11.0)
[2019-10-22 12:46] LABS: ALB/GLOB Ratio 0.8 RATIO (0.9-2.4); AST(SGOT) 26 U/L (15-37); Alanine Aminotransfer ALT/SGPT 33 U/L (13-56); Albumin, Serum 3.7 g/dL (3.2-5.0); Alkaline Phosphatase 244 U/L (45-117); Anion Gap 9 (5-15); BUN 19 mg/dL (7-18); BUN/Creat Ratio 20.5 RATIO (10-20); Calcium,Total 9.7 mg/dL (8.5-10.1); Chloride 100 mmol/L (98-107); Creatinine, Serum 0.93 mg/dL (0.55-1.02); EST Glomerular Filtration Rate 65 mL/min (>60); Est Glom Filt Rate - Afr Amer 78 mL/min (>60); Globulin 4.8 g/dL (2.2-4.2); Glucose 123 mg/dL (74-106); Potassium 4.4 mmol/L (3.5-5.1); Protein, Total 8.5 g/dL (6.4-8.2); Sodium Level 135 mmol/L (136-145); Thyroid Stim Hormone (TSH) 1.28 uIU/mL (0.358-3.74)
== END ==
PROVIDERS: PCP Family Medicine Geriatric Medicine; Visit Provider Family Medicine Geriatric Medicine
DX: I10 Essential (primary) hypertension (principal); E87.1 Hypo-osmolality and hyponatremia
CPT/HCPCS: 36415; 80053; 84443; 85025

== ENCOUNTER → 2019-12-09 16:41 | Outpatient (CLI) | payer MEDICARE, SELFPAY ==
[2019-09-15 11:37] VITALS: BMI 29.6
[2019-12-09 17:37] LABS: Absolute Lymphocyte Count 2.41 X10^3/uL (0.83-4.51); Absolute Neutrophil Count 5.1 X10^3/uL (2.0-7.7); Basophil# 0.02 X10^3/uL; Basophil% 0.2 % (0-1); Eosinophil# 0.18 X10^3/uL; Eosinophils% 2.2 % (0-5); Hematocrit 39.9 % (37-47); Hemoglobin 12.8 g/dL (12.0-15.0); Lymphocyte # 2.41 X10^3/ul (4.0); Lymphocyte % 29.1 % (19-41); Mean Corp Hgb Conc 32.1 g/dL (32-36); Mean Corpuscular Hgb 30.1 pg (27.0-32.0); Mean Corpuscular Volume 93.9 fL (81-99); Mean Platelet Vol. 10.3 fl (6.2-12.0); Monocyte# 0.54 X10^3/uL; Monocyte% 6.5 % (0-10); NRBC Flagged by Analyzer 0 % (0-5); Neutrophil # 5.12 X10^3/uL (2.7-7.7); Neutrophil % 61.8 % (47-70); Platelet Count 355 K/mm3 (150-450); RBC Distribution Width CV 13.8 % (11.6-14.6); RBC Distribution Width SD 47.4 fl (35.1-43.9); Red Blood Count 4.25 M/mm3 (4.2-5.4); White Blood Count 8.3 K/mm3 (4.4-11.0)
[2019-12-09 18:10] LABS: ALB/GLOB Ratio 0.8 RATIO (0.9-2.4); AST(SGOT) 34 U/L (15-37); Alanine Aminotransfer ALT/SGPT 59 U/L (13-56); Albumin, Serum 3.6 g/dL (3.2-5.0); Alkaline Phosphatase 303 U/L (45-117); Anion Gap 5 (5-15); BUN 12 mg/dL (7-18); Calcium,Total 8.9 mg/dL (8.5-10.1); Chloride 104 mmol/L (98-107); Creatinine, Serum 0.86 mg/dL (0.55-1.02); EST Glomerular Filtration Rate 71 mL/min (>60); Est Glom Filt Rate - Afr Amer 85 mL/min (>60); Globulin 4.3 g/dL (2.2-4.2); Glucose 85 mg/dL (74-106); Potassium 3.6 mmol/L (3.5-5.1); Protein, Total 7.9 g/dL (6.4-8.2); Sodium Level 137 mmol/L (136-145); Thyroid Stim Hormone (TSH) 0.83 uIU/mL (0.358-3.74)
== END ==
PROVIDERS: PCP Family Medicine Geriatric Medicine; Visit Provider Family Medicine Geriatric Medicine
DX: R53.83 Other fatigue (principal)
CPT/HCPCS: 36415; 80053; 84443; 85025

== ENCOUNTER 2019-12-11 17:08 | Emergency (ER) | payer MEDICARE, SELFPAY ==
[2019-09-15 11:37] VITALS: BMI 29.6
[2019-12-11 17:10] VITALS: BP 169/74; PULSE 93; RESP 18; TEMP 36.2; O2SAT 95; BMI 26.8
--- NOTE | 2019-12-11 17:49 | CT_ITS ---
STUDY: CT ABDOMEN AND PELVIS WITHOUT CONTRAST REASON FOR EXAM: Female, 64 years old. RLQ PAIN -- HX:HTN,HYSTERECTOMY-HAS 1 OVARY RADIATION DOSAGE (If Supplied By Facility): CTDIvol = ( 8.63 ) mGy, DLP = ( 387.94 ) mGycm TECHNIQUE: Transaxial images were obtained from the dome of the diaphragm to the symphysis pubis without oral contrast, and without intravenous contrast. Sagittal and coronal images were reconstructed. Individualized dose optimization techniques were used for this CT. COMPARISON: None. FINDINGS: The visualized lung bases are unremarkable. The visualized portions of the heart are within normal limits. Normal liver. Possible cholelithiasis. No significant dilatation of the extrahepatic biliary system. Normal spleen. Normal pancreas. Normal bilateral adrenal glands. Normal right kidney. Normal left kidney. Normal visualized stomach. Normal small intestine. Mild fecal retention in the colon. The appendix is visualized and appears normal. Calcified abdominal aorta with a fusiform infrarenal aneurysm measuring 3.1 x 3.4 cm in the axial plane. It extends across a 5.5 cm in craniocaudal length. 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 Normal inferior vena cava. Normal retroperitoneum. Normal urinary bladder. Normal abdominal wall. Mild degenerative vertebral changes and scoliosis. CT/Abdomen/Pelvis without Cont IMPRESSION: Possible cholelithiasis. Colonic fecal retention. Normal appendix. Infrarenal abdominal aortic aneurysm. Focal right common iliac artery aneurysm. Electronically Signed: Bipin Contreras DO at 19:19 EDT Tel [phone], Service support ,
--- NOTE | 2019-12-11 17:50 | ED.VIS.GI ---
History of Present Illness Chief Complaint: Abd Pain Informant: Patient - Abdominal Pain/Flank Pain Onset: Today - Around 10-11 hours ago Context: Sudden Onset Timing: Continuous Quality: Aching Location: RLQ - Without migration or radiation Current Severity: Moderate Maximum Severity: Severe Worsened by: Movement - And walking Relieved by: Remaining Still - Nausea/Vomiting/Emesis GI Symptom: Negative for: Nausea, Vomiting - Diarrhea/Melena/Hematochezia GI Symptom: Negative for: Diarrhea, Melena, Hematochezia Associated Symptoms: Negative for: Dysuria, Frequency, Hematuria, Urgency Narrative: Sudden onset pain that was relatively severe this morning in her right lower quadrant. Has been there all day. No nausea or vomiting, no radiation into her back, no history of kidney stones or having had this pain before. History of a hysterectomy and right salpingo-oophorectomy, no other abdominal surgeries. - Past Medical History (1) COPD (chronic obstructive pulmonary disease) Status: Chronic (2) Chronic diastolic (congestive) heart failure Status: Chronic (3) Diastolic dysfunction Status: Chronic (4) Essential (primary) hypertension Status: Chronic (5) Hyperlipidemia Status: Chronic (6) Secondary pulmonary arterial hypertension Status: Chronic (7) DDD (degenerative disc disease), lumbosacral Status: Chronic Past Medical History - Allergies and Home Meds Allergies/Adverse Reactions: Allergies No Known Allergies Allergy (Verified 07/30/19 15:06) Primary Care Physician: Cornelius Srinivasan Chi, MD [Primary Care Provider] - 3-5 Days Surgical History: cataract, hysterectomy, - - Right salpingo-oophorectomy Lives: Spouse/ Significant Other Smoking Status: Current every day smoker Review of Systems General: Denies: Chills, Fever, Sweats Eyes: Denies: Visual changes - bilaterally, Diplopia ENT: Denies: Rhinorrhea, Sore throat Cardiovascular: Denies: Chest pain, Palpitations Respiratory: Denies: Dyspnea, Cough, Dyspnea on exertion Gastrointestinal: Reports: Abdominal pain. Denies: Nausea, Vomiting, Diarrhea, Melena, Hematochezia Genitourinary: Denies: Dysuria, Hematuria, Frequency Musculoskeletal: Reports: Back pain - Chronic, unchanged. Denies: Neck pain, Extremity Pain Skin: Denies: Rash, Wounds Neurological: Denies: Headache, Weakness, Numbness Physical Exam Vital Signs/Narrative: Vital Signs Temp Pulse Resp BP Pulse Ox 12/11/19 17:10 97.2 F L 93 18 169/74 H 95 Inital Vital Signs reviewed: Yes General: Well nourished, Well developed, No Acute Distress Head: Normocephalic, Atraumatic Eyes: Perrl, EOMI ENT: Moist mucous membranes, No rhinorrhea Neck: Supple, Nontender Cardiovascular: Regular rate, Regular rhythm, No murmurs Respiratory: No distress, CTA bilaterally, Chest nontender Abdomen: Soft, Nondistended, Normal bowel sounds, Tender - Mild in right lower quadrant, distal to McBurney's point. Negative for: Guarding, Rebound tenderness, Pulsatile mass Back: Nontender, Normal Inspection. Negative for: CVA tenderness Extremities: Nontender, No edema Skin: Normal color, No rash, No Trauma Neurological: Alert, Oriented x3, Cranial nerves II-XII grossly intact, Normal Strength, Normal Sensation, Normal Gait Psychological: Normal affect, Normal Mood Diagnostic/Tx/Re-eval Impressions Abdomen/Pelvis CT 12/11/19 17:49 IMPRESSION: Possible cholelithiasis. Colonic fecal retention. Normal appendix. Infrarenal abdominal aortic aneurysm. Focal right common iliac artery aneurysm. Electronically Signed: Bipin Contreras DO at 19:19 EDT Tel [phone], Service support , 12/11/19 17:49 Abdomen/Pelvis without Cont [CT] Stat Laboratory Results 12/11/19 12/11/19 12/11/19 17:40 17:40 19:45 WBC 8.3 RBC 4.43 Hgb 13.4 Hct 41.6 MCV 93.9 MCH 30.2 MCHC 32.2 RDW Std Deviation 47.7 H RDW Coeff of Lisa 13.7 Plt Count 379 MPV 9.6 Immature Gran % (Auto) 0.400 Neut % (Auto) 65.8 Lymph % (Auto) 26.6 [place] % (Auto) 5.2 Eos % (Auto) 1.8 Baso % (Auto) 0.2 Absolute Neuts (auto) 5.5 Absolute Lymphs (auto) 2.22 Nucleated RBC % 0 Sodium 136 Potassium 4.1 Chloride 99 Carbon Dioxide 32.0 Anion Gap 5 BUN 14 Creatinine 0.99 Estim Creat Clear Calc 44.81 Est GFR (MDRD) Af Amer 73 Est GFR (MDRD) Non-Af 60 BUN/Creatinine Ratio 14.2 Glucose 189 H Calcium 9.2 Urine Color Yellow Urine Clarity Sl. Cloudy Urine pH 6.0 Ur Specific [place] 1.015 Urine Protein 15 H Urine Glucose (UA) Normal Urine Ketones 5 H Urine Occult Blood Negative Urine Nitrite Negative Urine Bilirubin Negative Urine Urobilinogen 1 H Ur Leukocyte Esterase 25 H Urine RBC 0-5 SEEN Urine WBC 0-5 SEEN Ur Squamous Epith Cells 0-5 SEEN Urine Bacteria 1+ Hyaline Casts 0-5 SEEN Urine Mucus 0 SEEN - Medical Decision Making The CT findings do not explain this patient's distal right lower quadrant pain. I suggested the patient perhaps this is muscular, she states it does hurt more when she moves and is better when she remains still. She does not have a bulge there to suggest an inguinal hernia. We discussed the aneurysmal aorta and need for follow-up there, but I do not think this is dissecting or related to her discomfort, its location is different. She does not need emergent vascular attention to this at this time as there is no rupture and the size is not critical. She states that she had 2 bowel movements this morning after the pain started and it did not relieve it, so I do not think the colonic fecal retention is causing her pain necessarily either. She is feeling much better after a small dose of Toradol, and she is stable to be discharged home with close outpatient follow-up. ED Disposition - Plan for ED Patient: Disposition: Home or Assisted Living Diagnosis: Right lower quadrant abdominal pain, AAA (abdominal aortic aneurysm) without rupture Instructions: ED Abdominal Pain Unkn Cause Fem, ED Aneurysm Abdominal Aortic Stable Referrals: Cornelius Srinivasan Chi, MD [Primary Care Provider] - 3-5 Days
[2019-12-11 17:58] LABS: Absolute Lymphocyte Count 2.22 X10^3/uL (0.83-4.51); Absolute Neutrophil Count 5.5 X10^3/uL (2.0-7.7); Basophil# 0.02 X10^3/uL; Basophil% 0.2 % (0-1); Eosinophil# 0.15 X10^3/uL; Eosinophils% 1.8 % (0-5); Hematocrit 41.6 % (37-47); Hemoglobin 13.4 g/dL (12.0-15.0); Lymphocyte # 2.22 X10^3/ul (4.0); Lymphocyte % 26.6 % (19-41); Mean Corp Hgb Conc 32.2 g/dL (32-36); Mean Corpuscular Hgb 30.2 pg (27.0-32.0); Mean Corpuscular Volume 93.9 fL (81-99); Mean Platelet Vol. 9.6 fl (6.2-12.0); Monocyte# 0.43 X10^3/uL; Monocyte% 5.2 % (0-10); NRBC Flagged by Analyzer 0 % (0-5); Neutrophil # 5.49 X10^3/uL (2.7-7.7); Neutrophil % 65.8 % (47-70); Platelet Count 379 K/mm3 (150-450); RBC Distribution Width CV 13.7 % (11.6-14.6); RBC Distribution Width SD 47.7 fl (35.1-43.9); Red Blood Count 4.43 M/mm3 (4.2-5.4); White Blood Count 8.3 K/mm3 (4.4-11.0)
[2019-12-11 18:08] LABS: Anion Gap 5 (5-15); BUN 14 mg/dL (7-18); BUN/Creat Ratio 14.2 RATIO (10-20); Calcium,Total 9.2 mg/dL (8.5-10.1); Chloride 99 mmol/L (98-107); Creatinine, Serum 0.99 mg/dL (0.55-1.02); EST Glomerular Filtration Rate 60 mL/min (>60); Est Glom Filt Rate - Afr Amer 73 mL/min (>60); Estimated Creatinine Clearance 44.81 ml/min; Glucose 189 mg/dL (74-106); Potassium 4.1 mmol/L (3.5-5.1); Sodium Level 136 mmol/L (136-145)
[2019-12-11] MEDS: Ketorolac 15 MG/ML Vial IV (18:16)
[2019-12-11 19:21] VITALS: RESP 16
[2019-12-11 19:51] LABS: Mucous, Urine 0 SEEN /hpf (<or=2+)
[2019-12-11 19:57] LABS: Color, Urine Yellow (Yellow); Glucose, Dipstick Normal (Normal); Ketone-Dipstick 5 mg/dl (Negative); Leukocyte Esterase-Dipstick 25 /ul (Negative); Nitrite-Dipstick Negative (Negative); Occult Blood-Urine Negative /ul (Negative); Protein-Dipstick 15 mg/dl (Negative); Specific Gravity, Urine 1.015 (1.002-1.030); Urine Bilirubin Dipstick Negative (Negative); Urine Clarity Sl. Cloudy (Clear); Urine Urobilinogen 1 mg/dl (Normal)
[2019-12-11 20:17] LABS: Hyaline Cast 0-5 SEEN /lpf (0-5); Squamous Epithelial Cells - UA 0-5 SEEN /hpf (5-10)
[2019-12-11 20:19] LABS: White Blood Cells 0-5 SEEN /hpf (0-5)
[2019-12-11 20:20] LABS: Bacteria 1+ /hpf (None Seen); Red Blood Cells-Urine 0-5 SEEN /hpf (0-5)
[2019-12-11 20:34] VITALS: BP 160/72; PULSE 68; RESP 16; O2SAT 98
== END 2019-12-11 20:49 | disposition home or self-care (01) ==
PROVIDERS: Emergency Provider Emergency Medicine; PCP Family Medicine Geriatric Medicine
DX: R10.31 Right lower quadrant pain (principal); I71.4 Abdominal aortic aneurysm, without rupture; E78.5 Hyperlipidemia, unspecified; F17.200 Nicotine dependence, unspecified, uncomplicated; I27.21 Secondary pulmonary arterial hypertension; I50.32 Chronic diastolic (congestive) heart failure; I11.0 Hypertensive heart disease with heart failure; I72.3 Aneurysm of iliac artery; J44.9 Chronic obstructive pulmonary disease, unspecified; Z90.710 Acquired absence of both cervix and uterus
CPT/HCPCS: 74176; 80048; 81001; 85025; 96374; 99283; A4216

== ENCOUNTER → 2019-12-14 11:32 | Outpatient (CLI) | payer MEDICARE, SELFPAY ==
[2019-12-11 17:10] VITALS: BMI 26.8
--- NOTE | 2019-12-14 | LES_PTH ---
PATIENT: ERIKA MOYA LOC: [facility] U#:[id number] AGE/SX: 69/F ROOM: RE12/14/[address]: Dr. Cornelius Srinivasan MD : [id number] BED: DIS: SPEC #: [id number] RECD: 12/15/19 08:55 STATUS: SANNA AMILCAR #: [id number] TANIKA: 12/14/19 00:[address]: Cornelius Srinivasan Chi DEPT: SURGICAL PATHOLOGY RECD BY: Zach Mansfield Tissues: Skin of arm Procedures: Surgery Specimen Level IV HEADER OPERATION: PRE-OP DIAGNOSIS: Left arm lesion TISSUE SUBMITTED: Left arm lesion MICROSCOPIC DIAGNOSIS Left arm lesion, biopsy: Verruca vulgaris. Actinic keratosis. Negative for malignancy. SJ:chang 12/16/19 MICROSCOPIC DESCRIPTION Slides are reviewed. GROSS DESCRIPTION Received in fixative is one container labeled with the patient's name and designated left arm. The specimen consists of a piece of ronquillo-white skin measuring 0.7 x 0.6 x 0.2 cm. The specimen is inked, serially sectioned and submitted entirely in one cassette. / SJ:rg 12/15/19 TC:1 [facility]: [id number]
== END ==
PROVIDERS: PCP Family Medicine Geriatric Medicine; Visit Provider Family Medicine Geriatric Medicine
DX: L81.9 Disorder of pigmentation, unspecified (principal)
CPT/HCPCS: 88305

== ENCOUNTER → 2019-12-17 09:37 | Outpatient (CLI) | payer MEDICARE, SELFPAY ==
[2019-09-15 11:37] VITALS: BMI 29.6
[2019-12-11 17:10] VITALS: BMI 26.8
--- NOTE | 2019-12-17 09:40 | US_ITS ---
STUDY: ABDOMINAL ULTRASOUND - RIGHT UPPER QUADRANT REASON FOR VISIT: Female, 64 years old. Abnormal liver function tests TECHNIQUE: Ultrasound evaluation of the right upper quadrant was performed with real-time and static mad[place]-scale imaging. TECHNICAL QUALITY: Adequate. COMPARISON: December [address] FINDINGS: Liver: The liver measures 16.7 cm. There is normal echogenicity of the liver. The bile ducts are within normal limits. There is hepatic color flow. The direction of portal flow is hepatopetal. There is no demonstrated mass lesion. Gallbladder: Normal distended gallbladder. The gallbladder wall measures 2 mm. There is a negative sonographic Sy''s sign. There is no pericholecystic fluid. There are no gallstones. There is a minimal polyp.. Common Bile Duct (C.B.D.): The common bile duct measures 10 mm. Pancreas: There is increased echogenicity of the pancreatic head.. There is normal echogenicity of the pancreas. There is no demonstrated pancreatic mass or cyst. Right Kidney: Normal size of the right kidney. The right kidney measures 10.8 x 6.4 x 5.7 cm. Normal renal cortex. The right cortex measures 1.3 cm. There is no demonstrated renal mass or cyst. There is no right hydronephrosis. US/Liver IMPRESSION: Unremarkable liver ultrasound. Miniscule gallbladder polyp. Electronically Signed: Randal Santoyo, at 20:10 EDT Tel , Service support ,
== END ==
PROVIDERS: PCP Family Medicine Geriatric Medicine; Referring Provider Family Medicine Geriatric Medicine; Visit Provider Family Medicine Geriatric Medicine
DX: R68.89 Other general symptoms and signs (principal)
CPT/HCPCS: 76705

== ENCOUNTER → 2020-01-19 10:20 | Outpatient (CLI) | payer MEDICARE, SELFPAY ==
[2019-12-22 11:23] VITALS: BMI 27.1
[2020-01-19 12:43] LABS: Absolute Lymphocyte Count 1.75 X10^3/uL (0.83-4.51); Absolute Neutrophil Count 5.3 X10^3/uL (2.0-7.7); Basophil# 0.02 X10^3/uL; Basophil% 0.3 % (0-1); Eosinophil# 0.19 X10^3/uL; Eosinophils% 2.4 % (0-5); Hematocrit 37.9 % (37-47); Hemoglobin 12.3 g/dL (12.0-15.0); Lymphocyte # 1.75 X10^3/ul (4.0); Mean Corp Hgb Conc 32.5 g/dL (32-36); Mean Corpuscular Hgb 30.3 pg (27.0-32.0); Mean Corpuscular Volume 93.3 fL (81-99); Mean Platelet Vol. 10.2 fl (6.2-12.0); Monocyte# 0.64 X10^3/uL; Monocyte% 8.1 % (0-10); NRBC Flagged by Analyzer 0 % (0-5); Neutrophil # 5.34 X10^3/uL (2.7-7.7); Neutrophil % 67.1 % (47-70); Platelet Count 334 K/mm3 (150-450); RBC Distribution Width CV 13.1 % (11.6-14.6); RBC Distribution Width SD 45.1 fl (35.1-43.9); Red Blood Count 4.06 M/mm3 (4.2-5.4)
[2020-01-19 13:08] LABS: Vitamin D,25 Hydroxy 28.8 ng/mL
[2020-01-19 13:25] LABS: ALB/GLOB Ratio 0.8 RATIO (0.9-2.4); AST(SGOT) 36 U/L (15-37); Alanine Aminotransfer ALT/SGPT 48 U/L (13-56); Albumin, Serum 3.6 g/dL (3.2-5.0); Alkaline Phosphatase 216 U/L (45-117); Anion Gap 7 (5-15); BUN 20 mg/dL (7-18); BUN/Creat Ratio 21.8 RATIO (10-20); Calcium,Total 9.2 mg/dL (8.5-10.1); Chloride 101 mmol/L (98-107); Creatinine, Serum 0.92 mg/dL (0.55-1.02); EST Glomerular Filtration Rate 65 mL/min (>60); Est Glom Filt Rate - Afr Amer 79 mL/min (>60); Globulin 4.3 g/dL (2.2-4.2); Glucose 89 mg/dL (74-106); Potassium 4.2 mmol/L (3.5-5.1); Protein, Total 7.9 g/dL (6.4-8.2); Sodium Level 133 mmol/L (136-145); Thyroid Stim Hormone (TSH) 1.34 uIU/mL (0.358-3.74)
== END ==
PROVIDERS: PCP Family Medicine Geriatric Medicine; Visit Provider Family Medicine Geriatric Medicine
DX: I10 Essential (primary) hypertension (principal); E55.9 Vitamin D deficiency, unspecified
CPT/HCPCS: 36415; 80053; 82306; 84443; 85025

== ENCOUNTER → 2020-05-10 10:33 | Outpatient (CLI) | payer MEDICARE, SELFPAY ==
[2019-09-15 11:37] VITALS: BMI 29.6
[2019-12-22 11:23] VITALS: BMI 27.1
[2020-05-10 12:14] LABS: Absolute Lymphocyte Count 2.21 X10^3/uL (0.83-4.51); Absolute Neutrophil Count 7.1 X10^3/uL (2.0-7.7); Basophil# 0.03 X10^3/uL; Basophil% 0.3 % (0-1); Eosinophil# 0.26 X10^3/uL; Eosinophils% 2.5 % (0-5); Hematocrit 43.1 % (37-47); Hemoglobin 13.3 g/dL (12.0-15.0); Lymphocyte # 2.21 X10^3/ul (4.0); Lymphocyte % 21.4 % (19-41); Mean Corp Hgb Conc 30.9 g/dL (32-36); Mean Corpuscular Hgb 29.2 pg (27.0-32.0); Mean Corpuscular Volume 94.7 fL (81-99); Mean Platelet Vol. 10.1 fl (6.2-12.0); Monocyte# 0.72 X10^3/uL; NRBC Flagged by Analyzer 0 % (0-5); Neutrophil % 68.5 % (47-70); Platelet Count 350 K/mm3 (150-450); RBC Distribution Width CV 12.7 % (11.6-14.6); RBC Distribution Width SD 44.6 fl (35.1-43.9); Red Blood Count 4.55 M/mm3 (4.2-5.4); White Blood Count 10.4 K/mm3 (4.4-11.0)
[2020-05-10 12:37] LABS: AST(SGOT) 30 U/L (15-37); Alanine Aminotransfer ALT/SGPT 44 U/L (13-56); Albumin, Serum 3.7 g/dL (3.2-5.0); Alkaline Phosphatase 204 U/L (45-117); Anion Gap 5 (5-15); BUN 16 mg/dL (7-18); BUN/Creat Ratio 14.5 RATIO (10-20); Calcium,Total 8.7 mg/dL (8.5-10.1); Chloride 100 mmol/L (98-107); EST Glomerular Filtration Rate 53 mL/min (>60); Est Glom Filt Rate - Afr Amer 64 mL/min (>60); Globulin 3.8 g/dL (2.2-4.2); Glucose 145 mg/dL (74-106); Phosphorus 3.6 mg/dL (2.5-4.9); Potassium 3.7 mmol/L (3.5-5.1); Protein, Total 7.5 g/dL (6.4-8.2); Sodium Level 134 mmol/L (136-145); Thyroid Stim Hormone (TSH) 0.71 uIU/mL (0.358-3.74)
[2020-05-10 12:42] LABS: Vitamin D,25 Hydroxy 19.8 ng/mL
== END ==
PROVIDERS: Internal Medicine Nephrology; PCP Family Medicine Geriatric Medicine; Visit Provider Family Medicine Geriatric Medicine
DX: I10 Essential (primary) hypertension (principal); N17.9 Acute kidney failure, unspecified; E55.9 Vitamin D deficiency, unspecified; E78.5 Hyperlipidemia, unspecified
CPT/HCPCS: 36415; 80053; 82306; 84100; 84443; 85025

== ENCOUNTER → 2020-06-05 10:17 | Outpatient (CLI) | payer MEDICARE, SELFPAY ==
[2019-12-22 11:23] VITALS: BMI 27.1
[2020-06-05 11:09] LABS: Amphetamine Urine VISTA NEGATIVE (<1000 ng/mL); Barbiturate Urine VISTA NEGATIVE (< 200 ng/mL); Benzodiazepine Urine VISTA NEGATIVE (< 200 ng/mL); Cocaine Urine VISTA POSITIVE (< 300 ng/mL); Ecstacy Urine VISTA NEGATIVE (< 500 ng/mL); Methadone Urine VISTA NEGATIVE (< 300 ng/mL); PCP Urine VISTA NEGATIVE (< 25 ng/mL); THC Urine VISTA NEGATIVE (< 50 ng/mL); Vista UDS pH Range 6
== END ==
PROVIDERS: PCP Family Medicine Geriatric Medicine; Referring Provider Anesthesiology Pain Medicine; Visit Provider Anesthesiology Pain Medicine
DX: F11.20 Opioid dependence, uncomplicated (principal)
CPT/HCPCS: 80307

== ENCOUNTER → 2020-06-23 11:44 | Outpatient (CLI) | payer MEDICARE, SELFPAY ==
[2020-06-23 11:03] VITALS: BMI 24.7
[2020-06-23 12:56] LABS: BNP,B-Type NATRIURETIC PEPTIDE 173.5 pg/mL (0-100)
== END ==
PROVIDERS: PCP Family Medicine Geriatric Medicine; Referring Provider Physician Assistant Medical; Visit Provider Physician Assistant Medical
DX: I50.32 Chronic diastolic (congestive) heart failure (principal)
CPT/HCPCS: 36415; 83880

== ENCOUNTER → 2020-07-05 06:57 | Outpatient (CLI) | payer MEDICARE, SELFPAY ==
[2020-06-23 11:03] VITALS: BMI 24.7
--- NOTE | 2020-07-05 18:16 | STRESSREP ---
Stress Test Report Exercise myocardial perfusion stress test. 64-year-old lady with a history of coronary atherosclerosis and hypertension and diastolic dysfunction. Medications metoprolol, Lasix, lisinopril. Stress protocol: Resting EKG demonstrates normal sinus rhythm with a rate of 60 bpm normal intervals are noted resting blood pressure is 1 32 over 60 mmHg. The patient exercised according to regular Kevin protocol for a total duration of 5 minutes. The maximum heart rate was 96 bpm which was 61% of max impacted heart rate the maximum workload was 7 metabolic equivalents. At rest there were no ST or T wave changes noted suggest ischemia at peak exercise upsloping ST changes were noted with did not meet the criteria for ischemia. Patient was noted to be on a beta-lindsey and did not attain 85% of max impacted heart rate. The peak blood pressure was 132/60 mmHg. There was no appropriate rise in blood pressure with exercise Myocardial perfusion protocol. 10.9 mCi of technetium 99m sestamibi was injected at rest. Patient exercised according to regular Kevin protocol for a total duration of 5 minutes and at peak exercise 33.6 mCi of technetium 99m sestamibi was injected stress images were obtained stress and rest images were reconstructed and compared in the short axis vertical long horizontal long axis. Gated images were also obtained Perfusion SPECT analysis: Review of the stress images demonstrate normal uptake of tracer noted in all areas of myocardium the resting images similar demonstrate normal uptake of tracer noted in all areas of myocardium. No areas of reversibility are noted to suggest ischemia no previous infarct is noted. Gated SPECT analysis: Gated ejection fraction was noted to be 80%. Conclusion: Exercise stress test with no EKG criteria for ischemia at a moderate workload. Failure to attain 85% of maximum predicted heart rate. This could affect sensitivity for detection of ischemia.] Patient refused pharmacologic stress testing. Blunting of blood pressure response to exercise noted.
== END ==
PROVIDERS: PCP Family Medicine Geriatric Medicine; Referring Provider Physician Assistant Medical; Visit Provider Physician Assistant Medical
DX: R07.89 Other chest pain (principal)
CPT/HCPCS: 78452; 93017; A9500; A4216

== ENCOUNTER → 2020-08-09 11:16 | Outpatient (CLI) | payer MEDICARE, SELFPAY ==
[2020-06-23 11:03] VITALS: BMI 24.7
[2020-08-09 12:48] LABS: Absolute Lymphocyte Count 2.27 X10^3/uL (0.83-4.51); Absolute Neutrophil Count 3.9 X10^3/uL (2.0-7.7); Basophil# 0.02 X10^3/uL; Basophil% 0.3 % (0-1); Eosinophil# 0.22 X10^3/uL; Eosinophils% 3.2 % (0-5); Hemoglobin 13.1 g/dL (12.0-15.0); Lymphocyte # 2.27 X10^3/ul (0.83-4.51); Lymphocyte % 32.6 % (19-41); Mean Corp Hgb Conc 30.5 g/dL (32-36); Mean Corpuscular Hgb 28.9 pg (27.0-32.0); Mean Corpuscular Volume 94.7 fL (81-99); Mean Platelet Vol. 10.5 fl (6.2-12.0); Monocyte% 7.2 % (0-10); NRBC Flagged by Analyzer 0 % (0-5); Neutrophil # 3.94 X10^3/uL (2.7-7.7); Neutrophil % 56.4 % (47-70); Platelet Count 334 K/mm3 (150-450); RBC Distribution Width CV 12.8 % (11.6-14.6); Red Blood Count 4.54 M/mm3 (4.2-5.4)
[2020-08-09 13:17] LABS: ALB/GLOB Ratio 0.9 RATIO (0.9-2.4); AST(SGOT) 34 U/L (15-37); Alanine Aminotransfer ALT/SGPT 53 U/L (13-56); Albumin, Serum 3.7 g/dL (3.2-5.0); Alkaline Phosphatase 295 U/L (45-117); Anion Gap 5 (5-15); BUN 13 mg/dL (7-18); BUN/Creat Ratio 16.7 RATIO (10-20); Calcium,Total 9.3 mg/dL (8.5-10.1); Chloride 101 mmol/L (98-107); Cholesterol 210 mg/dL (200); Creatinine, Serum 0.78 mg/dL (0.55-1.02); EST Glomerular Filtration Rate 79 mL/min (>60); Est Glom Filt Rate - Afr Amer 95 mL/min (>60); Globulin 4.3 g/dL (2.2-4.2); Glucose 95 mg/dL (74-106); High Density Lipoprotein 62 mg/dL; Potassium 3.7 mmol/L (3.5-5.1); Sodium Level 134 mmol/L (136-145); Thyroid Stim Hormone (TSH) 0.85 uIU/mL (0.358-3.74); Triglycerides 107 mg/dL; Very Low Density Lipoprotein 21 mg/dL (5-40)
== END ==
PROVIDERS: PCP Family Medicine Geriatric Medicine; Visit Provider Family Medicine Geriatric Medicine
DX: E78.5 Hyperlipidemia, unspecified (principal); I10 Essential (primary) hypertension; E55.9 Vitamin D deficiency, unspecified
CPT/HCPCS: 36415; 80053; 80061; 82306; 84443; 85025

== ENCOUNTER → 2020-09-07 09:58 | Outpatient (CLI) | payer MEDICARE, SELFPAY ==
[2020-06-23 11:03] VITALS: BMI 24.7
--- NOTE | 2020-09-07 10:01 | CDU_ITS ---
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 Velocities/BP Lt. Velocities/BP Prox CCA 108.6/20 cm/sec. Prox CCA 80.2/12.6 cm/sec. Mid CCA 94.3/18.6 cm/sec. Mid CCA 88.8/17.6 cm/sec. Dist CCA 89.1/17.3 cm/sec. Dist CCA 108.4/16.3 cm/sec. Prox ICA 147.7/35.8 cm/sec. Prox ICA 112.6/22.6 cm/sec. Mid ICA 85.1/18.8 cm/sec. Mid ICA 97.2/22.6 cm/sec. Dist ICA 92.5/22.5 cm/sec. Dist ICA 79/24.9 cm/sec. Rt. ICA/CCA = 1.57. Lt. ICA/CCA = 1.27. Prox ECA 72.1/12.1 cm/sec. Prox ECA 160.9/18.2 cm/sec. Rt. Vert. 42.1/12.4 cm/sec. Lt. Vert. 42.8/12.6 cm/sec. Right Extracranial There is homogeneous, smooth atherosclerotic plaque noted in the right common carotid artery. There is heterogeneous, irregular atherosclerotic plaque noted in the right internal carotid artery. There is intimal thickening but no significant atherosclerotic plaque noted in the right external carotid artery. Antegrade flow is noted in the right vertebral artery. Left Extracranial There is homogeneous, smooth atherosclerotic plaque noted in the left common carotid artery. There is intimal thickening but no significant atherosclerotic plaque noted in the left internal carotid artery. There is intimal thickening but no significant atherosclerotic plaque noted in the left external carotid artery. Antegrade flow is noted in the left vertebral artery. Procedure Carotid Duplex 12889. This is a Carotid Duplex examination using B-mode, color flow and specral Doppler. Exam performed in department. VL/Carotid Duplex Ultrasound Interpretation Summary Irregular plaque at the proximal right internal carotid artery with 50 to 69% s tenosis. Less than 50% stenosis right external carotid artery Intimal thickening but no hemodynamically significant plaque proximal left inte rnal carotid artery with less than 50% stenosis Less than 50% stenosis left external carotid artery Patent and antegrade vertebral arteries bilaterally Ordering Physician: Devika De La Cruz Referring Physician: Cornelius Srinivasan Chi Performed By: Shala Delgado RVT
== END ==
PROVIDERS: PCP Family Medicine Geriatric Medicine; Referring Provider Ophthalmology; Visit Provider Ophthalmology
DX: H34.232 Retinal artery branch occlusion, left eye (principal)
CPT/HCPCS: 93880

== ENCOUNTER → 2020-10-04 12:02 | Outpatient (CLI) | payer MEDICARE, SELFPAY ==
[2020-06-23 11:03] VITALS: BMI 24.7
[2020-10-04 12:30] LABS: Erythrocyte Sedimentation Rate 43 mm/hr (0-30)
[2020-10-04 12:32] LABS: Absolute Lymphocyte Count 2.12 X10^3/uL (0.83-4.51); Absolute Neutrophil Count 3.9 X10^3/uL (2.0-7.7); Basophil# 0.03 X10^3/uL; Basophil% 0.4 % (0-1); Eosinophil# 0.23 X10^3/uL; Eosinophils% 3.4 % (0-5); Hematocrit 39.1 % (37-47); Hemoglobin 12.5 g/dL (12.0-15.0); Lymphocyte # 2.12 X10^3/ul (0.83-4.51); Lymphocyte % 31.3 % (19-41); Mean Corpuscular Hgb 30.2 pg (27.0-32.0); Mean Corpuscular Volume 94.4 fL (81-99); Mean Platelet Vol. 11.1 fl (6.2-12.0); Monocyte# 0.47 X10^3/uL; Monocyte% 6.9 % (0-10); NRBC Flagged by Analyzer 0 % (0-5); Neutrophil % 57.7 % (47-70); Platelet Count 278 K/mm3 (150-450); RBC Distribution Width CV 12.8 % (11.6-14.6); RBC Distribution Width SD 44.1 fl (35.1-43.9); Red Blood Count 4.14 M/mm3 (4.2-5.4); White Blood Count 6.8 K/mm3 (4.4-11.0)
[2020-10-04 13:00] LABS: ALB/GLOB Ratio 0.9 RATIO (0.9-2.4); AST(SGOT) 57 U/L (15-37); Alanine Aminotransfer ALT/SGPT 68 U/L (13-56); Albumin, Serum 3.6 g/dL (3.2-5.0); Alkaline Phosphatase 291 U/L (45-117); Anion Gap 6 (5-15); BUN 11 mg/dL (7-18); BUN/Creat Ratio 13.6 RATIO (10-20); CRP 3.44 mg/L (0.0-3.0); Chloride 102 mmol/L (98-107); Creatinine, Serum 0.81 mg/dL (0.55-1.02); EST Glomerular Filtration Rate 75 mL/min (>60); Est Glom Filt Rate - Afr Amer 91 mL/min (>60); Globulin 3.9 g/dL (2.2-4.2); Glucose 145 mg/dL (74-106); Potassium 4.1 mmol/L (3.5-5.1); Protein, Total 7.5 g/dL (6.4-8.2); Rheumatoid Factor < 10.0 IU/mL (<15); Sodium Level 136 mmol/L (136-145)
[2020-10-05 05:07] LABS: HEPATITIS B SURFACE AG Negative (Negative); Hepatitis A AB, Total Positive (Negative); Hepatitis A IgM Antibody Negative (Negative); Hepatitis B Core AB IgM Negative (Negative); Hepatitis B Core Ab Total Negative (Negative); Hepatitis C Ab <0.1 s/co ratio (0.0-0.9)
[2020-10-05 08:44] LABS: Hep B Surface Antibodies Non Reactive (.)
[2020-10-05 16:27] LABS: ANTINUCLEAR ANTIBODIES DIRECT Negative (Negative)
== END ==
PROVIDERS: PCP Family Medicine Geriatric Medicine; Visit Provider Family Medicine Geriatric Medicine
DX: I77.6 Arteritis, unspecified (principal); R74.8 Abnormal levels of other serum enzymes
CPT/HCPCS: 36415; 80053; 85025; 85652; 86038; 86140; 86431; 86704; 86705; 86706; 86708; 86709; 86803; 87340

== ENCOUNTER 2020-10-08 05:33 | Emergency (ER) | payer MEDICARE, SELFPAY ==
[2020-06-23 11:03] VITALS: BMI 24.7
[2020-10-08 05:34] VITALS: BP 120/71; PULSE 75; RESP 16; TEMP 36.8; O2SAT 98; BMI 20.3
--- NOTE | 2020-10-08 05:48 | EKG12_ITS ---
Test Reason : VOMITING Blood Pressure : / mmHG Vent. Rate : 064 BPM Atrial Rate : 064 BPM P-R Int : 124 ms QRS Dur : 094 ms QT Int : 482 ms P-R-T Axes : 037 057 080 degrees QTc Int : 497 ms Normal sinus rhythm Cannot rule out Inferior infarct , age undetermined Abnormal ECG Confirmed by TEENA GARCIA, ARIAN ([id number]), fashion editor BRETT CROOK ([id number]) on 10/12/2020 9:30:37 AM Referred By: DIEGO Confirmed By:ARIAN DICKINSON MD
[2020-10-08] MEDS: 0.9% Normal Saline 1,000 ML 1000 ML IV (06:00)
[2020-10-08 06:07] LABS: Hematocrit 47.1 % (37-47); Hemoglobin 15.6 g/dL (12.0-15.0); Mean Corp Hgb Conc 33.1 g/dL (32-36); Mean Corpuscular Hgb 29.8 pg (27.0-32.0); Mean Corpuscular Volume 89.9 fL (81-99); Mean Platelet Vol. 10.3 fl (6.2-12.0); Platelet Count 350 K/mm3 (150-450); RBC Distribution Width CV 12.4 % (11.6-14.6); Red Blood Count 5.24 M/mm3 (4.2-5.4)
[2020-10-08 06:19] LABS: ALB/GLOB Ratio 0.9 RATIO (0.9-2.4); AST(SGOT) 34 U/L (15-37); Alanine Aminotransfer ALT/SGPT 57 U/L (13-56); Alkaline Phosphatase 305 U/L (45-117); Anion Gap 10 (5-15); BUN 13 mg/dL (7-18); BUN/Creat Ratio 11.3 RATIO (10-20); Calcium,Total 10.3 mg/dL (8.5-10.1); Chloride 94 mmol/L (98-107); Creatinine, Serum 1.15 mg/dL (0.55-1.02); EST Glomerular Filtration Rate 50 mL/min (>60); Est Glom Filt Rate - Afr Amer 61 mL/min (>60); Estimated Creatinine Clearance 44.04 ml/min; Globulin 4.6 g/dL (2.2-4.2); Glucose 134 mg/dL (74-106); Lipase 54 U/L (73-393); Protein, Total 8.6 g/dL (6.4-8.2); Sodium Level 132 mmol/L (136-145)
--- NOTE | 2020-10-08 06:21 | CT_ITS ---
STUDY: CT ABDOMEN AND PELVIS WITH CONTRAST REASON FOR EXAM: Female, 64 years old. Left lower quadrant pain RADIATION DOSAGE (If Supplied By Facility): CTDIvol = ( 11.74 ) mGy, DLP = ( 333.85 ) mGycm TECHNIQUE: Transaxial images were obtained from the dome of the diaphragm to the symphysis pubis with oral contrast. 100 ml of ISOVUE-370 contrast was administered. Sagittal and coronal images were reconstructed. Individualized dose optimization techniques were used for this CT. COMPARISON: None. FINDINGS: The visualized lung bases are clear. The visualized portions of the heart and pericardium are within normal limits. There are no calcified gallstones present. The liver is within normal limits. There are no suspicious hepatic lesions. The spleen is normal in size. The pancreas is within normal limits. The adrenal glands are within normal limits. There are no renal or ureteral stones. There is no hydronephrosis. There are no focal renal lesions. Normal visualized stomach. There is no bowel obstruction. There are mildly thickened loops of distal small bowel and proximal colon, consistent with enterocolitis. The appendix is not visualized. There is a 3.5 x 3.2 cm infrarenal aortic aneurysm. There is a small amount of free fluid. There is no free air, fluid collection or lymphadenopathy. There are no destructive osseous lesions. There are degenerative changes noted in the spine. CT/Abdomen/Pelvis WITH Contrast IMPRESSION: Mildly thickened loops of distal small bowel and proximal colon, consistent with enterocolitis. No bowel obstruction. Normal appendix. Small amount of free fluid. No free air or fluid collection. 3.5 cm infrarenal abdominal aortic aneurysm. Electronically Signed: Salvador Escalona MD at 8:46 EDT Tel , Service support ,
[2020-10-08 06:46] LABS: Mucous, Urine 0 SEEN /hpf (<or=2+); Red Blood Cells-Urine 0 SEEN /hpf (0-5)
--- NOTE | 2020-10-08 06:46 | EDS_ITS ---
HPI History of Present Illness Chief Complaint: Nausea/Vomiting/Diarrhea Narrative Narrative: 64-year-old female presenting with nausea, vomiting, diarrhea. She states this started on Friday. She has had a few episodes of vomiting without blood in her emesis. She has had multiple episodes of diarrhea. She denies blood in her stool. Denies sick contacts. Denies bad food exposure. Denies recent antibiotics. Denies exposure to Covid. Prior similar symptoms: Yes Recent Illness/Hospitalization: No PFSH PFSH Medical History Alcohol abuse Aneurysm of infrarenal abdominal aorta Anxiety and depression Arthritis Bipolar disorder Cholesterolosis gallbladder Chronic diastolic (congestive) heart failure COPD (chronic obstructive pulmonary disease) DDD (degenerative disc disease), lumbosacral Diastolic dysfunction Elevated LFTs Essential (primary) hypertension Hyperlipidemia Hyponatremia Hypothyroidism Insomnia Nicotine dependence Obesity Pulmonary nodule Secondary pulmonary arterial hypertension Home Medications lamotrigine 200 mg PO DAILY 07/15/19 [History Last Taken 07/15/19] levothyroxine 50 mcg PO DAILY 07/15/19 [History Last Taken 07/15/19] potassium chloride 20 meq PO DAILY #30 tab 07/18/19 [Rx Last Taken Unknown] cyanocobalamin (vitamin B-12) 1,000 mcg capsule 1,000 mcg PO DAILY 12/22/19 [History Last Taken Unknown] furosemide 40 mg tablet 40 mg PO DAILY tab 12/22/19 [History Last Taken Unknown] metoprolol succinate 50 mg tablet,extended release 24 hr 50 mg PO DAILY #90 tab 12/22/19 [Rx Last Taken Unknown] vitamin E (dl, acetate) 450 mg (1,000 unit) capsule 450 mg PO DAILY 12/22/19 [History Last Taken Unknown] lisinopril 20 mg tablet 20 mg PO DAILY #90 tab 06/23/20 [Rx Last Taken Unknown] morphine 30 mg tablet,extended release 15 mg PO Q12H tab 06/23/20 [History Last Taken Unknown] Allergy/AdvReac Type Severity Reaction Status Date / Time No Known Allergies Allergy Verified 10/08/20 05:37 Family History Mother CAD (coronary artery disease) CABG x 3 post op age 63 Brother CAD (coronary artery disease) CABG x 3 age 65 Surgical History History of cataract surgery Social History (Updated 06/23/20 @ 16:39 by Donna ABBASI, PA) Smoking Status: Current every day smoker tobacco type: cigarettes ROS ROS ED Constitutional Constitutional ED: Denies fever(s) Eyes Eyes: Denies change in vision ENT ENT ED: Denies rhinorrhea or sore throat Cardiovascular Cardiovascular: Denies chest pain or palpitations Respiratory/Chest Respiratory/Chest: Denies cough or dyspnea Gastrointestinal Gastrointestinal: Reports abdominal pain, diarrhea, nausea and vomiting Genitourinary Genitourinary ED: Denies dysuria Musculoskeletal Musculoskeletal: Denies myalgias Integumentary Denies rash Neurologic Neurologic: Denies headache(s) Psychiatric Psychiatric: Denies suicidal thoughts EXAM Physical Exam Const Vital Signs: 10/08/20 05:34 Temperature 98.2 F Temperature Source Temporal Pulse Rate 75 Respiratory Rate 16 Blood Pressure 120/71 Blood Pressure Mean 87 Pulse Ox 98 Oxygen Delivery Method Room Air Positive well nourished and well developed General Appearance ED: well developed HEENT Reports normocephalic and head/scalp atraumatic Eyes PERRL and EOMs intact bilaterally Neck supple General: Negative for tenderness Chest Wall inspection of chest normal Resp normal respiratory effort and clear to auscultation bilaterally Cardio regular rate and regular rhythm GI non-distended Palpation: soft and tender LLQ; Negative for guarding or rebound tenderness present no CVA tenderness Extremity normal to inspection Neuro oriented x3 Sensorium / Orientation: alert Psych mental status grossly normal MDM MDM MDM Narrative Medical decision making narrative: Patient was given IV fluids. CT abdomen/pelvis is pending and will be signed out to the oncoming physician. Lab Data Attestation: I reviewed the patient's lab results. Labs: Laboratory Results - last 24 hr 10/08/20 10/08/20 10/08/20 05:37 05:37 06:42 WBC 10.0 RBC 5.24 Hgb 15.6 H Hct 47.1 H MCV 89.9 MCH 29.8 MCHC 33.1 RDW Std Deviation 41.0 RDW Coeff of Lisa 12.4 Plt Count 350 MPV 10.3 Sodium 132 L Potassium 4.0 Chloride 94 L Carbon Dioxide 28.0 Anion Gap 10 BUN 13 Creatinine 1.15 H Estim Creat Clear Calc 44.04 Est GFR (MDRD) Af Amer 61 Est GFR (MDRD) Non-Af 50 L BUN/Creatinine Ratio 11.3 Glucose 134 H Calcium 10.3 H Total Bilirubin 0.70 AST 34 ALT 57 H Alkaline Phosphatase 305 H Total Protein 8.6 H Albumin 4.0 Globulin 4.6 H Albumin/Globulin Ratio 0.9 Lipase 54 L Urine Color Yellow Urine Clarity Clear Urine pH 9.0 Ur Specific [place] 1.015 Urine Protein 15 H Urine Glucose (UA) Normal Urine Ketones 5 H Urine Occult Blood 250 H Urine Nitrite Negative Urine Bilirubin 6 H Urine Urobilinogen 1 H Ur Leukocyte Esterase 500 H Urine RBC 0 SEEN Urine WBC 0-5 SEEN Ur Squamous Epith Cells 0-5 SEEN Urine Bacteria 4+ Urine Mucus 0 SEEN EKG Initial EKG: Attestation: I personally reviewed and interpreted this EKG as follows: Interpretation: Sinus Rhythm and No Acute Injury Pattern Discharge Plan Triage Chief Complaint: Nausea/Vomiting/Diarrhea ED Provider: Pam Lorenzana Dx/Rx/DC Orders Prescriptions: No Action furosemide 40 mg tablet 40 mg PO DAILY RF: 0 vitamin E (dl, acetate) 450 mg (1,000 unit) capsule 450 mg PO DAILY RF: 0 cyanocobalamin (vitamin B-12) 1,000 mcg capsule 1,000 mcg PO DAILY RF: 0 metoprolol succinate [Toprol XL] 50 mg tablet extended release 24 hr 50 mg PO DAILY Qty: 90 RF: 3 lisinopril 20 mg tablet 20 mg PO DAILY Qty: 90 RF: 3 morphine 30 mg tablet extended release 15 mg PO Q12H RF: 0 lamotrigine 200 MG tablet 200 mg PO DAILY RF: 0 levothyroxine 50 MCG tablet 50 mcg PO DAILY RF: 0 potassium chloride 20 MEQ tablet 20 meq PO DAILY Qty: 30 RF: 0 Primary Care Provider: Cornelius Srinivasan Chi
[2020-10-08 06:47] LABS: Color, Urine Yellow (Yellow); Glucose, Dipstick Normal (Normal); Ketone-Dipstick 5 mg/dl (Negative); Leukocyte Esterase-Dipstick 500 /ul (Negative); Nitrite-Dipstick Negative (Negative); Occult Blood-Urine 250 /ul (Negative); Protein-Dipstick 15 mg/dl (Negative); Specific Gravity, Urine 1.015 (1.002-1.030); Urine Clarity Clear (Clear); Urine Urobilinogen 1 mg/dl (Normal)
[2020-10-08 06:50] LABS: Urine Bilirubin Dipstick 6 mg/dL (Negative)
[2020-10-08 07:01] LABS: White Blood Cells 0-5 SEEN /hpf (0-5)
[2020-10-08 07:02] LABS: Bacteria 4+ /hpf (None Seen); Squamous Epithelial Cells - UA 0-5 SEEN /hpf (5-10)
[2020-10-08 08:27] VITALS: BP 154/76; PULSE 60; RESP 15
[2020-10-08] MEDS: Ondansetron 4 MG/2 ML Vial IV (08:29)
[2020-10-08] MEDS: Morphine 4 MG/ML Syringe IV (08:29)
[2020-10-08 10:30] VITALS: BP 134/78; PULSE 78; RESP 16; O2SAT 98
== END 2020-10-08 10:31 | disposition home or self-care (01) ==
PROVIDERS: Emergency Medicine; Emergency Provider Emergency Medicine; PCP Family Medicine Geriatric Medicine
DX: R11.2 Nausea with vomiting, unspecified (principal); R19.7 Diarrhea, unspecified; F17.210 Nicotine dependence, cigarettes, uncomplicated; Z98.49 Cataract extraction status, unspecified eye; E03.9 Hypothyroidism, unspecified; E78.5 Hyperlipidemia, unspecified; F31.9 Bipolar disorder, unspecified; G47.00 Insomnia, unspecified; I50.32 Chronic diastolic (congestive) heart failure; J44.9 Chronic obstructive pulmonary disease, unspecified; M19.90 Unspecified osteoarthritis, unspecified site
CPT/HCPCS: 74177; 80053; 81001; 83690; 85027; 87426; 93005; 96361; 96374; 96375; 99282; J7030; Q9967; A4216; J2405

== ENCOUNTER → 2020-10-26 10:47 | Outpatient (CLI) | payer MEDICARE, SELFPAY ==
[2020-10-08 05:34] VITALS: BMI 20.3
[2020-10-26 12:04] LABS: Absolute Lymphocyte Count 2.18 X10^3/uL (0.83-4.51); Absolute Neutrophil Count 3.7 X10^3/uL (2.0-7.7); Basophil# 0.03 X10^3/uL; Basophil% 0.5 % (0-1); Eosinophil# 0.18 X10^3/uL; Eosinophils% 2.7 % (0-5); Hematocrit 38.7 % (37-47); Hemoglobin 12.4 g/dL (12.0-15.0); Lymphocyte # 2.18 X10^3/ul (0.83-4.51); Lymphocyte % 32.8 % (19-41); Mean Corpuscular Hgb 29.5 pg (27.0-32.0); Mean Corpuscular Volume 91.9 fL (81-99); Monocyte# 0.49 X10^3/uL; Monocyte% 7.4 % (0-10); NRBC Flagged by Analyzer 0 % (0-5); Neutrophil # 3.74 X10^3/uL (2.7-7.7); Neutrophil % 56.1 % (47-70); Platelet Count 320 K/mm3 (150-450); RBC Distribution Width CV 12.8 % (11.6-14.6); RBC Distribution Width SD 43.2 fl (35.1-43.9); Red Blood Count 4.21 M/mm3 (4.2-5.4); White Blood Count 6.7 K/mm3 (4.4-11.0)
[2020-10-26 12:17] LABS: Vitamin D,25 Hydroxy 42.2 ng/mL
[2020-10-26 12:31] LABS: ALB/GLOB Ratio 0.8 RATIO (0.9-2.4); AST(SGOT) 38 U/L (15-37); Alanine Aminotransfer ALT/SGPT 64 U/L (13-56); Albumin, Serum 3.5 g/dL (3.2-5.0); Alkaline Phosphatase 276 U/L (45-117); Anion Gap 6 (5-15); BUN 11 mg/dL (7-18); BUN/Creat Ratio 14.4 RATIO (10-20); Chloride 98 mmol/L (98-107); Creatinine, Serum 0.77 mg/dL (0.55-1.02); EST Glomerular Filtration Rate 80 mL/min (>60); Est Glom Filt Rate - Afr Amer 97 mL/min (>60); Globulin 4.2 g/dL (2.2-4.2); Glucose 105 mg/dL (74-106); Potassium 4.2 mmol/L (3.5-5.1); Protein, Total 7.7 g/dL (6.4-8.2); Sodium Level 135 mmol/L (136-145); Thyroid Stim Hormone (TSH) 0.79 uIU/mL (0.358-3.74)
== END ==
PROVIDERS: PCP Family Medicine Geriatric Medicine; Visit Provider Family Medicine Geriatric Medicine
DX: I10 Essential (primary) hypertension (principal); E55.9 Vitamin D deficiency, unspecified
CPT/HCPCS: 36415; 80053; 82306; 84443; 85025

== ENCOUNTER 2020-11-04 11:37 | Emergency (ER) | payer MEDICARE, SELFPAY ==
[2020-11-04 11:38] VITALS: BP 128/74; PULSE 92; RESP 16; TEMP 36.1; O2SAT 97; BMI 23.8
--- NOTE | 2020-11-04 12:10 | CT_ITS ---
EXAM: CT ABDOMEN AND PELVIS WITH INTRAVENOUS CONTRAST : 1955 CLINICAL INDICATION: abdominal pain TECHNIQUE: Helically acquired images were obtained of the abdomen and pelvis with intravenous contrast. This CT exam was performed using one or more of the following dose reduction techniques: automated exposure control, adjustment of the mA and/or kV according to patient size, and/or use of iterative reconstruction technique. This report was created using [employer] report generation technology. CONTRAST: IV 100mL Isovue-370 COMPARISON: 10/08/2020 FINDINGS: LOWER THORAX: Unremarkable. Lung bases are clear. No cardiomegaly. No significant pericardial effusion. ABDOMEN: LIVER: Unremarkable. Homogeneous. No focal mass. GALLBLADDER AND BILE DUCTS: Unremarkable. No calcified gallstones. No gallbladder distention or wall edema. No intra- or extrahepatic biliary ductal dilation. PANCREAS: Unremarkable. No focal cystic or solid mass. SPLEEN: Unremarkable. Normal size without focal cystic or solid mass. ADRENALS: Unremarkable. No nodules. KIDNEYS AND URETERS: Unremarkable. Normal renal size and position. No hydronephrosis. STOMACH AND BOWEL: There are borderline dilated fluid-filled loops of small bowel throughout the abdomen. There is also fluid seen within the colon. This may represent enteritis with diarrhea. PELVIS: APPENDIX: No evidence of acute appendicitis. BLADDER: Unremarkable. REPRODUCTIVE: Patient status post hysterectomy. ABDOMEN and PELVIS: INTRAPERITONEAL SPACE: There is mild free fluid in the pelvis. No free air. BONES/JOINTS: Unremarkable. No suspicious lytic or blastic abnormality. SOFT TISSUES: Unremarkable. No discrete abdominal or pelvic wall hernia. VASCULATURE: There are atherosclerotic calcifications present. Abdominal aorta is non-dilated. LYMPH NODES: Unremarkable. No enlarged lymph nodes. CT/Abdomen/Pelvis W IV Cont ONLY IMPRESSION: Fluid-filled borderline dilated loops of small bowel. There is also fluid in the colon. This may represent enteritis with incipient diarrhea. There is a mild amount of free fluid in the pelvis. Individualized dose optimization techniques were used for this CT. at 1349 Reported and signed by: Esteban Sow MD Electronically Signed: Esteban Sow MD at 13:47 EDT Tel , Service support ,
--- NOTE | 2020-11-04 12:12 | EDS_ITS ---
HPI History of Present Illness Chief Complaint: Nausea/Vomiting/Diarrhea Detail of Chief Complaint: Vomiting, diarrhea, and abdominal pain started last evening Informant: patient Narrative Narrative: Patient presents to the emergency department complaint of vomiting and diarrhea that started last evening. Patient complains of diffuse abdominal pain. Patient states that she had similar episode about a month ago and was told she had colitis and also hepatitis A. Patient was placed on antibiotics and she did eventually improve. She denies recent travel. She denies fevers. She denies blood in her stool or black tarry stool. She has had some chills. Prior similar symptoms: Yes [facility] Medical History (Updated 11/04/20 @ 14:[address] Blanca Estrada, DO) Alcohol abuse Aneurysm of infrarenal abdominal aorta Anxiety and depression Arthritis Bipolar disorder Chronic diastolic (congestive) heart failure COPD (chronic obstructive pulmonary disease) DDD (degenerative disc disease), lumbosacral Diastolic dysfunction Elevated LFTs Essential (primary) hypertension Hyperlipidemia Hyponatremia Hypothyroidism Insomnia Nicotine dependence Pulmonary nodule Secondary pulmonary arterial hypertension Home Medications lamotrigine 200 mg PO DAILY 07/15/19 [History Last Taken 07/15/19] levothyroxine 50 mcg PO DAILY 07/15/19 [History Last Taken 07/15/19] cyanocobalamin (vitamin B-12) 1,000 mcg capsule 1,000 mcg PO DAILY 12/22/19 [History Last Taken Unknown] furosemide 40 mg tablet 40 mg PO DAILY tab 12/22/19 [History Last Taken Unknown] metoprolol succinate 50 mg tablet,extended release 24 hr 50 mg PO DAILY #90 tab 12/22/19 [Rx Last Taken Unknown] vitamin E (dl, acetate) 450 mg (1,000 unit) capsule 450 mg PO DAILY 12/22/19 [History Last Taken Unknown] lisinopril 20 mg tablet 20 mg PO DAILY #90 tab 06/23/20 [Rx Last Taken Unknown] morphine 30 mg tablet,extended release 15 mg PO Q12H tab 06/23/20 [History Last Taken Unknown] furosemide [Lasix] 20 mg PO DINNER 11/04/20 [History Last Taken Unknown] loperamide [Imodium A-D] 2 mg PO Q6H PRN #10 tab 11/04/20 [Rx Last Taken Unk nown] ondansetron 4 mg PO Q8H PRN PRN #10 tab 11/04/20 [Rx Last Taken Unknown] Allergy/AdvReac Type Severity Reaction Status Date / Time No Known Allergies Allergy Verified 11/04/20 11:41 Family History Mother CAD (coronary artery disease) CABG x 3 post op age 63 Brother CAD (coronary artery disease) CABG x 3 age 65 Surgical History History of cataract surgery Social History (Updated 06/23/20 @ 16:39 by Donna ABBASI, PA) Smoking Status: Current every day smoker tobacco type: cigarettes ROS ROS ED Constitutional Constitutional ED: Reports systems reviewed and no addt'l complaints, except as documented; Denies body ache(s), change in weight or chills Eyes Eyes: Denies acute decrease in peripheral vision, change in vision, double vision or loss of vision ENT ENT ED: Reports none; Denies ear pain, lip swelling, loss taste/smell, neck pain, otalgia or sore throat Cardiovascular Cardiovascular: Reports none; Denies abdominal pain, chest pain with activity, leg edema, lightheadedness, palpitations, rapid heart rate or syncope Respiratory/Chest Respiratory/Chest: Reports none; Denies change in mental status, dry cough, dyspnea, hemoptysis, shortness of breath at rest or shortness of breath with exertion Gastrointestinal Gastrointestinal: Reports none, abdominal pain, diarrhea, nausea and vomiting; Denies change in stool character, hematemesis, hematochezia, melena or rectal bleeding Genitourinary Genitourinary ED: Reports none; Denies abdominal discomfort, anuria, dysuria, genital pain or polyuria Musculoskeletal Musculoskeletal: Reports none; Denies arthralgias, back pain, difficulty walking, extremity pain, muscle weakness or myalgias Integumentary Reports none; Denies abscess or rash Neurologic Neurologic: Reports none; Denies abnormal gait, confusion, focal weakness, frequent falls, headache(s), loss of vision, numbness, paresthesias, radicular pain, vertigo or weakness Psychiatric Psychiatric: Reports systems reviewed and no addt'l complaints, except as documented and none; Denies behavioral changes, confusion, difficulty concentrating, hallucinations, suicidal ideation, tactile hallucinations or visual hallucinations Endocrine Endocrinology: Denies none, cold intolerance, excessive sweating, fatigue or heat intolerance Hematologic/Lymphatic Hematologic/Lymphatic: Reports none; Denies anemia, easy bleeding or easy bruising Allergic/Immunologic Allergic/Immunologic ED: Denies as per HPI, none, lip swelling, mouth swelling, throat swelling, tongue swelling or hives EXAM Physical Exam Const Vital Signs: 11/04/20 11:38 11/04/20 12:40 Temperature 97 F L 97 F L Temperature Source Temporal Temporal Pulse Rate 92 92 Respiratory Rate 16 16 Blood Pressure 128/74 H 128/74 H Blood Pressure Mean 92 92 Pulse Ox 97 97 Oxygen Delivery Method Room Air Room Air Positive well nourished and well developed General Appearance ED: well developed and NAD HEENT Reports TM's clear and moist mucous membranes normocephalic and atraumatic; Negative for trauma or tenderness Tympanic Membrane ED: Yes TM's clear Eyes PERRL and EOMs intact bilaterally General Eye ED: Negative for pale conjunctiva or scleral icterus Neck no lymphadenopathy, supple and no JVD General: Negative for tenderness Chest Wall inspection of chest normal and palpation of chest normal Chest: Negative for tenderness Resp normal respiratory effort and clear to auscultation bilaterally Effort and Inspection: Negative for respiratory distress or pain with movement Auscultation: Negative for rhonchi, wheezes or diminished lung sounds Cardio regular rate, regular rhythm, S1 normal heart sound, S2 normal heart sound and no murmurs Peripheral Pulses: pulses 2+ throughout GI normal to inspection, nondistended, normoactive bowel sounds, soft to palpation, non-distended and no masses GI Narrative: Patient has mild diffuse tenderness on exam. There is no rebound, rigidity, or peritoneal signs. Palpation: tender Back/Spine no CVA tenderness and no thoracic nor lumbar tenderness Extremity normal to inspection General Extremety ED: Negative for edema General Extremity: Negative for edema Neuro oriented x3, CN's II-XII intact bilaterally, no sensory deficits noted and gait normal Sensorium / Orientation: awake, alert, oriented to person, oriented to place and oriented to time Motor Exam: strength 5/5 throughout and strength abnormal Psych mental status grossly normal Skin no rashes or lesions noted and no wounds MDM MDM MDM Narrative Medical decision making narrative: Patient work-up unremarkable in the department. CT scan of the abdomen pelvis showed fluid within the small bowel and large bowel consistent with enteritis. Patient felt improved after Zofran and morphine. She did not collect a stool sample here and does not want to wait any longer in the department would like to bring when and when she can produce 1. I discussed case with patient's primary care physician who will call her on Friday morning to schedule follow-up with her that day. Patient advised return if persistent vomiting, diarrhea, dehydration, worsening pain, fevers, or condition should worsen anyway. Lab Data Attestation: I reviewed the patient's lab results. Labs: Laboratory Results - last 24 hr 11/04/20 11/04/20 11/04/20 12:30 12:30 12:56 WBC 11.1 H RBC 5.59 H Hgb 16.6 H Hct 50.5 H MCV 90.3 MCH 29.7 MCHC 32.9 RDW Std Deviation 41.3 RDW Coeff of Lisa 12.7 Plt Count 369 MPV 9.9 Immature Gran % (Auto) 0.400 Neut % (Auto) 84.3 H Lymph % (Auto) 11.5 L [place] % (Auto) 3.3 Eos % (Auto) 0.2 Baso % (Auto) 0.3 Absolute Neuts (auto) 9.4 H Absolute Lymphs (auto) 1.28 Nucleated RBC % 0 Sodium 137 Potassium 4.2 Chloride 101 Carbon Dioxide 30.0 Anion Gap 6 BUN 16 Creatinine 0.95 Estim Creat Clear Calc 46.69 Est GFR (MDRD) Af Amer 76 Est GFR (MDRD) Non-Af 63 BUN/Creatinine Ratio 16.8 Glucose 153 H Lactic Acid 0.9 Calcium 10.4 H Total Bilirubin 0.60 AST 35 ALT 63 H Alkaline Phosphatase 318 H Total Protein 9.0 H Albumin 4.1 Globulin 4.9 H Albumin/Globulin Ratio 0.8 L Lipase 62 L Urine Color Urine Clarity Urine pH Ur Specific [place] Urine Protein Urine Glucose (UA) Urine Ketones Urine Occult Blood Urine Nitrite Urine Bilirubin Urine Urobilinogen Ur Leukocyte Esterase Urine RBC Urine WBC Ur Squamous Epith Cells Urine Bacteria Urine Mucus 11/04/20 13:35 WBC RBC Hgb Hct MCV MCH MCHC RDW Std Deviation RDW Coeff of Lisa Plt Count MPV Immature Gran % (Auto) Neut % (Auto) Lymph % (Auto) [place] % (Auto) Eos % (Auto) Baso % (Auto) Absolute Neuts (auto) Absolute Lymphs (auto) Nucleated RBC % Sodium Potassium Chloride Carbon Dioxide Anion Gap BUN Creatinine Estim Creat Clear Calc Est GFR (MDRD) Af Amer Est GFR (MDRD) Non-Af BUN/Creatinine Ratio Glucose Lactic Acid Calcium Total Bilirubin AST ALT Alkaline Phosphatase Total Protein Albumin Globulin Albumin/Globulin Ratio Lipase Urine Color Yellow Urine Clarity Clear Urine pH 7.0 Ur Specific [place] 1.010 Urine Protein Negative Urine Glucose (UA) Normal Urine Ketones 5 H Urine Occult Blood Negative Urine Nitrite Negative Urine Bilirubin Negative Urine Urobilinogen Normal Ur Leukocyte Esterase Negative Urine RBC 0 SEEN Urine WBC 0 SEEN Ur Squamous Epith Cells 0-5 SEEN Urine Bacteria 0 SEEN Urine Mucus 0 SEEN Radiography Diagnostic Testing: Radiology Impression Abdomen/Pelvis CT 11/04/20 12:10 IMPRESSION: Fluid-filled borderline dilated loops of small bowel. There is also fluid in the colon. This may represent enteritis with incipient diarrhea. There is a mild amount of free fluid in the pelvis. Individualized dose optimization techniques were used for this CT. at 1349 Reported and signed by: Esteban Sow MD Electronically Signed: Esteban Sow MD at 13:47 EDT Tel , Service support , Discharge Plan Triage Chief Complaint: Nausea/Vomiting/Diarrhea ED Provider: Blanca Estrada Dx/Rx/DC Orders Clinical Impression: Gastroenteritis Instructions: ED Diarrhea, Unknown Cause Prescriptions: New ondansetron [ondansetron] 4 MG tablet 4 mg PO Q8H PRN PRN (Reason: Nausea) Qty: 10 RF: 0 loperamide [Imodium A-D] 2 mg tablet 2 mg PO Q6H PRN (Reason: loose stool) Qty: 10 RF: 0 No Action furosemide 40 mg tablet 40 mg PO DAILY RF: 0 vitamin E (dl, acetate) 450 mg (1,000 unit) capsule 450 mg PO DAILY RF: 0 cyanocobalamin (vitamin B-12) 1,000 mcg capsule 1,000 mcg PO DAILY RF: 0 metoprolol succinate [Toprol XL] 50 mg tablet extended release 24 hr 50 mg PO DAILY Qty: 90 RF: 3 lisinopril 20 mg tablet 20 mg PO DAILY Qty: 90 RF: 3 morphine 30 mg tablet extended release 15 mg PO Q12H RF: 0 lamotrigine 200 MG tablet 200 mg PO DAILY RF: 0 levothyroxine 50 MCG tablet 50 mcg PO DAILY RF: 0 furosemide [Lasix] 20 mg Tablet 20 mg PO DINNER RF: 0 Primary Care Provider: Cornelius Srinivasan Chi Referrals: Cornelius Srinivasan Chi, MD [Primary Care Provider] - 2 Days Disposition Disposition: Home, Self Care
[2020-11-04] MEDS: 0.9% Normal Saline 1,000 ML 1000 ML IV (12:28)
[2020-11-04] MEDS: Ondansetron 4 MG/2 ML Vial IV (12:29)
[2020-11-04] MEDS: Morphine 4 MG/ML Syringe IV (12:29)
[2020-11-04 12:40] VITALS: BP 128/74; PULSE 92; RESP 16; TEMP 36.1; O2SAT 97
[2020-11-04 12:48] LABS: Absolute Lymphocyte Count 1.28 X10^3/uL (0.83-4.51); Absolute Neutrophil Count 9.4 X10^3/uL (2.0-7.7); Basophil# 0.03 X10^3/uL; Basophil% 0.3 % (0-1); Eosinophil# 0.02 X10^3/uL; Eosinophils% 0.2 % (0-5); Hematocrit 50.5 % (37-47); Hemoglobin 16.6 g/dL (12.0-15.0); Lymphocyte # 1.28 X10^3/ul (0.83-4.51); Lymphocyte % 11.5 % (19-41); Mean Corp Hgb Conc 32.9 g/dL (32-36); Mean Corpuscular Hgb 29.7 pg (27.0-32.0); Mean Corpuscular Volume 90.3 fL (81-99); Mean Platelet Vol. 9.9 fl (6.2-12.0); Monocyte# 0.37 X10^3/uL; Monocyte% 3.3 % (0-10); NRBC Flagged by Analyzer 0 % (0-5); Neutrophil # 9.38 X10^3/uL (2.7-7.7); Neutrophil % 84.3 % (47-70); Platelet Count 369 K/mm3 (150-450); RBC Distribution Width CV 12.7 % (11.6-14.6); RBC Distribution Width SD 41.3 fl (35.1-43.9); Red Blood Count 5.59 M/mm3 (4.2-5.4); White Blood Count 11.1 K/mm3 (4.4-11.0)
[2020-11-04 12:59] LABS: ALB/GLOB Ratio 0.8 RATIO (0.9-2.4); AST(SGOT) 35 U/L (15-37); Alanine Aminotransfer ALT/SGPT 63 U/L (13-56); Albumin, Serum 4.1 g/dL (3.2-5.0); Alkaline Phosphatase 318 U/L (45-117); Anion Gap 6 (5-15); BUN 16 mg/dL (7-18); BUN/Creat Ratio 16.8 RATIO (10-20); Calcium,Total 10.4 mg/dL (8.5-10.1); Chloride 101 mmol/L (98-107); Creatinine, Serum 0.95 mg/dL (0.55-1.02); EST Glomerular Filtration Rate 63 mL/min (>60); Est Glom Filt Rate - Afr Amer 76 mL/min (>60); Estimated Creatinine Clearance 46.69 ml/min; Globulin 4.9 g/dL (2.2-4.2); Glucose 153 mg/dL (74-106); Lipase 62 U/L (73-393); Potassium 4.2 mmol/L (3.5-5.1); Sodium Level 137 mmol/L (136-145)
[2020-11-04 13:24] LABS: Lactic Acid 0.9 mmol/L (0.4-1.9)
[2020-11-04 13:42] LABS: Bacteria 0 SEEN /hpf (None Seen); Mucous, Urine 0 SEEN /hpf (<or=2+); Red Blood Cells-Urine 0 SEEN /hpf (0-5); White Blood Cells 0 SEEN /hpf (0-5)
[2020-11-04 13:46] LABS: Color, Urine Yellow (Yellow); Glucose, Dipstick Normal (Normal); Ketone-Dipstick 5 mg/dl (Negative); Leukocyte Esterase-Dipstick Negative /ul (Negative); Nitrite-Dipstick Negative (Negative); Occult Blood-Urine Negative /ul (Negative); Protein-Dipstick Negative (Negative); Urine Bilirubin Dipstick Negative (Negative); Urine Clarity Clear (Clear); Urine Urobilinogen Normal (Normal)
[2020-11-04 13:58] LABS: Squamous Epithelial Cells - UA 0-5 SEEN /hpf (5-10)
[2020-11-04 14:19] VITALS: RESP 16
[2020-11-04 14:42] VITALS: BP 120/74; PULSE 90; RESP 14; O2SAT 97
== END 2020-11-04 14:43 | disposition home or self-care (01) ==
PROVIDERS: Emergency Provider Emergency Medicine; PCP Family Medicine Geriatric Medicine
DX: K52.9 Noninfective gastroenteritis and colitis, unspecified (principal); F17.210 Nicotine dependence, cigarettes, uncomplicated; I11.0 Hypertensive heart disease with heart failure; I50.32 Chronic diastolic (congestive) heart failure; E03.9 Hypothyroidism, unspecified; Z79.899 Other long term (current) drug therapy
CPT/HCPCS: 74177; 80053; 81001; 83605; 83690; 85025; 96361; 96374; 96375; 99283; Q9967; J2405

== ENCOUNTER → 2020-11-05 08:45 | Outpatient (CLI) | payer MEDICARE, SELFPAY ==
[2020-11-04 11:38] VITALS: BMI 23.8
== END ==
PROVIDERS: PCP Family Medicine Geriatric Medicine; Visit Provider Family Medicine Geriatric Medicine
DX: R19.7 Diarrhea, unspecified (principal)
CPT/HCPCS: 87177; 87209; 87493; 87506

== ENCOUNTER → 2020-11-06 09:19 | Outpatient (CLI) | payer MEDICARE, SELFPAY ==
[2020-06-23 11:03] VITALS: BMI 24.7
[2020-11-04 11:38] VITALS: BMI 23.8
--- NOTE | 2020-11-06 09:25 | US_ITS ---
STUDY: ABDOMINAL ULTRASOUND - RIGHT UPPER QUADRANT REASON FOR VISIT: Female, 64 years old LIVER ENZYMES ABNORMAL TECHNIQUE: Ultrasound evaluation of the right upper quadrant was performed with real-time and static madera-scale imaging. TECHNICAL QUALITY: Adequate. COMPARISON: Comparison is made with prior examination in 12/17/2019. FINDINGS: Liver: The liver measures 14.6 cm. There is normal echogenicity of the liver. The bile ducts are within normal limits. There is hepatic color flow. The direction of portal flow is hepatopetal. There is no demonstrated mass lesion. Gallbladder: Normal distended gallbladder. The gallbladder wall measures 3 mm. There is a negative sonographic Sy''s sign. There is no pericholecystic fluid. There is a solitary echogenic gallstone within the gallbladder. This measures 6 mm x 5 mm. Focal area of adenomyomatosis in the fundal portion of the gallbladder. Common Bile Duct (C.B.D.): The common bile duct measures 7 mm. Pancreas: Normal size of the head, body of the pancreas. The tail portion is obscured due to overlying bowel gas. There is normal echogenicity of the pancreas. There is no demonstrated pancreatic mass or cyst. Right Kidney: Normal size of the right kidney. The right kidney measures 10.5 cm x 5.4 cm x 5 cm. Normal renal cortex. The right cortex measures 1.2 cm. There is no demonstrated renal mass or cyst. There is no right hydronephrosis. US/Abdomen Limited IMPRESSION: Small solitary gallstone. Findings suggestive of adenomyomatosis of the fundal portion of the gallbladder. Electronically Signed: Jose Segura MD at 14:29 EDT , Service support ,
--- NOTE | 2020-11-06 09:33 | CT_ITS ---
STUDY: LOW DOSE CT LUNG CANCER SCREENING REASON FOR EXAM: Female, 64 years old. Patient smoked 1 pack per day for 49 years. RADIATION DOSAGE (If Supplied By Facility): CTDIvol = ( 2.01 ) mGy, DLP = ( 67.20 ) mGycm TECHNIQUE: No contrast was administered. Low dose technique was utilized (average mAS-38 and kVp 120). 1.25 mm axial source images with a slice interval of 1.25-mm were reconstructed in lung windows. 2.5 mm axial source images with a slice interval of 2.5-mm were reconstructed in lung windows. 5.0 mm axial source images with a slice interval of 5.0-mm were reconstructed in soft tissue windows. Nodule measured using lung windows on PACS and/or independent workstation with automated measurement of minimum and maximum diameter. Nodule measurement reported as average diameter rounded to the nearest whole number. Growth is defined as an increase ins size of greater than 1.5 mm. COMPARISON: Comparison is made with prior study dated 01/22/2019. NODULES: No suspicious nodules are seen. Emphysema: Mild degree of the emphysematous change. Endobronchial lesion: None Aorta: Atherosclerotic plaque formation. Coronary arteries: Coronary artery calcification. Heart: Unremarkable Pulmonary artery: Unremarkable Mediastinal nodes: Small benign-appearing mediastinal lymph nodes. Other chest and abdominal findings: CT/Low Dose CT Lung Screening IMPRESSION: Lung-RADS category 2 - Continue annual screening with LDCT in 12 months. IMPORTANT NOTES FOR USE: ACR Lung-RADS Version 1.1 Assessment Categories Release Date: 2018 Category: Coded 0-4 bases on nodule(s) with highest degree of suspicion. Negative screen is defined as categories 1 and 2; a positive screen is defined as categories 3 and 4. Category 3 and 4A nodules that are unchanged on interval CT should be coded as category 2, and individuals returned to screening in 12 months. Category 4X: Category 3 or 4 nodules with additional imaging findings that increase the suspicion of lung cancer, such as spiculation, GGN that doubles in size in 1 year, enlarged lymph notes, etc. Category Modifiers: S (significant finding unrelated to lung cancer) Electronically Signed: Jose Segura MD at 13:11 EDT , Service support ,
== END ==
PROVIDERS: PCP Family Medicine Geriatric Medicine; Referring Provider Family Medicine Geriatric Medicine; Visit Provider Family Medicine Geriatric Medicine
DX: R71.8 Other abnormality of red blood cells (principal); F17.210 Nicotine dependence, cigarettes, uncomplicated
CPT/HCPCS: 71271; 76705

== ENCOUNTER → 2020-11-08 13:11 | Outpatient (CLI) | payer MEDICARE, SELFPAY ==
[2020-11-04 11:38] VITALS: BMI 23.8
--- NOTE | 2020-11-08 13:14 | MRI_ITS ---
STUDY: MRI LUMBAR SPINE WITHOUT CONTRAST REASON FOR EXAM: Female, 64 years old. SPINAL STENOSIS TECHNIQUE: Standardized fat and water weighted pulse sequences were obtained in the sagittal and axial planes. COMPARISON: 10/15/2016 FINDINGS: T12-L1: Degenerative endplate changes. Narrowed disc space with desiccation of disc and minor annular bulge and small right foraminal disc protrusion... Normal bilateral facet joints. Normal central canal and bilateral lateral recesses. Mild right neuroforaminal stenosis. Normal lumbar lordosis. There is severe dextro scoliosis. Normal conus medullaris that terminates at the L1-2: Normal endplates. Narrowed disc space with desiccation of disc and normal morphology. Normal bilateral facet joints. Normal central canal and bilateral lateral recesses. Normal bilateral intervertebral neural foramina. L2-3: Normal endplates. Normal disc height, desiccation and minor annular bulge.. Normal bilateral facet joints. Normal central canal and bilateral lateral recesses. Normal bilateral intervertebral neural foramina. L3-4: Narrowed disc space with degenerative endplate changes and small Schmorl''s node deformity within the inferior endplate of L3. Desiccation of disc and minor annular bulge. Mild facet arthropathy.. Normal central canal and bilateral lateral recesses. Minor bilateral neuroforaminal encroachment L4-5: Normal endplates. Normal disc height, desiccation and small right foraminal disc protrusion. Bilateral facet arthropathy. Normal central canal and bilateral lateral recesses.. Mild right neuroforaminal stenosis. L5-S1: Narrowed disc space with degenerative endplate changes. Desiccation of disc and minimal annular bulge with small left paracentral disc protrusion. Facet arthropathy and mild thickening of ligamenta flava. Mild narrowing of the central canal. Normal bilateral lateral recesses and mild bilateral neuroforaminal stenosis Normal visualized sacral ala. Incidental finding of distal abdominal aortic aneurysm measuring approximately 3.45 x 3 cm Normal visualized paraspinous soft tissue structures. There has been mild interval progression of degenerative changes since previous study MRI/Spine Lumbar (Routine) IMPRESSION: No evidence for acute fracture or other significant bony pathology. Scoliosis and degenerative changes. Multilevel spinal stenosis secondary to disc disease and bony hypertrophy most pronounced at L4-5 on the right and L5-S1 on the left Electronically Signed: Narendra Joseph MD at 16:26 EDT , Service support ,
== END ==
PROVIDERS: PCP Family Medicine Geriatric Medicine; Referring Provider Family Medicine Geriatric Medicine; Visit Provider Family Medicine Geriatric Medicine
DX: M48.061 Spinal stenosis, lumbar region without neurogenic claudication (principal)
CPT/HCPCS: 72148

== ENCOUNTER → 2020-11-13 07:11 | Outpatient (CLI) | payer MEDICARE, SELFPAY ==
[2020-11-04 11:38] VITALS: BMI 23.8
--- NOTE | 2020-11-13 07:15 | BI_ITS ---
MAMMOGRAPHY - BILATERAL SCREENING REASON FOR EXAM: Female, 64 years old. Routine annual screening examination. PERTINENT HISTORY: Non-contributory. TECHNIQUE: Digital bilateral breast tammie (3D mammographic acquisition) in the CC and MLO projections. 2-D mediolateral oblique (MLO) and craniocaudad (CC) views of both breasts were obtained. CAD: Full Field Digital Mammography with Computer Added Detection was performed. COMPARISON: Comparison is made with prior outside examination dated 01/31/2016. FINDINGS: Breast Composition: There are scattered areas of fibroglandular density. There are no dominant masses or suspicious calcifications. Stable benign-appearing bilateral axillary lymph nodes. No other significant abnormalities are identified. There has been no significant change since the prior study. BI/SCRN MAMM (CAD)W/TAMMIE BILAT IMPRESSION: Stable bilateral screening mammogram. Yearly follow-up mammogram recommended. (A) ASSESSMENT CATEGORY: BIRADS Category 2: Benign. A letter regarding these results will be sent to the patient by the facility within 30 days. Approximately 10% of breast cancers are not detected by mammography. A normal mammogram should not delay biopsy of a clinically suspicious abnormality. [id number] Electronically Signed: Jose Segura MD at 8:44 EDT , Service support ,
== END ==
PROVIDERS: PCP Family Medicine Geriatric Medicine; Referring Provider Family Medicine Geriatric Medicine; Visit Provider Family Medicine Geriatric Medicine
DX: Z12.31 Encounter for screening mammogram for malignant neoplasm of breast (principal)
CPT/HCPCS: 77063; 77067

== ENCOUNTER 2020-11-30 10:30 | Outpatient (RCR) | payer MEDICARE, SELFPAY ==
--- NOTE | 2020-10-27 11:10 | HP.PTEVAL ---
Patient's Visit Information ERIKA MOYA is a 64 year old F referred to Physical Therapy by Dr. Cornelius Srinivasan MD with a diagnosis of LUMBAR SPINAL STENOSIS. Date of Evaluation: 10/27/20 Physical Therapist: Tobi Torres, PT, Cert MDT, OCS - Visit Plan Frequency: 2x /Week Duration: 4 Weeks Plan: PT INTERVENTIONS AQUATIC THERAPY FOR LUMBAR ROM,DLS,BLE FLEXABLITY /STRENGTHENING AND POSTURAL EX'S,PROGRESS TO LAND EX'S WADE - Subjective This 64 y/o female presents to physical therapy with back pain with leg symptoms along with weakness. Patient has had low back pain 30 years and symptoms worse in legs past year. Symptoms worse left but started in right. Patient has had pain management in past with epidural injections. Patient has had prior PT ,TENS unit chiropractor. Patient plans to have MRI. Pain located symmetrical left > right leg. Aggravating factors walking, standing ,bending, lifting. Alleviating factors rest and some sitting. C/P paresthesia/tingling left leg. Bowel/bladder -. Coughing/sneezing -. No abnormal night pain. Patient pain affects sleeping. MEDS: morphine 15mg x2. Patient c/o weakness in legs .Patient pain affects QOL and function with ADL's housework tasks. SOCIAL: single. VOACTION: retired - Pain Bilateral Back Pain Intensity (Out of 10): 6 Pain Intensity Range: 10 Bilateral Pain Intensity (Out of 10): 3 Pain Intensity Range: 10 - Objective POSTURE: mild forward posture. PALPATION: unremarkable. SYMMTIES: align. NEURO: c/o paresthesia left leg reflexes L3-4,L4-5,L5-S1 2/3. FLEXABLITY: hams mild tight. MMT: quads/hams 4/5,hip flexion 4-/5,ankle 4/5. LUMBAR ROM: min loss, extension min loss ,side glides min loss. - Special Tests L/S Slump test left side: Negative L/S Slump test right side: Negative L/S Left Straight Leg Raise: Negative L/S Right Straight Leg Raise: Negative Lumbar Standing: Flexion - Mechanical Response: No effect Lumbar Standing: Flexion - Symptoms During Testing: No effect Lumbar Standing: Flexion - Symptoms After Testing: No effect Lumbar Standing: Extension - Mechanical Response: No effect Lumbar Standing: Extension - Symptoms During Testing: Increases Lumbar Standing: Extension - Symptoms After Testing: No worse Lumbar Standing: Right Side Glides - Mechanical Response: No effect Lumbar Standing: Right Side [place] - Symptoms During Testing: No effect Lumbar Standing: Right Side [place] - Symptoms After Testing: No effect Lumbar Standing: Left Side [place] - Mechanical Response: No effect Lumbar Standing: Left Side [place] - Symptoms During Testing: No effect Lumbar Standing: Left Side [place] - Symptoms After Testing: No effect Lumbar Lying: Flexion - Mechanical Response: No effect Lumbar Lying: Flexion - Symptoms During Testing: Increases Lumbar Lying: Flexion - Symptoms After Testing: Worse Comments:: thgh Lumbar Lying: Extension - Mechanical Response: No effect Lumbar Lying: Extension - Symptoms During Testing: No effect Lumbar Lying: Extension - Symptoms After Testing: No effect - Goals Goal 1:: I with HEP Goal Time Frame: 4-6 Weeks Goal 2:: Improve posture for ADLS Goal Time Frame: 4-6 Weeks Goal 3:: Decrease LBP and radicular symptoms by 50% or > to improve function with gait Goal Time Frame: 4-6 Weeks Goal 4:: Improve lumbar ROM for function of recovery Goal Time Frame: 4-6 Weeks Goal 5:: Patient to improve back owestry score by 5 points or> to improve QOL Goal Time Frame: 4-6 Weeks - Rehabilitation Potential Rehabilitation Potential: Good - Anticipated Interventions Patient/Client Instruction: Educate patient on: Plan of Care For the Purpose of:: To decrease pain, To increase ROM, To improve muscle performance and motor function, To improve ability to perform ADL's, To increase tolerance to activity/condition/position, To improve performance and independence with ADL's, To improve ability of physical actions for home/community/work/leisure, To increase flexibility/ROM, To reduce risk of recurrence, To improve health and function, To improve ability to perform tasks related to life management Therapeutic Exercise to Include: Strength training, Endurance training, Body mechanics, Postural training, In an aquatic setting, Active ROM, Dynamic Lumbar Stabilization For the Purpose of:: To decrease pain, To increase ROM, To improve health of tissue, To decrease soft tissue restriction, To increase flexibility/ROM, To reduce risk of recurrence, To improve health and function, To improve ability to perform tasks related to life management Cryotherapy (ice pack, ice massage): Yes Thermo therapy (hot pack): Yes Ultrasound (thermal/non thermal): Yes For the Purpose of:: To decrease pain, To improve nutrient delivery to tissue, To increase oxygenation perfusion, To improve health of tissue, To decrease soft tissue restriction Thank you for the opportunity to evaluate your patient. For Medicare and Medicare HMO plans, please review the plan of care and approve it. It will need to be FAXED BACK to us at [phone] for Medicare purposes. For Medicare only, by signing this I certify the plan of care. Please let me know if there are questions or concerns regarding this plan of care. Physician Signature: Date:
--- NOTE | 2021-02-08 11:35 | HP.PTDCNRP_ITS ---
ERIKA MOYA was seen in my office for initial evaluation on 10/27/20. The following Plan of Care was established for this patient: Initial Frequency: 2x /Week Initial Duration: 4 Weeks Patient/Client Instruction: Educate patient on: Plan of Care For the Purpose of:: To decrease pain, To increase ROM, To improve muscle performance and motor function, To improve ability to perform ADL's, To increase tolerance to activity/condition/position, To improve performance and independenc e with ADL's, To improve ability of physical actions for home/community/work/leisure, To increase flexibility/ROM, To reduce risk of recurrence, To improve health and function, To improve ability to perform tasks related to life management Therapeutic Exercise to Include: Strength training, Endurance training, Body mechanics, Postural training, In an aquatic setting, Active ROM, Dynamic Lumbar Stabilization For the Purpose of:: To decrease pain, To increase ROM, To improve health of tissue, To decrease soft tissue restriction, To increase flexibility/ROM, To reduce risk of recurrence, To improve health and function, To improve ability to perform tasks related to life management Cryotherapy (ice pack, ice massage): Yes Thermo therapy (hot pack): Yes Ultrasound (thermal/non thermal): Yes For the Purpose of:: To decrease pain, To improve nutrient delivery to tissue, To increase oxygenation perfusion, To improve health of tissue, To decrease soft tissue restriction This patient was last seen in our office . Pertinent comments regarding their Physical therapy will appear below: Patient was seen for PT intial Evaluation for Aquatic therapy At this point I will be discontinuing this patient from physical therapy. I would be happy to see this patient again in the future if found appropriate by the physician. Thank you! Tobi Torres, PT, Cert MDT, OCS Balance/Gait/Functional tests - Balance/Special Test Scores Oswestry Low Back Score: 33
== END 2020-11-30 19:00 | disposition home or self-care (01) ==
LOC: PT 10:30
PROVIDERS: PCP Family Medicine Geriatric Medicine; Referring Provider Family Medicine Geriatric Medicine; Visit Provider Family Medicine Geriatric Medicine
DX: M48.061 Spinal stenosis, lumbar region without neurogenic claudication (principal)
CPT/HCPCS: 97110; 97113; 97162

== ENCOUNTER → 2020-12-18 16:40 | Outpatient (CLI) | payer MEDICARE, SELFPAY ==
[2020-12-18 17:01] LABS: Absolute Lymphocyte Count 2.13 X10^3/uL (0.83-4.51); Absolute Neutrophil Count 3.8 X10^3/uL (2.0-7.7); Basophil# 0.01 X10^3/uL; Basophil% 0.2 % (0-1); Eosinophil# 0.18 X10^3/uL; Eosinophils% 2.8 % (0-5); Lymphocyte # 2.13 X10^3/ul (0.83-4.51); Lymphocyte % 32.7 % (19-41); Mean Corp Hgb Conc 31.7 g/dL (32-36); Mean Corpuscular Hgb 29.7 pg (27.0-32.0); Mean Corpuscular Volume 93.8 fL (81-99); Mean Platelet Vol. 10.3 fl (6.2-12.0); Monocyte# 0.42 X10^3/uL; Monocyte% 6.5 % (0-10); NRBC Flagged by Analyzer 0 % (0-5); Neutrophil # 3.75 X10^3/uL (2.7-7.7); Neutrophil % 57.5 % (47-70); Platelet Count 253 K/mm3 (150-450); RBC Distribution Width CV 12.3 % (11.6-14.6); RBC Distribution Width SD 42.7 fl (35.1-43.9); Red Blood Count 4.37 M/mm3 (4.2-5.4); White Blood Count 6.5 K/mm3 (4.4-11.0)
[2020-12-18 17:41] LABS: ALB/GLOB Ratio 0.8 RATIO (0.9-2.4); AST(SGOT) 24 U/L (15-37); Alanine Aminotransfer ALT/SGPT 31 U/L (13-56); Albumin, Serum 3.6 g/dL (3.2-5.0); Alkaline Phosphatase 163 U/L (45-117); Anion Gap 5 (5-15); BUN 13 mg/dL (7-18); BUN/Creat Ratio 15.3 RATIO (10-20); Chloride 101 mmol/L (98-107); Creatinine, Serum 0.85 mg/dL (0.55-1.02); EST Glomerular Filtration Rate 71 mL/min (>60); Est Glom Filt Rate - Afr Amer 86 mL/min (>60); Globulin 4.4 g/dL (2.2-4.2); Glucose 111 mg/dL (74-106); Potassium 3.9 mmol/L (3.5-5.1); Sodium Level 133 mmol/L (136-145); Thyroid Stim Hormone (TSH) 0.87 uIU/mL (0.358-3.74)
== END ==
PROVIDERS: PCP Family Medicine Geriatric Medicine; Visit Provider Family Medicine Geriatric Medicine
DX: I10 Essential (primary) hypertension (principal)
CPT/HCPCS: 36415; 80053; 84443; 85025

== ENCOUNTER → 2020-12-19 11:03 | Outpatient (CLI) | payer MEDICARE, SELFPAY | PROVIDERS: PCP Family Medicine Geriatric Medicine; Referring Provider Family Medicine Geriatric Medicine; Visit Provider Family Medicine Geriatric Medicine | DX: R19.7 Diarrhea, unspecified (principal); B96.89 Other specified bacterial agents as the cause of diseases classified elsewhere | CPT/HCPCS: 82274; 83630; 87177; 87209; 87506 ==

== ENCOUNTER → 2021-01-10 07:49 | Outpatient (CLI) | payer MEDICARE, SELFPAY ==
--- NOTE | 2021-01-10 07:53 | US_ITS ---
STUDY: ABDOMINAL ULTRASOUND - ELASTOGRAPHY REASON FOR VISIT: Female, 65 years old. Fatty infiltration of the liver. TECHNIQUE: Liver stiffness measurements were obtained on a ADOR RS 85 ultrasound machine using a CA 1-7 probe following the SRU guidelines. 3 measurements were obtained using a 2-D-SWE method. The IQR/M was 10% suggesting a quality data set. TECHNICAL QUALITY: Adequate. COMPARISON: Comparison is made with prior ultrasound of the abdomen dated 11/06/2020. FINDINGS: Liver: Fatty infiltration of the liver. Small solitary gallstone. Median liver stiffness measured 10 kPa. US/Elastography Parenchyma/Organ IMPRESSION: Liver stiffness measures 10 kPa compatible with F3 Metavir score. Electronically Signed: Jose Segura MD at 9:09 EDT , Service support ,
== END ==
PROVIDERS: PCP Family Medicine Geriatric Medicine; Referring Provider Internal Medicine Gastroenterology; Visit Provider Internal Medicine Gastroenterology
DX: K76.0 Fatty (change of) liver, not elsewhere classified (principal)
CPT/HCPCS: 76981

== ENCOUNTER → 2021-01-23 11:08 | Outpatient (CLI) | payer MEDICARE, SELFPAY ==
[2021-01-23 12:28] LABS: Absolute Lymphocyte Count 2.58 X10^3/uL (0.83-4.51); Absolute Neutrophil Count 4.7 X10^3/uL (2.0-7.7); Basophil# 0.03 X10^3/uL; Basophil% 0.4 % (0-1); Eosinophil# 0.18 X10^3/uL; Eosinophils% 2.2 % (0-5); Hematocrit 41.5 % (37-47); Hemoglobin 13.9 g/dL (12.0-15.0); Lymphocyte # 2.58 X10^3/ul (0.83-4.51); Lymphocyte % 31.8 % (19-41); Mean Corp Hgb Conc 33.5 g/dL (32-36); Mean Corpuscular Hgb 29.8 pg (27.0-32.0); Mean Corpuscular Volume 88.9 fL (81-99); Mean Platelet Vol. 9.7 fl (6.2-12.0); Monocyte# 0.59 X10^3/uL; Monocyte% 7.3 % (0-10); NRBC Flagged by Analyzer 0 % (0-5); Neutrophil # 4.71 X10^3/uL (2.7-7.7); Neutrophil % 58.1 % (47-70); Platelet Count 300 K/mm3 (150-450); RBC Distribution Width CV 12.7 % (11.6-14.6); RBC Distribution Width SD 41.2 fl (35.1-43.9); Red Blood Count 4.67 M/mm3 (4.2-5.4); White Blood Count 8.1 K/mm3 (4.4-11.0)
[2021-01-23 13:10] LABS: ALB/GLOB Ratio 0.8 RATIO (0.9-2.4); AST(SGOT) 28 U/L (15-37); Alanine Aminotransfer ALT/SGPT 50 U/L (13-56); Albumin, Serum 3.6 g/dL (3.2-5.0); Alkaline Phosphatase 187 U/L (45-117); Anion Gap 10 (5-15); BUN 13 mg/dL (7-18); BUN/Creat Ratio 16.7 RATIO (10-20); Calcium,Total 9.6 mg/dL (8.5-10.1); Chloride 100 mmol/L (98-107); Creatinine, Serum 0.78 mg/dL (0.55-1.02); EST Glomerular Filtration Rate 79 mL/min (>60); Est Glom Filt Rate - Afr Amer 95 mL/min (>60); Globulin 4.6 g/dL (2.2-4.2); Glucose 122 mg/dL (74-106); Potassium 3.9 mmol/L (3.5-5.1); Protein, Total 8.2 g/dL (6.4-8.2); Sodium Level 135 mmol/L (136-145); Thyroid Stim Hormone (TSH) 0.81 uIU/mL (0.358-3.74)
== END ==
PROVIDERS: PCP Family Medicine Geriatric Medicine; Visit Provider Family Medicine Geriatric Medicine
DX: E55.9 Vitamin D deficiency, unspecified (principal); I10 Essential (primary) hypertension
CPT/HCPCS: 36415; 80053; 82306; 84443; 85025

== ENCOUNTER 2021-05-18 09:47 | Outpatient (CLI) | payer MEDICARE, SELFPAY ==
[2021-05-18 12:08] LABS: Absolute Lymphocyte Count 1.73 X10^3/uL (0.83-4.51); Absolute Neutrophil Count 4.6 X10^3/uL (2.0-7.7); Basophil# 0.03 X10^3/uL; Basophil% 0.4 % (0-1); Eosinophil# 0.14 X10^3/uL; Hematocrit 40.1 % (37-47); Lymphocyte # 1.73 X10^3/ul (0.83-4.51); Lymphocyte % 24.5 % (19-41); Mean Corp Hgb Conc 32.4 g/dL (32-36); Mean Corpuscular Hgb 29.5 pg (27.0-32.0); Mean Corpuscular Volume 91.1 fL (81-99); Mean Platelet Vol. 9.7 fl (6.2-12.0); Monocyte# 0.55 X10^3/uL; Monocyte% 7.8 % (0-10); NRBC Flagged by Analyzer 0 % (0-5); Neutrophil # 4.58 X10^3/uL (2.7-7.7); Platelet Count 346 K/mm3 (150-450); RBC Distribution Width CV 12.1 % (11.6-14.6); RBC Distribution Width SD 40.6 fl (35.1-43.9); White Blood Count 7.1 K/mm3 (4.4-11.0)
[2021-05-18 12:16] LABS: Vitamin D,25 Hydroxy 53.9 ng/mL
[2021-05-18 12:17] LABS: ALB/GLOB Ratio 0.8 RATIO (0.9-2.4); AST(SGOT) 19 U/L (15-37); Alanine Aminotransfer ALT/SGPT 32 U/L (13-56); Albumin, Serum 3.5 g/dL (3.2-5.0); Alkaline Phosphatase 162 U/L (45-117); Anion Gap 9 (5-15); BUN 13 mg/dL (7-18); BUN/Creat Ratio 16.1 RATIO (10-20); Chloride 102 mmol/L (98-107); Creatinine, Serum 0.81 mg/dL (0.55-1.02); EST Glomerular Filtration Rate 75 mL/min (>60); Est Glom Filt Rate - Afr Amer 91 mL/min (>60); Globulin 4.2 g/dL (2.2-4.2); Glucose 123 mg/dL (74-106); Protein, Total 7.7 g/dL (6.4-8.2); Sodium Level 136 mmol/L (136-145); Thyroid Stim Hormone (TSH) 0.85 uIU/mL (0.358-3.74)
== END 2021-05-18 23:59 | disposition short-term general hospital (02) ==
PROVIDERS: PCP Family Medicine Geriatric Medicine; Visit Provider Family Medicine Geriatric Medicine
DX: E55.9 Vitamin D deficiency, unspecified (principal); I10 Essential (primary) hypertension
CPT/HCPCS: 36415; 80053; 82306; 84443; 85025

== ENCOUNTER 2021-06-26 09:44 | Outpatient (CLI) | payer MEDICARE, SELFPAY ==
--- NOTE | 2021-06-26 09:47 | ART_ITS ---
Reason For Study: PVD Procedure A bilateral lower extremity continuous wave Doppler with analog waveform analysis and ankle brachial indexes. Left Segmental Pressures Left posterior tibial artery = 70mmHg. Left dorsalis pedis artery = 62mmHg. The left dorsalis pedis waveforms are monophasic. The left posterior tibial artery waveforms are monophasic. Right Segmental Pressures Right brachial= 143mmHg. Right posterior tibial artery = 87mmHg. Right dorsalis pedis artery = 85mmHg. The right dorsalis pedis waveforms are monophasic. The right posterior tibial artery waveforms are monophasic. Indices The right ankle brachial index by the dorsalis pedis is .59. The right ankle brachial index by the posterior tibial artery is .61. The left ankle brachial index by the posterior tibial artery is .49. The left ankle brachial index by the dorsalis pedis is .43. Prelim called to Dr. Logan's office. VL/Ankle Brachial Index Interpretation Summary Abnormal right lower extremity PT and DP ankle-brachial index of 0.61 and 0.59 respectively consistent with moderately severe disease. The right posterior tibial and dorsa lis pedis Doppler waveforms are monophasic consistent with a more severe level of disease. Left lower extremity PT and DP ankle-brachial indices are 0.49 and 0.43 respect ively consistent with severe arterial occlusive disease which would correlate with left posterior tib ial and dorsalis pedis monophasic Doppler waveforms Ordering Physician: Louie Logan Performed By: Randolph Ortez RVT
[2021-06-26 11:57] LABS: Cholesterol 155 mg/dL (200); High Density Lipoprotein 45 mg/dL; Triglycerides 171 mg/dL; Very Low Density Lipoprotein 34 mg/dL (5-40)
== END 2021-06-26 23:59 | disposition home or self-care (01) ==
PROVIDERS: PCP Family Medicine Geriatric Medicine; Referring Provider Psychiatry & Neurology Neurology; Visit Provider Psychiatry & Neurology Neurology
DX: I73.9 Peripheral vascular disease, unspecified (principal); E78.00 Pure hypercholesterolemia, unspecified
CPT/HCPCS: 36415; 80061; 93922

== ENCOUNTER 2021-07-17 08:25 | Outpatient (CLI) | payer MEDICARE, SELFPAY ==
[2021-07-17 10:12] LABS: BUN 9 mg/dL (7-18); Creatinine, Serum 0.87 mg/dL (0.55-1.02); EST Glomerular Filtration Rate 69 mL/min (>60); Est Glom Filt Rate - Afr Amer 83 mL/min (>60)
== END 2021-07-17 23:59 | disposition home or self-care (01) ==
LOC: LAB 08:27
PROVIDERS: PCP Family Medicine Geriatric Medicine; Referring Provider Surgery Vascular Surgery; Visit Provider Surgery Vascular Surgery
DX: I77.1 Stricture of artery (principal); I71.4 Abdominal aortic aneurysm, without rupture; I72.3 Aneurysm of iliac artery; E07.9 Disorder of thyroid, unspecified; F32.9 Major depressive disorder, single episode, unspecified; F41.9 Anxiety disorder, unspecified; E78.70 Disorder of bile acid and cholesterol metabolism, unspecified; I10 Essential (primary) hypertension; Z81.8 Family history of other mental and behavioral disorders; Z72.0 Tobacco use
CPT/HCPCS: 36415; 82565; 84520

== ENCOUNTER 2021-07-31 12:35 | Outpatient (CLI) | payer MEDICARE, SELFPAY ==
--- NOTE | 2021-07-31 13:05 | CT_ITS ---
STUDY: CTA OF THE ABDOMINAL AORTA AND BILATERAL LOWER EXTREMITIES REASON FOR EXAM: Female, 65 years old. ATHEROSCLEROSIS RADIATION DOSAGE (If Supplied By Facility): CTDIvol = ( 8.02 ) mGy, DLP = ( 984.15 ) mGycm TECHNIQUE: Axial CT angiography multi-detector data acquisition was obtained from the dome of the liver to the ankles following intravenous administration of IV 100mL Isovue-300. Axial images and MIP images were reconstructed from the axial data set. Post-processing of the angiographic images was performed, with multiplanar reformation and 3D reconstruction. Individualized dose optimization techniques were used for this CT. TECHNICAL QUALITY: Good COMPARISON: None. Descriptors of Narrowing: None (0%) Mild (< 50%) Moderate (50-70%) Severe (70-90%) Subtotal/Total Occlusion (90-100%) Non-Evaluable (technically non-diagnostic FINDINGS: Coronary artery calcification. Abdominal aorta: Infrarenal saccular aneurysm with a transverse dimension of 3.4 cm. Mural thrombus is seen. Atherosclerotic calcific plaques are present. Celiac and superior mesenteric arteries: Mild atherosclerotic plaque at the origin of the superior mesenteric artery. Inferior mesenteric artery: No demonstrated narrowing. Right renal artery(arteries): Atherosclerotic plaque at the origin of the right renal artery. Left renal artery(arteries): Atherosclerotic plaques at the origin of the left renal artery. Right common iliac artery: Calcific plaque seen. Mild to moderate degree of luminal narrowing. Right external iliac artery: Nonstenotic atherosclerotic plaque. Right internal iliac artery: No demonstrated narrowing. Left common iliac artery: Marked degree of calcific plaque formation with the focal occlusion. Left external iliac artery: Nonstenotic atherosclerotic plaques. Left internal iliac artery: No demonstrated narrowing. RIGHT LOWER EXTREMITY Right common femoral artery: No demonstrated narrowing. Right profundus femoris: No demonstrated narrowing. Right superficial femoral: Minimal plaque. Right popliteal artery: Not stenotic calcific plaque. Right tibioperoneal trunk: No demonstrated narrowing. Right anterior tibial artery: No demonstrated narrowing. Right posterior tibial artery: No demonstrated narrowing. Right peroneal artery: No demonstrated narrowing. LEFT LOWER EXTREMITY Left common femoral artery: Moderately stenotic plaque formation. Left profundus femoris: No demonstrated narrowing. Left superficial femoral: No demonstrated narrowing. Left popliteal artery: Nonstenotic calcific plaque. Left tibioperoneal trunk: No demonstrated narrowing. Left anterior tibial artery: No demonstrated narrowing. Left posterior tibial artery: No demonstrated narrowing. Left peroneal artery: No demonstrated narrowing. CT/CTA Abd w/Runoff W/WO Contrast IMPRESSION: Type narrowing and focal occlusion of the proximal left common iliac artery. Nonsignificant scattered calcific plaque seen in both lower extremities. Electronically Signed: Jose Segura MD at 14:20 EDT ,
== END 2021-07-31 23:59 | disposition home or self-care (01) ==
LOC: CT 12:36
PROVIDERS: PCP Family Medicine Geriatric Medicine; Referring Provider Surgery Vascular Surgery; Visit Provider Surgery Vascular Surgery
DX: I70.213 Atherosclerosis of native arteries of extremities with intermittent claudication, bilateral legs (principal); I77.1 Stricture of artery; I72.3 Aneurysm of iliac artery; I71.4 Abdominal aortic aneurysm, without rupture; E07.9 Disorder of thyroid, unspecified; Z81.8 Family history of other mental and behavioral disorders; F32.9 Major depressive disorder, single episode, unspecified; F41.9 Anxiety disorder, unspecified; F10.10 Alcohol abuse, uncomplicated; E78.70 Disorder of bile acid and cholesterol metabolism, unspecified; I10 Essential (primary) hypertension; Z72.0 Tobacco use
CPT/HCPCS: 74174; 75635; Q9967

== ENCOUNTER → 2021-10-11 | Outpatient (CLI) | payer MEDICARE, SELFPAY ==
[2021-10-11 15:16] LABS: Absolute Lymphocyte Count 2.32 X10^3/uL (0.83-4.51); Absolute Neutrophil Count 3.8 X10^3/uL (2.0-7.7); Basophil# 0.02 X10^3/uL; Basophil% 0.3 % (0-1); Eosinophil# 0.63 X10^3/uL; Eosinophils% 8.6 % (0-5); Hematocrit 38.9 % (37-47); Hemoglobin 12.5 g/dL (12.0-15.0); Lymphocyte # 2.32 X10^3/ul (0.83-4.51); Lymphocyte % 31.5 % (19-41); Mean Corp Hgb Conc 32.1 g/dL (32-36); Mean Corpuscular Hgb 29.7 pg (27.0-32.0); Mean Corpuscular Volume 92.4 fL (81-99); Mean Platelet Vol. 9.7 fl (6.2-12.0); Monocyte# 0.53 X10^3/uL; Monocyte% 7.2 % (0-10); NRBC Flagged by Analyzer 0 % (0-5); Neutrophil # 3.84 X10^3/uL (2.7-7.7); Neutrophil % 52.1 % (47-70); Platelet Count 341 K/mm3 (150-450); RBC Distribution Width CV 12.4 % (11.6-14.6); RBC Distribution Width SD 42.2 fl (35.1-43.9); Red Blood Count 4.21 M/mm3 (4.2-5.4); White Blood Count 7.4 K/mm3 (4.4-11.0)
[2021-10-11 16:07] LABS: Vitamin D,25 Hydroxy 66.9 ng/mL
[2021-10-11 16:28] LABS: AST(SGOT) 24 U/L (15-37); Alanine Aminotransfer ALT/SGPT 38 U/L (13-56); Albumin, Serum 3.9 g/dL (3.2-5.0); Alkaline Phosphatase 165 U/L (45-117); Anion Gap 7 (5-15); BUN 12 mg/dL (7-18); BUN/Creat Ratio 12.9 RATIO (10-20); Calcium,Total 9.5 mg/dL (8.5-10.1); Chloride 100 mmol/L (98-107); Creatinine, Serum 0.93 mg/dL (0.55-1.02); EST Glomerular Filtration Rate 64 mL/min (>60); Est Glom Filt Rate - Afr Amer 77 mL/min (>60); Globulin 4.1 g/dL (2.2-4.2); Glucose 90 mg/dL (74-106); Potassium 3.8 mmol/L (3.5-5.1); Sodium Level 135 mmol/L (136-145)
== END | disposition home or self-care (01) ==
LOC: POLAB3 13:15
PROVIDERS: PCP Family Medicine Geriatric Medicine; Visit Provider Family Medicine Geriatric Medicine
DX: E55.9 Vitamin D deficiency, unspecified (principal); I10 Essential (primary) hypertension
CPT/HCPCS: 36415; 80053; 82306; 84443; 85025

== ENCOUNTER → 2022-02-26 | Outpatient (CLI) | payer MEDICARE, SELFPAY ==
--- NOTE | 2022-02-26 08:54 | AAVD_ITS ---
Reason For Study: ATHEROSCLEROSIS Aorta Measurements Aorta Doppler Measurements Proximal aorta measures1.69 x 1.69cm. in cross- Peak systolic flow velocities within the proximal sectional axis. aorta measure 61.4 cm/sec. Proximal aorta measures1.73cm. in longitudinal Peak systolic flow velocities within the mid aorta axis. measure 52.4 cm/sec. Mid aorta measures3.52 x 3.48cm. in cross- Peak systolic flow velocities within the distal sectional axis. aorta measure 109.5 cm/sec. Mid aorta measures3.36cm. in longitudinal axis. Distal aorta measures2.36 x 2.35cm. in cross- sectional axis. Distal aorta measures2.43cm. in longitudinal axis. Heterogenous irregular and calcific plaque noted in distal portion of Aorta. Left Iliac Artery Left iliac artery measures 1.13 x 1.17 cm. in the cross-sectional axis. Left iliac artery measures 1.05 cm. in the longitudinal axis. Peak systolic velocity in the left iliac artery measures 98.2 cm/sec. Right Iliac Artery Right iliac artery measures 0.92 x 0.92 cm. in the cross-sectional axis. Right iliac artery measures 0.90 cm. in the longitudinal axis. Peak systolic velocity in the right iliac artery measures 203.7 cm/sec. Heterogenous irregular and calcific plaque noted and bifurcation and proximal portion of Rt Iliac. Procedure Aorta IVC Iliac vasculature or bypass grafts 72051. The exam was diagnostic. Technically Difficult study due to bowel gas, patient not NPO. Exam performed in department. VL/Abd Aortic/IVC Duplex scan Interpretation Summary Aortic aneurysm 3.5cm.Moderate right common iliac stenosis. Ordering Physician: John Causey Referring Physician: MD John Causey Performed By: Sonu Strickland, RVT
--- NOTE | 2022-02-26 08:54 | ART_ITS ---
Reason For Study: atherosclerosis Procedure A bilateral lower extremity continuous wave Doppler with analog waveform analysis and ankle brachial indexes. Left Segmental Pressures Left brachial= 149mmHg. Left posterior tibial artery = 128mmHg. Left dorsalis pedis artery = 137mmHg. Left digit = 85 mmHg. The left posterior tibial artery waveforms are triphasic. The left dorsalis pedis waveforms are triphasic. Right Segmental Pressures Right brachial= 142mmHg. Right posterior tibial artery = 130mmHg. Right dorsalis pedis artery = 130mmHg. Right digit = 87 mmHg. The right posterior tibial artery waveforms are triphasic. The right dorsalis pedis waveforms are triphasic. Indices The right ankle brachial index by the posterior tibial artery is 0.87. The right ankle brachial index by the dorsalis pedis is 0.87. The right digital-brachial index is 0.58. The left ankle brachial index by the posterior tibial artery is 0.86. The left ankle brachial index by the dorsalis pedis is 0.92. The left digital-brachial index is 0.57. VL/Ankle Brachial Index Interpretation Summary Right mild occlussive disease at rest with HOLLIE 0.87 and left normal with HOLLIE 0. 92. Bilateral triphasic flow noted. Ordering Physician: John Causey Performed By: [facility]
== END | disposition home or self-care (01) ==
LOC: CVS 08:53
PROVIDERS: PCP Family Medicine; Referring Provider Surgery Vascular Surgery; Visit Provider Surgery Vascular Surgery
DX: I70.0 Atherosclerosis of aorta (principal); I72.3 Aneurysm of iliac artery; I70.213 Atherosclerosis of native arteries of extremities with intermittent claudication, bilateral legs; I71.40 Abdominal aortic aneurysm, without rupture, unspecified; E07.9 Disorder of thyroid, unspecified; Z81.8 Family history of other mental and behavioral disorders; F32.A Depression, unspecified; F41.9 Anxiety disorder, unspecified; F10.10 Alcohol abuse, uncomplicated; E78.70 Disorder of bile acid and cholesterol metabolism, unspecified; I10 Essential (primary) hypertension; Z72.0 Tobacco use
CPT/HCPCS: 93922; 93978

== ENCOUNTER → 2022-03-08 | Outpatient (CLI) | payer MEDICARE, SELFPAY ==
[2022-03-08 10:20] LABS: AST(SGOT) 26 U/L (15-37); Alanine Aminotransfer ALT/SGPT 30 U/L (13-56); Albumin, Serum 3.6 g/dL (3.2-5.0); Alkaline Phosphatase 135 U/L (45-117); Bilirubin, Direct 0.11 mg/dL (0.00-0.30); Cholesterol 160 mg/dL (200); Globulin 4.3 g/dL (2.2-4.2); High Density Lipoprotein 52 mg/dL; Protein, Total 7.9 g/dL (6.4-8.2); Triglycerides 100 mg/dL; Very Low Density Lipoprotein 20 mg/dL (5-40)
== END | disposition home or self-care (01) ==
LOC: MTLAB 08:10
PROVIDERS: PCP Family Medicine; Referring Provider Psychiatry & Neurology Neurology; Visit Provider Psychiatry & Neurology Neurology
DX: E78.00 Pure hypercholesterolemia, unspecified (principal)
CPT/HCPCS: 36415; 80061; 80076

== ENCOUNTER → 2022-03-28 | Outpatient (CLI) | payer MEDICARE, SELFPAY ==
--- NOTE | 2022-03-28 13:49 | CDU_ITS ---
Reason For Study: carotid stenosis Rt. Velocities/BP Lt. Velocities/BP Prox CCA 91.6/19.0 cm/sec. Prox CCA 91.6/14.6 cm/sec. Mid CCA 125.6/26.2 cm/sec. Mid CCA 79.5/12.4 cm/sec. Dist CCA 94.9/20.0 cm/sec. Dist CCA 98.1/22.3 cm/sec. Prox ICA 187.4/42.2 cm/sec. Prox ICA 113.3/22.5 cm/sec. Mid ICA 145.5/31.4 cm/sec. Mid ICA 108.4/17.6 cm/sec. Dist ICA 59.7/16.8 cm/sec. Dist ICA 52.7/17.1 cm/sec. Rt. ICA/CCA = 1.5. Lt. ICA/CCA = 1.4. Prox ECA 141.2/22.6 cm/sec. Prox ECA 223.7/26.7 cm/sec. Rt. Vert. 43.2/12.4 cm/sec. Lt. Vert. 53.2/13.9 cm/sec. Right Extracranial There is heterogeneous, irregular atherosclerotic plaque noted in the right common carotid artery. There is heterogeneous, irregular atherosclerotic plaque noted in the right internal carotid artery. There is intimal thickening but no significant atherosclerotic plaque noted in the right external carotid artery. Antegrade flow is noted in the right vertebral artery. Left Extracranial There is heterogeneous, irregular atherosclerotic plaque noted in the left common carotid artery. There is intimal thickening but no significant atherosclerotic plaque noted in the left internal carotid artery. There is heterogeneous, irregular atherosclerotic plaque noted in the left external carotid artery. Antegrade flow is noted in the left vertebral artery. Procedure Carotid Duplex 83951. This is a Carotid Duplex examination using B-mode, color flow and specral Doppler. The exam was diagnostic. Exam performed in department. VL/Carotid Duplex Ultrasound Interpretation Summary Irregular calcific plaque at the proximal right internal carotid artery with 50 to 69% stenosis. Less than 50% stenosis right external carotid artery Intimal thickening at the proximal left internal carotid artery with tortuosity noted and less than 50% stenosis. Greater than 50% stenosis left external carotid artery Patent and antegrade vertebral arteries bilaterally From the previous examination of September 07, 2020 there has been advancement of jeane nosis involving the left external carotid artery. There is been no advancement regarding bilateral internal carotid arteries Ordering Physician: Louie Logan Performed By: Randolph Ortez RVT
== END | disposition home or self-care (01) ==
LOC: CVS 13:48
PROVIDERS: PCP Family Medicine; Visit Provider Psychiatry & Neurology Neurology
DX: I65.21 Occlusion and stenosis of right carotid artery (principal)
CPT/HCPCS: 93880

== ENCOUNTER → 2022-05-06 | Outpatient (CLI) | payer MEDICARE, SELFPAY ==
[2022-05-06 12:58] LABS: AST(SGOT) 22 U/L (15-37); Alanine Aminotransfer ALT/SGPT 34 U/L (13-56); Albumin, Serum 3.8 g/dL (3.2-5.0); Alkaline Phosphatase 127 U/L (45-117); Anion Gap 10 (5-15); BUN 13 mg/dL (7-18); BUN/Creat Ratio 14.1 RATIO (10-20); Calcium,Total 9.4 mg/dL (8.5-10.1); Chloride 100 mmol/L (98-107); Creatinine, Serum 0.92 mg/dL (0.55-1.02); EST Glomerular Filtration Rate 65 mL/min (>60); Est Glom Filt Rate - Afr Amer 78 mL/min (>60); Globulin 3.9 g/dL (2.2-4.2); Glucose 100 mg/dL (74-106); Potassium 4.7 mmol/L (3.5-5.1); Protein, Total 7.7 g/dL (6.4-8.2); Sodium Level 138 mmol/L (136-145)
== END | disposition home or self-care (01) ==
LOC: MFPLAB 11:00
PROVIDERS: PCP Family Medicine; Visit Provider Family Medicine
DX: I10 Essential (primary) hypertension (principal)
CPT/HCPCS: 36415; 80053

== ENCOUNTER → 2022-05-13 | Outpatient (CLI) | payer MEDICARE, SELFPAY ==
--- NOTE | 2022-05-13 15:25 | STRESSREP_ITS ---
Stress Test Report Exercise myocardial perfusion stress test. 66-year-old lady with a history of chest pain Stress protocol: Resting EKG demonstrates normal sinus rhythm with a rate of 65 bpm resting blood pressure is 140/72 mmHg. The patient exercised according to the regular Kevin protocol for a total duration of 5 minutes and 31 attaining a maximum heart rate of 109 bpm which was 71% of maximum predicted heart rate the maximum workload was 7 metabolic equivalents. At rest there were no ST or T wave changes noted suggest ischemia and at peak exercise upsloping ST changes only were noted which did not meet the criteria for ischemia. No clinical angina was noted the test was terminated due to the target heart rate being achieved. The peak blood pr essure was 138/70 mmHg. Rate-pressure product was 18,500. Myocardial perfusion protocol. 11.1 mCi of technetium 99m sestamibi was injected at rest. The patient exercised according to regular Kevin protocol for total duration of 5 minutes 31 seconds and at peak exercise 33.2 mCi of technetium 99m sestamibi was injected stress images were obtained stress and rest images were reconstructed in comp aring the short axis vertical long and horizontal long axis. Gated images were also obtained. Perfusion SPECT analysis: Review of the stress images demonstrate normal uptake of tracer noted in all a reas of the myocardium. The resting images similarly demonstrate normal uptake of tracer noted in all areas of the myocardium. No areas of reversibility are noted to suggest ischemia no previous infarct was noted. A small apical defect was noted and an infarct cannot be completely excluded. Gated SPECT analysis: The gated ejection fraction is 88%. Conclusion: Normal exercise myocardial perfusion stress test at a moderate workload. Preserved ejection fraction.
== END | disposition home or self-care (01) ==
LOC: CVS 06:24
PROVIDERS: PCP Family Medicine; Visit Provider Physician Assistant Medical
DX: R07.9 Chest pain, unspecified (principal)
CPT/HCPCS: 78452; 93017; A9500; A4216

== ENCOUNTER → 2022-05-21 | Outpatient (CLI) | payer MEDICARE, SELFPAY ==
--- NOTE | 2022-05-21 07:21 | BI_ITS ---
MAMMOGRAPHY - BILATERAL SCREENING REASON FOR EXAM: Female, 66 years old. Routine annual screening examination. PERTINENT HISTORY: Non-contributory. TECHNIQUE: Digital bilateral breast tammie (3D mammographic acquisition) in the CC and MLO projections. 2-D mediolateral oblique (MLO) and craniocaudad (CC) views of both breasts were obtained. CAD: Full Field Digital Mammography with Computer Added Detection was performed. COMPARISON: Comparison is made with prior study dated 11/13/2020. FINDINGS: Breast Composition: There are scattered areas of fibroglandular density. There are no dominant masses or suspicious calcifications. Stable small benign-appearing bilateral axillary lymph nodes. No other significant abnormalities are identified. There has been no significant change since the prior study. BI/SCRN MAMM (CAD)W/TAMMIE BILAT IMPRESSION: Stable bilateral screening mammogram. Yearly follow-up mammogram recommended. (A) ASSESSMENT CATEGORY: BIRADS Category 2: Benign. A letter regarding these results will be sent to the patient by the facility within 30 days. Approximately 10% of breast cancers are not detected by mammography. A normal mammogram should not delay biopsy of a clinically suspicious abnormality. [id number] Electronically Signed: Jose Segura MD at 8:52 EST ,
== END | disposition home or self-care (01) ==
LOC: OPBI 07:19
PROVIDERS: PCP Family Medicine; Referring Provider Family Medicine; Visit Provider Family Medicine
DX: Z12.31 Encounter for screening mammogram for malignant neoplasm of breast (principal)
CPT/HCPCS: 77063; 77067

== ENCOUNTER → 2022-07-08 | Outpatient (CLI) | payer MEDICARE, SELFPAY ==
--- NOTE | 2022-07-08 09:22 | RAD_ITS ---
STUDY: X-RAY - LEFT SHOULDER REASON FOR EXAM: Female, 66 years old. Pain and stiffness TECHNIQUE: 4 view(s) of the shoulder. COMPARISON: None. FINDINGS: There is moderate degenerative arthrosis of the glenohumeral articulation. There is degenerative arthrosis of the acromioclavicular joint without inferior osseous spur formation. Normal acromion. Normal humeral head and visualized proximal humerus. The soft tissue structures are unremarkable. Normal visualized pulmonary apex. RAD/Shoulder min 2 Views IMPRESSION: Degenerative arthrosis Electronically Signed: Dhaval Castro MD at 9:50 EDT ,
== END | disposition home or self-care (01) ==
LOC: MTRAD 09:20
PROVIDERS: PCP Family Medicine; Referring Provider Nurse Practitioner Family; Visit Provider Nurse Practitioner Family
DX: M25.512 Pain in left shoulder (principal)
CPT/HCPCS: 73030

== ENCOUNTER → 2022-08-16 | Outpatient (CLI) | payer MEDICARE, SELFPAY ==
--- NOTE | 2022-08-16 10:56 | ART_ITS ---
Reason For Study: PAD Procedure A bilateral lower extremity continuous wave Doppler with analog waveform analysis and ankle brachial indexes. Left Segmental Pressures Left brachial= 132mmHg. Left posterior tibial artery = 124mmHg. Left dorsalis pedis artery = 121mmHg. Left digit = 83 mmHg. The left dorsalis pedis waveforms are triphasic. The left posterior tibial artery waveforms are triphasic. Right Segmental Pressures Right brachial= 135mmHg. Right posterior tibial artery = 113mmHg. Right dorsalis pedis artery = 98mmHg. Right digit = 72 mmHg. The right dorsalis pedis waveforms are triphasic. The right posterior tibial artery waveforms are triphasic. Indices The right ankle brachial index by the dorsalis pedis is 0.73. The right ankle brachial index by the posterior tibial artery is 0.84. The right digital-brachial index is 0.53. The left ankle brachial index by the dorsalis pedis is 0.90. The left ankle brachial index by the posterior tibial artery is 0.92. The left digital-brachial index is 0.61. VL/Ankle Brachial Index Interpretation Summary Bilateral triphasic flow and HOLLIE 0.84 and 0.92. Ordering Physician: Louie Logan Referring Physician: Josie Lockwood Performed By: Shala Delgado RVT
== END | disposition home or self-care (01) ==
LOC: CVS 10:54
PROVIDERS: PCP Family Medicine; Referring Provider Psychiatry & Neurology Neurology; Visit Provider Psychiatry & Neurology Neurology
DX: I73.9 Peripheral vascular disease, unspecified (principal)
CPT/HCPCS: 93922

== ENCOUNTER → 2022-11-05 | Outpatient (CLI) | payer MEDICARE, SELFPAY ==
[2022-11-05 12:50] LABS: ALB/GLOB Ratio 0.9 RATIO (0.9-2.4); AST(SGOT) 22 U/L (15-37); Alanine Aminotransfer ALT/SGPT 30 U/L (13-56); Albumin, Serum 3.8 g/dL (3.2-5.0); Alkaline Phosphatase 110 U/L (45-117); Anion Gap 5 (5-15); BUN 13 mg/dL (7-18); Calcium,Total 9.2 mg/dL (8.5-10.1); Chloride 103 mmol/L (98-107); Cholesterol 158 mg/dL (200); EST Glomerular Filtration Rate 59 mL/min (>60); Est Glom Filt Rate - Afr Amer 71 mL/min (>60); Globulin 4.3 g/dL (2.2-4.2); Glucose 102 mg/dL (74-106); High Density Lipoprotein 51 mg/dL; Potassium 4.5 mmol/L (3.5-5.1); Protein, Total 8.1 g/dL (6.4-8.2); Sodium Level 135 mmol/L (136-145); T4 Free Direct 0.99 ng/dL (0.76-1.46); Thyroid Stim Hormone (TSH) 2.18 uIU/mL (0.358-3.74); Triglycerides 136 mg/dL; Very Low Density Lipoprotein 27 mg/dL (5-40)
[2022-11-05 16:56] LABS: Creatinine, Urine (random) < 13.00 mg/dL (NO RANGE EST.); Microalbumin,Random Urine < 5.0 mg/L (NO RANGE EST.)
== END | disposition home or self-care (01) ==
LOC: MFPLAB 10:06
PROVIDERS: PCP Family Medicine; Visit Provider Family Medicine
DX: I25.10 Atherosclerotic heart disease of native coronary artery without angina pectoris (principal); I10 Essential (primary) hypertension; E03.9 Hypothyroidism, unspecified
CPT/HCPCS: 36415; 80053; 80061; 82043; 82570; 84439; 84443

== ENCOUNTER → 2022-11-13 | Outpatient (CLI) | payer MEDICARE, SELFPAY ==
--- NOTE | 2022-11-13 10:10 | ECHOD_ITS ---
Reason For Study: DYSPNEA Procedure This was a 2D Doppler, Color Flow transthoracic echocardiogram. Exam performed in department. Left Ventricle Normal LV size. Left ventricular systolic function is normal. The estimated ejection fraction is 65 %. Stage 2 diastolic dysfunction. No regional wall motion abnormalities noted. Right Ventricle Normal RV size. Normal systolic function. Atria Normal left atrium. Normal right atrium. Mitral Valve There is mild mitral annular calcification. Tricuspid Valve Normal tricuspid valve. Mild (1+) tricuspid valve insufficiency. Pulmonary artery systolic pressure is 26 mmHg. Aortic Valve Trisinus/trileaflet aortic valve. Pulmonic Valve Normal pulmonic valve. Great Vessels Normal aortic root. The pulmonary artery is normal size. Normal inferior vena cava. Pericardium/Pleural No pericardial effusion. MMode/2D Measurements & Calculations LVIDd: 4.1 cm IVSd: 1.6 cm LVOT diam: 1.9 cm LVIDs: 2.0 cm LVPWd: 1.1 cm LVOT area: 2.9 cm2 RVDd: 3.2 cm FS: 51.5 % Ao root diam: 3.2 cm LAV(MOD-bp): 49.3 ml LVAd ap4: 16.3 cm2 LAV(MOD-bp) Indexed: 28.9 ml/m2 LVLd ap4: 6.6 cm LAV(MOD-sp2): 47.0 ml EDV(MOD-sp4): 33.3 ml LAV(MOD-sp4): 49.5 ml EDV(sp4-el): 34.1 ml LVAs ap4: 7.8 cm2 LVLs ap4: 5.1 cm ESV(MOD-sp4): 10.2 ml ESV(sp4-el): 10.1 ml EF(MOD-sp4): 69.4 % EF(sp4-el): 70.5 % LVAd ap2: 15.6 cm2 SV(MOD-sp4): 23.1 ml SV(MOD-sp2): 20.6 ml LVLd ap2: 6.2 cm EDV(MOD-sp2): 31.9 ml EDV(sp2-el): 33.3 ml LVAs ap2: 8.0 cm2 LVLs ap2: 5.0 cm ESV(MOD-sp2): 11.3 ml ESV(sp2-el): 10.9 ml EF(MOD-sp2): 64.5 % SV(sp4-el): 24.1 ml LA dimension(2D): 4.5 cm LA A4 area: 18.0 cm2 RA A4 area: 10.2 cm2 TAPSE: 1.7 cm Time Measurements MV dec time: 0.23 sec Doppler Measurements & Calculations MV E max ramiro: 77.5 cm/sec Lat Peak E' Ramiro: 6.0 cm/sec Med Peak E' Ramiro: 4.8 cm/sec MV A max ramiro: 58.5 cm/sec E/E' lat: 12.9 E/E' med: 16.2 MV E/A: 1.3 Ao V2 max: 125.7 cm/sec LV V1 max: 110.0 cm/sec MV dec slope: 343.7 cm/sec2 Ao max P.3 mmHg LV V1 max P.8 mmHg Ao V2 mean: 99.2 cm/sec LV V1 mean P.1 mmHg Ao mean P.2 mmHg LV V1 mean: 85.4 cm/sec Ao V2 VTI: 33.6 cm LV V1 VTI: 26.3 cm AV (velocity ratio): 0.78 MELISSA(I,D): 2.3 cm2 MELISSA(V,D): 2.5 cm2 SV(LVOT): 76.7 ml PA V2 max: 99.1 cm/sec TR max ramiro: 241.9 cm/sec PA max PG (full): 1.6 mmHg TR max P.4 mmHg ECHO/Echo Complete Interpretation Summary Normal LV size. Left ventricular systolic function is normal. The estimated ejection fraction is 65 %. Pulmonary artery systolic pressure is 26 mmHg. Stage 2 diastolic dysfunction. Ordering Physician: Donna Matthews Referring Physician: Donna Matthews Performed By: Toya Matamoros RDCS
== END | disposition home or self-care (01) ==
LOC: CVS 10:08
PROVIDERS: PCP Family Medicine; Referring Provider Physician Assistant Medical; Visit Provider Physician Assistant Medical
DX: R06.09 Other forms of dyspnea (principal); R06.02 Shortness of breath; I51.89 Other ill-defined heart diseases
CPT/HCPCS: 93306

== ENCOUNTER → 2023-01-09 | Outpatient (CLI) | payer MEDICARE, SELFPAY ==
--- NOTE | 2023-01-09 16:25 | RAD_ITS ---
EXAM: XR RIGHT HIP WITH PELVIS WHEN PERFORMED, 2 OR 3 VIEWS CLINICAL INDICATION: right hip pain TECHNIQUE: Two or three views of the right hip with pelvis when performed. COMPARISON: No relevant prior studies available. FINDINGS: BONES/JOINTS: There is narrowing of the right hip joint space. No displaced fracture. No destructive or sclerotic lesions. Note that overlapping bowel shadows may however obscure fine detail. Sacroiliac joint is unremarkable. No widening of the pubic symphysis. SOFT TISSUES: Unremarkable. No soft tissue swelling or gas. RAD/HIP, UNI W/ Pelvis 2-3 Views IMPRESSION: Degenerative changes with narrowing of the right hip joint space. There are no acute osseous abnormalities. Electronically Signed: Esteban Sow MD at 16:50 EDT ,
== END | disposition home or self-care (01) ==
LOC: MTRAD 16:24
PROVIDERS: PCP Family Medicine; Visit Provider Psychiatry & Neurology Neurology
DX: M25.551 Pain in right hip (principal)
CPT/HCPCS: 73502

== ENCOUNTER 2023-02-05 10:00 | Outpatient (RCR) | payer MEDICARE, SELFPAY ==
--- NOTE | 2023-01-16 10:01 | HP.PTEVAL_ITS ---
Patient's Visit Information Visit Information Visit Information: ERIKA MOYA is a 67 year old F referred to Physical Therapy by Dr. Louie Logan MD with a diagnosis of Right Hip Pain. Date of Evaluation: 01/16/23 Physical Therapist: Kalpana Rojas DPT Visit Plan Frequency: 2x /Week Duration: 4 Weeks Plan: Right hip OA- Focus on LE and core strength/stabilization, proprioception and functional mobility Subjective Subjective: Patient reports that she saw Dr. Logan and she is bone on bone in her hip- she has had injections in her back- and she was told a long time ago that she would need a hip replacement. She does not specifically have pain in her hip. Last year it bothered her and she had her leg ballooned and its a lot better now. The right one is the leg that is bothering her. Her has prostate cancer so she is very busy taking care of him. Worst: 02/04 Agg: mowing, getting into the car, being up and around for awhile, late afternoon and night time. Eases: rest and medication Best: 08/05. She reports the pain is from the groin down. The pain is not centered in the hip. Describes the pain as tight, achy and burning. No N/T in the toes. She has had a bad back for years- she has had injections- 4 years ago. Sleep: disturbed- stomach sleeper. X-rays: in chart PMHx/Meds: no changes since apt in chart Objective Objective: Posture: FH, RS- can correct but does not maintain Gait: slightly antalgic- decreased stance on the right LE HR/TR: able with UE A SLS: 10 sec with mild hip drop Sit to Stand: able without UE A but fatigues and weight shifts to the left Sensation: WNL to gross touch bilateral Reflex: WFL to patella ROM: Right Hip: Flexion to 90 degrees, Extn: neutral, IR/ER: neutral, Abd: 50 degrees, Knee 0-130 degrees, Ankle: WNL Strength: Core: fair minus, Hip: Flexion: 4-/5, Extn: 4-/5, Abd: 4/5, Add: 4/5, IR/ER: 4-/5, Knee: 4+/5, Ankle: 5/5 Palpation: tender along great troch Flex: HS: severe, Gastroc: severe Special Tests R Hip Scour: Positive R Hip MADELYN - Intraarticular Pathology: Positive R Hip FADDIR - Labrum: Positive R Hip Trendelenberg - Glut Medius: Positive Balance/Special Test Scores Lower Extremity Functional Score: 39 Goals Goal 1:: Patient will be I with HEP and progression Goal Time Frame: 4-6 Weeks Goal 2:: Patient will maintain proper posture t/o tx session to demo increased core s/s Goal Time Frame: 4-6 Weeks Goal 3:: Patient will sit to stand x10 without UE A in 30 seconds Goal Time Frame: 4-6 Weeks Goal 4:: Patient report 80% improvement Rehabilitation Potential Physical Therapy Diagnosis: Patient presents with hypomobility- she has decreased LE and core strength/stabilization, proprioception, pain free ROM flex and muscular endurance leading to abnormal gait and increased pain with ADL's. Rehabilitation Potential: Good Anticipated Interventions Patient/Client Instruction: Educate patient on: Benefits of Fitness Program Therapeutic Exercise to Include: Strength training, Endurance training, Balance training, Coordination, Agility training, Body mechanics, Postural training, Flexibilty training, Gait and locomotor training, Neuromotor development, Dynamic Lumbar Stabilization and Scapular Strength/Stabilization For the Purpose of:: To improve muscle performance and motor function TENS: Yes Cryotherapy (ice pack, ice massage): Yes Thermo therapy (hot pack): Yes Text: Thank you for the opportunity to evaluate your patient. For Medicare and Medicare HMO plans, please review the plan of care and approve it. It will need to be FAXED BACK to us at [phone] for Medicare purposes. For Medicare only, by signing this I certify the plan of care. Please let me know if there are questions or concerns regarding this plan of care. Physician Signature: Date:__
--- NOTE | 2023-04-24 08:08 | HP.PT.NRP ---
Patient Information Patient Information: ERIKA MOYA was seen in my office for initial evaluation on 01/16/23. The following Plan of Care was established for this patient: POC Established Initial Frequency: 2x /Week Initial Duration: 4 Weeks Anticipated Interventions Patient/Client Instruction: Educate patient on: Benefits of Fitness Program Therapeutic Exercise to Include: Strength training, Endurance training, Balance training, Coordination, Agility training, Body mechanics, Postural training, Flexibilty training, Gait and locomotor training, Neuromotor development, Dynamic Lumbar Stabilization and Scapular Strength/Stabilization For the Purpose of:: To improve muscle performance and motor function TENS: Yes Cryotherapy (ice pack, ice massage): Yes Thermo therapy (hot pack): Yes Last Seen Last Seen: This patient was last seen in our office . Pertinent comments regarding their Physical therapy will appear below: Patient attended PT for 2 visits after initial evaluation and had increased pain-she has not attended in 8 weeks and is appropriate to return to MD for further evaluation. At this point I will be discontinuing this patient from physical therapy. I would be happy to see this patient again in the future if found appropriate by the physician. Thank you! Kalpana Rojas, MILADIST Balance/Gait/Functional tests Balance/Special Test Scores Lower Extremity Functional Score: 39
== END 2023-02-05 19:00 | disposition home or self-care (01) ==
LOC: PT 10:00
PROVIDERS: PCP Family Medicine; Referring Provider Psychiatry & Neurology Neurology; Visit Provider Psychiatry & Neurology Neurology
DX: M25.551 Pain in right hip (principal)
CPT/HCPCS: 97110; 97162

== ENCOUNTER → 2023-05-16 | Outpatient (CLI) | payer MEDICARE, SELFPAY ==
--- NOTE | 2023-05-16 07:55 | ART_ITS ---
Reason For Study: PVD Procedure A bilateral lower extremity continuous wave Doppler with analog waveform analysis and ankle brachial indexes. Left Segmental Pressures Left brachial= 126mmHg. Left posterior tibial artery = 132mmHg. Left dorsalis pedis artery = 131mmHg. Left digit = 45 mmHg. The left posterior tibial artery waveforms are triphasic. The left dorsalis pedis waveforms are triphasic. Right Segmental Pressures Right brachial= 130mmHg. Right posterior tibial artery = 131mmHg. Right dorsalis pedis artery = 120mmHg. Right digit = 79 mmHg. The right posterior tibial artery waveforms are triphasic. The right dorsalis pedis waveforms are triphasic. Indices The right ankle brachial index by the posterior tibial artery is 1.01. The right ankle brachial index by the dorsalis pedis is 0.92. The right digital-brachial index is 0.61. The left ankle brachial index by the posterior tibial artery is 1.02. The left ankle brachial index by the dorsalis pedis is 1.01. The left digital-brachial index is 0.35. VL/Ankle Brachial Index Interpretation Summary Normal at rest with HOLLIE 1.01 and 1.02. Ordering Physician: John Causey Referring Physician: Josie Lockwood Performed By: Sonu Strickland RVT
--- NOTE | 2023-05-16 07:55 | CDU_ITS ---
Reason For Study: Rt Carotid Stenosis Rt. Velocities/BP Lt. Velocities/BP Prox CCA 67.0/14.2 cm/sec. Prox CCA 64.8/14.7 cm/sec. Mid CCA 79.3/16.7 cm/sec. Mid CCA 75.2/19.5 cm/sec. Dist CCA 79.3/17.1 cm/sec. Dist CCA 105.2/26.7 cm/sec. Prox ICA 159.7/37.8 cm/sec. Prox ICA 84.7/20.1 cm/sec. Mid ICA 90.4/16.7 cm/sec. Mid ICA 61.7/20.6 cm/sec. Dist ICA 49.7/11.9 cm/sec. Dist ICA 54.5/16.0 cm/sec. Rt. ICA/CCA = 2.0. Lt. ICA/CCA = 1.1. Prox ECA 122.3/6.9 cm/sec. Prox ECA 254.1/21.3 cm/sec. Rt. Vert. 46.8/15.4 cm/sec. Lt. Vert. 69.5/18.5 cm/sec. Right Extracranial There is heterogeneous, smooth atherosclerotic plaque noted in the right common carotid artery. There is heterogeneous, irregular atherosclerotic plaque noted in the right internal carotid artery. There is heterogeneous, irregular atherosclerotic plaque noted in the right external carotid artery. Antegrade flow is noted in the right vertebral artery. Left Extracranial There is heterogeneous, smooth atherosclerotic plaque noted in the left common carotid artery. There is intimal thickening but no significant atherosclerotic plaque noted in the left internal carotid artery. The left internal carotid artery is very tortuous. There is heterogeneous, irregular atherosclerotic plaque noted in the left external carotid artery. Antegrade flow is noted in the left vertebral artery. Procedure Carotid Duplex [id number]. This is a Carotid Duplex examination using B-mode, color flow and specral Doppler. The exam was diagnostic. Exam performed in department. VL/Carotid Duplex Ultrasound Interpretation Summary Moderate (50-69%) stenosis right extracranial internal carotid. Mild (<50%) jeane nosis left extracranial internal carotid. Flow within the vertebral arteries is antegrade bilaterally. Ordering Physician: John Causey Referring Physician: Josie Lockwood Performed By: Sonu Strickland RVT
--- NOTE | 2023-05-16 07:55 | AAVD_ITS ---
Reason For Study: AAA Aorta Measurements Aorta Doppler Measurements Proximal aorta measures1.96 x 1.98cm. in cross- Peak systolic flow velocities within the proximal sectional axis. aorta measure 78.4 cm/sec. Proximal aorta measures1.94cm. in longitudinal Peak systolic flow velocities within the mid aorta axis. measure 47.3 cm/sec. Mid aorta measures3.69 x 3.52cm. in cross- Peak systolic flow velocities within the distal sectional axis. aorta measure 111.2 cm/sec. Mid aorta measures3.60cm. in longitudinal axis. Distal aorta measures2.42 x 2.49cm. in cross- sectional axis. Distal aorta measures2.45cm. in longitudinal axis. Left Iliac Artery Left iliac artery measures 1.00 x 1.00 cm. in the cross-sectional axis. Left iliac artery measures 0.99 cm. in the longitudinal axis. Peak systolic velocity in the left iliac artery measures 199.2 cm/sec. Right Iliac Artery Right iliac artery measures 0.69 x 0.69 cm. in the cross-sectional axis. Right iliac artery measures 0.72 cm. in the longitudinal axis. Peak systolic velocity in the right iliac artery measures 137.1 cm/sec. Procedure Aorta IVC Iliac vasculature or bypass grafts 13489. The exam was diagnostic. Exam performed in department. VL/Abd Aortic/IVC Duplex scan Interpretation Summary 3.7cm aortic aneurysm. Ordering Physician: John Causey Referring Physician: Josie Lockwood Performed By: Sonu Strickland, RVT
--- OUTSIDE RECORDS SUMMARY | 2023-05-16 07:55 | XMS RPT_ITS | CCD ---
Author Name Unknown Address [address] [place] [address] Organization [facility] Results Test Name Value Interpretation Reference Range Facil ity Procedures Date Procedure Procedure Detail Performing Clinician Start: 08-14-2021 Ecg routine ecg w/le ast 12 lds i&r only Progress note 03-02-2021 Note Date & Type Note Facility 03-02-2021 Note HNO ID: [id number] Author: Elisabeth Murcia APRN.FARM TECHNICIAN Service: ? Author Type: Nurse Practitioner Type: Progress Notes Filed: 03/02/2021 9:06 AM Note Text: Subjective The history is provided by the patient. No languages and literature instructor was used. HPI Erika Moya is a 65 year old female who presents today for CC of cough, nausea, and headache that started in the past 2 days. Symptoms include: Fever (?100.4F): No or Chills: No Cough: Yes Shortness of breath: No or Difficulty breathing: No Fatigue: Yes Muscle aches: No Headache: Yes New loss of smell or taste: No Sore throat: No Nasal congestion: No or Rhinorrhea: No Nausea: Yes or Vomiting: No Diarrhea: No OTC meds/remedies that patient has tried: none. High risk category assessment Chronic lung disease Exposures: Sick contacts? Yes Family or close contacts with confirmed/probable COVID-19 in last 14 days? Yes BP 140/70 Pulse 82 Temp 36.2 ?C (97.2 ?F) Resp 16 Wt 63.4 kg (139 lb 12.8 oz) SpO2 99% BMI 25.16 kg/m? 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 Negative for chills and fever. HENT: Negative for congestion, ear pain, sinus pain and sore throat. Respiratory: Positive for cough. Negative for sputum production, shortness of breath and wheezing. Cardiovascular: Negative for chest pain. Gastrointestinal: Positive for nausea. Negative for abdominal pain, diarrhea and vomiting. Musculoskeletal: Negative for myalgias. Neurological: Positive for headaches. Objective Physical Exam Vitals and nursing note reviewed. HENT: Head: Normocephalic and atraumatic. Right Ear: Tympanic membrane, ear canal and external ear normal. Left Ear: Tympanic membrane and ear canal normal. Mouth/Throat: Pharynx: Uvula midline. Abdominal: General: Bowel sounds are normal. Palpations: Abdomen is soft. Tenderness: There is no abdominal tenderness. Lymphadenopathy: Head: Right side of head: No submental, submandibular or tonsillar adenopathy. Left side of head: No submental, submandibular or tonsillar adenopathy. Cervical: No cervical adenopathy. Skin: General: Skin is warm and dry. Neurological: Mental Status: She is alert. Psychiatric: Mood and Affect: Affect normal. ASSESSMENT/PLAN: 1. Suspected COVID-19 virus infection - ICD9: V01.79, ICD10: Z20.822 Home isolation Testing ordered Comfort measures discussed When to seek higher level of care Notified in 24-48 hours with results, available on [email or web address] CORONAVIRUS Diagnosis and treatment plan were discussed and questions were answered to the patient's satisfaction. Pt acknowledged understanding of concepts and follow up plan. Specific signs and symptoms that would indicate the need for higher level of care were discussed in detail warranting prompt ER evaluation. Elisabeth Murcia APRN.TOBIN [facility] Progress note 10-03-2020 Note Date & Type Note Facility 10-03-2020 Note HNO ID: [id number] Author: Narendra Foster APRN.TOBIN Service: ? Author Type: Nurse Practitioner Type: Progress Notes Filed: 10/03/2020 5:04 PM Note Text: Subjective HPI Nontoxic-appearing female presents urgent care chief complaint rash. Duration of symptoms 2 days. Associated symptoms pruritic red rash. Rashes on inner aspect bilateral lower ankles. Has been using peroxide and rubbing alcohol. No success. Presents today to ensure this is not a cellulitic infection. Denies any new medication changes environmental changes. No recent antibiotic use. Denies any fever, nausea, vomiting, abdominal pain, chest pain, shortness of breath, pleuritic pain, trauma, change in bowel or bladder habits. Past medical history prescription medication use allergies reviewed. 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 cyanocobalamin, vitamin B-12, (VITAMIN B-12 ORAL) Take 8,000 mg by mouth. furosemide (LASIX) 40 mg tablet Take 40 mg by mouth twice daily. potassium chloride (KLOR-CON M20 ORAL) Take by mouth. lisinopril (ZESTRIL, PRINIVIL) 40 mg tablet TAKE 1 TABLET EVERY DAY lamotrigine 200 mg ORAL tablet Take one(1) tablet daily. levothyroxine (SYNTHROID) 50 mcg tablet Take 50 mcg by mouth once daily. metoprolol succinate ER (TOPROL XL) 50 mg 24 hr tablet Take 50 mg by mouth once daily. amLODIPine (NORVASC) 10 mg tablet TAKE 1 TABLET EVERY DAY morphine immediate release 30 mg tablet Take 15 mg by mouth q 12 HR. tiZANidine HCl 4 mg capsule Take 4 mg by mouth twice daily. amitriptyline 10 mg ORAL tablet Take one(1) tablet at bedtime as needed. clonazePAM (KLONOPIN) 0.5 mg ORAL tablet Take one(1) tablet twice daily as needed. buPROPion 75 mg ORAL tablet Take one(1) tablet two(2) times daily. risperidone (RISPERDAL) 1 mg ORAL tablet Take one(1) tablet two(2) times daily. FAMILY HISTORY Problem Relation Age of Onset - Diabetes Father - Coronary Artery Disease Mother cabg (age 60's) - Hypertension Mother - Hypertension Father - Hypertension Maternal Grandmother - Psychiatry Mother nervous breakdown - Psychiatry Maternal Grandmother nervous breakdown - Heart Failure Maternal Grandmother - Cancer Brother Social History Tobacco Use - Smoking status: Current Some Day Smoker Packs/day: 1.00 Years: 30.00 Pack years: 30.00 Types: Cigarettes - Smokeless tobacco: Former User Quit date: 01/28/2015 - Tobacco comment: occasional smoker Substance Use Topics - Alcohol use: Yes Comment: Seldom - Drug use: No BP 132/80 Pulse 68 Temp 36.3 ?C (97.4 ?F) (Tympanic) Resp 16 Wt 59.9 kg (132 lb) SpO2 98% BMI 23.76 kg/m? Review of Systems Constitutional: Negative for chills, fever and malaise/fatigue. HENT: Negative for congestion, ear discharge, ear pain, sinus pain and sore throat. Eyes: Negative for blurred vision, pain, discharge and redness. Respiratory: Negative for cough, sputum production, shortness of breath and wheezing. Cardiovascular: Negative for chest pain. Gastrointestinal: Negative for abdominal pain, diarrhea, nausea and vomiting. Musculoskeletal: Negative for myalgias. Skin: Positive for itching and rash. Neurological: Negative for dizziness and headaches. Objective Physical Exam Constitutional: General: She is not in acute distress. Appearance: She is not diaphoretic. HENT: Head: Normocephalic. Nose: Nose normal. Mouth/Throat: Mouth: Mucous membranes are moist. Eyes: Conjunctiva/sclera: Conjunctivae normal. Pupils: Pupils are equal, round, and reactive to light. Cardiovascular: Rate and Rhythm: Normal rate and regular rhythm. Heart sounds: Normal heart sounds. Pulmonary: Effort: Pulmonary effort is normal. No tachypnea, accessory muscle usage or respiratory distress. Breath sounds: Normal breath sounds. Abdominal: Palpations: Abdomen is soft. Tenderness: There is no abdominal tenderness. Musculoskeletal: Cervical back: Normal range of motion and neck supple. Skin: General: Skin is warm and dry. Comments: Pruritic petechial rash noted inner aspect of bilateral lower ankles. Rash is nonblanching. No breaks in skin. No remote redness. Neurovascular intact. No desquamation of skin noted. No desquamation of mucosal membranes. Neurological: Mental Status: She is alert and oriented to person, (more content not included)... [facility] Summary Purpose Family History No Family History Records FoundNo Family History Records FoundNo Family History Records Found Advance Directives No Advanced Directives Records FoundNo Advanced Directives Records FoundNo Advanced Directives Records Found Additional Source Comments INFORMATION SOURCE (unrecogn ized section and content) DATE CREATED AUTHOR AUTHOR'S ORGANIZ ATION 06/11/2021 [facility] DATE CREATED AUTHOR AUTHOR'S ORGANIZ ATION 08/20/2021 [facility] Ce iket Ortiz FOR RECORDS PERTAINING TO PATIENTS WHO ARE OR HAVE BEEN ENROLLED IN A CHEMICAL DEPENDENCY/SUBSTANCEABUSE PROGRAM, SOME INFORMATION MAY BE OMITTED. This clinical summary was aggregated from multiple sources. Caution should be exercised in using it in the provision of clinical care. This summary normalizes information from multiple sources, and as a consequence, information in this document may materially change the coding, format and clinical context of patient data. In addition, data may be omitted in some cases. CLINICAL DECISIONS SHOULD BE BASED ON THE PRIMARY CLINICAL RECORDS. [facility]. provides no warranty or guarantee of the accuracy or completeness of information in this document.
== END | disposition home or self-care (01) ==
LOC: CVS 07:53
PROVIDERS: PCP Family Medicine; Referring Provider Surgery Vascular Surgery; Visit Provider Surgery Vascular Surgery
DX: I65.23 Occlusion and stenosis of bilateral carotid arteries (principal); I71.40 Abdominal aortic aneurysm, without rupture, unspecified; I72.3 Aneurysm of iliac artery; I70.213 Atherosclerosis of native arteries of extremities with intermittent claudication, bilateral legs; Z72.0 Tobacco use
CPT/HCPCS: 93880; 93922; 93978

== ENCOUNTER → 2023-06-09 | Outpatient (CLI) | payer MEDICARE, SELFPAY ==
[2023-06-05 10:15] LABS: BUN 16 mg/dL (7-18); Creatinine, Serum 0.98 mg/dL (0.55-1.02); EST Glomerular Filtration Rate 60 mL/min (>60); Est Glom Filt Rate - Afr Amer 72 mL/min (>60)
--- NOTE | 2023-06-09 13:21 | CT_ITS ---
STUDY: CTA OF THE ABDOMINAL AORTA AND BILATERAL LOWER EXTREMITIES REASON FOR EXAM: Female, 67 years old. Right lower extremity pain. History of prior left lower extremity angioplasty. RADIATION DOSAGE (If Supplied By Facility): CTDIvol = ( 7.30 ) mGy, DLP = ( 1054.46 ) mGycm TECHNIQUE: Axial CT angiography multi-detector data acquisition was obtained from the dome of the liver to the level of the ankles following intravenous administration of IV 100mL Isovue-370. Axial images and MIP images were reconstructed from the axial data set. Post-processing of the angiographic images was performed, with multiplanar reformation and 3D reconstruction. Individualized dose optimization techniques were used for this CT. TECHNICAL QUALITY: Good COMPARISON: Comparison is made with prior study dated July 31, 2021. Descriptors of Narrowing: None (0%) Mild (< 50%) Moderate (50-70%) Severe (70-90%) Subtotal/Total Occlusion (90-100%) Non-Evaluable (technically non-diagnostic FINDINGS: Coronary artery calcification. Diffuse fatty infiltration of the liver. Small hiatal hernia. Abdominal aorta: Infrarenal abdominal aortic aneurysm with a transverse dimension of 3.5 cm. Mural calcification. Celiac and superior mesenteric arteries: Atherosclerotic plaque formation at the origin of the celiac artery and superior mesenteric artery. Inferior mesenteric artery: No demonstrated narrowing. Right renal artery(arteries): Mild plaque formation at the origin of the right renal artery. Left renal artery(arteries): Mild plaque formation at the origin of the left renal artery. Small cyst in the lower pole of the left kidney. Right common iliac artery: Dense atherosclerotic plaque formation. [id number] degree of luminal narrowing. Right external iliac artery: Atherosclerotic plaque formation. Right internal iliac artery: No demonstrated narrowing. Left common iliac artery: Dense atherosclerotic plaque formation with a moderate degree of narrowing. Left external iliac artery: Mild atherosclerotic plaque formation. Left internal iliac artery: No demonstrated narrowing. RIGHT LOWER EXTREMITY Right common femoral artery: No demonstrated narrowing. Right profundus femoris: No demonstrated narrowing. Right superficial femoral: Minimal plaque formation. Right popliteal artery: No demonstrated narrowing. Right tibioperoneal trunk: Focal tight stenosis at the origin of the tibioperoneal trunk. Right anterior tibial artery: No demonstrated narrowing. Right posterior tibial artery: No demonstrated narrowing. Right peroneal artery: No demonstrated narrowing. LEFT LOWER EXTREMITY Left common femoral artery: No demonstrated narrowing. Left profundus femoris: Atherosclerotic Left superficial femoral: No demonstrated narrowing. Left popliteal artery: No demonstrated narrowing. Left tibioperoneal trunk: Tight stenosis at the distal tibioperoneal trunk. Left anterior tibial artery: Tight stenosis at the origin of the left anterior tibial artery. Left posterior tibial artery: No demonstrated narrowing. Left peroneal artery: No demonstrated narrowing. CT/CTA Abd w/Runoff W/WO Contrast IMPRESSION: Stable aneurysmal dilatation of the intrarenal abdominal aorta. Tight stenosis at the origin of the right and left tibioperoneal trunks and origin of the left anterior tibial artery. Electronically Signed: Jose Segura MD at 15:24 EST ,
== END | disposition home or self-care (01) ==
PROVIDERS: PCP Family Medicine; Referring Provider Surgery Vascular Surgery; Visit Provider Surgery Vascular Surgery
DX: I70.233 Atherosclerosis of native arteries of right leg with ulceration of ankle (principal); I70.213 Atherosclerosis of native arteries of extremities with intermittent claudication, bilateral legs; I72.3 Aneurysm of iliac artery
CPT/HCPCS: 36415; 75635; 82565; 84520; Q9967

== ENCOUNTER → 2023-07-07 | Outpatient (CLI) | payer MEDICARE, SELFPAY ==
--- OUTSIDE RECORDS SUMMARY | 2023-07-07 07:43 | XMS RPT_ITS | CCD ---
Author Name Unknown Address [address] [place] [id number] Organization [facility] Results Test Name Value Interpretation Reference Range Facil ity Procedures Date Procedure Procedure Detail Performing Clinician Start: 08-14-2021 Ecg routine ecg w/le ast 12 lds i&r only Progress note 03-02-2021 Note Date & Type Note Facility 03-02-2021 Note HNO ID: [id number] Author: Elisabeth Murcia APRN.WEATHERIZATION OPERATIONS MANAGER Service: ? Author Type: Nurse Practitioner Type: Progress Notes Filed: 03/02/2021 9:06 AM Note Text: Subjective The history is provided by the patient. No historic interpreter was used. HPI Erika Moya is a [...] have confirmed and edited as necessary, the [facility] Review of Systems Constitutional: Positive for [...] warranting prompt ER evaluation. Elisabeth Murcia APRN.TOBIN [facility] Progress note 10-03-2020 Note Date & Type Note Facility 10-03-2020 Note HNO ID: [id number] Author: Narendra Foster APRN.TOBIN Service: ? Author [...] oriented to person, (more content not included)... [facility] Summary Purpose Family History No Family History Records FoundNo Family History Records FoundNo Family History Records Found Advance Directives No Advanced Directives Records FoundNo Advanced Directives Records FoundNo Advanced Directives Records Found Additional Source Comments INFORMATION SOURCE (unrecogn ized section and content) DATE CREATED AUTHOR AUTHOR'S ORGANIZ ATION 06/11/2021 [facility] DATE CREATED AUTHOR AUTHOR'S ORGANIZ ATION 08/20/2021 [facility] Ce kiet Ortiz FOR RECORDS PERTAINING TO PATIENTS WHO [...] BE BASED ON THE PRIMARY CLINICAL RECORDS. [facility]. provides no warranty or guarantee of the accuracy or completeness of information in this document.
--- NOTE | 2023-07-07 08:00 | MRI_ITS ---
EXAM: MR LUMBAR SPINE WITHOUT INTRAVENOUS CONTRAST CLINICAL INDICATION: Pain TECHNIQUE: Multiplanar and multisequence MR images of the lumbar spine without intravenous contrast. COMPARISON: MR Lumbar Spine dated 11/08/2020 FINDINGS: VERTEBRAE: Partial loss of the lumbar lordosis again noted. Normal vertebral body height. SPINAL CORD: Normal. Normal position and signal intensity of the conus medullaris. SOFT TISSUES: Normal. DISCS/SPINAL CANAL/NEURAL FORAMINA: T12-L1: Stable prominent disc space narrowing associated with Modic type II endplate changes. Right posterior lateral disc osteophyte complex again noted causing significant narrowing of the right neural foramen. No spinal stenosis. L1-L2: Moderate disc space narrowing. No disc protrusion. No spinal or neural foraminal stenosis. L2-L3: Moderate disc space narrowing with Modic type II endplate changes. No disc protrusion or spinal stenosis. Prominent facet arthropathy on the left and causes significant narrowing of the left neural foramen. L3-L4: Prominent disc space narrowing with Modic type II endplate changes. No disc protrusion or spinal stenosis. Severe left and vzwi-qd-[id number] right neural foraminal narrowing related to vertebral body hypertrophy and facet arthropathy. L4-L5: No significant disc space narrowing. No disc protrusion or spinal stenosis. Moderate bilateral neural foraminal narrowing related to facet arthropathy. L5-S1: Prominent disc space narrowing with Modic type II endplate changes. Left posterolateral disc extrusion causes marked narrowing of the left lateral recess. Prominent bilateral neural foraminal narrowing related to vertebral body hypertrophy and facet arthropathy. MRI/Spine Lumbar (Routine) IMPRESSION: 1. 7 mm left-sided L5-S1 extruded disc causing significant narrowing of the left lateral recess. 2. Multilevel neural foraminal narrowing related to vertebral body hypertrophy and facet arthropathy. Electronically Signed: Robin Lozada MD at 10:18 EDT ,
== END | disposition home or self-care (01) ==
PROVIDERS: PCP Family Medicine; Referring Provider Orthopaedic Surgery; Visit Provider Orthopaedic Surgery
DX: M48.061 Spinal stenosis, lumbar region without neurogenic claudication (principal)
CPT/HCPCS: 72148

== ENCOUNTER → 2023-10-16 | Outpatient (CLI) | payer MEDICARE, SELFPAY ==
[2023-10-16 15:20] LABS: Absolute Lymphocyte Count 1.69 X10^3/uL (0.83-4.51); Basophil# 0.03 X10^3/uL; Basophil% 0.4 % (0-1); Eosinophil# 0.13 X10^3/uL; Eosinophils% 1.7 % (0-5); Hemoglobin 12.8 g/dL (12.0-15.0); Lymphocyte # 1.69 X10^3/ul (0.83-4.51); Lymphocyte % 22.6 % (19-41); Mean Corpuscular Hgb 29.8 pg (27.0-32.0); Mean Platelet Vol. 9.4 fl (6.2-12.0); Monocyte# 0.64 X10^3/uL; Monocyte% 8.6 % (0-10); NRBC Flagged by Analyzer 0 % (0-5); Neutrophil # 4.96 X10^3/uL (2.7-7.7); Neutrophil % 66.3 % (47-70); Platelet Count 402 K/mm3 (150-450); RBC Distribution Width CV 12.8 % (11.6-14.6); RBC Distribution Width SD 43.5 fl (35.1-43.9); White Blood Count 7.5 K/mm3 (4.4-11.0)
[2023-10-16 15:50] LABS: Vitamin D,25 Hydroxy 63.1 ng/mL
[2023-10-16 16:02] LABS: ALB/GLOB Ratio 0.9 RATIO (0.9-2.4); AST(SGOT) 22 U/L (15-37); Alanine Aminotransfer ALT/SGPT 23 U/L (13-56); Albumin, Serum 3.7 g/dL (3.2-5.0); Alkaline Phosphatase 100 U/L (45-117); Anion Gap 5 (5-15); BUN 11 mg/dL (7-18); BUN/Creat Ratio 13.1 RATIO (10-20); Calcium,Total 9.5 mg/dL (8.5-10.1); Chloride 98 mmol/L (98-107); Creatinine, Serum 0.84 mg/dL (0.55-1.02); EST Glomerular Filtration Rate 72 mL/min (>60); Est Glom Filt Rate - Afr Amer 87 mL/min (>60); Free T4 1.17 ng/dL (0.76-1.46); Globulin 3.9 g/dL (2.2-4.2); Glucose 86 mg/dL (74-106); Potassium 4.8 mmol/L (3.5-5.1); Protein, Total 7.6 g/dL (6.4-8.2); Sodium Level 131 mmol/L (136-145); Thyroid Stim Hormone (TSH) 1.81 uIU/mL (0.358-3.74)
[2023-10-16 17:01] LABS: AST(SGOT) 21 U/L (15-37); Alanine Aminotransfer ALT/SGPT 23 U/L (13-56); Albumin, Serum 3.8 g/dL (3.2-5.0); Alkaline Phosphatase 102 U/L (45-117); Bilirubin, Direct 0.12 mg/dL (0.00-0.30); Cholesterol 158 mg/dL (200); Globulin 3.8 g/dL (2.2-4.2); High Density Lipoprotein 52 mg/dL; Protein, Total 7.6 g/dL (6.4-8.2); Triglycerides 147 mg/dL; Very Low Density Lipoprotein 29 mg/dL (5-40)
== END | disposition home or self-care (01) ==
LOC: MFPLAB 11:38
PROVIDERS: Psychiatry & Neurology Neurology; PCP Family Medicine; Visit Provider Family Medicine
DX: I25.10 Atherosclerotic heart disease of native coronary artery without angina pectoris (principal); E03.9 Hypothyroidism, unspecified; E78.00 Pure hypercholesterolemia, unspecified
CPT/HCPCS: 36415; 80053; 80061; 80076; 82306; 84439; 84443; 85025

== ENCOUNTER 2023-11-16 15:23 | Emergency (ER) | payer MEDICARE, SELFPAY ==
[2023-11-16 15:24] VITALS: BP 121/49; PULSE 74; RESP 16; TEMP 36.9; O2SAT 97; BMI 30.6
--- NOTE | 2023-11-16 15:36 | ED.VIS.LOWEX ---
HPI <AYLEEN Melo - Last Filed: 11/16/23 21:07> History of Present Illness Chief Complaint: Edema Narrative Narrative: Patient presenting today due to swelling to her right lower extremity that started last night. She reports that on Friday she had a right hip replacement performed at the [facility]. She called their office today and they recommended coming into the emergency department to obtain a venous duplex ultrasound to rule out DVT. She denies any history of blood clots. She denies any pain to her right leg, chest pain, and shortness of breath. She has a history of CAD on Plavix, her Plavix is currently being held due to recent surgery. [facility] <AYLEEN Melo - Last Filed: 11/16/23 21:07> [facility] Medical History Moderate pulmonary hypertension Peripheral vascular occlusive disease Stenosis of right carotid artery Aneurysm of right iliac artery Aneurysm of infrarenal abdominal aorta DDD (degenerative disc disease), lumbosacral Secondary pulmonary arterial hypertension Chronic diastolic (congestive) heart failure Alcohol abuse COPD (chronic obstructive pulmonary disease) Hyponatremia Diastolic dysfunction Essential (primary) hypertension Hyperlipidemia Insomnia Nicotine dependence Bipolar disorder Hypothyroidism Anxiety and depression Elevated LFTs Arthritis Pulmonary nodule Home Medications ?Medication ?Instructions ?Recorded ?Last Taken ?Type levothyroxine 50 mcg tablet 50 mcg PO DAILY thyroid 07/15/19 07/15/19 History cyanocobalamin (vitamin B-12) 1,000 mcg PO DAILY 12/22/19 Unknown History 1,000 mcg capsule furosemide 40 mg tablet 40 mg PO DAILY 12/22/19 Unknown History vitamin E (dl, acetate) 450 mg 450 mg PO DAILY 12/22/19 Unknown History (1,000 unit) capsule metoprolol succinate 50 mg 50 mg PO DAILY #90 tabs 12/26/20 Unknown Rx tablet,extended release 24 hr (Toprol XL) biotin 10,000 mcg capsule mcg PO 01/04/21 Unknown History cholecalciferol (vitamin D3) 125 125 mcg PO DAILY 01/04/21 Unknown History mcg (5,000 unit) capsule potassium chloride 20 mEq tablet PO 01/04/21 Unknown History tablet,extended release(part/cryst) lisinopril 20 mg tablet 20 mg PO DAILY bp #90 tabs 04/17/21 Unknown Rx clopidogrel 75 mg tablet (Plavix) 75 mg PO DAILY 03/04/22 Unknown History ascorbate calcium (vitamin C) 500 500 mg PO DAILY 04/30/23 Unknown History mg tablet lamotrigine 200 mg tablet 100 mg PO DAILY seizures 07/11/23 Unknown History atorvastatin 20 mg tablet 20 mg PO DAILY #90 tabs 08/04/23 Unknown Rx vitamin K2 (MK-4) 100 mcg tablet 50 mcg PO DAILY 08/04/23 Unknown History Allergy/AdvReac Type Severity Reaction Status Date / Time No Known Allergies Allergy Verified 11/16/23 15:24 Family History Mother CAD (coronary artery disease) CABG x 3 post op age 63 Brother CAD (coronary artery disease) CABG x 3 age 65 Surgical History Hip joint replacement status History of angioplasty of peripheral vessel (08/14/21) History of hysterectomy History of cataract surgery Social History Smoking Status: Current every day smoker tobacco type: cigarettes second hand exposure: Yes alcohol intake: never substance use type: does not use what type of physical activity do you participate in: walking and bicycling ROS <AYLEEN Melo - Last Filed: 11/16/23 21:07> ROS ED Constitutional Constitutional ED: Denies chills or fever(s) Cardiovascular Cardiovascular: Denies chest pain Respiratory/Chest Respiratory/Chest: Denies cough or dyspnea Musculoskeletal Musculoskeletal: Denies arthralgias or myalgias Integumentary Denies rash Neurologic Neurologic: Denies paresthesias or weakness EXAM <AYLEEN Melo - Last Filed: 11/16/23 21:07> Physical Exam Const Vital Signs: 11/16/23 15:24 11/16/23 15:37 Temperature 98.5 F Temperature Source Temporal Pulse Rate 74 Respiratory Rate 16 Respiratory Effort Normal Non-Labored Respiratory Pattern Normal Blood Pressure 121/49 H Blood Pressure Mean 73 Pulse Ox 97 Oxygen Delivery Method Room Air Positive well nourished, well developed and no apparent distress General Appearance ED: well developed HEENT Reports normocephalic and head/scalp atraumatic Mouth ED: Yes moist mucous membranes normal Eyes PERRL and EOMs intact bilaterally Neck full ROM and supple Chest Wall inspection of chest normal Resp normal respiratory effort and clear to auscultation bilaterally Cardio regular rate and regular rhythm Back/Spine normal ROM and normal to inspection Extremity full ROM Extremity Narrative: Swelling to the distal aspect of the right leg and foot, slight ecchymosis to the right calf and right thigh. Neurovascularly intact distally. Negative Homans' sign on the right, no palpable cord. Neuro oriented x3, CN's II-XII intact bilaterally, moves all extremities, no focal motor deficits and no sensory deficits noted Sensorium / Orientation: awake and alert Psych mental status grossly normal and thought process normal Skin no rashes or lesions noted and no wounds <Dr. Blanca Estrada DO - Last Filed: 11/16/23 15:44> Physical Exam Const Vital Signs: 11/16/23 15:24 11/16/23 15:37 Temperature 98.5 F Temperature Source Temporal Pulse Rate 74 Respiratory Rate 16 Respiratory Effort Normal Non-Labored Respiratory Pattern Normal Blood Pressure 121/49 H Blood Pressure Mean 73 Pulse Ox 97 Oxygen Delivery Method Room Air MDM <AYLEEN Melo - Last Filed: 11/16/23 21:07> [facility] Narrative Medical decision making narrative: Patient presenting due to concerns for DVT to her right lower extremity due to swelling that she noticed yesterday evening. She had a recent total right hip replacement on 11/10. At this time we do not have ultrasound to rule out DVT. We will treat her with a dose of Eliquis here. She does not have any contraindications to Eliquis. I have given her a prescription to have a venous duplex ultrasound performed tomorrow. Patient did become upset at this and reported that she would not be returning tomorrow. I did encourage that she return to have the test performed and also follow-up with her surgeon. She will be discharged in stable condition. I have personally performed a face to face assessment of the patient and have reviewed the MEREDITH Note. I performed a substantive portion of the visit including all aspects of the following. My friedman findings include: History is [patient presents to the emergency department with complaint of swelling in her right lower extremity that she noticed last evening. Patient had a right total hip replacement done at the [facility] on the of the month. She had been doing well. She denies any erythema or drainage from the wound. Denies any new injury. She denies chest pain or shortness of breath. She called her surgeon and she was advised to come and get evaluated for DVT. Patient had been on Plavix but had to discontinue it 7 days prior to surgery and has not started back up as of yet. Patient currently on a baby aspirin.] Exam is [HEENT-PERRLA, EOMI. Cranial nerves II through XII grossly intact. TMs clear. Mucous membranes moist. No adenopathy. Cardiovascular-regular rate and rhythm without murmur or ectopy Lungs-clear to auscultation, chest wall stable without crepitus or subcu emphysema Abdomen-normoactive bowel sounds, soft, nontender, no rebound or rigidity, no peritoneal signs. Extremities-intact ?4, normal range of motion. Left lower extremity-patient has diffuse edema from the knee down to the foot. Some faint bruising noted. Normal pulses dorsal pedal posterior tib as well as popliteal. No ropes or cords palpated. Negative Homans' sign.] Medical Decison Making [patient presents with edema to the right lower extremity with recent surgery. Concern for DVT. Patient certainly is high risk for DVT. Ultrasound not available today to rule out DVT. Plan is to treat patient with 1 dose of Eliquis as she has had not had any bleeding issues in the past. Patient will be given prescription to return tomorrow and have a venous Doppler to rule out DVT.] Other additions or changes: [None] <Dr. Blanca Estrada, DO - Last Filed: 11/16/23 15:44> [facility] Narrative Medical decision making narrative: I have personally performed a face to face assessment of the patient and have reviewed the MEREDITH Note. I performed a substantive portion of the visit including all aspects of the following. My friedman findings include: History is [patient presents to the emergency department with complaint of swelling in her right lower extremity that she noticed last evening. Patient had a right total hip replacement done at the [facility] on the 16 of the month. She had been doing well. She denies any erythema or drainage from the wound. Denies any new injury. She denies chest pain or shortness of breath. She called her surgeon and she was advised to come and get evaluated for DVT. Patient had been on Plavix but had to discontinue it 7 days prior to surgery and has not started back up as of yet. Patient currently on a baby aspirin.] Exam is [HEENT-PERRLA, EOMI. Cranial nerves II through XII grossly intact. TMs clear. Mucous membranes moist. No adenopathy. Cardiovascular-regular rate and rhythm without murmur or ectopy Lungs-clear to auscultation, chest wall stable without crepitus or subcu emphysema Abdomen-normoactive bowel sounds, soft, nontender, no rebound or rigidity, no peritoneal signs. Extremities-intact ?4, normal range of motion. Left lower extremity-patient has diffuse edema from the knee down to the foot. Some faint bruising noted. Normal pulses dorsal pedal posterior tib as well as popliteal. No ropes or cords palpated. Negative Homans' sign.] Medical Decison Making [patient presents with edema to the right lower extremity with recent surgery. Concern for DVT. Patient certainly is high risk for DVT. Ultrasound not available today to rule out DVT. Plan is to treat patient with 1 dose of Eliquis as she has had not had any bleeding issues in the past. Patient will be given prescription to return tomorrow and have a venous Doppler to rule out DVT.] Other additions or changes: [None] Discharge Plan Triage Chief Complaint: Edema ED Midlevel Provider: Maria G Matos ED Provider: Blanca Estrada Dx/Rx/DC Orders Clinical Impression: History of hip replacement, total, Edema of right lower extremity Instructions: ED Peripheral Edema, Unilateral Prescriptions: No Action furosemide 40 mg tablet 40 mg PO DAILY vitamin E (dl, acetate) 450 mg (1,000 unit) capsule 450 mg PO DAILY cyanocobalamin (vitamin B-12) 1,000 mcg capsule 1,000 mcg PO DAILY potassium chloride 20 mEq tablet,ER particles/crystals PO biotin 10,000 mcg capsule PO cholecalciferol (vitamin D3) 125 mcg (5,000 unit) capsule 125 mcg PO DAILY clopidogrel [Plavix] 75 mg tablet 75 mg PO DAILY vitamin K2 (MK-4) 100 mcg tablet 50 mcg PO DAILY atorvastatin 20 mg tablet 20 mg PO DAILY Qty: 90 1RF ascorbate calcium (vitamin C) 500 mg tablet 500 mg PO DAILY levothyroxine 50 MCG tablet 50 mcg PO DAILY lamotrigine 200 mg tablet 100 mg PO DAILY metoprolol succinate [Toprol XL] 50 mg tablet extended release 24 hr 50 mg PO DAILY Qty: 90 3RF lisinopril 20 mg tablet 20 mg PO DAILY Qty: 90 3RF Other Ambulatory Orders: Venous Duplex US, Unilateral (Stat) Facility: [facility] - Location: [facility] Ordered By: Maria G Matos Primary Care Provider: Brittany Iverson Referrals: Brittany Iverson MD [Primary Care Provider] - 5-7 Days Activity Restrictions/Additional Instructions: Please follow-up with your surgeon and return tomorrow to have the DVT study performed. Print Language: Canadian Disposition Disposition: Home, Self Care Discharge Date/Time: 11/16/23 16:08
[2023-11-16] MEDS: APIXABAN 5 MG TABLET 10 MG PO (15:49)
--- NOTE | 2023-11-16 15:54 | ED.RN ---
Pt was crying and upset in the room for having to come in after surgery due to a possible blood clot. AYLEEN Macias came in to do her assessment and stated we do not have ultrasound here on certain times of the weekends, but let me double check with the Dr on the plan. When Dr Estrada came in to explain that ultrasound was not here on the weekends the pt became more upset and stated I am never coming back to this hospital. You guys about killed my twice. This RN apologized and stated I am sorry, [place] and we are doing the best we can. The pt scoffed and said yeah, sure. The RN asked the PMH and charting assessment questions and left the room. Later registration came in, this RN was also in the room medicating the patient and explaining the discharge instructions and the patient stated what, you're going to charge me for doing nothing? Put it in the notes that you can kiss my fucking ass. This RN told the patient you can call your doctor and have him send the ultrasound script elsewhere if you wish to not return tomorrow after Ultrasound gives you a call. I gave you your first dose of eliquis tonight and Dr Estrada sent in an outpatient referral for the Ultrasound. They should call you tomorrow. The patient said Thank you and her family member at bedside apologized and said she would pray for us. They left the unit.
== END 2023-11-16 16:08 | disposition home or self-care (01) ==
LOC: ED 15:56
PROVIDERS: Emergency Provider Emergency Medicine; PCP Family Medicine; Visit Provider Emergency Medicine
DX: R60.0 Localized edema (principal); I11.0 Hypertensive heart disease with heart failure; I50.32 Chronic diastolic (congestive) heart failure; J44.9 Chronic obstructive pulmonary disease, unspecified; E78.5 Hyperlipidemia, unspecified; I25.10 Atherosclerotic heart disease of native coronary artery without angina pectoris; F17.210 Nicotine dependence, cigarettes, uncomplicated; Z96.641 Presence of right artificial hip joint; Z79.02 Long term (current) use of antithrombotics/antiplatelets; Z79.899 Other long term (current) drug therapy
CPT/HCPCS: 99282

== ENCOUNTER → 2024-02-02 | Outpatient (CLI) | payer MEDICARE, SELFPAY ==
--- NOTE | 2024-02-02 14:45 | MRI_ITS ---
STUDY: MRI LEFT SHOULDER REASON FOR EXAM: Female, 68 years old. Left shoulder pain. TECHNIQUE: Standardized fat and water weighted pulse sequences were obtained in all 3 orthogonal planes. COMPARISON: Left shoulder radiographs dated 07/08/2022. FINDINGS: There is supraspinatus, infraspinatus, and subscapularis tendinosis without a full-thickness tear. Normal teres minor tendon. Normal supraspinatus muscle. Normal infraspinatus muscle. Normal subscapularis muscle. Normal teres minor muscle. There is glenohumeral arthrosis with joint space narrowing, marginal osteophyte formation, high-grade chondromalacia, and subchondral edema/cyst formation in the glenoid. There is overall degeneration of the glenoid labrum. There is a small to moderate glenohumeral joint effusion. There is enthesopathic subcortical cyst formation of the greater tuberosity of the humeral head. Normal biceps labral complex. Normal intracapsular long biceps tendon. Normal capsulo-ligamentous complex. Normal rotator interval. There is mild hypertrophic acromioclavicular arthrosis. There is a Type II morphology (curved), with a neutral orientation. There is trace subacromial-subdeltoid bursal fluid. Normal visualized coracohumeral and coracoacromial ligaments. Normal quadrilateral space. Normal axillary space. Normal deltoid muscle. Normal trapezius muscle. MRI/Upper Ext Joint Only(Routine) IMPRESSION: Supraspinatus, infraspinatus, and subscapularis tendinosis without a full-thickness rotator cuff tear. Mild hypertrophic acromioclavicular arthrosis. Minimal subacromial-subdeltoid bursitis. Glenohumeral arthrosis with a small to moderate glenohumeral joint effusion. Electronically Signed: Art Abebe MD at 8:49 EDT ,
== END | disposition home or self-care (01) ==
PROVIDERS: PCP Family Medicine; Referring Provider Psychiatry & Neurology Neurology; Visit Provider Psychiatry & Neurology Neurology
DX: M25.512 Pain in left shoulder (principal)
CPT/HCPCS: 73221

== ENCOUNTER → 2024-04-08 | Outpatient (CLI) | payer MEDICARE, SELFPAY ==
--- NOTE | 2024-04-08 07:26 | BI_ITS ---
MAMMOGRAPHY - BILATERAL SCREENING REASON FOR EXAM: Female, 68 years old. Routine annual screening examination. PERTINENT HISTORY: Daughter with breast cancer. TECHNIQUE: Digital bilateral breast tammie (3D mammographic acquisition) in the CC and MLO projections. 2-D mediolateral oblique (MLO) and craniocaudad (CC) views of both breasts were obtained. CAD: Full Field Digital Mammography with Computer Added Detection was performed. COMPARISON: Comparison is made with prior study dated May 21, 2022 and November 13, 2020. FINDINGS: Breast Composition: There are scattered areas of fibroglandular density. There are no dominant masses or suspicious calcifications. Stable small benign-appearing bilateral axillary lymph nodes. No other significant abnormalities are identified. There has been no significant change since the prior study. BI/SCRN MAMM (CAD)W/TAMMIE BILAT IMPRESSION: Stable bilateral screening mammogram. Yearly follow-up mammogram recommended. (A) ASSESSMENT CATEGORY: BIRADS Category 2: Benign. A letter regarding these results will be sent to the patient by the facility within 30 days. Approximately 10% of breast cancers are not detected by mammography. A normal mammogram should not delay biopsy of a clinically suspicious abnormality. [id number] Electronically Signed: Jose Segura MD at 8:29 EST ,
== END | disposition home or self-care (01) ==
LOC: OPBI 07:24
PROVIDERS: PCP Family Medicine; Referring Provider Family Medicine; Visit Provider Family Medicine
DX: Z12.31 Encounter for screening mammogram for malignant neoplasm of breast (principal); Z80.3 Family history of malignant neoplasm of breast
CPT/HCPCS: 77063; 77067

== ENCOUNTER → 2024-04-29 | Outpatient (CLI) | payer MEDICARE, SELFPAY ==
[2024-04-29 09:53] LABS: Absolute Lymphocyte Count 1.35 X10^3/uL (0.83-4.51); Absolute Neutrophil Count 5.1 X10^3/uL (2.0-7.7); Basophil# 0.03 X10^3/uL; Basophil% 0.4 % (0-1); Eosinophil# 0.16 X10^3/uL; Eosinophils% 2.2 % (0-5); Hematocrit 39.6 % (37-47); Hemoglobin 12.6 g/dL (12.0-15.0); Lymphocyte # 1.35 X10^3/ul (0.83-4.51); Lymphocyte % 18.4 % (19-41); Mean Corp Hgb Conc 31.8 g/dL (32-36); Mean Corpuscular Hgb 28.6 pg (27.0-32.0); Mean Platelet Vol. 9.1 fl (6.2-12.0); Monocyte# 0.69 X10^3/uL; Monocyte% 9.4 % (0-10); NRBC Flagged by Analyzer 0 % (0-5); Neutrophil # 5.07 X10^3/uL (2.7-7.7); Neutrophil % 69.2 % (47-70); Platelet Count 390 K/mm3 (150-450); RBC Distribution Width CV 13.2 % (11.6-14.6); RBC Distribution Width SD 43.7 fl (35.1-43.9); White Blood Count 7.3 K/mm3 (4.4-11.0)
[2024-04-29 10:34] LABS: ALB/GLOB Ratio 0.8 RATIO (0.9-2.4); AST(SGOT) 18 U/L (15-37); Alanine Aminotransfer ALT/SGPT 21 U/L (13-56); Albumin, Serum 3.5 g/dL (3.2-5.0); Alkaline Phosphatase 127 U/L (45-117); Anion Gap 7 (5-15); BUN 14 mg/dL (7-18); BUN/Creat Ratio 15.4 RATIO (10-20); Calcium,Total 9.3 mg/dL (8.5-10.1); Chloride 100 mmol/L (98-107); Cholesterol 157 mg/dL (200); Creatinine, Serum 0.91 mg/dL (0.55-1.02); EST Glomerular Filtration Rate 65 mL/min (>60); Est Glom Filt Rate - Afr Amer 79 mL/min (>60); Globulin 4.4 g/dL (2.2-4.2); Glucose 115 mg/dL (74-106); High Density Lipoprotein 53 mg/dL; Magnesium 2.3 mg/dL (1.6-2.6); Potassium 3.8 mmol/L (3.5-5.1); Protein, Total 7.9 g/dL (6.4-8.2); Sodium Level 135 mmol/L (136-145); Triglycerides 133 mg/dL; Very Low Density Lipoprotein 27 mg/dL (5-40)
== END | disposition home or self-care (01) ==
LOC: LAB 09:11
PROVIDERS: PCP Family Medicine; Referring Provider Physician Assistant Medical; Visit Provider Physician Assistant Medical
DX: R06.09 Other forms of dyspnea (principal); I25.10 Atherosclerotic heart disease of native coronary artery without angina pectoris; R53.83 Other fatigue; E78.5 Hyperlipidemia, unspecified
CPT/HCPCS: 36415; 80053; 80061; 83735; 84443; 85025

== ENCOUNTER → 2024-04-29 | Outpatient (CLI) | payer MEDICARE, SELFPAY ==
--- NOTE | 2024-04-29 13:53 | CDU_ITS ---
Reason For Study: Stenosis Rt. Velocities/BP Lt. Velocities/BP Prox CCA 67.9/11.4 cm/sec. Prox CCA 72.1/8.4 cm/sec. Mid CCA 81.5/17.5 cm/sec. Mid CCA 72.1/16.0 cm/sec. Dist CCA 83.3/19.4 cm/sec. Dist CCA 94.1/19.2 cm/sec. Prox ICA 168.2/45.2 cm/sec. Prox ICA 60.0/13.8 cm/sec. Mid ICA 45.0/14.5 cm/sec. Mid ICA 60.6/16.3 cm/sec. Dist ICA 48.9/15.4 cm/sec. Dist ICA 82.5/23.1 cm/sec. Rt. ICA/CCA = 2.1. Lt. ICA/CCA = 1.1. Prox ECA 77.8/8.4 cm/sec. Prox ECA 175.2/6.7 cm/sec. Rt. Vert. 40.2/9.1 cm/sec. Lt. Vert. 25.8/6.1 cm/sec. Right Extracranial There is heterogeneous, irregular atherosclerotic plaque noted in the right common carotid artery. There is heterogeneous, irregular atherosclerotic plaque noted in the right internal carotid artery. There is intimal thickening but no significant atherosclerotic plaque noted in the right external carotid artery. Antegrade flow is noted in the right vertebral artery. Left Extracranial There is heterogeneous, smooth atherosclerotic plaque noted in the left common carotid artery. There is heterogeneous, irregular atherosclerotic plaque noted in the left internal carotid artery. There is homogeneous, smooth atherosclerotic plaque noted in the left external carotid artery. Antegrade flow is noted in the left vertebral artery. Procedure Carotid Duplex 47846. This is a Carotid Duplex examination using B-mode, color flow and specral Doppler. Exam performed in department. VL/Carotid Duplex Ultrasound Interpretation Summary Moderate (50-69%) stenosis right extracranial internal carotid. Mild (<50%) stenosis left extracranial internal carotid. Patent and antegrade vertebrals bilaterally. Ordering Physician: Louie Logan Referring Physician: Brittany Iverson MD Performed By: Shala Delgado RVT and Student
== END | disposition home or self-care (01) ==
LOC: CVS 13:53
PROVIDERS: PCP Family Medicine; Referring Provider Psychiatry & Neurology Neurology; Visit Provider Psychiatry & Neurology Neurology
DX: I65.21 Occlusion and stenosis of right carotid artery (principal)
CPT/HCPCS: 93880

== ENCOUNTER → 2024-05-10 | Outpatient (CLI) | payer MEDICARE, SELFPAY ==
--- NOTE | 2024-05-10 06:23 | ECHOCS_ITS ---
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 The study was technically difficult. Contrast injection was performed. Exam performed in department. Left Ventricle Normal LV size. Left ventricular systolic function is normal. The left ventricular ejection fraction is 60 %. No regional wall motion abnormalities noted. Right Ventricle Normal RV size. Normal systolic function. Atria Normal left atrium. Normal right atrium. Mitral Valve There is mild to moderate mitral annular calcification. Tricuspid Valve Normal tricuspid valve. Aortic Valve Mild focal aortic valve calcification. Pulmonic Valve Normal pulmonic valve. Great Vessels Normal aortic root. The pulmonary artery is normal size. Normal inferior vena cava. Pericardium/Pleural No pericardial effusion. Medication 22 gauge I.V. with prn adaptor inserted into left arm. Diluted definity 2ml given slow IV push to enhance endocardial definition. MMode/2D Measurements & Calculations LVIDd: 4.5 cm IVSd: 1.0 cm Ao root diam: 3.3 cm LVIDs: 2.8 cm LVPWd: 0.88 cm RVDd: 3.3 cm FS: 38.5 % LAV(MOD-bp): 71.9 ml LA A4 area: 22.4 cm2 LA dimension(2D): 4.8 cm LAV(MOD-bp) Indexed: 40.8 ml/m2 LAV(MOD-sp2): 66.9 ml LAV(MOD-sp4): 68.7 ml TAPSE: 1.8 cm RA A4 area: 14.5 cm2 Time Measurements MV dec time: 0.22 sec Doppler Measurements & Calculations MV E max ramiro: 93.8 cm/sec Lat Peak E' Ramiro: 9.2 cm/sec Med Peak E' Ramiro: 5.4 cm/sec MV A max ramiro: 67.2 cm/sec E/E' lat: 10.2 E/E' med: 17.3 MV E/A: 1.4 MV V2 max: 116.8 cm/sec MV P1/2t max ramiro: 119.9 cm/sec Ao V2 max: 142.2 cm/sec MV max P.5 mmHg MV P1/2t: 84.9 msec Ao max P.1 mmHg MV V2 mean: 70.8 cm/sec MV dec slope: 413.5 cm/sec2 Ao V2 mean: 105.2 cm/sec MV mean P.3 mmHg Ao mean P.1 mmHg MV V2 VTI: 31.8 cm MVA(P1/2t): 2.6 cm2 Ao V2 VTI: 37.1 cm AV (velocity ratio): 0.76 LV V1 max: 112.0 cm/sec PA V2 max: 113.6 cm/sec TR max ramiro: 159.2 cm/sec LV V1 max P.0 mmHg TR max P.1 mmHg LV V1 mean P.0 mmHg LV V1 mean: 81.6 cm/sec LV V1 VTI: 28.2 cm ECHO/Echo Complete W/ Contrast Interpretation Summary Normal LV size. Left ventricular systolic function is normal. The left ventricular ejection fraction is 60 %. Contrast injection was performed. Structurally normal valves. Ordering Physician: Donna Matthews Referring Physician: Donna Matthews Performed By: Von Dorantes RCS
--- NOTE | 2024-05-10 10:11 | STRESSREP ---
Stress Test Report Exercise myocardial perfusion stress test. 68-year-old lady with a history of chest pain Stress protocol: Resting EKG demonstrates normal sinus rhythm with a rate of 69 bpm resting blood pressure is 150/80 mmHg. The patient exercised according to the regular Kevin protocol for a total duration of 5 minutes attaining a maximum heart rate of 120 bpm which was 79% of maximum predicted heart rate; the maximum workload was 7 metabolic equivalents. At rest there were no ST or T wave changes noted to suggest ischemia and at peak exercise upsloping ST changes only were noted which did not meet the criteria for ischemia. No clinical angina was noted but the patient complained of fatigue and stopped walking abruptly. At that time the blood pressure was 241/82 mmHg. The test was then changed pathologic myocardial perfusion stress test with 0.4 mg of regadenoson infused per usual protocol. Continuous EKG monitoring was performed. There were no ST or T wave changes noted to suggest abnormal flow reserve. Myocardial perfusion protocol. 11.8 mCi of technetium 99m sestamibi was injected at rest. The patient exercised according to regular Kevin protocol for total duration of 5 minutes and after peak pharmacologic infusion 32.9 mCi of technetium 99m sestamibi was injected stress images were obtained stress and rest images were reconstructed in comparing the short axis vertical long and horizontal long axis. Gated images were also obtained. Perfusion SPECT analysis: Review of the stress images demonstrate normal uptake of tracer noted in all areas of the myocardium. There is a defect noted in the apex on the stress and resting images and a previous apical infarct cannot be completely excluded. No reversibility is noted suggest ischemia though. Gated SPECT analysis: The gated ejection fraction is 88%. Conclusion: Normal exercise stress test at a moderate workload Normal pharmacologic myocardial perfusion scan Preserved ejection fraction.
== END | disposition home or self-care (01) ==
LOC: CVS 06:23
PROVIDERS: PCP Family Medicine; Referring Provider Physician Assistant Medical; Visit Provider Physician Assistant Medical
DX: I27.20 Pulmonary hypertension, unspecified (principal); I25.10 Atherosclerotic heart disease of native coronary artery without angina pectoris; R53.83 Other fatigue

== ENCOUNTER → 2024-07-05 | Outpatient (CLI) | payer MEDICARE, SELFPAY ==
--- NOTE | 2024-07-05 07:56 | AAVD_ITS ---
Reason For Study Reason For Study: AAA Aorta Measurements Aorta Doppler Measurements Proximal aorta measures1.65 x 1.63cm. in cross-sectional Peak systolic flow velocities within the proximal aorta axis. measure 90.4 cm/sec. Proximal aorta measures1.65cm. in longitudinal axis. Peak systolic flow velocities within the mid aorta measure Mid aorta measures3.81 x 3.80cm. in cross-sectional axis. 63.2 cm/sec. Mid aorta measures3.82cm. in longitudinal axis. Peak systolic flow velocities within the distal aorta Distal aorta measures2.55 x 2.61cm. in cross-sectional axis.measure 30.7 cm/sec. Distal aorta measures2.59cm. in longitudinal axis. Left Iliac Artery Left iliac artery measures 0.93 x 0.98 cm. in the cross-sectional axis. Left iliac artery measures 0.90 cm. in the longitudinal axis. Peak systolic velocity in the left iliac artery measures 98.6 cm/sec. Right Iliac Artery Right iliac artery measures 0.64 x 0.67 cm. in the cross-sectional axis. Right iliac artery measures 0.63 cm. in the longitudinal axis. Peak systolic velocity in the right iliac artery measures 127.1 cm/sec. Procedure Aorta IVC Iliac vasculature or bypass grafts [id number]. Exam performed in department. VL/Abd Aortic/IVC Duplex scan Interpretation Summary 3.8cm aortic aneurysm. Ordering Physician: John Causey Referring Physician: Brittany Iverson Performed By: Shala Delgado RVT
--- NOTE | 2024-07-05 07:56 | ART_ITS ---
Reason For Study Reason For Study: Atherosclerosis Procedure A bilateral lower extremity continuous wave Doppler with analog waveform analysis and ankle brachial indexes. Left Segmental Pressures Left brachial= 150mmHg. Left posterior tibial artery = 140mmHg. Left dorsalis pedis artery = 123mmHg. Left digit = 87 mmHg. The left dorsalis pedis waveforms are triphasic. The left posterior tibial artery waveforms are triphasic. Right Segmental Pressures Right brachial= 151mmHg. Right posterior tibial artery = 157mmHg. Right dorsalis pedis artery = 149mmHg. Right digit = 104 mmHg. The right dorsalis pedis waveforms are triphasic. The right posterior tibial artery waveforms are triphasic. Indices The right ankle brachial index by the dorsalis pedis is 0.99. The right ankle brachial index by the posterior tibial artery is 1.04. The right digital-brachial index is 0.69. The left ankle brachial index by the dorsalis pedis is 0.81. The left ankle brachial index by the posterior tibial artery is 0.93. The left digital-brachial index is 0.58. VL/Ankle Brachial Index Interpretation Summary Resting ankle-brachial indices appear bilaterally normal. Ordering Physician: Ayala Longo Referring Physician: AYALA LONGO DR. Performed By: Shala Delgado RVT and Student
== END | disposition home or self-care (01) ==
LOC: CVS 07:55
PROVIDERS: PCP Family Medicine; Referring Provider Surgery Vascular Surgery; Visit Provider Surgery Vascular Surgery
DX: I65.23 Occlusion and stenosis of bilateral carotid arteries (principal); Z48.812 Encounter for surgical aftercare following surgery on the circulatory system; I70.213 Atherosclerosis of native arteries of extremities with intermittent claudication, bilateral legs; I71.43 Infrarenal abdominal aortic aneurysm, without rupture; I72.3 Aneurysm of iliac artery; I10 Essential (primary) hypertension; Z72.0 Tobacco use
CPT/HCPCS: 93922; 93978

== ENCOUNTER → 2025-02-07 | Outpatient (CLI) | payer MEDICARE, SELFPAY ==
[2025-02-07 10:47] LABS: Hematocrit 39.7 % (37-47); Hemoglobin 13.0 g/dL (12.0-15.0); Mean Corp Hgb Conc 32.7 g/dL (32-36); Mean Corpuscular Volume 90.0 fL (81-99); Mean Platelet Vol. 9.4 fl (6.2-12.0); Platelet Count 353 K/mm3 (150-450); RBC Distribution Width CV 12.8 % (11.6-14.6); RBC Distribution Width SD 42.4 fl (35.1-43.9); Red Blood Count 4.41 M/mm3 (4.2-5.4); White Blood Count 6.4 K/mm3 (4.4-11.0)
[2025-02-07 11:10] LABS: Anion Gap 12 (5-15); BUN 13 mg/dL (4-19); BUN/Creat Ratio 13.9 RATIO (10-20); Calcium,Total 9.3 mg/dL (7.6-11.0); Carbon Dioxide 22.2 mmol/L (21.0-32.0); Chloride 99 mmol/L (98-108); Glucose 131 mg/dL (70-99); Potassium 4.2 mmol/L (3.3-5.1); Vitamin D,25 Hydroxy 57.4 ng/mL (30-100)
== END | disposition home or self-care (01) ==
LOC: MFPLAB 08:53
PROVIDERS: PCP Family Medicine; Visit Provider Family Medicine
DX: E03.9 Hypothyroidism, unspecified (principal); K92.1 Melena; E87.1 Hypo-osmolality and hyponatremia
CPT/HCPCS: 36415; 80048; 82306; 84443; 85027

== ENCOUNTER 2025-03-23 07:22 | Day surgery (SDC) | payer MEDICARE, SELFPAY ==
--- NOTE | 2025-03-22 11:44 | PAT.ANESEVAL ---
Pre-Assessment Diagnosis/Proposed Procedure Planned Operative Procedure(s): COLONOSCOPY Anesthesia History Anesthesia History - bill recapitulation clerk: Anesthesia History - bill recapitulation clerk Hx Hospitalization No 03/22/25 09:59 Any Problems With Anesthesia No 03/22/25 09:59 Cholinesterase deficiency No 03/22/25 09:59 You/Your Family Experience No 03/22/25 09:59 fever (hyperthermia) with Relationship Recent Exposure to Contagious No 06/18/19 11:15 Disease Does patient have nerve No 03/22/25 09:59 stimulator Patient instructed to have device shut off --Does patient have Pacemaker or ICD? When Was Last Pacemaker Check QUESTION #4 FULL TEXT: You/Your Family Experience fever (hyperthermia) with Anesthesia Last Oral Intake Last Oral intake: Last Oral Intake NPO since Meds taken in AM with sips of water? Meds patient instructed to take am of surgery PONV PONV - bill recapitulation clerk: PONV - bill recapitulation clerk Female Yes 03/22/25 09:59 HX of Motion Sickness No 03/22/25 09:59 HX of N/V After Surgery No 03/22/25 09:59 Non-Smoker No 03/22/25 09:59 Duration of Surgery greater No 03/22/25 09:59 than 60 minutes Number of Risk Factors 1 03/22/25 09:59 PONV Score Low Risk 03/22/25 09:59 Height & Weight Height & Weight: Anesthesia: Height & Weight Height 5 ft 1 in 02/15/25 14:11 Respiratory Assessment Respiratory Assessment - bill recapitulation clerk: Respiratory Tract Infection Hx - bill recapitulation clerk Hx Respiratory Tract Infection No 03/22/25 09:59 STOP Sleep Apnea STOP Sleep Apnea - bill recapitulation clerk: STOP Sleep Apnea - bill recapitulation clerk Hx Hypertension Yes: controlled with meds 03/22/25 09:59 Hx Sleep Apnea No 03/22/25 09:59 CPAP BIPAP Do you snore loudly (louder No 03/22/25 09:59 than talking or can be heard Do you often feel tired/ No 03/22/25 09:59 fatigued/ sleepy during daytime? Has anyone observed you stop No 03/22/25 09:59 breathing during sleep? STOP Results Negative 03/22/25 09:59 QUESTION #5 FULL TEXT : Do you snore loudly (louder than talking or can be heard through closed doors)? Tobacco Use History Tobacco Use History - bill recapitulation clerk: Tobacco Use History - bill recapitulation clerk Tobacco Use Smoking Status Current every day smoker 03/22/25 09:59 Hx Tobacco Use Yes 03/22/25 09:59 Years Smoking Packs Smoked per Day Smoking Cessation Date was within the last 15 years Hx Smoking Cessation Date Hx Smoking Cessation Counseling Hematologic Medial History Hematologic Hx - bill recapitulation clerk: Hematologic Medical Hx - adult education professional Hx of Blood Transfusion No 03/22/25 09:59 Hx of Transfusion in last 3 No 03/22/25 09:59 Months Date of Last Transfusion (if within last 3 months) Ever experience any problems No 03/22/25 09:59 with transfusion(s)? Specify any problems Hx of Preganancy in last 3 No 03/22/25 09:59 Months Nurse Filling Out Transfusion VCHRISTIN 03/22/25 09:59 & Questions: Date: 03/22/25 03/22/25 09:59 Time: 10:00 03/22/25 09:59 Patient unable to answer at this time (ie. confused, unrespo /Reproduction History /Reproductive History - bill recapitulation clerk: /Reproductive Hx- bill recapitulation clerk Hx Now No 03/22/25 09:59 Gestational Age (in weeks): EDC: Hx Hx Para Hx Section SAB No 03/22/25 09:59 Does the father of the baby or his family experience fever w Father of the baby Malignant Hypertension history comment [facility] Medical History (Updated 03/22/25 @ 10:01 by Delmi Mcintyre) Wears hearing aid Wears glasses Post-menopausal Alcohol use Thyroid disease High cholesterol Smoker Chronic cough History of echocardiogram History of stress test History of CHF (congestive heart failure) Aneurysm Cardiology follow-up encounter Moderate pulmonary hypertension Peripheral vascular occlusive disease Stenosis of right carotid artery Aneurysm of right iliac artery Aneurysm of infrarenal abdominal aorta DDD (degenerative disc disease), lumbosacral Secondary pulmonary arterial hypertension Chronic diastolic (congestive) heart failure Alcohol abuse COPD (chronic obstructive pulmonary disease) Hyponatremia Diastolic dysfunction Essential (primary) hypertension Hyperlipidemia Insomnia Nicotine dependence Bipolar disorder Hypothyroidism Anxiety and depression Elevated LFTs Arthritis Pulmonary nodule Home Medications ?Medication ?Instructions ?Recorded ?Last Taken ?Type levothyroxine 50 mcg tablet 50 mcg PO DAILY thyroid 07/15/19 07/15/19 History cyanocobalamin (vitamin B-12) 1,000 mcg PO DAILY 12/22/19 Unknown History 1,000 mcg capsule furosemide 40 mg tablet 40 mg PO DAILY 12/22/19 Unknown History vitamin E (dl, acetate) 450 mg 450 mg PO DAILY 12/22/19 Unknown History (1,000 unit) capsule metoprolol succinate 50 mg 50 mg PO DAILY #90 tabs 12/26/20 Unknown Rx tablet,extended release 24 hr (Toprol XL) biotin 10,000 mcg capsule 5,000 mcg PO DAILY 01/04/21 Unknown History cholecalciferol (vitamin D3) 125 125 mcg PO DAILY 01/04/21 Unknown History mcg (5,000 unit) capsule potassium chloride 20 mEq 20 meq PO QHS 01/04/21 Unknown History tablet,extended release(part/cryst) lisinopril 20 mg tablet 20 mg PO DAILY bp #90 tabs 04/17/21 Unknown Rx clopidogrel 75 mg tablet (Plavix) 75 mg PO DAILY 03/04/22 03/18/25 History ascorbate calcium (vitamin C) 500 500 mg PO DAILY 04/30/23 Unknown History mg tablet lamotrigine 200 mg tablet 100 mg PO DAILY 07/11/23 Unknown History vitamin K2 (MK-4) 100 mcg tablet 50 mcg PO DAILY 08/04/23 Unknown History atorvastatin 20 mg tablet 20 mg PO DAILY #90 tabs 12/09/23 Unknown Rx baclofen 10 mg tablet 10 mg PO TID PRN musculoskeletal 12/09/23 Unknown Rx pain/muscle spasm #270 tabs fluoxetine 10 mg capsule (Prozac) 10 mg PO QDAY 10/18/24 Unknown History hydrocortisone 2.5 % topical cream 1 applic [place] BID-QID PRN 02/15/25 Unknown Rx with perineal applicator hemorrhoids #30 grams (Proctozone-HC) hydrocortisone 2.5 % topical cream 1 applic [place] BID-QID PRN 02/15/25 Unknown Rx with perineal applicator hemorrhoids #30 grams (Proctozone-HC) Allergy/AdvReac Type Severity Reaction Status Date / Time No Known Allergies Allergy Verified 03/22/25 09:43 Family History Mother CAD (coronary artery disease) CABG x 3 post op age 63 Brother CAD (coronary artery disease) CABG x 3 age 65 Surgical History (Updated 03/22/25 @ 09:59 by Delmi Mcintyre) S/P wrist surgery Hip joint replacement status History of angioplasty of peripheral vessel (08/14/21) History of hysterectomy History of cataract surgery Social History Smoking Status: Current every day smoker tobacco type: cigarettes second hand exposure: Yes alcohol intake: never substance use type: does not use what type of physical activity do you participate in: walking and bicycling Audit: Pertinent Findings HISTORY of Pertinent Findings History of Pertinent Findings: Cardiology note: 68-year-old female who presents to the office today for follow-up for monitoring her cardiovascular health. Patient has a history of coronary artery disease, hypertension, diastolic dysfunction. Patient is a history of peripheral vascular disease, carotid artery disease. She had previously been told she had an aneurysm but her recent CT abdomen and pelvis with IV contrast demonstrated atherosclerotic calcification of the abdominal aorta with no dilation. Her echocardiogram in June 2019 demonstrated ejection fraction of 65% with right ventricular systolic pressure 51 mmHg. Her stress test in April 2022 demonstrated no ischemia at a workload of 7 metabolic equivalents. She has undergone ballooning of her left iliac with Dr. Causey. Upon presentation today, patient reports ongoing fatigue and weakness. She lost her late 2022 and was taking care of him until that point. After his passing, she noticed herself becoming weaker and associates this with inactivity and weight gain. She has noticed headaches over the past 1-2 weeks. She was recently diagnosed with allergies by her PCP and she contributes her headaches to this. She notices chronic SOB with activity, more so over the past 1 month. She becomes SOB with cleaning her home. Her SOB occurs along with occasional lightheadedness. She does continue to smoke; however, has decreased her amount. Patient has a history of diastolic dysfunction with elevated pulmonary pressures. She does experience shortness of breath with activity. Her echocardiogram 05/10/2023 was reviewed and is without significant valve disease/dysfunction. She is maintained with PO diuresis. Pertinent Findings EKG Perinent findings: Normal sinus rhythm Cannot rule out Inferior infarct , age undetermined Abnormal ECG Confirmed by ARIAN DICKINSON MD ([id number]), editor publications BRETT CROOK ([id number]) on 10/12/2020 9:30:37 AM Stress test pertinent findings: 04/2024: Conclusion: Normal exercise stress test at a moderate workload Normal pharmacologic myocardial perfusion scan Preserved ejection fraction. Echo (EF%) pertinent findings: Echocardiogram 04/2024: Normal LV size. Left ventricular systolic function is normal. The left ventricular ejection fraction is 60 %. Contrast injection was performed. Structurally normal valves. Additional pertinent findings: Her most recent duplex ultrasound 04/29/2024 demonstrates 50-69% in the right carotid artery and <50% on the left Recommendation Anesthesia Recommendation Anesthesia recommendation: OPTIMIZED for anesthesia
[2025-03-23] VITALS (8 sets, daily range): BP systolic 86–151; BP diastolic 60–71; PULSE 67–78; RESP 16; TEMP 36.2–37.3; O2SAT 92–96; BMI 31.8
--- OUTSIDE RECORDS SUMMARY | 2025-03-23 07:25 | XMS RPT_ITS | CCD ---
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 Cornelius Srinivasan Chi Primary Care Provider Dr. Michael Sanchez Attending Provider Dr. Louie Logan Referring Provider Dr. Cornelius Srinivasan Chi Referring Provider Dr. Louie Logan Attending Provider Dr. Georgie Marvin Attending Provider [phone] Dr. Cornelius Srinivasan Chi Referring Provider Dr. Louie Logan Attending Provider DO Josie Lockwood Primary Care Provider Dr. Michael Sanchez Attending Provider Dr. Louie Logan Referring Provider AYLEEN Bell Attending Provider AYLEEN Bell Other Provider [phone] Dr. Jesus Gillette Attending Provider Dr. Cornelius Srinivasan Chi Referring Provider AYLEEN Bell Attending Provider DO Josie Lockwood Primary Care Provider AYLEEN Bell Other Provider Dr. Jesus Gillette Attending Provider [phone] DO Josie Lockwood Referring Provider Dr. Louie Logan Attending Provider Fabián, DO Josie M Primary Care Provider [phone] AYLEEN Bell Attending Provider Fabián, DO Josie M Primary Care Provider Fabián, DO Josie M Referring Provider Dr. Louie Logan Attending Provider Dr. Jesus Gillette Attending Provider AYLEEN Bell Referring Provider Fabián, DO Josie M Primary Care Provider Fabián, DO Josie M Referring Provider Dr. Louie Logan Attending Provider Dr. Louie Logan Referring Provider Fabián, DO Josie M Primary Care Provider [phone] Fabián, DO Josie M Referring Provider Dr. Louie Lgoan Attending Provider Dr. Miguel Vieyra Attending Provider Fabián, DO Josie M Primary Care Provider [phone] Fabián, DO Josie M Referring Provider Dr. Louie Logan Attending Provider Dr. Louie Logan Referring Provider Dr. Miguel Vieyra Attending Provider Craig, Cornelius Chi Primary Care Provider AJAY TILLMAN Referring Unavailab le O'ODELLLISA ALONSO Attending Unavailable CRAIG, CORNELIUS CHI Primary Care Unavailable O'ODELLLISA ALONSO Attending Unavailable CRAIG, CORNELIUS CHI Primary Care Unavailable AJAY TILLMAN Referring Unavailab le O'ODELLLISA ALONSO Attending Unavailable CRAIG, CORNELIUS CHI Primary Care Unavailable AJAY TILLMAN Referring Unavailab Brittany Alfonso MD Primary Care Provider [phone] Brittany Iverson MD Attending Provider Zayra GARCIA, Brittany Referring Provider Donna Bell Attending Provider Donna Bell Referring Provider Desmond GARCIA, Dr. Palma Attending Provider Desmond GARCIA, Dr. Palma Referring Provider Scott GARCIA, Dr. Rushing Attending Provider Donna Bell Other Provider Leta GARCIA, Dr. Lee Attending Provider Marium GARCIA, Dr. Ayala Joshi Attending Provider Marium GARCIA, Dr. Ayala Joshi Referring Provider Zayra GARCIA, Chrison Primary Care Provider Zayra GARCIA, Brittany Referring Provider Luis Alberto Dowell Attending Provider Zayra GARCIA, Brittany Primary Care Physician Zayra GARCIA, Brittany Attending Physician Zayra GARCIA, Brittany Referring Provider Glynn GARCIA, Dr. Helton Attending Physician Zayra, Chalon Primary Care Unavailable Donna Bell Referring Unavail able Donna Bell Attending Unavail able Ayala Causey Attending Unavailable Ayala Causey Referring Unavailable Zayra, Chalon Primary Care Unavailable Zayra, Chalon Attending Unavailable Zayra, Chalon Primary Care Unavailable Demiter, Luis Alberto Attending Unavailable Demiter, Luis Alberto Referring Unavailable Zayra, Chalon Primary Care Unavailable Robotdimitri Sunitha Attending Unavailable Zayra, Chalon Primary Care Unavailable Zayra, Chalon Primary Care Unavailable Zayra, Chalon Attending Unavailable Zayra, Chalon Referring Unavailable Demiter, Luis Alberto Attending Unavailable Zayra, Chalon Referring Unavailable Zayra, Chalon Primary Care Unavailable Sunitha Maki Attending Unavailable Zayra, Chalon Referring Unavailable Zayra, Chalon Primary Care Unavailable Zayra, Chalon Primary Care Unavailable Matthews AYLEEN, Donna M Attending Unavail able Zayra, Chalon Referring Unavailable Zayra, Chalon Primary Care Unavailable Louie Logan Referring Unavailable Сергей Chavez Attending Unavailable Donna Bell Referring Unavail able Jesus Gillette Attending Unavailable Donna Bell Consulting Unavail able Zayra, Chalon Primary Care Unavailable Zayra, Chalon Primary Care Unavailable Louie Logan Attending Unavailable Louie Logan Referring Unavailable Zayra, Chalon Primary Care Unavailable Donna Bell Referring Unavail able Donna Bell Attending Unavail able Allergies Allergy Classification Reported Allergen(s) Allergy Type Date of Onset Reaction(s) Facility (5 sources) [facility]es; Translations: [BEES] Allergy to substance 03-02-2010 [facility] Work Phone: Medications Current Medications Medication Drug Class(es) Dates Sig (Normalized) Sig (Original) baclofen 10 mg oral tablet (20 sources) gamma-Aminobutyric Acid-ergic Agonist Start: 12-09-2023 take 1 tablet by mouth three times daily as needed for pain Start: 08-04-2023 End: 10-20-2023 take 1 tablet by mouth twice daily as needed for pain Baclofen 10 mg tablet Discontinued 10 mg PO TWICE A DAY as needed for muscle pain/muscle spasm 180 1 August 03, 2023 11:00pm October 20, 2023 7:45am Start: 04-01-2023 End: 04-30-2023 take 1 tablet by mouth three times daily as needed for pain Baclofen 10 mg tablet Discontinued 10 mg PO THREE TIMES A DAY as needed for musculoskeletal pain/muscle spasm 90 4 April 01, 2023 7:42pm April 30, 2023 10:38am Start: 01-09-2023 End: 01-14-2023 take 1 tablet by mouth three times daily as needed for pain Baclofen 10 mg tablet Discontinued 10 mg PO THREE TIMES A DAY as needed for musculoskeletal pain/muscle spasm 90 January 08, 2023 11:00pm January 14, 2023 3:13pm biotin 10 mg oral capsule (16 sources) Start: 01-04-2021 Start: 01-04-2021 Biotin Active MCG PO January 04, 2021 12:00am calcium ascorbate 500 mg oral tablet (6 sources) Start: 04-30-2023 take 1 tablet by mouth once daily cholecalciferol 0.125 mg oral capsule (16 sources) Vitamin D Start: 01-04-2021 take 1 capsule by mouth once daily clopidogrel 75 mg oral tablet (15 sources) [id number] Platelet Inhibitor Start: 03-04-2022 take 1 tablet by mouth once daily cyanocobalamin, vitamin B-12, (VITAMIN B-12 ORAL) (4 sources) cyanocobalami n, vitamin B-12, (VITAMIN B-12 ORAL) Take 8,000 mg by mouth. Active FLUoxetine 10 mg oral capsule (2 sources) Serotonin Reuptake Inhibitor Start: 10-18-2024 take 1 capsule by mouth once daily flurbiprofen 100 mg oral tablet (20 sources) Nonsteroidal Anti-inflammatory Drug Start: 12-09-2023 take 1 tablet by mouth three times daily as needed for pain Start: 09-18-2022 End: 10-20-2023 take 1 tablet by mouth three times daily Flurbiprofen 100 mg tablet Discontinued 100 mg PO THREE TIMES A DAY April 30, 2023 12:00am October 20, 2023 7:47am hydrocortisone 25 mg/ml topi benja cream (2 sources) Corticosteroid Start: 02-15-2025 lamoTRIgine 200 mg oral tabl et (20 sources) Mood Stabilizer, Anti-epileptic Agent Start: 07-11-2023 Start: 06-13-2015 End: 06-02-2019 take 2 tablets by mouth once daily Lamotrigine 100 MG tablet Discontinued 200 mg PO DAILY June 13, 2015 12:00am June 02, 2019 10:00am Start: 06-13-2015 End: 06-02-2019 take 200 mg by mouth once daily Lamotrigine Discontinu ed 200 MG PO DAILY June 13, 2015 1:00am June 02, 2019 11:00am Start: 02-21-2010 End: 07-11-2023 take 1 tablet by mouth once daily Lamotrigine 200 MG tablet Discontinued 200 mg PO DAILY July 14, 2019 11:00pm July 11, 2023 7:48am seizures levothyroxine sodium 0.05 mg oral tablet (20 sources) l-Thyroxine Start: 07-15-2019 take 1 tablet by daiana th once daily Start: 12-13-2017 End: 12-17-2017 take 1 capsule by mouth once daily Levothyroxine 50 mcg capsule Discontinued 50 ug PO daily December 12, 2017 11:00pm December 17, 2017 10:09am lisinopril 20 mg oral tablet (20 sources) Angiotensin Converting Enzyme Inhibitor Start: 06-23-2020 End: 04-17-2021 take 1 tablet by mouth once daily Start: 06-23-2020 End: 06-23-2020 Lisinopril 40 mg tablet Disc ontinued 20 mg PO DAILY June 23, 2020 11:32am June 23, 2020 11:34am bp Start: 06-23-2020 End: 06-23-2020 take 20 mg by mouth once daily Lisinopril Discontinued 20 MG PO DAILY June 23, 2020 12:32pm June 23, 2020 12:34pm Start: 06-13-2015 End: 06-23-2020 take 1 tablet by mouth once daily Lisinopril 40 MG tablet Discontinued 40 mg PO DAILY June 13, 2015 12:00am June 23, 2020 11:33am bp microencapsulated potassium chloride 20 meq extended release oral tablet (20 sources) Start: 01-04-2021 Start: 01-04-2021 Potassium Chlo ride Active TAB PO January 04, 2021 12:00am potassium chlori de (KLOR-CON M20 ORAL) Take by mouth. Active vitamin b12 1 mg oral capsule (16 sources) Vitamin B12 Start: 12-22-2019 take 1 capsule by mouth once daily vitamin e 450 mg oral capsule (20 sources) Start: 12-22-2019 take 1 capsule by mouth once daily vitamin k 0.1 mg oral tablet (1 source) Start: 08-04-2023 take 4 tablets by mouth once daily Vitamin K2 (Mk-4) 100 mcg tablet (2 sources) Start: 08-04-2023 take 4 tablets by mouth once daily Vitamin K2 (Mk-4) 100 mcg tablet Active 50 ug PO DAILY August 04, 2023 12:00am Completed/Discontinued Medications Medication Drug Class(es) Dates Sig (Normalized) Sig (Original) [id number] 200 actuat albuterol 0.09 mg/actuat metered dose inhaler (16 sources) beta2-Adrenergic Agonist Start: 07-18-2019 End: 12-22-2019 Albuterol Sulfate 1 INHALER inhaler Discontinued 1 NMA INHALATION EVERY 6 HOURS NEEDED as needed for Sob &/Or Wheezing 1 0 July 17, 2019 11:00pm December 22, 2019 10:32am Start: 07-18-2019 End: 12-22-2019 take 1 puff(s) by inhalation every six hours as needed Albuterol Sulfate Discontinued 1 PUFF INHALATION EVERY 6 HOURS NEEDED 1 July 18, 2019 12:00am December 22, 2019 11:32am amitriptyline hydrochloride 75 mg oral tablet (20 sources) Tricyclic Antidepressant Start: 07-15-2019 End: 12-22-2019 take 1 tablet by mouth at bedtime Amitriptyline 75 MG tablet Discontinued 75 mg PO AT BEDTIME July 14, 2019 11:00pm December 22, 2019 10:32am sleep Start: 06-13-2015 End: 06-02-2019 take 10 mg by mouth at bedtime Amitriptyline 50 MG tab let Discontinued 10 mg PO AT BEDTIME June 13, 2015 12:00am June 02, 2019 10:00am Start: 06-13-2015 End: 06-02-2019 take 10 mg by mouth at bedtime Amitriptyline Discontin ued 10 MG PO AT BEDTIME June 13, 2015 1:00am June 02, 2019 11:00am Start: 02-21-2010 take 1 tablet by daiana th at bedtime as needed amitriptyline 10 mg ORAL tablet Take one(1) tablet at bedtime as needed. 0 02/21/2010 Active amLODIPine 10 mg oral tablet (20 sources) Dihydropyridine Calcium Channel Clotilde Start: 06-13-2015 End: 12-22-2019 take 1 tablet by mouth once daily Amlodipine 10 MG tablet Discontinued 10 mg PO DAILY June 13, 2015 12:00am December 22, 2019 10:32am bp atorvastatin 20 mg oral tablet (20 sources) HMG-CoA Reductase Inhibitor Start: 08-12-2022 End: 12-09-2023 take 1 tablet by mouth once daily Atorvastatin 20 mg tablet Discontinued 20 mg PO DAILY 90 August 04, 2023 12:26pm December 09, 2023 2:53pm Start: 06-11-2021 End: 08-12-2022 take 1 tablet by mouth once daily Atorvastatin 10 mg tablet Discontinued 10 mg PO DAILY 90 March 04, 2022 8:35am August 12, 2022 7:37am Start: 03-29-2021 End: 06-06-2021 take 1 tablet by mouth once daily Atorvastatin (Lipitor) 10 mg tablet Discontinued 10 mg PO DAILY 90 4 March 29, 2021 12:00am June 06, 2021 2:17pm 24 hr buPROPion hydrochloride 300 mg extended release oral tablet (20 sources) Aminoketone Start: 07-15-2019 End: 12-22-2019 take 1 tablet by mouth once daily Bupropion Hcl 300 MG tablet extended release 24 hr Discontinued 300 mg PO DAILY July 14, 2019 11:00pm December 22, 2019 10:32am bi-polar Start: 02-21-2010 End: 12-17-2017 take 1 tablet by mouth once daily Bupropion Hcl 75 MG tablet Discontinued 75 mg PO DAILY June 13, 2015 12:00am December 17, 2017 10:09am clonazePAM 0.5 mg oral tablet (20 sources) Benzodiazepine Start: 02-21-2010 End: 12-22-2019 take 1 tablet by mouth twice daily as needed for anxiety Clonazepam 0.5 MG tablet Discontinued 0.5 mg PO TWICE DAILY NEEDED as needed for Anxiety June 13, 2015 12:00am December 22, 2019 10:32am DULoxetine 30 mg delayed release oral capsule (6 sources) Serotonin and Norepinephrine Reuptake Inhibitor Start: 08-04-2023 End: 10-20-2023 take 1 capsule by mouth at bedtime Duloxetine 30 mg capsule,delayed release(DR/EC) Discontinued 30 mg PO AT BEDTIME 7 0 August 03, 2023 11:00pm October 20, 2023 7:46am Start: 08-04-2023 End: 10-20-2023 take 1 capsule by mouth once daily at bedtime Duloxetine 60 mg capsule,delayed release(DR/EC) Discontinued 60 mg PO AT BEDTIME 30 5 August 03, 2023 11:00pm October 20, 2023 7:46am Begin after completing one week course of duloxetine 30mg nightly. furosemide 20 mg oral tablet (20 sources) Loop Diuretic Start: 11-04-2020 End: 06-06-2021 take 1 tablet by mouth at dinner as needed Furosemide (Lasix) 20 mg tablet Discontinued 20 mg PO WITH DINNER as needed March 29, 2021 10:05am June 06, 2021 2:17pm Start: 12-22-2019 take 1 tablet by daiana th once daily Start: 07-18-2019 End: 12-22-2019 take 1 tablet by mouth twice daily Furosemide 40 MG tablet Discontinued 40 mg PO TWICE A DAY 60 0 July 17, 2019 11:00pm December 22, 2019 10:33am gabapentin 300 mg oral capsule (3 sources) Anti-epileptic Agent Start: 09-23-2023 End: 10-20-2023 Gabapentin 300 mg capsule Discontinued mg PO September 22, 2023 11:00pm October 20, 2023 7:47am loperamide hydrochloride 2 mg oral tablet (16 sources) Opioid Agonist Start: 11-04-2020 End: 03-29-2021 take 1 tablet by mouth every six hours as needed Loperamide (Imodium A-D) 2 mg tablet Discontinued 2 mg PO EVERY 6 HOURS as needed for loose stool 10 November 03, 2020 11:00pm March 29, 2021 10:04am methylPREDNISolone 4 mg oral tablet (3 sources) Corticosteroid Start: 07-11-2023 End: 08-04-2023 take 1 tablet by mouth once Methylprednisolone (Medrol (Luis)) 4 mg tablets,dose pack Discontinued 0 PO per package directions 21 July 10, 2023 11:00pm August 04, 2023 7:10am as directed 24 hr metoprolol succinate 50 mg extended release oral tablet (20 sources) beta-Adrenergic Clotilde Start: 12-22-2019 End: 12-26-2020 take 1 tablet by mouth once daily Metoprolol Succinate (Toprol Xl) 50 mg tablet extended release 24 hr Discontinued 50 mg PO DAILY 90 3 November 13, 2020 11:36am December 26, 2020 10:11am morphine sulfate 30 mg extended release oral tablet (20 sources) Opioid Agonist Start: 06-23-2020 End: 03-29-2021 Morphine 30 mg tablet extended release Discontinued 15 mg PO Q12H June 23, 2020 11:05am March 29, 2021 10:05am pain Start: 06-23-2020 End: 03-29-2021 take 15 mg by mouth every twelve hours Morphine Discontinued 15 MG PO Q12H June 23, 2020 12:05pm March 29, 2021 11:05am Start: 06-13-2015 End: 06-23-2020 take 1 tablet by mouth every twelve hours Morphine 30 MG tablet Discontinued 30 mg PO Q12H June 13, 2015 12:00am June 23, 2020 11:06am pain morphine immedia te release 30 mg tablet Take 15 mg by mouth q 12 HR. Active ondansetron 4 mg disintegrating oral tablet (16 sources) Serotonin-3 Receptor Antagonist Start: 11-04-2020 End: 03-29-2021 take 1 tablet by mouth every eight hours as needed for nausea Ondansetron 4 MG tablet Discontinued 4 mg PO EVERY 8 HOURS NEEDED as needed for Nausea November 03, 2020 11:00pm March 29, 2021 10:04am pravastatin sodium 40 mg oral tablet (16 sources) HMG-CoA Reductase Inhibitor Start: 12-13-2017 End: 06-02-2019 take 1 tablet by mouth at bedtime Pravastatin 40 mg tablet Discontinued 40 mg PO AT BEDTIME December 12, 2017 11:00pm June 02, 2019 10:00am QUEtiapine 25 mg oral tablet (16 sources) Atypical Antipsychotic Start: 12-22-2019 End: 06-23-2020 take 1 tablet by mouth once daily Quetiapine (Seroquel) 25 mg tablet Discontinued 25 mg PO DAILY December 21, 2019 11:00pm June 23, 2020 11:05am risperiDONE 1 mg oral tablet (20 sources) Atypical Antipsychotic Start: 02-21-2010 End: 12-22-2019 take 1 tablet by mouth once daily Risperidone 1 MG tablet Discontinued 1 mg PO DAILY June 13, 2015 12:00am December 22, 2019 10:32am mental health rivaroxaban 2.5 mg oral tablet (15 sources) Factor Xa Inhibitor Start: 03-04-2022 End: 05-03-2022 take 1 tablet by mouth once daily Rivaroxaban (Xarelto) 2.5 mg tablet Discontinued 2.5 mg PO DAILY March 04, 2022 12:00am May 03, 2022 9:37am tiZANidine 2 mg oral tablet (20 sources) Central alpha-2 Adrenergic Agonist Start: 06-13-2015 End: 06-02-2019 Tizanidine 2 MG tablet Discontinued 2 mg PO NEEDED as needed for Spasms June 13, 2015 12:00am June 02, 2019 10:00am take 1 capsule by mouth twice da trey tiZANidine HCl 4 mg capsule Take 4 mg by mouth twice daily. Active traMADol hydrochloride 50 mg oral tablet (3 sources) Opioid Agonist Start: 09-23-2023 End: 10-20-2023 take 1 tablet by mouth three times daily as needed Tramadol 50 mg tablet Discontinued 50 mg PO THREE TIMES A DAY as needed September 22, 2023 11:00pm October 20, 2023 7:48am Problems Active Problems Problem Classification Problem Date Documented Da te Episodic/Chronic Abdominal pain (20 sources) Right lower quadrant pain; Translations: [Right lower quadrant pain] 12-12-2019 Episodic Alcohol-related disorders (16 sources) Alcohol abuse; Translations: [Alcohol abuse, uncomplicated] 12-11-2019 Chronic Aortic; peripheral; and visceral artery aneurysms (20 sources) Aneurysm of infrarenal abdominal aorta ; Translations: [Abdominal aortic aneurysm, without rupture] 03-29-2021 Chronic Comment on above: Calcified abdominal aorta with a fusiform infrarenal aneurysm measuring 3.1x 3.4 cm in the axial plane. It extends across a 5.5 cm in craniocaudallength. 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 Normal inferiorvena cava. CT 2019 ; VASCULATURE: There are atherosclerotic calcifications present. Abdominalaorta is non-dilated. 11/04/20 Asthma (4 sources) Intrinsic asthma; Translations: [Unspecified asthma, uncomplicated] Onset: 02-21-2010 02-21-2010 Chronic Conditions associated with dizziness or vertigo (16 sources) Lightheadedness; Translations: [Dizziness and giddiness] 12-21-2019 Episodic Congestive heart failure; nonhypertensive (17 sources) Chronic diastolic heart failure; Translations: [Chronic diastolic (congestive) heart failure] 12-11-2019 Chronic Coronary atherosclerosis and other heart disease (7 sources) Calcification of coronary artery; Translations: [Atherosclerotic heart disease of [place] coronary artery without angina pectoris] Onset: 04-29-2024 04-29-2024 Chronic Disorders of lipid metabolism (20 sources) Hyperlipidemia; Translations: [Hyperlipidemia, unspecified] Onset: 02-21-2010 Chronic Essential hypertension (20 sources) Essential hypertension; Translations: [Essential (primary) hypertension] Onset: 02-21-2010 06-04-2019 Chronic Gastrointestinal hemorrhage (2 sources) Rectal hemorrhage; Translations: [Hemorrhage of anus and rectum] 02-15-2025 Episodic Genitourinary symptoms and ill-defined conditions (16 sources) Bacteriuria; Translations: [Bacteriuria] 03-28-2021 Episodic Hemorrhoids (2 sources) Hemorrhoids; Translations: [Unspecified hemorrhoids] 02-15-2025 Episodic Mood disorders (4 sources) Depressive disorder; Translations: [Other specified depressive episodes] Onset: 02-21-2010 04-23-2021 Chronic Noninfectious gastroenteritis (16 sources) Gastroenteritis; Translations: [Noninfective gastroenteritis and colitis, unspecified] 03-28-2021 Episodic Nonspecific chest pain (17 sources) Chest pain; Translations: [Chest pain, unspecified] 05-03-2022 Episodic Occlusion or stenosis of precerebral arteries (20 sources) Right carotid artery stenosis; Translations: [Occlusion and stenosis of right carotid artery] Onset: 05-24-2024 Chronic Osteoarthritis (20 sources) Osteoarthritis of right hip joint; Translations: [Unilateral primary osteoarthritis, right hip] Onset: 12-26-2023 04-30-2023 Chronic Other acquired deformities (3 sources) Scoliosis of lumbar spine; Translations: [Scoliosis, unspecified] 09-23-2023 Chronic Other and ill-defined heart disease (18 sources) Diastolic dysfunction; Translations: [Other ill-defined heart diseases] 06-04-2019 Chronic Other and ill-defined heart disease (6 sources) Other ill-defined heart diseases; Translations: [Heart disease, unspecified] 05-03-2022 Chronic Other bone disease and musculoskeletal deformities (20 sources) Segmental and somatic dysfunction; Translations: [Segmental and somatic dysfunction of cervical region] 09-13-2021 Episodic Other bone disease and musculoskeletal deformities (1 source) Segmental and somatic dysfunction of cervical region; Translations: [Nonallopathic lesions, cervical region] Episodic Other bone disease and musculoskeletal deformities (1 source) Segmental and somatic dysfunction of lumbar region; Translations: [Nonallopathic lesions, lumbar region] Episodic Other bone disease and musculoskeletal deformities (1 source) Segmental and somatic dysfunction of pelvic region; Translations: [Nonallopathic lesions, pelvic region] Episodic Other bone disease and musculoskeletal deformities (1 source) Segmental and somatic dysfunction of thoracic region; Translations: [Nonallopathic lesions, thoracic region] Episodic Other connective tissue disease (3 sources) History of total hip arthroplasty; Translations: [Presence of unspecified artificial hip joint] 11-24-2023 Chronic Other connective tissue disease (7 sources) Muscle pain; Translations: [Myalgia, unspecified site] 04-02-2023 Episodic Other connective tissue disease (4 sources) Myalgia, unspecified site; Translations: [Myalgia and myositis, unspecified] 04-02-2023 Episodic Other liver diseases (4 sources) Steatosis of liver; Translations: [Fatty (change of) liver, not elsewhere classified] Onset: 05-10-2010 05-10-2010 Chronic Other lower respiratory disease (1 source) Dyspnea; Translations: [Shortness of breath] 10-25-2024 Episodic Other non-traumatic joint disorders (16 sources) Pain in left shoulder; Translations: [Left shoulder pain] 10-05-2022 Episodic Other non-traumatic joint disorders (8 sources) Hip pain; Translations: [Pain in right hip] 01-09-2023 Episodic Other non-traumatic joint disorders (10 sources) Pain in right hip; Translations: [Pain in joint, pelvic region and thigh] 01-09-2023 Episodic Peripheral and visceral atherosclerosis (20 sources) Intermittent claudication; Translations: [Peripheral vascular disease, unspecified] Chronic Comment on above: Balloon angioplasty of the left common iliac artery occlusion with a 6 x 80 Rangerdrug-coated balloon. 08/14/21 Pulmonary heart disease (20 sources) Pulmonary arterial hypertension; Translations: [Secondary pulmonary arterial hypertension] Onset: 04-29-2024 12-11-2019 Chronic Regional enteritis and ulcerative colitis (16 sources) Crohn's disease; Translations: [Crohn's disease, unspecified, without complications] 03-28-2021 Chronic Residual codes; unclassified (1 source) Hypersomnia, unspecified; Translations: [Hypersomnia, unspecified] Onset: 11-19-2024 Chronic Residual codes; unclassified (16 sources) Pain; Translations: [Pain, unspecified] 06-06-2021 Episodic Residual codes; unclassified (6 sources) Tobacco user; Translations: [Tobacco use] 04-30-2023 Episodic Residual codes; unclassified (4 sources) Tobacco use; Translations: [Tobacco use disorder] 04-30-2023 Episodic Residual codes; unclassified (3 sources) Edema of right lower limb; Translations: [Localized edema] 11-24-2023 Episodic Spondylosis; intervertebral disc disorders; other back problems (17 sources) Degeneration of intervertebral disc; Translations: [Degeneration of intervertebral disc] Chronic Spondylosis; intervertebral disc disorders; other back problems (20 sources) Low back pain; Translations: [Low back pain] Onset: 02-21-2010 Episodic Substance-related disorders (20 sources) Nicotine dependence; Translations: [Nicotine dependence, unspecified, uncomplicated] Onset: 01-28-2011 07-15-2019 Chronic Thyroid disorders (1 source) Hypothyroidism, unspecified; Translations: [Hypothyroidism, unspecified] Onset: 02-24-2025 Chronic Past or Other Problems Problem Classification Problem Date Documented Date Episodic/Chronic Malaise and fatigue (6 sources) Fatigue; Translations: [Other fatigue] Onset: 04-29-2024 04-29-2024 Episodic Other lower respiratory disease (1 source) Shortness of breath; Translations: [Shortness of breath] Onset: 11-19-2024 Episodic Other lower respiratory disease (2 sources) Other forms of dyspnea; Translations: [Other forms of dyspnea] Onset: 05-24-2024 Episodic Other screening for suspected conditions (not mental disorders or infectious disease) (20 sources) Electrocardiogram abnormal; Translations: [Abnormal electrocardiogram [ECG] [EKG]] Onset: 05-03-2010 07-29-2019 Episodic Results Test Name Value Interpretation Reference Range Facility Surgery Visit Reporton 02-15 Surgery Visit Report [facility] [address] [place] [address] [address] [place] [id number] OFFICE VISIT Date of Service: 02/15/25 MR#: [id number] Acct: [id number] Name: NALLELY MOYA Rep #: [id number] : 1955 Provider: Dr. Sunitha mosley MD Age/Sex: 69/F Location: [facility] Status: Signed Intake Vital Signs 10/18/24 06:58 02/15/25 14:11 Height 5 ft 1 in 5 ft 1 in Weight: 174 lb BMI 32.8 BP 114/76 Blood Pressure Location Rt brachial Position Sitting Respiration 16 Intake Visit Reasons: BLOODY STOOL Chief Complaint: blood per rectum Personal Caregiver Required: No Is patient in pain?: No Allergies No Known Allergies Allergy (Verified 02/15/25 14:11) Medications ???Medication ???Instructions ???Recorded ???Confirmed ???Type levothyroxine 50 mcg tablet 50 mcg PO DAILY thyroid 07/15/19 1 History cyanocobalamin (vitamin B-12) 1,000 mcg PO DAILY 12/22/19 History 1,000 mcg capsule furosemide 40 mg tablet 40 mg PO DAILY 12/22/19 02/15/25 H istory vitamin E (dl, acetate) 450 mg 450 mg PO DAILY 12/22/19 02/15/25 History (1,000 unit) capsule metoprolol succinate 50 mg 50 mg PO DAILY #90 tabs 12/26/20 1 Rx tablet,extended release 24 hr (Toprol XL) biotin 10,000 mcg capsule mcg PO 01/04/21 02/15/25 History cholecalciferol (vitamin D3) 125 125 mcg PO DAILY 01/04/21 02/15/25 History mcg (5,000 unit) capsule potassium chloride 20 mEq tablet PO 01/04/21 02/15/25 Histor y tablet,extended release(part/cryst) lisinopril 20 mg tablet 20 mg PO DAILY bp #90 tabs 1 02/15/25 Rx clopidogrel 75 mg tablet (Plavix) 75 mg PO DAILY 03/04/22 02/15/25 History ascorbate calcium (vitamin C) 500 500 mg PO DAILY 04/30/23 02/15/25 History mg tablet lamotrigine 200 mg tablet 100 mg PO DAILY seizures 07/11/23 02/15/25 History vitamin K2 (MK-4) 100 mcg tablet 50 mcg PO DAILY 08/04/23 02/15/25 History atorvastatin 20 mg tablet 20 mg PO DAILY #90 tabs 12/09/23 1 Rx baclofen 10 mg tablet 10 mg PO TID PRN musculoskeletal 0 12/09/23 02/15/25 Rx pain/muscle spasm #270 tabs flurbiprofen 100 mg tablet 100 mg PO TID PRN Musculoskeletal 12/09/23 02/15/25 Rx pain #270 tabs fluoxetine 10 mg capsule (Prozac) 10 mg PO QDAY 10/18/24 02/15/25 H istory hydrocortisone 2.5 % topical cream [address] BID-QID PRN 02/15/25 02/15/25 Rx with perineal applicator hemorrhoids #30 grams (Proctozone-HC) hydrocortisone 2.5 % topical cream [address] BID-QID PRN 02/15/25 02/15/25 Rx with perineal applicator hemorrhoids #30 grams (Proctozone-HC) Have you fallen in the past year?: No PFSH Medical History (Updated 02/15/25 @ 16:[address] Sunitha Maki MD) Moderate pulmonary hypertension Peripheral vascular occlusive disease Stenosis of right carotid artery Aneurysm of right iliac artery Aneurysm of infrarenal abdominal aorta DDD (degenerative disc disease), lumbosacral Secondary pulmonary arterial hypertension Chronic diastolic (congestive) heart failure Alcohol abuse COPD (chronic obstructive pulmonary disease) Hyponatremia Diastolic dysfunction Essential (primary) hypertension Hyperlipidemia Insomnia Nicotine dependence Bipolar disorder Hypothyroidism Anxiety and depression Elevated LFTs Arthritis Pulmonary nodule Surgical History (Updated 02/15/25 @ 14:11 by Kalpana San) S/P wrist surgery Hip joint replacement status History of angioplasty of peripheral vessel (08/14/21) History of hysterectomy History of cataract surgery Family History Mother CAD (coronary artery disease) CABG x 3 post op age 63 Brother CAD (coronary artery disease) CABG x 3 age 65 Social History Smoking Status: Current every day smoker tobacco type: cigarettes second hand exposure: Yes alcohol intake: never substance use type: does not use what type of physical activity do you participate in: walking and bicycling HPI HPI HPI: 69-year-old female presents due to blood per rectum. Patient states that about a week and a half ago she had some blood in the toilet with no stool and she would also have stool with no blood. Patient does have a history of hemorrhoids that has caused an occasional issues in the past. Patient is on Plavix due to PVD. Patient denies any family history of colon cancer. Last colonoscopy was by Dr. Fonseca 5 years ago do not have the current report patient believes it was negative. Patient states she has bowel movements daily. ROS General General: Yes weight change and fatigue; No appetite, colon cancer, breast cancer or weakness HEENT HEENT: No difficulty swallowing, eye injury, eye s (more content not included)... Normal [facility] Anion gap in Serum or Plasma Ordered By: Brittany Iverson on 02-07-2025 Anion gap [Moles/Vol] 12 mmol/L 09-09 [facility] BUN/creatinine ratioOrdered By: Brittany Iverson on 02-07-2025 Urea nitrogen/Creatinine [Mass ratio] 13.9 mg/mg 02-14 [facility] Basic Metabolic Profile (BMP )on 02-07-2025 BUN/CRE 13.9 RATIO Normal 02-14 [facility] Comment on above: Order Comment: Order Date: 02/07/25 Order Info: 06- - BMP Order Info: 3013 - TSH Performed By: #### L 500.2500, L100.0500, L501.9520 #### [facility] [address] [place], [address] Calcium [Mass/Vol] 9.3 mg/dL Normal 7.6-11.0 [facility] Comment on above: Order Comment: Order Date: 02/07/25 Order Info: 06- - BMP Order Info: 301-3 - TSH Performed By: #### L 500.2500, L100.0500, L501.9520 #### [facility] [address] [place], [address] Chloride [Moles/Vol] 99 mmol/L Normal 98-108 [facility] Comment on above: Order Comment: Order Date: 02/07/25 Order Info: 0667- - BMP Order Info: 3016-3 - TSH Performed By: #### L 500.2500, L100.0500, L501.9520 #### [facility] [address] [place], [address] CO2 [Moles/Vol] 22.2 mmol/L Normal 21.0-32.0 [facility] Comment on above: Order Comment: Order Date: 02/07/25 Order Info: 0667- - BMP Order Info: 301-3 - TSH Performed By: #### L 500.2500, L100.0500, L501.9520 #### [facility] [address] [place], [address] Creatinine [Mass/Vol] 0.91 mg/dL Normal 0.70-1.20 [facility] Comment on above: Order Comment: Order Date: 02/07/25 Order Info: 666-04 - [facility] Order Info: 3015-06 - TSH Performed By: #### L 500.2500, L100.0500, L501.9520 #### [facility] [address] [place], [address] GAP 12 Normal 5-15 [facility] Comment on above: Order Comment: Order Date: 02/07/25 Order Info: 666-04 - [facility] Order Info: 3015-06 - TSH Performed By: #### L 500.2500, L100.0500, L501.9520 #### [facility] [address] [place], [address] GFR/1.73 sq M.predicted among non-blacks MDRD (S/P/Bld) [Vol rate/Area] 68 mL/min/{1.73_m2} Normal >60 [facility] Comment on above: Order Comment: Order Date: 02/07/25 Order Info: 666-04 [facility] Order Info: 3015-06 - TSH Result Comment: mL/m in/1.73m2 CKD-EPI Creatinine Equation (2020) Performed By: #### L 500.2500, L100.0500, L501.9520 #### [facility] [address] [place], [address] Glucose [Mass/Vol] 131 mg/dL High 70-99 [facility] Comment on above: Order Comment: Order Date: 02/07/25 Order Info: 666-04 - BMP Order Info: 3015-06 - TSH Performed By: #### L 500.2500, L100.0500, L501.9520 #### [facility] [address] [place], [address] Potassium [Moles/Vol] 4.2 mmol/L Normal 3.3-5.1 [facility] Comment on above: Order Comment: Order Date: 02/07/25 Order Info: 0667-1 - BMP Order Info: 3015-3 - TSH Performed By: #### L 500.2500, L100.0500, L501.9520 #### [facility] [address] [place], [address] Sodium [Moles/Vol] 134 mmol/L Normal 133-145 [facility] Comment on above: Order Comment: Order Date: 02/07/25 Order Info: 0667-1 - BMP Order Info: 3 - TSH Performed By: #### L 500.2500, L100.0500, L501.9520 #### [facility] [address] [place], [address] Urea nitrogen [Mass/Vol] 13 mg/dL Normal 4-19 [facility] Comment on above: Order Comment: Order Date: 02/07/25 Order Info: 0667-1 - BMP Order Info: 3 - TSH Performed By: #### L 500.2500, L100.0500, L501.9520 #### [facility] [address] [place], [address] CBC-Complete Blood Cnt No Di ffon 02-07-2025 Erythrocyte distribution width (RBC) [Ratio] 12.8 % Normal 11.6-14.6 [facility] Comment on above: Order Comment: Order Date: 02/07/25 Order Info: 86323-3 - CBC Performed By: #### L 500.2500, L100.0500, L501.9520 #### [facility] [address] [place], [address] Hematocrit (Bld) [Volume fraction] 39.7 % Normal 37-47 [facility] Comment on above: Order Comment: Order Date: 02/07/25 Order Info: 00707-0 - CBC Performed By: #### L 500.2500, L100.0500, L501.9520 #### [facility] [address] [place], [address] Hemoglobin (Bld) [Mass/Vol] 13.0 g/dL Normal 12.0-15.0 [facility] Comment on above: Order Comment: Order Date: 02/07/25 Order Info: 10462-1 - CBC Performed By: #### L 500.2500, L100.0500, L501.9520 #### [facility] [address] [place], [address] MCH (RBC) [Entitic mass] 29.5 pg Normal 27.0-32.0 [facility] Comment on above: Order Comment: Order Date: 02/07/25 Order Info: 56265-7 - CBC Performed By: #### L 500.2500, L100.0500, L501.9520 #### [facility] [address] [place], [address] MCHC (RBC) [Mass/Vol] 32.7 g/dL Normal 32-36 [facility] Comment on above: Order Comment: Order Date: 02/07/25 Order Info: 52566-8 - CBC Performed By: #### L 500.2500, L100.0500, L501.9520 #### [facility] [address] [place], [address] MCV (RBC) [Entitic vol] 90.0 fL Normal 81-99 [facility] Comment on above: Order Comment: Order Date: 02/07/25 Order Info: 39369-7 - CBC Performed By: #### L 500.2500, L100.0500, L501.9520 #### [facility] [address] [place], [address] Platelet mean volume (Bld) [Entitic vol] 9.4 fL Normal 6.2-12.0 [facility] Comment on above: Order Comment: Order Date: 02/07/25 Order Info: 70728-4 - CBC Performed By: #### L 500.2500, L100.0500, L501.9520 #### [facility] [address] [place], [address] Platelets (Bld) [#/Vol] 353 10*3/uL Normal 150-450 [facility] Comment on above: Order Comment: Order Date: 02/07/25 Order Info: [id number] - CBC Performed By: #### L 500.2500, L100.0500, L501.9520 #### [facility] [address] [place], [address] RBC (Bld) [#/Vol] 4.41 10*6/uL Normal 4.2-5.[address] [facility] Comment on above: Order Comment: Order Date: 02/07/25 Order Info: 18649-0 - CBC Performed By: #### L 500.2500, L100.0500, L501.9520 #### [facility] [address] [place], [address] RDW SD 42.4 fl Normal 35.1-43.9 [facility] Comment on above: Order Comment: Order Date: 02/07/25 Order Info: 00664-1 - CBC Performed By: #### L 500.2500, L100.0500, L501.9520 #### [facility] [address] [place], [address] WBC (Bld) [#/Vol] 6.4 10*3/uL Normal 4.4-11.0 [facility] Comment on above: Order Comment: Order Date: 02/07/25 Order Info: [id number] - CBC Performed By: #### L 500.2500, L100.0500, L501.9520 #### [facility] [address] [place], [address] Carbon dioxide, total [Moles /volume] in Central venous bloodOrdered By: Brittany Iverson on 02-07-2025 CO2 [Moles/Vol] 22.2 mmol/L 21.0-32.0 [facility] Chloride assayOrdered By: Abbey Iverson on 02-07-2025 Chloride [Moles/Vol] 99 mmol/L 98-108 [facility] Erythrocyte distribution wid th ratioOrdered By: Brittany Iverson on 02-07-2025 Erythrocyte distribution width (RBC) [Ratio] 12.8 % 11.6-14.6 [facility] Erythrocyte distribution wid th standard deviationOrdered By: Brittany Iverson on 02-07-2025 Erythrocyte distribution width (RBC) [Ratio] 42.4 fl 35.1-43.9 [facility] Glomerular filtration rate ( GFR) estimation/1.73 sq m using serum, plasma, or whole bOrdered By: Brittany Iverson on 02-07-2025 GFR/1.73 sq M.predicted among non-blacks MDRD (S/P/Bld) [Vol rate/Area] 68 mL/min/{1.73_m2} >60 [facility] Comment on above: mL/min/1.73m2 CKD-EP I Creatinine Equation (2020) Hematocrit Auto (Bld) [Volum e fraction]Ordered By: Brittany Iverson on 02-07-2025 Hematocrit (Bld) [Volume fraction] 39.7 % 37-47 [facility] Hemoglobin measurementOrdere d By: Brittany Iverson on 02-07-2025 Hemoglobin (Bld) [Mass/Vol] 13.0 g/dL 12.0-15.0 [facility] MCV (mean corpuscular volume ) determinationOrdered By: Brittany Iverson on 02-07-2025 MCV (RBC) [Entitic vol] 90.0 fL 81-99 [facility] Mean corpuscular hemoglobin (MCH) determinationOrdered By: Brittany Iverson on 02-07-2025 MCH (RBC) [Entitic mass] 29.5 pg 27.0-32.0 [facility] Mean corpuscular hemoglobin concentration (MCHC) determinationOrdered By: Brittany Iverson on 02-07-2025 MCHC (RBC) [Mass/Vol] 32.7 g/dL 32-36 [facility] Mean platelet volume determi nationOrdered By: Brittany Iverson on 02-07-2025 Platelet mean volume (Bld) [Entitic vol] 9.4 fL 6.2-12.0 [facility] Platelet countOrdered By: Abbey Iverson on 02-07-2025 Platelets (Bld) [#/Vol] 353 10*3/uL 150-450 [facility] Potassium measurement (mass/ volume)Ordered By: Brittany Iverson on 02-07-2025 Potassium (Unsp spec) [Mass/Vol] 4.2 mmol/L 3.3-5.1 [facility] RBC Auto (Bld) [#/Vol]Ordere d By: Brittany Iverson on 02-07-2025 RBC (Bld) [#/Vol] 4.41 10*6/uL 4.2-5.[address] [facility] Serum creatinine measurement (mass/volume)Ordered By: Brittany Iverson on 02-07-2025 Creatinine [Mass/Vol] 0.91 mg/dL 0.70-1.20 [facility] Serum glucose measurement (m ass/volume)Ordered By: Brittany Iverson on 02-07-2025 Glucose [Mass/Vol] 131 mg/dL High 70-99 [facility] Serum or plasma calcium lsia urement (mass/volume)Ordered By: Brittany Iverson on 02-07-2025 Calcium [Mass/Vol] 9.3 mg/dL 7.6-11.0 [facility] Serum or plasma urea nitroge n measurement (mass/volume)Ordered By: Brittany Iverson on 02-07-2025 Urea nitrogen [Mass/Vol] 13 mg/dL 4-19 [facility] Sodium levelOrdered By: Chris Iverson on 02-07-2025 Sodium [Moles/Vol] 134 mmol/L 133-145 [facility] TSH DL <= 0.005 mIU/L QnOrde red By: Brittany Iverson on 02-07-2025 TSH Qn 3.690 uIU/mL 0.300-4.200 [facility] Thyroid Stim Hormone (TSH)on 10-13-2025 TSH 3.690 uIU/mL Normal 0.300-4.200 [facility] Comment on above: Order Comment: Order Date: 02/07/25 Order Info: 0667-1 - BMP Order Info: 3016-3 - TSH Performed By: #### L 500.2500, L100.0500, L501.9520 #### [facility] [address] [place], [address] Vitamin D,25 Hydroxyon 02-07 Vitamin D 25-OH 57.4 ng/mL Normal 30-100 [facility] Comment on above: Order Comment: Order Date: 02/07/25Order Info: 0667-1 - BMPOrder Info: 3016-3 - TSH Result Comment: Raine min D Status Deficiency: <20 ng/mL (50nmol/L) Insufficiency: 20-30 ng/mL (50-75 nmol/L) Sufficiency: 30-100 ng/mL (75-250 nmol/L) Toxicity: >100 ng/mL (>250 nmol/L) Performed By: #### L 506.1001 ####[facility] [address] [place], [place], [address] White blood cell (WBC) count Ordered By: Brittany Iverson on 02-07-2025 WBC (Bld) [#/Vol] 6.4 10*3/uL 4.4-11.0 [facility] Cardiology Visit Reporton Cardiology Visit Report [facility] [address] [place] [address] OFFICE VISIT Date of Service: 10/18/24 MR#: [id number] Acct: [id number] Name: NALLELY MOYA Rep #: [id number] : 1955 Provider: AYLEEN Pulido Age/Sex: 68/F Location: [facility] Status: Signed HPI HPI History of Present Illness Details: Nallely Moya is a 68-year-old female who presents to the office today for follow-up for monitoring her cardiovascular health. Patient has a history of coronary artery disease, hypertension, diastolic dysfunction. Patient is a history of peripheral vascular disease, carotid artery disease. She had previously been told she had an aneurysm but her recent CT abdomen and pelvis with IV contrast demonstrated atherosclerotic calcification of the abdominal aorta with no dilation. Her echocardiogram in June 2019 demonstrated ejection fraction of 65% with right ventricular systolic pressure 51 mmHg. Her stress test in April 2022 demonstrated no ischemia at a workload of 7 metabolic equivalents. She has undergone ballooning of her left iliac with Dr. Causey. Upon presentation today, patient reports ongoing fatigue and weakness. She lost her late 2022 and was taking care of him until that point. After his passing, she noticed herself becoming weaker and associates this with inactivity and weight gain. She has noticed headaches over the past 1-2 weeks. She was recently diagnosed with allergies by her PCP and she contributes her headaches to this. She notices chronic SOB with activity, more so over the past 1 month. She becomes SOB with cleaning her home. Her SOB occurs along with occasional lightheadedness. She does continue to smoke; however, has decreased her amount. She reports home BP readings in 170s systolic but had her monitor checked as PCP and was advised of it's inaccuracy and was recommended to purchase a new one. Further ROS below. STOP-BANG Assessment: 1. Do you snore? [unknown] 2. Are you frequently tired during the day? [yes] 3. Have you been observed gasping or choking while asleep? [unknown] 4. Do you have high blood pressure? [yes] 5. BMI - greater than 35kg/m2? [no] 6. Age - over 50 years old? [yes] 7. Neck Circumference - greater than 37 cm for females or 40 cm for males? [no] 8. Gender - male? [female] Total STOP-BANG score = [3] which indicates high risk for obstructive sleep apnea (yes to 3 or more questions = high risk of sleep apnea). Intake Vital Signs 10/20/23 08:33 04/29/24 08:36 10/18/24 06:58 10/18/24 08:38 Height 5 ft 1 in 5 ft 1 in 5 ft 1 in Weight: 177 lb BMI 33.4 BP 146/89 H 120/74 Blood Pressure Location Lt brachial Lt brachial Position Sitting Sitting Respiration 18 Pulse 60 Pulse Source Monitor Pulse Oximetry (%) 96 Intake Visit Reasons: 1 Y FU Personal Caregiver Required: No Is patient in pain?: No Allergies No Known Allergies Allergy (Verified 10/18/24 07:59) Medications ???Medication ???Instructions ???Recorded ???Confirmed ???Type levothyroxine 50 mcg tablet 50 mcg PO DAILY thyroid 07/15/19 0 10/18/24 History cyanocobalamin (vitamin B-12) 1,000 mcg PO DAILY 12/22/19 History 1,000 mcg capsule furosemide 40 mg tablet 40 mg PO DAILY 12/22/19 10/18/24 H istory vitamin E (dl, acetate) 450 mg 450 mg PO DAILY 12/22/19 10/18/24 History (1,000 unit) capsule metoprolol succinate 50 mg 50 mg PO DAILY #90 tabs 12/26/20 0 10/18/24 Rx tablet,extended release 24 hr (Toprol XL) biotin 10,000 mcg capsule mcg PO 01/04/21 10/18/24 History cholecalciferol (vitamin D3) 125 125 mcg PO DAILY 01/04/21 10/18/24 History mcg (5,000 unit) capsule potassium chloride 20 mEq tablet PO 01/04/21 10/18/24 Histor y tablet,extended release(part/cryst) lisinopril 20 mg tablet 20 mg PO DAILY bp #90 tabs 1 10/18/24 Rx clopidogrel 75 mg tablet (Plavix) 75 mg PO DAILY 03/04/22 10/18/24 History ascorbate calcium (vitamin C) 500 500 mg PO DAILY 04/30/23 10/18/24 History mg tablet lamotrigine 200 mg tablet 100 mg PO DAILY seizures 07/11/23 10/18/24 History vitamin K2 (MK-4) 100 mcg tablet 50 mcg PO DAILY 08/04/23 10/18/24 History atorvastatin 20 mg tablet 20 mg PO DAILY #90 tabs 12/09/23 0 10/18/24 Rx baclofen 10 mg tablet 10 mg PO TID PRN musculoskeletal 0 12/09/23 10/18/24 Rx pain/muscle spasm #270 tabs flurbiprofen 100 mg tablet 100 mg PO TID PRN Musculoskeletal 12/09/23 10/18/24 Rx pain #270 tabs fluoxetine 10 mg capsule (Prozac) 10 mg PO QDAY 10/18/24 10/18/24 H istory Ejection fraction %: 60 Have you fallen in the past year?: No Nurse's Note: attempted to review medications, patient unsure of what she is taking [facility] Medical History Modera (more content not included)... Normal [facility] Abd Aortic/IVC Duplex scanon 07-05-2024 Abd Aortic/IVC Duplex scan [facility] [address] [place] [address] Abd Aortic/IVC Duplex scan 07/05/24 0842 MR#: [id number] Acct: [id number] Name: NALLELY MOYA Rep #: [id number] : 1955 68 From: Ayala Causey MD Attending Dr: Dr. Ayala Causey MD Status: DE P CLI Ordering Dr: Ayala Causey MD Date: 07/05/24 Location: [facility] Sex: F C Admitted: Reason For Study Reason For Study: AAA Aorta Measurements Aorta Doppler Measurements Proximal aorta measures1.65 x 1.63cm. in cross-sectional Peak systolic flow velocities within the proximal aorta axis. measure 90.4 cm/sec. Proximal aorta measures1.65cm. in longitudinal axis. Peak systolic flow velocities within the mid aorta measure Mid aorta measures3.81 x 3.80cm. in cross-sectional axis. 63.2 cm/sec. Mid aorta measures3.82cm. in longitudinal axis. Peak systolic flow velocities within the distal aorta Distal aorta measures2.55 x 2.61cm. in cross-sectional axis.measure 30.7 cm/sec. Distal aorta measures2.59cm. in longitudinal axis. Left Iliac Artery Left iliac artery measures 0.93 x 0.98 cm. in the cross-sectional axis. Left iliac artery measures 0.90 cm. in the longitudinal axis. Peak systolic velocity in the left iliac artery measures 98.6 cm/sec. Right Iliac Artery Right iliac artery measures 0.64 x 0.67 cm. in the cross-sectional axis. Right iliac artery measures 0.63 cm. in the longitudinal axis. Peak systolic velocity in the right iliac artery measures 127.1 cm/sec. Procedure Aorta IVC Iliac vasculature or bypass grafts 80230. Exam performed in department. VL/Abd Aortic/IVC Duplex scan Interpretation Summary 3.8cm aortic aneurysm. __ Ordering Physician: Ayala Causey Referring Physician: Brittany Iverson Performed By: Shala Delgado RVT 08/26/242000 Date Ayala Causey MD CC: Dr. Ayala Causey MD; Dr. Brittany Iverson MD Date Dictated: 07/05/24841 Date Transcribed: 08/26/242000 Sign Carpenter: Signed Normal [facility] Ankle Brachial Indexon 07-05 Ankle Brachial Index [facility] [address] [place] [address] Ankle Brachial Index 07/05/24 0807 MR#: [id number] Acct: [id number] Name: NALLELY MOYA Rep #: [id number] : 1955 68 From: Ayala Causey MD Attending Dr: Dr. Ayala Causey MD Status: DE P CLI Ordering Dr: Ayala Causey MD Date: 07/05/24 Location: [facility] Sex: F C Admitted: Reason For Study Reason For Study: Atherosclerosis Procedure A bilateral lower extremity continuous wave Doppler with analog waveform analysis and ankle brachial indexes. Left Segmental Pressures Left brachial= 150mmHg. Left posterior tibial artery = 140mmHg. Left dorsalis pedis artery = 123mmHg. Left digit = 87 mmHg. The left dorsalis pedis waveforms are triphasic. The left posterior tibial artery waveforms are triphasic. Right Segmental Pressures Right brachial= 151mmHg. Right posterior tibial artery = 157mmHg. Right dorsalis pedis artery = 149mmHg. Right digit = 104 mmHg. The right dorsalis pedis waveforms are triphasic. The right posterior tibial artery waveforms are triphasic. Indices The right ankle brachial index by the dorsalis pedis is 0.99. The right ankle brachial index by the posterior tibial artery is 1.04. The right digital-brachial index is 0.69. The left ankle brachial index by the dorsalis pedis is 0.81. The left ankle brachial index by the posterior tibial artery is 0.93. The left digital-brachial index is 0.58. VL/Ankle Brachial Index Interpretation Summary Resting ankle-brachial indices appear bilaterally normal. __ Ordering Physician: Ayala Causey Referring Physician: AYALA CAUSEY DR. Performed By: Shala Delgado RVT and Student 08/26/242000 Date Ayala Causey MD CC: Dr. Ayala Causey MD; Dr. Brittany Iverson MD Date Dictated: 07/05/24806 Date Transcribed: 08/26/242000 Sign Carpenter: Signed Normal [facility] Echo Complete W/ Contraston 05-10-2024 Echo Complete W/ Contrast [facility] Cardiovascular Services [address] 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 The study was technically difficult. Contrast injection was performed. Exam performed in department. Left Ventricle Normal LV size. Left ventricular systolic function is normal. The left ventricular ejection fraction is 60 %. No regional wall motion abnormalities noted. Right Ventricle Normal RV size. Normal systolic function. Atria Normal left atrium. Normal right atrium. Mitral Valve There is mild to moderate mitral annular calcification. Tricuspid Valve Normal tricuspid valve. Aortic Valve Mild focal aortic valve calcification. Pulmonic Valve Normal pulmonic valve. Great Vessels Normal aortic root. The pulmonary artery is normal size. Normal inferior vena cava. Pericardium/Pleural No pericardial effusion. Medication 22 gauge I.V. with prn adaptor inserted into left arm. Diluted definity 2ml given slow IV push to enhance endocardial definition. MMode/2D Measurements Calculations LVIDd: 4.5 cm IVSd: 1.0 cm Ao root diam: 3.3 cm LVIDs: 2.8 cm LVPWd: 0.88 cm RVDd: 3.3 cm FS: 38.5 % LAV(MOD-bp): 71.9 ml LA A4 area: 22.4 cm2 LA dimension(2D): 4.8 cm LAV(MOD-bp) Indexed: 40.8 ml/m2 LAV(MOD-sp2): 66.9 ml LAV(MOD-sp4): 68.7 ml TAPSE: 1.8 cm RA A4 area: 14.5 cm2 Time Measurements MV dec time: 0.22 sec Doppler Measurements Calculations MV E max awa: 93.8 cm/sec Lat Peak E' Awa: 9.2 cm/sec Med Peak E' Awa: 5.4 cm/sec MV A max awa: 67.2 cm/sec E/E' lat: 10.2 E/E' med: 17.3 MV E/A: 1.4 MV V2 max: 116.8 cm/sec MV P1/2t max awa: 119.9 cm/sec Ao V2 max: 142.2 cm/sec MV max P.5 mmHg MV P1/2t: 84.9 msec Ao max P.1 mmHg MV V2 mean: 70.8 cm/sec MV dec slope: 413.5 cm/sec2 Ao V2 mean: 105.2 cm/sec MV mean P.3 mmHg Ao mean P.1 mmHg MV V2 VTI: 31.8 cm MVA(P1/2t): 2.6 cm2 Ao V2 VTI: 37.1 cm AV (velocity ratio): 0.76 LV V1 max: 112.0 cm/sec PA V2 max: 113.6 cm/sec TR max awa: 159.2 cm/sec LV V1 max P.0 mmHg TR max P.1 mmHg LV V1 mean P.0 mmHg LV V1 mean: 81.6 cm/sec LV V1 VTI: 28.2 cm ECHO/Echo Complete W/ Contrast Interpretation Summary Normal LV size. Left ventricular systolic function is normal. The left ventricular ejection fraction is 60 %. Contrast injection was performed. Structurally normal valves. __ Ordering Physician: Donna Matthews Referring Physician: Donna Matthews Performed By: Von [place] RCS 05/10/24 1400 Date Jesus Gillette MD CC: Dr. Brittany Iverson MD; AYLEEN Herring Date Dictated: 05/10/24 0839 Date Transcribed: 05/10/24 1340 Sign Carpenter: Signed Normal [facility] Stress Reporton 05-10-2024 Stress Report [facility] Cardiovascular Services [address] [place] [id number] MR#: [id number] Acct: [id number] Name: NALLELY MOYA Rep #: [id number] : 1955 68 From: Jesus Gillette MD Primary Care: Dr. rBittany Iverson MD Status: REG CLI Referring Dr: Donna Matthews Sex: F C Stress Test Report Exercise myocardial perfusion stress test. 68-year-old lady with a history of chest pain Stress protocol: Resting EKG demonstrates normal sinus rhythm with a rate of 69 bpm resting blood pressure is 150/80 mmHg. The patient exercised according to the regular Kevin protocol for a total duration of 5 minutes attaining a maximum heart rate of 120 bpm which was 79% of maximum predicted heart rate; the maximum workload was 7 metabolic equivalents. At rest there were no ST or T wave changes noted to suggest ischemia and at peak exercise upsloping ST changes only were noted which did not meet the criteria for ischemia. No clinical angina was noted but the patient complained of fatigue and stopped walking abruptly. At that time the blood pressure was 241/82 mmHg. The test was then changed pathologic myocardial perfusion stress test with 0.4 mg of regadenoson infused per usual protocol. Continuous EKG monitoring was performed. There were no ST or T wave changes noted to suggest abnormal flow reserve. Myocardial perfusion protocol. 11.8 mCi of technetium 99m sestamibi was injected at rest. The patient exercised according to regular Kevin protocol for total duration of 5 minutes and after peak pharmacologic infusion 32.9 mCi of technetium 99m sestamibi was injected stress images were obtained stress and rest images were reconstructed in comparing the short axis vertical long and horizontal long axis. Gated images were also obtained. Perfusion SPECT analysis: Review of the stress images demonstrate normal uptake of tracer noted in all areas of the myocardium. There is a defect noted in the apex on the stress and resting images and a previous apical infarct cannot be completely excluded. No reversibility is noted suggest ischemia though. Gated SPECT analysis: The gated ejection fraction is 88%. Conclusion: Normal exercise stress test at a moderate workload Normal pharmacologic myocardial perfusion scan Preserved ejection fraction. 05/10/24 1014 Date Jesus Gillette MD CC: Dr. Brittany Iverson MD; AYLEEN Herring Date Dictated: 05/10/24 1011 Date Transcribed: 05/10/24 1011 Sign Carpenter: CO Signed Normal [facility] Absolute neutrophil countOrd ered By: Donna Matthews on 04-29-2024 Neutrophils (Bld) [#/Vol] 5.1 10*3/uL 2.0-7.7 [facility] Albumin to globulin ratioOrd ered By: Donna Matthews on 04-29-2024 Albumin/Globulin [Mass ratio] 0.8 {ratio} Low 0.9-2.4 [facility] Basophil percentageOrdered B y: Donna Matthews on 04-29-2024 Basophils/100 WBC (Bld) 0.4 % 0-1 [facility] Bilirubin, totalOrdered By: Donna Matthews on 04-29-2024 Bilirubin [Mass/Vol] 0.60 mg/dL 0.20-1.00 [facility] Comment on above: For patients on eltr ombopag therapy, use of Dimension Randall TBIL is not recommended. Blood urea nitrogen (BUN)/cr eatinine ratioOrdered By: Donna Matthews on 04-29-2024 Urea nitrogen/Creatinine [Mass ratio] 15.4 mg/mg 10-20 [facility] CBC W/Diff, Automatedon Absolute Lymph 1.35 X10 3/uL Normal 0.83-4.51 [facility] Comment on above: Performed By: #### L 100.0100, L500.4100, L500.4050, L501.9520, L501.5200 #### [facility] [address] [place], [address] Absolute Neut 5.1 X10 3/uL Normal 2.0-7.7 [facility] Comment on above: Performed By: #### L 100.0100, L500.4100, L500.4050, L501.9520, L501.5200 #### [facility] [address] [place], [address] Basophils/100 WBC (Bld) 0.4 % Normal 0-1 [facility] Comment on above: Performed By: #### L 100.0100, L500.4100, L500.4050, L501.9520, L501.5200 #### [facility] [address] [place], [address] Eosinophils/100 WBC (Bld) 2.2 % Normal 0-5 [facility] Comment on above: Performed By: #### L 100.0100, L500.4100, L500.4050, L501.9520, L501.5200 #### [facility] [address] [place], [address] Erythrocyte distribution width (RBC) [Ratio] 13.2 % Normal 11.6-14.6 [facility] Comment on above: Performed By: #### L 100.0100, L500.4100, L500.4050, L501.9520, L501.5200 #### [facility] [address] [place], [address] Hematocrit (Bld) [Volume fraction] 39.6 % Normal 37-47 [facility] Comment on above: Performed By: #### L 100.0100, L500.4100, L500.4050, L501.9520, L501.5200 #### [facility] [address] [place], [address] Hemoglobin (Bld) [Mass/Vol] 12.6 g/dL Normal 12.0-15.0 [facility] Comment on above: Performed By: #### L 100.0100, L500.4100, L500.4050, L501.9520, L501.5200 #### [facility] [address] [place], [address] IG% 0.400 Normal 0.0-0.9 [facility] Comment on above: Result Comment: IG% - Immature Granulocytes (promyelocytes, myelocytes and metamyelocytes) > 1% indicates that a LEFT SHIFT is Present. Performed By: #### L 100.0100, L500.4100, L500.4050, L501.9520, L501.5200 #### [facility] [address] [place], [address] Lymphocytes/100 WBC (Bld) 18.4 % Low 19-41 [facility] Comment on above: Performed By: #### L 100.0100, L500.4100, L500.4050, L501.9520, L501.5200 #### [facility] [address] [place], [address] MCH (RBC) [Entitic mass] 28.6 pg Normal 27.0-32.0 [facility] Comment on above: Performed By: #### L 100.0100, L500.4100, L500.4050, L501.9520, L501.5200 #### [facility] [address] [place], [address] MCHC (RBC) [Mass/Vol] 31.8 g/dL Low 32-36 [facility] Comment on above: Performed By: #### L 100.0100, L500.4100, L500.4050, L501.9520, L501.5200 #### [facility] [address] [place], [address] MCV (RBC) [Entitic vol] 90.0 fL Normal 81-99 [facility] Comment on above: Performed By: #### L 100.0100, L500.4100, L500.4050, L501.9520, L501.5200 #### [facility] [address] [place], [address] Monocytes/100 WBC (Bld) 9.4 % Normal 0-10 [facility] Comment on above: Performed By: #### L 100.0100, L500.4100, L500.4050, L501.9520, L501.5200 #### [facility] [address] [place], [address] Neutrophils/100 WBC (Bld) 69.2 % Normal 47-70 [facility] Comment on above: Performed By: #### L 100.0100, L500.4100, L500.4050, L501.9520, L501.5200 #### [facility] [address] [place], [address] Nucleated RBC (Bld) [#/Vol] 0 10*3/uL Normal 0-5 [facility] Comment on above: Performed By: #### L 100.0100, L500.4100, L500.4050, L501.9520, L501.5200 #### [facility] [address] [place], [address] Platelet mean volume (Bld) [Entitic vol] 9.1 fL Normal 6.2-12.0 [facility] Comment on above: Performed By: #### L 100.0100, L500.4100, L500.4050, L501.9520, L501.5200 #### [facility] [address] [place], [address] Platelets (Bld) [#/Vol] 390 10*3/uL Normal 150-450 [facility] Comment on above: Performed By: #### L 100.0100, L500.4100, L500.4050, L501.9520, L501.5200 #### [facility] [address] [place], [address] RBC (Bld) [#/Vol] 4.40 10*6/uL Normal 4.2-5.[address] [facility] Comment on above: Performed By: #### L 100.0100, L500.4100, L500.4050, L501.9520, L501.5200 #### [facility] [address] [place], [address] RDW SD 43.7 fl Normal 35.1-43.9 [facility] Comment on above: Performed By: #### L 100.0100, L500.4100, L500.4050, L501.9520, L501.5200 #### [facility] [address] [place], [address] WBC (Bld) [#/Vol] 7.3 10*3/uL Normal 4.4-11.0 [facility] Comment on above: Performed By: #### L 100.0100, L500.4100, L500.4050, L501.9520, L501.5200 #### [facility] [address] [place], [address] Carbon dioxide measurementOr dered By: Donna Matthews on 04-29-2024 CO2 [Moles/Vol] 28.0 mmol/L 21.0-32.0 [facility] Cardiology Visit Reporton Cardiology Visit Report [facility] [address] [place] [address] OFFICE VISIT Date of Service: 04/29/24 MR#: [id number] Acct: [id number] Name: NALLELY MOYA Rep #: [id number] : 1955 Provider: AYLEEN Nash Age/Sex: 68/F Location: [facility] Status: Signed HPI HPI History of Present Illness Details: Nallely Moya is a 68-year-old female that presents here today for a cardiovascular follow-up. She has a history of coronary atherosclerosis, hypertension, diastolic dysfunction. She also does have some peripheral vascular disease especially in the carotid artery. She had previously been told that she had an aneurysm but her recent CT abdomen and pelvis with intravenous contrast demonstrated atherosclerotic calcification of the abdominal aorta but with no dilatation. Echocardiogram in 06/2019 demonstrated an ejection fraction of 65% with right ventricular systolic pressure of 51 mmHg. She did undergo a stress test in 04/2022 exercising to 7 metabolic equivalents without any evidence of ischemia. She did undergo ballooning of her left iliac with Dr. Causey. She is concerned about her increase in fatigue. She finds that she is more fatigued and SOB that she should be. She does not have any chest pain/heaviness. She does have SOB with exertion. She feels that this is similar to previous. She does not sleep well. She does sometimes have lightheadedness. She has not passed out. She does not have any edema. She has gained some weight. She is concerned about her AAA and her carotids. She is scheduled for a carotid duplex later today. Intake Vital Signs 12/09/23 08:00 04/29/24 08:36 Height 5 ft 1 in 5 ft 1 in Weight: 170 lb BMI 32.1 BP 129/80 H Blood Pressure Location Lt brachial Position Sitting Respiration 18 Pulse 69 Pulse Source Monitor Pulse Oximetry (%) 96 Intake Visit Reasons: 6 M FU Personal Caregiver Required: No Is patient in pain?: No Allergies No Known Allergies Allergy (Verified 04/29/24 08:37) Medications ???Medication ???Instructions ???Recorded ???Confirmed ???Type levothyroxine 50 mcg tablet 50 mcg PO DAILY thyroid 07/15/19 04/29/24 History cyanocobalamin (vitamin B-12) 1,000 mcg PO DAILY 12/22/19 04/29/24 History 1,000 mcg capsule furosemide 40 mg tablet 40 mg PO DAILY 12/22/19 04/29/24 History vitamin E (dl, acetate) 450 mg 450 mg PO DAILY 12/22/19 04/29/24 History (1,000 unit) capsule metoprolol succinate 50 mg 50 mg PO DAILY #90 tabs 12/26/20 04/29/24 Rx tablet,extended release 24 hr (Toprol XL) biotin 10,000 mcg capsule mcg PO 01/04/21 04/29/24 History cholecalciferol (vitamin D3) 125 125 mcg PO DAILY 01/04/21 04/29/24 History mcg (5,000 unit) capsule potassium chloride 20 mEq tablet PO 01/04/21 04/29/24 History tablet,extended release(part/cryst) lisinopril 20 mg tablet 20 mg PO DAILY bp #90 tabs 04/17/21 04/29/24 Rx clopidogrel 75 mg tablet (Plavix) 75 mg PO DAILY 03/04/22 04/29/24 History ascorbate calcium (vitamin C) 500 500 mg PO DAILY 04/30/23 04/29/24 History mg tablet lamotrigine 200 mg tablet 100 mg PO DAILY seizures 07/11/23 04/29/24 History vitamin K2 (MK-4) 100 mcg tablet 50 mcg PO DAILY 08/04/23 04/29/24 History atorvastatin 20 mg tablet 20 mg PO DAILY #90 tabs 12/09/23 04/29/24 Rx baclofen 10 mg tablet 10 mg PO TID PRN musculoskeletal 12/09/23 04/29/24 Rx pain/muscle spasm #270 tabs flurbiprofen 100 mg tablet 100 mg PO TID PRN Musculoskeletal 12/09/23 04/29/24 Rx pain #270 tabs Have you fallen in the past year?: No PFSH Medical History Moderate pulmonary hypertension Peripheral vascular occlusive disease Stenosis of right carotid artery Aneurysm of right iliac artery Aneurysm of infrarenal abdominal aorta DDD (degenerative disc disease), lumbosacral Secondary pulmonary arterial hypertension Chronic diastolic (congestive) heart failure Alcohol abuse COPD (chronic obstructive pulmonary disease) Hyponatremia Diastolic dysfunction Essential (primary) hypertension Hyperlipidemia Insomnia Nicotine dependence Bipolar disorder Hypothyroidism Anxiety and depression Elevated LFTs Arthritis Pulmonary nodule Surgical History Hip joint replacement status History of angioplasty of peripheral vessel (08/14/21) History of hysterectomy History of cataract surgery Family History Mother CAD (coronary artery disease) CABG x 3 post op age 63 Brother CAD (coronary artery disease) CABG x 3 age 65 Social History Smoking Status: Current every day smo (more content not included)... Normal [facility] Carotid Duplex Ultrasoundon 04-29-2024 Carotid Duplex Ultrasound [facility] Cardi[facility] Services [address] [address] Carotid Duplex Ultrasound 04/29/24 1409 MR#: [id number] Acct: [id number] Name: NALLELY MOYA Rep #: [id number] : 1955 68 From: Сергей Chavez MD Attending Dr: Dr. Louie Logan MD Status: R MICHAEL CLI Ordering Dr: Louie Logan MD Date: 04/29/24 Location: CVS Sex: F C Admitted: Reason For Study: Stenosis Rt. Velocities/BP Lt. Velocities/BP Prox CCA 67.9/11.4 cm/sec. Prox CCA 72.1/8.4 cm/sec. Mid CCA 81.5/17.5 cm/sec. Mid CCA 72.1/16.0 cm/sec. Dist CCA 83.3/19.4 cm/sec. Dist CCA 94.1/19.2 cm/sec. Prox ICA 168.2/45.2 cm/sec. Prox ICA 60.0/13.8 cm/sec. Mid ICA 45.0/14.5 cm/sec. Mid ICA 60.6/16.3 cm/sec. Dist ICA 48.9/15.4 cm/sec. Dist ICA 82.5/23.1 cm/sec. Rt. ICA/CCA = 2.1. Lt. ICA/CCA = 1.1. Prox ECA 77.8/8.4 cm/sec. Prox ECA 175.2/6.7 cm/sec. Rt. Vert. 40.2/9.1 cm/sec. Lt. Vert. 25.8/6.1 cm/sec. Right Extracranial There is heterogeneous, irregular atherosclerotic plaque noted in the right common carotid artery. There is heterogeneous, irregular atherosclerotic plaque noted in the right internal carotid artery. There is intimal thickening but no significant atherosclerotic plaque noted in the right external carotid artery. Antegrade flow is noted in the right vertebral artery. Left Extracranial There is heterogeneous, smooth atherosclerotic plaque noted in the left common carotid artery. There is heterogeneous, irregular atherosclerotic plaque noted in the left internal carotid artery. There is homogeneous, smooth atherosclerotic plaque noted in the left external carotid artery. Antegrade flow is noted in the left vertebral artery. Procedure Carotid Duplex 80103. This is a Carotid Duplex examination using B-mode, color flow and specral Doppler. Exam performed in department. VL/Carotid Duplex Ultrasound Interpretation Summary Moderate (50-69%) stenosis right extracranial internal carotid. Mild (<50%) stenosis left extracranial internal carotid. Patent and antegrade vertebrals bilaterally. __ Ordering Physician: Louie Logan Referring Physician: Brittany Iverson MD Performed By: Shala Delgado RVT and Student 01/021849 Сергей Chavez MD CC: Dr. Brittany Iverson MD; Dr. Louie Logan MD Date Dictated: 04/29/241408 Date Transcribed: 04/29/241849 Sign Carpenter: Signed Normal [facility] Chloride measurementOrdered By: Donna Matthews on 04-29-2024 Chloride [Moles/Vol] 100 mmol/L 98-107 [facility] Comprehensive Metabolic Prof ilon 04-29-2024 Albumin [Mass/Vol] 3.5 g/dL Normal 3.2-5.0 [facility] Comment on above: Performed By: #### L 100.0100, L500.4100, L500.4050, L501.9520, L501.5200 #### [facility] [address] [place], [address] Albumin/Globulin [Mass ratio] 0.8 {ratio} Low 0.9-2.4 [facility] Comment on above: Performed By: #### L 100.0100, L500.4100, L500.4050, L501.9520, L501.5200 #### [facility] [address] [place], [address] ALK P 127 U/L High 45-117 [facility] Comment on above: Performed By: #### L 100.0100, L500.4100, L500.4050, L501.9520, L501.5200 #### [facility] [address] [place], [address] ALT [Catalytic activity/Vol] 21 U/L Normal 13-56 [facility] Comment on above: Performed By: #### L 100.0100, L500.4100, L500.4050, L501.9520, L501.5200 #### [facility] [address] [place], [address] AST [Catalytic activity/Vol] 18 U/L Normal 15-37 [facility] Comment on above: Performed By: #### L 100.0100, L500.4100, L500.4050, L501.9520, L501.5200 #### [facility] [address] [place], [address] Bilirubin [Mass/Vol] 0.60 mg/dL Normal 0.20-1.00 [facility] Comment on above: Result Comment: For patients on eltrombopag therapy, use of Dimension Randall TBIL is not recommended. Performed By: #### L 100.0100, L500.4100, L500.4050, L501.9520, L501.5200 #### [facility] [address] [place], [address] BUN/CRE 15.4 RATIO Normal 10-20 [facility] Comment on above: Performed By: #### L 100.0100, L500.4100, L500.4050, L501.9520, L501.5200 #### [facility] [address] [place], [address] CA,Total 9.3 mg/dL Normal 8.5-10.1 [facility] Comment on above: Performed By: #### L 100.0100, L500.4100, L500.4050, L501.9520, L501.5200 #### [facility] [address] [place], [address] Chloride [Moles/Vol] 100 mmol/L Normal 98-107 [facility] Comment on above: Performed By: #### L 100.0100, L500.4100, L500.4050, L501.9520, L501.5200 #### [facility] [address] [place], [address] CO2 [Moles/Vol] 28.0 mmol/L Normal 21.0-32.0 [facility] Comment on above: Performed By: #### L 100.0100, L500.4100, L500.4050, L501.9520, L501.5200 #### [facility] [address] [place], [address] Creatinine [Mass/Vol] 0.91 mg/dL Normal 0.55-1.02 [facility] Comment on above: Result Comment: The validity of the calculated GFR GFRAA in patients over 70 years has not been determined. Clinical correlation is essential. Performed By: #### L 100.0100, L500.4100, L500.4050, L501.9520, L501.5200 #### [facility] [address] [place], [address] EST GFR - AA 79 mL/min Normal >60 [facility] Comment on above: Result Comment: Afri can Vincentian GFR Calc Performed By: #### L 100.0100, L500.4100, L500.4050, L501.9520, L501.5200 #### [facility] [address] [place], [address] GAP 7 Normal 5-15 [facility] Comment on above: Performed By: #### L 100.0100, L500.4100, L500.4050, L501.9520, L501.5200 #### [facility] [address] [place], [address] GFR/1.73 sq M.predicted among non-blacks MDRD (S/P/Bld) [Vol rate/Area] 65 mL/min/{1.73_m2} Normal >60 [facility] Comment on above: Result Comment: Non- GFR Calc Performed By: #### L 100.0100, L500.4100, L500.4050, L501.9520, L501.5200 #### [facility] Laboratory [address] [place], [address] Globulin (S) [Mass/Vol] 4.4 g/dL High 2.2-4.2 [facility] Comment on above: Performed By: #### L 100.0100, L500.4100, L500.4050, L501.9520, L501.5200 #### [facility] [address] [place], [address] Glucose [Mass/Vol] 115 mg/dL High 74-106 [facility] Comment on above: Result Comment: Fast ing Glucose result from 100 to 125 mg/dL suggests IMPAIRED HOMEOSTASIS per A.D.A. criteria. Performed By: #### L 100.0100, L500.4100, L500.4050, L501.9520, L501.5200 #### [facility] [address] [place], [address] Potassium [Moles/Vol] 3.8 mmol/L Normal 3.5-5.1 [facility] Comment on above: Performed By: #### L 100.0100, L500.4100, L500.4050, L501.9520, L501.5200 #### [facility] [address] [place], [address] Sodium [Moles/Vol] 135 mmol/L Low 136-145 [facility] Comment on above: Performed By: #### L 100.0100, L500.4100, L500.4050, L501.9520, L501.5200 #### [facility] [address] [place], [address] T PROT 7.9 g/dL Normal 6.4-8.2 [facility] Comment on above: Performed By: #### L 100.0100, L500.4100, L500.4050, L501.9520, L501.5200 #### [facility] [address] [place], [address] Urea nitrogen [Mass/Vol] 14 mg/dL Normal 7-18 [facility] Comment on above: Performed By: #### L 100.0100, L500.4100, L500.4050, L501.9520, L501.5200 #### [facility] [address] [place], [address] Eosinophil percentageOrdered By: Donna Matthews on 04-29-2024 Eosinophils/100 WBC (Bld) 2.2 % 0-5 [facility] Erythrocyte distribution wid th ratioOrdered By: Donna Matthews on 04-29-2024 Erythrocyte distribution width (RBC) [Ratio] 13.2 % 11.6-14.6 [facility] Erythrocyte distribution wid th standard deviationOrdered By: Donna Matthews on 04-29-2024 Erythrocyte distribution width (RBC) [Entitic vol] 43.7 fL 35.1-43.9 [facility] Estimated glomerular filtrat ion rate (GFR) AmericanOrdered By: Donna Matthews on 04-29-2024 Estimated GFR (MDRD) Amer 79 mL/min >60 [facility] Comment on above: GFR Calc Glomerular filtration rate ( GFR) estimationOrdered By: Donna Matthews on 04-29-2024 Estimated GFR (MDRD) Non-Af Amer 65 mL/min >60 [facility] Comment on above: Non- GFR Calc Glucose measurementOrdered B y: Donna Matthews on 04-29-2024 Glucose [Mass/Vol] 115 mg/dL High 74-106 [facility] Comment on above: Fasting Glucose resu lt from 100 to 125 mg/dL suggests IMPAIRED HOMEOSTASIS per A.D.A. criteria. Hematocrit Auto (Bld) [Volum e fraction]Ordered By: Donna Matthews on 04-29-2024 Hematocrit (Bld) [Volume fraction] 39.6 % 37-47 [facility] Hemoglobin measurementOrdere d By: Donna Matthews on 04-29-2024 Hemoglobin (Bld) [Mass/Vol] 12.6 g/dL 12.0-15.0 [facility] High density lipoprotein (HD L) measurementOrdered By: Donna Matthews on 04-29-2024 Cholesterol in HDL [Mass/Vol] 53 mg/dL >40 [facility] Comment on above: The drugs N-Acetylcy steine and Metamizole may falsely depress this assay. Reference Range HDL <40 mg/dL Low HDL Cholesterol HDL >or= 60 mg/dL High HDL Cholesterol Immature granulocytes/100 WB C Auto (Bld)Ordered By: Donna Matthews on 04-29-2024 Immature granulocytes/100 WBC (Bld) 0.400 % 0.0-0.9 [facility] Comment on above: IG% - Immature Granu locytes (promyelocytes, myelocytes and metamyelocytes) > 1% indicates that a LEFT SHIFT is Present. Laboratory - Chemistry and C hemistry - challengeOrdered By: Donna Matthews on 04-29-2024 AST [Catalytic activity/Vol] 18 U/L 15-37 [facility] Lipid Profileon 04-29-2024 Cholesterol [Mass/Vol] 157 mg/dL Normal 200 [facility] Comment on above: Result Comment: <200 mg/dL Desirable 200-240 mg/dL Borderline >240 mg/dL High Risk Performed By: #### L 100.0100, L500.4100, L500.4050, L501.9520, L501.5200 #### [facility] [address], [address] Cholesterol in HDL [Mass/Vol] 53 mg/dL Normal [facility] Comment on above: Result Comment: The drugs N-Acetylcysteine and Metamizole may falsely depress this assay. Reference Range HDL <40 mg/dL Low HDL Cholesterol HDL >or= 60 mg/dL High HDL Cholesterol Performed By: #### L 100.0100, L500.4100, L500.4050, L501.9520, L501.5200 #### [facility] [address] [place], [address] Cholesterol in LDL [Mass/Vol] 77 mg/dL Normal 0-130 [facility] Comment on above: Performed By: #### L 100.0100, L500.4100, L500.4050, L501.9520, L501.5200 #### [facility] [address] [place], [address] Cholesterol in VLDL [Mass/Vol] 27 mg/dL Normal 5-40 [facility] Comment on above: Performed By: #### L 100.0100, L500.4100, L500.4050, L501.9520, L501.5200 #### [facility] [address] [place], [address] Triglyceride [Mass/Vol] 133 mg/dL Normal [facility] Comment on above: Result Comment: The drugs N-Acetylcysteine and Metamizole may falsely depress this assay. Serum Triglycerides Reference Interval Normal <150 mg/dL Borderline high 150 - 199 mg/dL High 200 - 499 mg/dL Very High > or = 500 mg/dL Performed By: #### L 100.0100, L500.4100, L500.4050, L501.9520, L501.5200 #### [facility] [address] [place], [address] Low density lipoprotein (LDL ) cholesterol measurementOrdered By: Donna Matthews on 04-29-2024 Cholesterol in LDL [Mass/Vol] 77 mg/dL 0-130 [facility] Lymphocytes Auto (Unsp spec) [#/Vol]Ordered By: Donna Matthews on 04-29-2024 Lymphocytes (Bld) [#/Vol] 1.35 10*3/uL 0.83-4.51 [facility] Lymphocytes/100 WBC Auto (Un sp spec)Ordered By: Donna Matthews on 04-29-2024 Lymphocytes/100 WBC (Bld) 18.4 % Low 19-41 [facility] MCV (mean corpuscular volume ) determinationOrdered By: Donna Matthews on 04-29-2024 MCV (RBC) [Entitic vol] 90.0 fL 81-99 [facility] Magnesiumon 04-29-2024 Magnesium [Mass/Vol] 2.3 mg/dL Normal 1.6-2.6 [facility] Comment on above: Performed By: #### L 100.0100, L500.4100, L500.4050, L501.9520, L501.5200 #### [facility] [address] [place], [address] Magnesium measurementOrdered By: Donna Matthews on 04-29-2024 Magnesium [Mass/Vol] 2.3 mg/dL 1.6-2.6 [facility] Mean corpuscular hemoglobin (MCH) determinationOrdered By: Donna Matthews on 04-29-2024 MCH (RBC) [Entitic mass] 28.6 pg 27.0-32.0 [facility] Mean corpuscular hemoglobin concentration (MCHC) determinationOrdered By: Donna Matthews on 04-29-2024 MCHC (RBC) [Mass/Vol] 31.8 g/dL Low 32-36 [facility] Mean platelet volume determi nationOrdered By: Donna Matthews on 04-29-2024 Platelet mean volume (Bld) [Entitic vol] 9.1 fL 6.2-12.0 [facility] Monocyte percentageOrdered B y: Donna Matthews on 04-29-2024 Monocytes/100 WBC (Bld) 9.4 % 0-10 [facility] Neutrophil percentageOrdered By: Donna Matthews on 04-29-2024 Neutrophils/100 WBC (Bld) 69.2 % 47-70 [facility] Nucleated red blood cell per centageOrdered By: Donna Matthews on 04-29-2024 Nucleated RBC/100 WBC (Bld) [Ratio] 0 % 0-5 [facility] Platelet countOrdered By: Xi Matthews on 04-29-2024 Platelets (Bld) [#/Vol] 390 10*3/uL 150-450 [facility] Potassium measurementOrdered By: Donna Matthews on 04-29-2024 Potassium [Moles/Vol] 3.8 mmol/L 3.5-5.1 [facility] RBC Auto (Bld) [#/Vol]Ordere d By: Donna Matthews on 04-29-2024 RBC (Bld) [#/Vol] 4.40 10*6/uL 4.2-5.[address] [facility] Serum anion gap measurementO rdered By: Donna Matthews on 04-29-2024 Anion gap [Moles/Vol] 7 mmol/L 5-15 [facility] Serum globulin measurementOr dered By: Donna Matthews on 04-29-2024 Globulin (S) [Mass/Vol] 4.4 g/dL High 2.2-4.2 [facility] Serum or plasma alanine madrigal otransferase (ALT) measurementOrdered By: Donna Matthews on 04-29-2024 ALT [Catalytic activity/Vol] 21 U/L 13-56 [facility] Serum or plasma albumin lisa urement (mass/volume)Ordered By: Donna Matthews on 04-29-2024 Albumin [Mass/Vol] 3.5 g/dL 3.2-5.0 [facility] Serum or plasma alkaline aide sphatase measurementOrdered By: Donna Matthews on 04-29-2024 ALP [Catalytic activity/Vol] 127 U/L High 45-117 [facility] Serum or plasma calcium lisa urement (mass/volume)Ordered By: Donna Matthews on 04-29-2024 Calcium [Mass/Vol] 9.3 mg/dL 8.5-10.1 [facility] Serum or plasma cholesterol measurement (mass/volume)Ordered By: Donna Matthews on 04-29-2024 Cholesterol [Mass/Vol] 157 mg/dL <200 [facility] Comment on above: <200 mg/dL Desirable 200-240 mg/dL Borderline >240 mg/dL High Risk Serum or plasma creatinine m easurement (mass/volume)Ordered By: Donna Matthews on 04-29-2024 Creatinine [Mass/Vol] 0.91 mg/dL 0.55-1.02 [facility] Comment on above: The validity of the calculated GFR & GFRAA in patients over 70 years has not been determined. Clinical correlation is essential. Serum or plasma urea nitroge n measurement (mass/volume)Ordered By: Donna Matthews on 04-29-2024 Urea nitrogen [Mass/Vol] 14 mg/dL 7-18 [facility] Sodium levelOrdered By: Andrae Matthews on 04-29-2024 Sodium [Moles/Vol] 135 mmol/L Low 136-145 [facility] TSH QnOrdered By: Donna Richards on 04-29-2024 Thyroid Stimulating Hormone (TSH) 2.740 uIU/mL 0.358-3.740 [facility] Thyroid Stim Hormone (TSH)on 04-29-2024 TSH 2.740 uIU/mL Normal 0.358-3.740 [facility] Comment on above: Performed By: #### L 100.0100, L500.4100, L500.4050, L501.9520, L501.5200 ####[facility] [id number] [place], [address] Total proteinOrdered By: Javed Matthews on 04-29-2024 Protein [Mass/Vol] 7.9 g/dL 6.4-8.2 [facility] Triglycerides measurementOrd ered By: Donna Matthews on 04-29-2024 Triglyceride [Mass/Vol] 133 mg/dL <199 [facility] Comment on above: The drugs N-Acetylcy steine and Metamizole may falsely depress this assay.Serum Triglycerides Reference Interval Normal <150 mg/dL Borderline high 150 - 199 mg/dL High 200 - 499 mg/dL Very High > or = 500 mg/dL Very low density lipoprotein (VLDL) cholesterol measurementOrdered By: Donna Matthews on 04-29-2024 VLDL Cholesterol 27 mg/dL 5-40 [facility] White blood cell (WBC) count Ordered By: Donna Matthews on 04-29-2024 WBC (Bld) [#/Vol] 7.3 10*3/uL 4.4-11.0 [facility] SCRN MAMM (CAD)W/TAMMIE BILATo n 04-08-2024 SCRN MAMM (CAD)W/TAMMIE BILAT [facility] Imaging Services [address] [place] [address] SCRN MAMM (CAD)W/TAMMIE BILAT MR#: [id number] Acct: [id number] Name: NALLELY MOYA Rep #: [id number] : 1955 F 68 From: Jose wyatt MD PCP: Dr. Brittany Iverson MD Status: [facility] Study: SCRN MAMM (CAD)W/TAMMIE BILAT Date of Exam: 03/28 06/21 Exam# [id number] Ordering Dr: Brittany Iverson MD -[id number] MAMMOGRAPHY - BILATERAL SCREENING REASON FOR EXAM: Female, 68 years old. Routine annual screening examination. PERTINENT HISTORY: Daughter with breast cancer. TECHNIQUE: Digital bilateral breast tammie (3D mammographic acquisition) in the CC and MLO projections. 2-D mediolateral oblique (MLO) and craniocaudad (CC) views of both breasts were obtained. CAD: Full Field Digital Mammography with Computer Added Detection was performed. COMPARISON: Comparison is made with prior study dated May 21, 2022 and November 13, 2020. FINDINGS: Breast Composition: There are scattered areas of fibroglandular density. There are no dominant masses or suspicious calcifications. Stable small benign-appearing bilateral axillary lymph nodes. No other significant abnormalities are identified. There has been no significant change since the prior study. BI/SCRN MAMM (CAD)W/TAMMIE BILAT IMPRESSION: Stable bilateral screening mammogram. Yearly follow-up mammogram recommended. (A) ASSESSMENT CATEGORY: BIRADS Category 2: Benign. A letter regarding these results will be sent to the patient by the facility within 30 days. Approximately 10% of breast cancers are not detected by mammography. A normal mammogram should not delay biopsy of a clinically suspicious abnormality. [id number] Electronically Signed: Jose Segura MD at 8:29 EST , CC: Dr. Brittany Iverson MD Sign Carpenter: Signed [facility] 02-19-2024 CNPN Telephone (CARDBD) ---- NITANALLELY ([id number]) 1955 F Date Time Provider Department 02/19/24 BAM LORA CARDBD During your visit today, we recorded the following information about you: Joyce Freeman RN 02/19/2024 10:17 AM Signed Opened in error. Joyce Freeman RN Allergies As of Date: 02/19/2024 Noted Allergy Reaction BEES 03/02/2010 7 - Swelling Date Reviewed: 03/02/2021 Reviewed by: Lidya Courtney MA - Fully Assessed Prescriptions as of 02/19/2024 - levothyroxine (SYNTHROID) 50 mcg tablet Take 50 mcg by mouth once daily. - metoprolol succinate ER (TOPROL XL) 50 mg 24 hr tablet Take 50 mg by mouth once daily. - vitamin E, dl,tocopheryl acet, (VITAMIN E, DL, ACETATE,) 450 mg (1,000 unit) cap Take by mouth. - cyanocobalamin, vitamin B-12, (VITAMIN B-12 ORAL) Take 8,000 mg by mouth. - furosemide (LASIX) 40 mg tablet Take 40 mg by mouth twice daily. - potassium chloride (KLOR-CON M20 ORAL) Take by mouth. - lisinopril (ZESTRIL, PRINIVIL) 40 mg tablet TAKE 1 TABLET EVERY DAY - amLODIPine (NORVASC) 10 mg tablet TAKE 1 TABLET EVERY DAY - morphine immediate release 30 mg tablet Take 15 mg by mouth q 12 HR. - tiZANidine HCl 4 mg capsule Take 4 mg by mouth twice daily. - amitriptyline 10 mg ORAL tablet Take one(1) tablet at bedtime as needed. - clonazePAM (KLONOPIN) 0.5 mg ORAL tablet Take one(1) tablet twice daily as needed. - lamotrigine 200 mg ORAL tablet Take one(1) tablet daily. - buPROPion 75 mg ORAL tablet Take one(1) tablet two(2) times daily. - risperidone (RISPERDAL) 1 mg ORAL tablet Take one(1) tablet two(2) times daily. Problem List As Of Date 02/19/2024 Noted Resolved Routine gynecological examination [Z01.419] 02/21/2010 Class: Chronic Essential hypertension, benign [I10] 02/21/2010 Depressive disorder, not elsewhere classified [*02/21/2010 Mixed hyperlipidemia [E78.2] 02/21/2010 Intrinsic asthma, unspecified [J45.909] 02/21/2010 LBP (low back pain) [M54.50] 02/21/2010 Elevated LFTs [R79.89] 05/03/2010 Fatty liver [K76.0] 05/10/2010 Tobacco use disorder [F17.200] 01/28/2011 Unilateral primary osteoarthritis, right hip [M*12/26/2023 Encounter Status:Closed by JOYCE FREEMAN on 02/19/24 [facility] CNTHERAPYon 01-12-2024 CNTHERAPY OT/PT/Speech Visit (PTWS) ---- NALLELY MOYA ([id number]) 1955 F Date Time Provider Department 01/12/24 9:30 AM LISA FRAGA Date Time Provider Department [place] 01/12/2024 9:30 AM [id number] FRAGA PTWANDA Conklin Reason for Visit: Physical Therapy [503] Primary Visit Diagnosis:Jt lee primary osteoarthritis, right hip [M16.11] Allergies As of Date: 01/12/2024 Noted Allergy Reaction BEES 03/02/2010 7 - Swelling Date Reviewed: 03/02/2021 Reviewed by: Lidya Courtney MA - Fully Assessed Prescriptions as of 01/12/2024 - levothyroxine (SYNTHROID) 50 mcg tablet Take 50 mcg by mouth once daily. - metoprolol succinate ER (TOPROL XL) 50 mg 24 hr tablet Take 50 mg by mouth once daily. - vitamin E, dl,tocopheryl acet, (VITAMIN E, DL, ACETATE,) 450 mg (1,000 unit) cap Take by mouth. - cyanocobalamin, vitamin B-12, (VITAMIN B-12 ORAL) Take 8,000 mg by mouth. - furosemide (LASIX) 40 mg tablet Take 40 mg by mouth twice daily. - potassium chloride (KLOR-CON M20 ORAL) Take by mouth. - lisinopril (ZESTRIL, PRINIVIL) 40 mg tablet TAKE 1 TABLET EVERY DAY - amLODIPine (NORVASC) 10 mg tablet TAKE 1 TABLET EVERY DAY - morphine immediate release 30 mg tablet Take 15 mg by mouth q 12 HR. - tiZANidine HCl 4 mg capsule Take 4 mg by mouth twice daily. - amitriptyline 10 mg ORAL tablet Take one(1) tablet at bedtime as needed. - clonazePAM (KLONOPIN) 0.5 mg ORAL tablet Take one(1) tablet twice daily as needed. - lamotrigine 200 mg ORAL tablet Take one(1) tablet daily. - buPROPion 75 mg ORAL tablet Take one(1) tablet two(2) times daily. - risperidone (RISPERDAL) 1 mg ORAL tablet Take one(1) tablet two(2) times daily. Normal [facility] CNTHERAPYon 01-07-2024 CNTHERAPY OT/PT/Speech Visit (PTWS) ---- NALLELY MOYA ([id number]) 1955 F Date Time Provider Department 01/07/24 9:45 AM LISA FRAGA PTWS Date Time Provider Department Center 01/07/2024 9:45 AM [id number] FRAGA PTWS Alyssa Conklin Reason for Visit: Physical Therapy [503] Primary Visit Diagnosis:Unilatera l primary osteoarthritis, right hip [M16.11] Allergies As of Date: 01/07/2024 Noted Allergy Reaction BEES 03/02/2010 7 - Swelling Date Reviewed: 03/02/2021 Reviewed by: Lidya Courtney MA - Fully Assessed Prescriptions as of 01/07/2024 - levothyroxine (SYNTHROID) 50 mcg tablet Take 50 mcg by mouth once daily. - metoprolol succinate ER (TOPROL XL) 50 mg 24 hr tablet Take 50 mg by mouth once daily. - vitamin E, dl,tocopheryl acet, (VITAMIN E, DL, ACETATE,) 450 mg (1,000 unit) cap Take by mouth. - cyanocobalamin, vitamin B-12, (VITAMIN B-12 ORAL) Take 8,000 mg by mouth. - furosemide (LASIX) 40 mg tablet Take 40 mg by mouth twice daily. - potassium chloride (KLOR-CON M20 ORAL) Take by mouth. - lisinopril (ZESTRIL, PRINIVIL) 40 mg tablet TAKE 1 TABLET EVERY DAY - amLODIPine (NORVASC) 10 mg tablet TAKE 1 TABLET EVERY DAY - morphine immediate release 30 mg tablet Take 15 mg by mouth q 12 HR. - tiZANidine HCl 4 mg capsule Take 4 mg by mouth twice daily. - amitriptyline 10 mg ORAL tablet Take one(1) tablet at bedtime as needed. - clonazePAM (KLONOPIN) 0.5 mg ORAL tablet Take one(1) tablet twice daily as needed. - lamotrigine 200 mg ORAL tablet Take one(1) tablet daily. - buPROPion 75 mg ORAL tablet Take one(1) tablet two(2) times daily. - risperidone (RISPERDAL) 1 mg ORAL tablet Take one(1) tablet two(2) times daily. Senior Front End Developer: Addendum Therapy (PT/OT/Speech/Resp) ID: [id number] 01/07/2024 10:21 AM Author: LISA FRAGA Signed by LISA FRAGA PT on 01/07/2024 at 10:21 AM * * * This document replaces document [id number] * * * Document text: Program_ID:[id number] Access Code: [email or web address] URL: [email or web address] Date: 01-07-2024 Prepared By: Lisa Fraga Program Notes Exercises - Sidelying Hip Abduction - 1 x daily - 7 x weekly - 4 sets - 10 reps - Prone Hip Extension - 1 x daily - 7 x weekly - 4 sets - 10 reps - Hooklying Small March - 1 x daily - 7 x weekly - 4 sets - reps - Supine Figure 4 Piriformis Stretch - 1 x daily - 7 x weekly - 1 sets - 3 reps - Active Straight Leg Raise with Quad Set - 1 x daily - 7 x weekly - 3 sets - 8 reps - Supine Transversus Abdominis Bracing with Heel Slide - 1 x daily - 7 x weekly - 4 sets - 10 reps Normal [facility] THERAPY NTon 01-07-2024 THERAPY NT HNO ID: [id number] Author: LISA FRAGA, PT Service: ? Author Type: Physical Therapist Type: Therapy (PT/OT/Speech/Resp) Filed: 01/07/2024 10:21 Note Text: Program_ID:[id number] Access Code: [email or web address] URL: [email or web address] Date: 01-07-2024 Prepared By: Lisa Fraga Program Notes Exercises - Sidelying Hip Abduction - 1 x daily - 7 x weekly - 4 sets - 10 reps - Prone Hip Extension - 1 x daily - 7 x weekly - 4 sets - 10 reps - Hooklying Small March - 1 x daily - 7 x weekly - 4 sets - reps - Supine Figure 4 Piriformis Stretch - 1 x daily - 7 x weekly - 1 sets - 3 reps - Active Straight Leg Raise with Quad Set - 1 x daily - 7 x weekly - 3 sets - 8 reps - Supine Transversus Abdominis Bracing with Heel Slide - 1 x daily - 7 x weekly - 4 sets - 10 reps Normal [facility] [id number] 12-26-2023 [id number] HNO ID: [id number] Author: LISA FRAGA PT Service: ? Author Type: Physical Therapist Type: [id number] Filed: 12/26/2023 13:54 Note Text: [facility] Physical Therapy Plan of Care Certification Patient Name: Nallely Moya : 1955 [facility] #: [id number] Date: 12/26/2023 To: Ajay Tillman,* From Therapist: Lisa Fraga PT RE: Patient Certification/ Recertification Your review, approval and electronic signature are required in order to comply with Payor: [employer] / Plan: [employer] HMO / Product Type: HMO / regulations. 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 She presents with impairments in ADL's, balance, flexibility, gait, independence in exercise, joint mobility, overall function, patient reported outcome measures, range of motion, strength, symptom management, and tissue tenderness. PROMIS? (Patient-Reported Outcomes Measurement Information System) scores were reviewed and identified as a rehabilitation concern. Prognosis for therapy is Good due to: acuteness of condition, good overall health status, current objective clinical presentation, good support system/ coping skills . She will benefitfrom skilled therapy services to meet the goals established for this planof care as noted below. Goals for Episode of Care: established 12/26/23 [place] in home exercise program. Patient will decrease pain to 1-2/10 with functional activities to allow patient to improve ambulation, transfers, and standing tolerance for ADLs. Patient will demonstrate increase in R hip ER, abd, and ext strength to 4/5 during manual muscle testing in order to improve function for moderate to heavy functional tasks and prior functional tasks. Perform ADLs with decreased report of symptoms/pain in 6 weeks. Perform lifting and carrying a #20-30 KB (to simulate dog food bag) without pain. Normal gait. Reciprocal stair negotiation. Patient Goals: indep with ADLs Time Frame for Goals and Treatment : 02/06/24 Planned Interventions, Frequency, and Duration: Current Frequency: 2x/week Duration: 6 weeks Total Number of Visits Planned: 12 Planned Treatment Interventions: Gait Training (60996), Self-snf management (58521), Therapeutic activities (66478), Therapeutic exercise (82997), Neuromuscular re-education (81454), Manual therapy (57077) PLAN FOR NEXT VISIT: functional strengthening: step ups, squats, balance training on unable surface and SLS. Patient demonstrates good understanding of plan of care and treatment. The above goals and plan of care were discussed and agreed upon by patient/family. For further details regarding this patient refer to the Physical Therapy electronically documented visit dated 12/26/2023. Provider Attestation I have reviewed the treatment plan for Nallely Moya, PSYCHIATRIC# [id number] for the period of 12/26/23 -- 02/06/24, established on 12/26/2023. Signature certifies the need for therapy services. Normal [facility] CNTHERAPYon 12-26-2023 CNTHERAPY OT/PT/Speech Visit (PTWS) ---- NALLELY MOYA ([id number]) 1955 F Date Time Provider Department 12/26/23 1:15 PM LISA FRAGA PTWS Date Time Provider Department Center 12/26/2023 1:15 PM [id number] FRAGA PTWS Alyssa Conklin Reason for Visit: PT [place]is[place] [747] Primary Visit Diagnosis:Unilatera l primary osteoarthritis, right hip [M16.11] Allergies As of Date: 12/26/2023 Noted Allergy Reaction BEES 03/02/2010 7 - Swelling Date Reviewed: 03/02/2021 Reviewed by: Lidya Courtney MA - Fully Assessed Prescriptions as of 01/07/2024 - levothyroxine (SYNTHROID) 50 mcg tablet Take 50 mcg by mouth once daily. - metoprolol succinate ER (TOPROL XL) 50 mg 24 hr tablet Take 50 mg by mouth once daily. - vitamin E, dl,tocopheryl acet, (VITAMIN E, DL, ACETATE,) 450 mg (1,000 unit) cap Take by mouth. - cyanocobalamin, vitamin B-12, (VITAMIN B-12 ORAL) Take 8,000 mg by mouth. - furosemide (LASIX) 40 mg tablet Take 40 mg by mouth twice daily. - potassium chloride (KLOR-CON M20 ORAL) Take by mouth. - lisinopril (ZESTRIL, PRINIVIL) 40 mg tablet TAKE 1 TABLET EVERY DAY - amLODIPine (NORVASC) 10 mg tablet TAKE 1 TABLET EVERY DAY - morphine immediate release 30 mg tablet Take 15 mg by mouth q 12 HR. - tiZANidine HCl 4 mg capsule Take 4 mg by mouth twice daily. - amitriptyline 10 mg ORAL tablet Take one(1) tablet at bedtime as needed. - clonazePAM (KLONOPIN) 0.5 mg ORAL tablet Take one(1) tablet twice daily as needed. - lamotrigine 200 mg ORAL tablet Take one(1) tablet daily. - buPROPion 75 mg ORAL tablet Take one(1) tablet two(2) times daily. - risperidone (RISPERDAL) 1 mg ORAL tablet Take one(1) tablet two(2) times daily. Senior Front End Developer: Therapy (PT/OT/Speech/Resp) ID: [id number] 12/26/2023 1:38 PM Author: LISA FRAGA Signed by LISA FRAGA PT on 12/26/2023 at 1:38 PM Document text: Program_ID:[id number] Access Code: [email or web address] URL: [email or web address] Date: 12-26-2023 Prepared By: Lisa Fraga Program Notes Exercises - Sidelying Hip Abduction - 1 x daily - 7 x weekly - 4 sets - 10 reps - Prone Hip Extension - 1 x daily - 7 x weekly - 4 sets - 10 reps - Clamshell - 1 x daily - 7 x weekly - 4 sets - 15 reps - Gastroc Heel Raise in Stride Stance Position - 1 x daily - 7 x weekly - 4 sets - 10 reps Letter Text Normal [facility] THERAPY NTon 12-26-2023 THERAPY NT HNO ID: [id number] Author: LISA FRAGA PT Service: ? Author Type: Physical Therapist Type: Therapy (PT/OT/Speech/Resp) Filed: 12/26/2023 13:38 Note Text: Program_ID:[id number] Access Code: [email or web address] URL: [email or web address] Date: 12-26-2023 Prepared By: Lisa Fraga Program Notes Exercises - Sidelying Hip Abduction - 1 x daily - 7 x weekly - 4 sets - 10 reps - Prone Hip Extension - 1 x daily - 7 x weekly - 4 sets - 10 reps - Clamshell - 1 x daily - 7 x weekly - 4 sets - 15 reps - Gastroc Heel Raise in Stride Stance Position - 1 x daily - 7 x weekly - 4 sets - 10 reps Normal [facility] No Panel InformationOrdered By: Ayala Causey on 06-05-2023 Estimated GFR (MDRD) Amer 72 mL/min >60 [facility] Comment on above: GFR Calc Estimated GFR (MDRD) Non-Af Amer 60 mL/min >60 [facility] Comment on above: Non- GFR Calc Serum or plasma creatinine m easurement (mass/volume)Ordered By: Ayala Causey on 06-05-2023 Creatinine [Mass/Vol] 0.98 mg/dL 0.55-1.02 [facility] Comment on above: The validity of the calculated GFR & GFRAA in patients over 70 years has not been determined. Clinical correlation is essential. Serum or plasma urea nitroge n measurement (mass/volume)Ordered By: Ayala Causey on 06-05-2023 Urea nitrogen [Mass/Vol] 16 mg/dL 7-18 [facility] Basophil percentageOrdered B y: Josie Lockwood on 11-05-2022 Bilirubin [Mass/Vol] 0.50 mg/dL 0.20-1.00 [facility] Comment on above: For patients on eltr ombopag therapy, use of Dimension Randall TBIL is not recommended. Chloride [Moles/Vol] 103 mmol/L 98-107 [facility] Cholesterol [Mass/Vol] 158 mg/dL <200 [facility] Comment on above: <200 mg/dL Desirable 200-240 mg/dL Borderline >240 mg/dL High Risk Glucose [Mass/Vol] 102 mg/dL 74-106 [facility] Comment on above: Fasting Glucose resu lt from 100 to 125 mg/dL suggests IMPAIRED HOMEOSTASIS per A.D.A. criteria. Potassium [Moles/Vol] 4.5 mmol/L 3.5-5.1 [facility] Protein [Mass/Vol] 8.1 g/dL 6.4-8.2 [facility] Sodium [Moles/Vol] 135 mmol/L 136-145 [facility] Triglyceride [Mass/Vol] 136 mg/dL <199 [facility] Comment on above: The drugs N-Acetylcy steine and Metamizole may falsely depress this assay.Serum Triglycerides Reference Interval Normal <150 mg/dL Borderline high 150 - 199 mg/dL High 200 - 499 mg/dL Very High > or = 500 mg/dL Laboratory - Chemistry and C hemistry - challengeOrdered By: Josie Lockwood on 11-05-2022 ALP [Catalytic activity/Vol] 110 U/L 45-117 [facility] ALT [Catalytic activity/Vol] 30 U/L 13-56 [facility] CO2 [Moles/Vol] 27.0 mmol/L 21.0-32.0 [facility] Free T4 [Mass/Vol] 0.99 ng/dL 0.76-1.46 [facility] Globulin (S) [Mass/Vol] 4.3 g/dL 2.2-4.2 [facility] Urea nitrogen/Creatinine [Mass ratio] 13.0 mg/mg 10-20 [facility] No Panel InformationOrdered By: Josie Lockwood on 11-05-2022 Estimated GFR (MDRD) Amer 71 mL/min >60 [facility] Comment on above: GFR Calc Estimated GFR (MDRD) Non-Af Amer 59 mL/min >60 [facility] Comment on above: Non- GFR Calc Thyroid Stimulating Hormone (TSH) 2.18 uIU/mL 0.358-3.74 [facility] Urine Microalbumin/Creatinine Ratio TNP [facility] Comment on above: Test not performed Serum or plasma albumin lisa urement (mass/volume)Ordered By: Josie Lockwood on 11-05-2022 Albumin [Mass/Vol] 3.8 g/dL 3.2-5.0 [facility] Serum or plasma albumin/glob ulin mass ratioOrdered By: Josie Lockwood on 11-05-2022 Albumin/Globulin [Mass ratio] 0.9 {ratio} 0.9-2.4 [facility] Serum or plasma calcium lisa urement (mass/volume)Ordered By: Josie Lockwood on 11-05-2022 Calcium [Mass/Vol] 9.2 mg/dL 8.5-10.1 [facility] Serum or plasma cholesterol in HDL measurement (mass/volume)Ordered By: Josie Lockwood on 11-05-2022 Cholesterol in HDL [Mass/Vol] 51 mg/dL >40 [facility] Comment on above: The drugs N-Acetylcy steine and Metamizole may falsely depress this assay. Reference Range HDL <40 mg/dL Low HDL Cholesterol HDL >or= 60 mg/dL High HDL Cholesterol Serum or plasma cholesterol in VLDL measurement (mass/volume)Ordered By: Josie Lockwood on 11-05-2022 Cholesterol in VLDL [Mass/Vol] 27 mg/dL 5-40 [facility] Serum or plasma creatinine m easurement (mass/volume)Ordered By: Josie Lockwood on 11-05-2022 Creatinine [Mass/Vol] 1.00 mg/dL 0.55-1.02 [facility] Comment on above: The validity of the calculated GFR & GFRAA in patients over 70 years has not been determined. Clinical correlation is essential. Serum or plasma low density lipoprotein (LDL) cholesterol measurement (mass/volume)Ordered By: Josie Lockwood on 11-05-2022 Cholesterol in LDL [Mass/Vol] 80 mg/dL 0-130 [facility] Serum or plasma urea nitroge n measurement (mass/volume)Ordered By: Josie Lockwood on 11-05-2022 Urea nitrogen [Mass/Vol] 13 mg/dL 7-18 [facility] Thin prep Papanicolaou smear with manual screeningOrdered By: oJsie Lockwood on 11-05-2022 Thin prep Papanicolaou smear with manual screening 22 U/L 15-37 [facility] Thin prep Papanicolaou smear with manual screening 5 5-15 [facility] Thin prep Papanicolaou smear with manual screening < 5.0 mg/L NO RANGE EST. [facility] Urine creatinine measurement (mass/volume)Ordered By: Josie Lockwood on 11-05-2022 Creatinine (U) [Mass/Vol] mg/dL NO RANGE EST. [facility] Basophil percentageOrdered B y: Josie Lockwood on 05-06-2022 Bilirubin [Mass/Vol] 0.60 mg/dL 0.20-1.00 [facility] Comment on above: For patients on eltr ombopag therapy, use of Dimension Randall TBIL is not recommended. Chloride [Moles/Vol] 100 mmol/L 98-107 [facility] Glucose [Mass/Vol] 100 mg/dL 74-106 [facility] Comment on above: Fasting Glucose resu lt from 100 to 125 mg/dL suggests IMPAIRED HOMEOSTASIS per A.D.A. criteria. Potassium [Moles/Vol] 4.7 mmol/L 3.5-5.1 [facility] Protein [Mass/Vol] 7.7 g/dL 6.4-8.2 [facility] Sodium [Moles/Vol] 138 mmol/L 136-145 [facility] Laboratory - Chemistry and C hemistry - challengeOrdered By: Josie Lockwood on 05-06-2022 ALP [Catalytic activity/Vol] 127 U/L 45-117 [facility] ALT [Catalytic activity/Vol] 34 U/L 13-56 [facility] CO2 [Moles/Vol] 28.0 mmol/L 21.0-32.0 [facility] Globulin (S) [Mass/Vol] 3.9 g/dL 2.2-4.2 [facility] Urea nitrogen/Creatinine [Mass ratio] 14.1 mg/mg 10-20 [facility] No Panel InformationOrdered By: Josie Lockwood on 05-06-2022 Estimated GFR (MDRD) Amer 78 mL/min >60 [facility] Comment on above: GFR Calc Estimated GFR (MDRD) Non-Af Amer 65 mL/min >60 [facility] Comment on above: Non- GFR Calc Serum or plasma albumin lisa urement (mass/volume)Ordered By: Josie Lockwood on 05-06-2022 Albumin [Mass/Vol] 3.8 g/dL 3.2-5.0 [facility] Serum or plasma albumin/glob ulin mass ratioOrdered By: Josie Lockwood on 05-06-2022 Albumin/Globulin [Mass ratio] 1.0 {ratio} 0.9-2.4 [facility] Serum or plasma calcium lisa urement (mass/volume)Ordered By: Josie Lockwood on 05-06-2022 Calcium [Mass/Vol] 9.4 mg/dL 8.5-10.1 [facility] Serum or plasma creatinine m easurement (mass/volume)Ordered By: Josie Lockwood on 05-06-2022 Creatinine [Mass/Vol] 0.92 mg/dL 0.55-1.02 [facility] Comment on above: The validity of the calculated GFR & GFRAA in patients over 70 years has not been determined. Clinical correlation is essential. Serum or plasma urea nitroge n measurement (mass/volume)Ordered By: Josie Lockwood on 05-06-2022 Urea nitrogen [Mass/Vol] 13 mg/dL 7-18 [facility] Thin prep Papanicolaou smear with manual screeningOrdered By: Josie Lockwood on 05-06-2022 Thin prep Papanicolaou smear with manual screening 22 U/L 15-37 [facility] Thin prep Papanicolaou smear with manual screening 10 5-15 [facility] Basophil percentageOrdered B y: Dr. Logan on 03-08-2022 Bilirubin [Mass/Vol] 0.60 mg/dL 0.20-1.00 [facility] Comment on above: For patients on eltr ombopag therapy, use of Dimension Randall TBIL is not recommended. Cholesterol [Mass/Vol] 160 mg/dL <200 [facility] Comment on above: <200 mg/dL Desirable 200-240 mg/dL Borderline >240 mg/dL High Risk Protein [Mass/Vol] 7.9 g/dL 6.4-8.2 [facility] Triglyceride [Mass/Vol] 100 mg/dL <199 [facility] Comment on above: The drugs N-Acetylcy steine and Metamizole may falsely depress this assay.Serum Triglycerides Reference Interval Normal <150 mg/dL Borderline high 150 - 199 mg/dL High 200 - 499 mg/dL Very High > or = 500 mg/dL Direct bilirubinOrdered By: Dr. Logan on 03-08-2022 Bilirubin.direct [Mass/Vol] 0.11 mg/dL 0.00-0.30 [facility] Laboratory - Chemistry and C hemistry - challengeOrdered By: Dr. Logan on 03-08-2022 ALP [Catalytic activity/Vol] 135 U/L 45-117 [facility] ALT [Catalytic activity/Vol] 30 U/L 13-56 [facility] Globulin (S) [Mass/Vol] 4.3 g/dL 2.2-4.2 [facility] Serum or plasma albumin lisa urement (mass/volume)Ordered By: Dr. Logan on 03-08-2022 Albumin [Mass/Vol] 3.6 g/dL 3.2-5.0 [facility] Serum or plasma cholesterol in HDL measurement (mass/volume)Ordered By: Dr. Logan on 03-08-2022 Cholesterol in HDL [Mass/Vol] 52 mg/dL >40 [facility] Comment on above: The drugs N-Acetylcy steine and Metamizole may falsely depress this assay. Reference Range HDL <40 mg/dL Low HDL Cholesterol HDL >or= 60 mg/dL High HDL Cholesterol Serum or plasma cholesterol in VLDL measurement (mass/volume)Ordered By: Dr. Logan on 03-08-2022 Cholesterol in VLDL [Mass/Vol] 20 mg/dL 5-40 [facility] Serum or plasma low density lipoprotein (LDL) cholesterol measurement (mass/volume)Ordered By: Dr. Logan on 03-08-2022 Cholesterol in LDL [Mass/Vol] 88 mg/dL 0-130 [facility] Thin prep Papanicolaou smear with manual screeningOrdered By: Dr. Logan on 03-08-2022 Thin prep Papanicolaou smear with manual screening 26 U/L 15-37 [facility] Comment on above: Slight Hemolysis, Re sult may be falsely increased. Absolute lymphocyte counton 10-11-2021 Lymphocytes Auto (Unsp spec) [#/Vol] 2.32 10*3/uL 0.83-4.51 [facility] Work Phone: Basophil percentageon 2021 Basophils/100 WBC (Bld) 0.3 % 0-1 [facility] Work Phone: Bilirubin [Mass/Vol] 0.40 mg/dL 0.20-1.00 [facility] Work Phone: Comment on above: For patients on eltr ombopag therapy, use of Dimension Randall TBIL is not recommended. Chloride [Moles/Vol] 100 mmol/L 98-107 [facility] Work Phone: Eosinophils/100 WBC (Bld) 8.6 % 0-5 [facility] Work Phone: Glucose [Mass/Vol] 90 mg/dL 74-106 [facility] Work Phone: Neutrophils (Bld) [#/Vol] 3.8 10*3/uL 2.0-7.7 [facility] Work Phone: Neutrophils/100 WBC (Bld) 52.1 % 47-70 [facility] Work Phone: Potassium [Moles/Vol] 3.8 mmol/L 3.5-5.1 [facility] Work Phone: Protein [Mass/Vol] 8.0 g/dL 6.4-8.2 [facility] Work Phone: Sodium [Moles/Vol] 135 mmol/L 136-145 [facility] Work Phone: WBC (Bld) [#/Vol] 7.4 10*3/uL 4.4-11.0 [facility] Work Phone: Blood erythrocytes count (nu mber/volume)on 10-11-2021 RBC (Bld) [#/Vol] 4.21 10*6/uL 4.2-5.4 [facility]: Blood hemoglobin measurement (mass/volume)on 10-11-2021 Hemoglobin (Bld) [Mass/Vol] 12.5 g/dL 12.0-15.0 [facility] Work Phone: Blood lymphocytes/100 leukoc yteson 10-11-2021 Lymphocytes/100 WBC (Bld) 31.5 % 19-41 [facility] Work Phone: Blood monocytes/100 leukocyt eson 10-11-2021 Monocytes/100 WBC (Bld) 7.2 % 0-10 [facility] Work Phone: Blood platelet mean volumeon 10-11-2021 Platelet mean volume (Bld) [Entitic vol] 9.7 fL 6.2-12.0 [facility] Work Phone: Determination of erythrocyte mean corpuscular volume (MCV)on 10-11-2021 MCV (RBC) [Entitic vol] 92.4 fL 81-99 [facility] Work Phone: Hematocrit Auto (Bld) [Volum e fraction]on 10-11-2021 Hematocrit (Bld) [Volume fraction] 38.9 % 37-47 [facility] Work Phone: Laboratory - Chemistry and C hemistry - challengeon 10-11-2021 ALP [Catalytic activity/Vol] 165 U/L 45-117 [facility] Work Phone: ALT [Catalytic activity/Vol] 38 U/L 13-56 [facility] Work Phone: CO2 [Moles/Vol] 28.0 mmol/L 21.0-32.0 [facility] Work Phone: Globulin (S) [Mass/Vol] 4.1 g/dL 2.2-4.2 [facility] Work Phone: Urea nitrogen/Creatinine [Mass ratio] 12.9 mg/mg 10-20 [facility] Work Phone: Laboratory - Hematology and Cell countson 10-11-2021 Erythrocyte distribution width (RBC) [Entitic vol] 42.2 fL 35.1-43.9 [facility] Work Phone: Erythrocyte distribution width (RBC) [Ratio] 12.4 % 11.6-14.6 [facility] Work Phone: Immature granulocytes/100 WBC (Bld) 0.300 % 0.0-0.9 [facility] Work Phone: Comment on above: IG% - Immature Granu locytes (promyelocytes, myelocytes and metamyelocytes) > 1% indicates that a LEFT SHIFT is Present. MCH (RBC) [Entitic mass] 29.7 pg 27.0-32.0 [facility] Work Phone: Nucleated RBC/100 WBC (Bld) [Ratio] 0 % 0-5 [facility] Work Phone: MCHC Auto (RBC) [Mass/Vol]on 10-11-2021 MCHC (RBC) [Mass/Vol] 32.1 g/dL 32-36 [facility] Work Phone: No Panel Informationon 10-11 Estimated GFR (MDRD) Amer 77 mL/min >60 [facility] Work Phone: Comment on above: GFR Calc Estimated GFR (MDRD) Non-Af Amer 64 mL/min >60 [facility] Work Phone: Comment on above: Non- GFR Calc Thyroid Stimulating Hormone (TSH) 0.90 uIU/mL 0.358-3.74 [facility] Work Phone: Vitamin D 25-Hydroxy 66.9 ng/mL [facility] Work Phone: Comment on above: Vitamin D 25(OH) Sta tus Range Deficiency <20 ng/mL (50nmol/L) Insufficiency 20 - 30 ng/mL (50 - 75 nmol/L) Sufficiency 30 - 100 ng/mL (75 - 250 nmol/L) Toxicity >100 ng/mL (>250 nmol/L) Platelets bldon 10-11-2021 Platelets (Bld) [#/Vol] 341 10*3/uL 150-450 [facility] Work Phone: Serum or plasma albumin lisa urement (mass/volume)on 10-11-2021 Albumin [Mass/Vol] 3.9 g/dL 3.2-5.0 [facility] Work Phone: Serum or plasma albumin/glob ulin mass ratioon 10-11-2021 Albumin/Globulin [Mass ratio] 1.0 {ratio} 0.9-2.4 [facility] Work Phone: Serum or plasma calcium lisa urement (mass/volume)on 10-11-2021 Calcium [Mass/Vol] 9.5 mg/dL 8.5-10.1 [facility] Work Phone: Serum or plasma creatinine m easurement (mass/volume)on 10-11-2021 Creatinine [Mass/Vol] 0.93 mg/dL 0.55-1.02 [facility] Work Phone: Comment on above: The validity of the calculated GFR & GFRAA in patients over 70 years has not been determined. Clinical correlation is essential. Serum or plasma urea nitroge n measurement (mass/volume)on 10-11-2021 Urea nitrogen [Mass/Vol] 12 mg/dL 7-18 [facility] Work Phone: Thin prep Papanicolaou smear with manual screeningon 10-11-2021 Thin prep Papanicolaou smear with manual screening 24 U/L 15-37 [facility] Work Phone: Thin prep Papanicolaou smear with manual screening 7 5-15 [facility] Work Phone: BMPon 08-14-2021 Anion gap [Moles/Vol] 6 mmol/L Normal 5-16 [facility] Comment on above: Order Comment: REDRA W.PREVIOUS SPECIMEN HEMOLYZED NOTIFIED TAMMY AT 1348 Performed By: #### L [id number], [id number] #### [facility] [address] [place] [address] Calcium [Mass/Vol] 9.7 mg/dL Normal 8.5-10.5 [facility] Comment on above: Order Comment: REDRA W.PREVIOUS SPECIMEN HEMOLYZED NOTIFIED TAMMY AT 1348 Result Comment: NOTE NEW NORMAL RANGE DUE TO REAGENT CHANGE Performed By: #### L [id number], [id number] #### [facility] [address] [place] [address] Chloride [Moles/Vol] 105 mmol/L Normal 98-107 [facility] Comment on above: Order Comment: REDRA W.PREVIOUS SPECIMEN HEMOLYZED NOTIFIED TAMMY AT 1348 Performed By: #### L [id number], [id number] #### [facility] [place] [address] CO2 [Moles/Vol] 29.0 mmol/L Normal 21-32 [facility] Comment on above: Order Comment: REDRA W.PREVIOUS SPECIMEN HEMOLYZED NOTIFIED TAMMY AT 1348 Performed By: #### L [id number], [id number] #### [facility] [address] [place] [address] Creatinine [Mass/Vol] 0.83 mg/dL Normal 0.510-0.950 [facility] Comment on above: Order Comment: REDRA W.PREVIOUS SPECIMEN HEMOLYZED NOTIFIED TAMMY AT 1348 Result Comment: Treva ents receiving either N-Acetylcysteine (NAC) or Metamizole prior to venipuncture, may have falsely depressed results. Performed By: #### L [id number], [id number] #### [facility] [address] [place] [address] Glucose [Mass/Vol] 88 mg/dL Normal 70-100 [facility] Comment on above: Order Comment: REDRA W.PREVIOUS SPECIMEN HEMOLYZED NOTIFIED TAMMY AT 1348 Result Comment: 70-1 00- Normal Fasting; 100-125 Impaired Fasting; greater than 126 on more than one result- Diabetes. ADA guidelines. Results may be falsely elevated after the administration of Sulfapyridine. Results may be falsely depressed after the administration of Sulfasalazine. Performed By: #### L [id number], [id number] #### [facility] [address] [place] [address] Potassium [Moles/Vol] 4.3 mmol/L Normal 3.5-5.1 [facility] Comment on above: Order Comment: REDRA W.PREVIOUS SPECIMEN HEMOLYZED NOTIFIED TAMMY AT 1348 Performed By: #### L [id number], [id number] #### [facility] [address] [place] [address] Sodium [Moles/Vol] 140 mmol/L Normal 136-145 [facility] Comment on above: Order Comment: REDRA W.PREVIOUS SPECIMEN HEMOLYZED NOTIFIED TAMMY AT 1348 Performed By: #### L 500.13929, [id number] #### [facility] [address] [place] [address] Urea nitrogen [Mass/Vol] 10 mg/dL Normal 7-26 [facility] Comment on above: Order Comment: REDRA W.PREVIOUS SPECIMEN HEMOLYZED NOTIFIED TAMMY AT 1348 Performed By: #### L 500.29538, [id number] #### [facility] [address] [place] [address] Urea nitrogen/Creatinine [Mass ratio] 12 mg/mg Low 15-24 [facility] Comment on above: Order Comment: REDRA W.PREVIOUS SPECIMEN HEMOLYZED NOTIFIED TAMMY AT 1348 Performed By: #### L 500.46677, [id number] #### [facility] [address] [place] [address] CBC W/DIFFon 08-14-2021 BASO ABS 0.00 K/CU MM Normal 0-0.2 [facility] Comment on above: Order Comment: Campu s: M Performed By: #### L [id number] #### [facility] [address] [place] [address] Basophils/100 WBC (Bld) 0.6 % Normal 0-2 [facility] Comment on above: Order Comment: Campu s: M Performed By: #### L [id number] #### [facility] [address] [place] [address] EOS ABS 0.20 K/CU MM Normal 0-0.5 [facility] Comment on above: Order Comment: Campu s: M Performed By: #### L [id number] #### [facility] [address] [place], [place] [id number] Eosinophils/100 WBC (Bld) 2.9 % Normal 0-5 [facility] Comment on above: Order Comment: Campu s: M Performed By: #### L [id number] #### [facility] [address] [place], [place] [id number] Erythrocyte distribution width (RBC) [Ratio] 12.9 % Normal 11-14.5 [facility] Comment on above: Order Comment: Campu s: M Performed By: #### L [id number] #### [facility] [address] [place] [address] Hematocrit (Bld) [Volume fraction] 40.2 % Normal 35.0-47.0 [facility] Comment on above: Order Comment: Campu s: M Performed By: #### L .[id number] #### [facility] [address] [place] [address] Hemoglobin (Bld) [Mass/Vol] 13.1 g/dL Normal 11.5-15.5 [facility] Comment on above: Order Comment: Campu s: M Performed By: #### L [id number] #### [facility] [address] [place] [address] IMMATR GRAN ABS 0.00 K/CU MM Normal Less than 2 [facility] Comment on above: Order Comment: Campu s: M Performed By: #### L [id number] #### [facility] [address] [place] [address] IMMATURE GRAN % 0.1 % Normal Less than 2 [facility] Comment on above: Order Comment: Campu s: M Performed By: #### L [id number] #### [facility] [address] [place] [address] LYMPH ABS 2.70 K/CU MM Normal 0.9-4.4 [facility] Comment on above: Order Comment: Campu s: M Performed By: #### L .[id number] #### [facility] [address] [place] [address] Lymphocytes/100 WBC (Bld) 38.9 % Normal 20-40 [facility] Comment on above: Order Comment: Campu s: M Performed By: #### L [id number] #### [facility] [address] [place] [address] MCHC (RBC) [Mass/Vol] 32.6 g/dL Normal 32.0-36.0 [facility] Comment on above: Order Comment: Campu s: M Performed By: #### L [id number] #### [facility] [address] [place] [address] MCV (RBC) [Entitic vol] 91.6 fL Normal 80.0-99.0 [facility] Comment on above: Order Comment: Campu s: M Performed By: #### L [id number] #### [facility] [address] [place] [address] MONO ABS 0.50 K/CU MM Normal 0.1-1.1 [facility] Comment on above: Order Comment: Campu s: M Performed By: #### L [id number] #### [facility] [address] [place] [address] Monocytes/100 WBC (Bld) 7.7 % Normal 2-10 [facility] Comment on above: Order Comment: Campu s: M Performed By: #### L [id number] #### [facility] [address] [place] [address] NEUTROPHIL ABS 3.40 K/CU MM Normal 2.0-8.3 [facility] Comment on above: Order Comment: Campu s: M Performed By: #### L [id number] #### [facility] [address] [place] [address] Neutrophils/100 WBC (Bld) 49.8 % Normal 45-75 [facility] Comment on above: Order Comment: Campu s: M Performed By: #### L [id number] #### [facility] [address] [place] [address] Nucleated RBC/100 WBC (Bld) [Ratio] 0.0 % Normal Less than 1 [facility] Comment on above: Order Comment: Campu s: M Performed By: #### L [id number] #### [facility] [address] [place] [address] Platelet mean volume (Bld) [Entitic vol] 9.7 fL Normal 9.4-12.4 [facility] Comment on above: Order Comment: Campu s: M Performed By: #### L [id number] #### [facility] [address] [place] [address] PLT 305 K/CU MM Normal 150-450 [facility] Comment on above: Order Comment: Campu s: M Performed By: #### L [id number] #### [facility] [address] [place] [address] RBC 4.39 M/CU MM Normal 3.90-5.30 [facility] Comment on above: Order Comment: Campu s: M Performed By: #### L [id number] #### [facility] [address] [place] [address] WBC 6.9 K/CUMM Normal 4.5-11.0 [facility] Comment on above: Order Comment: Campu s: M Performed By: #### L [id number] #### [facility] [address] [place] [address] EKGon 08-14-2021 Electrocardiogram Procedure Date and Time: 08/14/21 1416 Test Reason : URGENT Blood Pressure : / mmHG Vent. Rate : 062 BPM Atrial Rate : 062 BPM P-R Int : 128 ms QRS Dur : 094 ms QT Int : 446 ms P-R-T Axes : 033 019 065 degrees QTc Int : 452 ms Normal sinus rhythm Normal ECG No previous ECGs available Confirmed by THI WESLEY MD ([id number]) on 08/18/2021 7:29:37 AM Referred By: Ayala Causey Confirmed By:THI WESLEY MD M.D. DDandT: 08/14/21 1416 TDandT: [facility] PATIENT NAME: NALLELY MOYA [facility] MEDICAL REC #: [id number] [place] [address] ADMIT DATE: DISCHARGE DATE: ATTENDING PHY: Ayala Causey MD ELECTROCARDIOGRAM REPORT CLB cc: [facility] PATIENT NAME: NALLELY MOYA [facility] MEDICAL REC #: [id number] [place] [address] ADMIT DATE: DISCHARGE DATE: ATTENDING PHY: Ayala Causey MD ELECTROCARDIOGRAM REPORT Normal [facility] GFR ESTon 08-14-2021 IF AMER Greater than 60 Normal [facility] Comment on above: Order Comment: REDRA W.PREVIOUS SPECIMEN HEMOLYZED NOTIFIED TAMMY AT 1348 Performed By: #### L [id number], [id number] #### [facility] [address] [place] [address] IF non-AFR AMER Greater than 60 Normal [facility] Comment on above: Order Comment: REDRA W.PREVIOUS SPECIMEN HEMOLYZED NOTIFIED TAMMY AT 1348 Performed By: #### L [id number], [id number] #### [facility] [address] [place] [address] OR.OPRPTon 08-14-2021 Operative Report Normal [facility] OR.OPRPT [facility] Patient Name: NALLELY MOYA [facility] Date of : [address] [address] Unit Number: [id number] Operative Report Patient Status: REG AKC Attending Doctor: Ayala Causey MD Service Date: 08/14/21 1550 Operative Report Procedure Date: 08/14/21 Attending Physician: Ayala Causey MD Procedure: Preoperative Diagnosis: Left iliac PAD Postoperative Diagnosis: The same. Procedure Type: 1. Ultrasound-guided access retrograde left brachial artery. 2. Aortogram with bilateral iliofemoral angiogram. 3. Balloon angioplasty of the left common iliac artery occlusion with a 6 x 80 [place] drug-coated balloon. 4. Closure with boomerang Anesthesia: Sedation Complications: None Procedure Details: Patient brought to the operating room. Underwent appropriate timeout consent. Patient was prepped and draped in a sterile fashion. We did ultrasound-guided access retrograde left brachial artery. Put a Glidewire up and then a 5 [place]an sheath. Get 5000 units of heparin. We got the Glidewire and catheter down the descending thoracic aorta to the infrarenal aorta. We brought a long 5 [place] sheath. Did an aortogram with bilateral iliofemoral angiogram. This showed the left common iliac artery occlusion. We then using a Kumpe catheter and Glidewire Through the occlusion. We confirm we have passed this and good flow in the distal common iliac to the external iliac artery. We replaced this with a 0.018 wire. We then balloon through this, iliac occlusion with a 6 x 80 [place] drug-coated balloon for over 2 minutes. We advanced that a little bit further and and then ballooned the rest of that into the aorta again for over 2-1/2 minutes. Completion was much improved there is good flow now through this iliac area. We then removed out the sheath and put a shorter sheath. Gave 40 of protamine. We deployed a boomerang with good hemostasis. Good palpable radial pulse. She was brought to recovery stable condition. Plan: If this does not work and reoccludes. With the smaller vessel, instead of just primary stenting this, would probably repair the aneurysm with covered stent graft which would also treat the distal aorta into the iliac stenosis and occlusions. Sedation: This 65-year-old female underwent moderate sedation given by Dr. Ayala Causey. She was monitored EKG blood pressure and pulse ox for over the 30 minutes of the procedure. See the MR for complete record. Fluoroscopy: Fluoroscopy: 7.5 minutes Dose: 105 mGy Contrast dye: 25 cc Disclaimer This dictation was created using voice recognition software. Phonetic and/or minor grammatical errors may exist. eSign Date and Time Ayala Causey MD Verified/Reviewed by 08/14/[address] [facility] No Panel Informationon 07-17 Estimated GFR (MDRD) Amer 83 mL/min >60 [facility] Work Phone: Comment on above: GFR Calc Estimated GFR (MDRD) Non-Af Amer 69 mL/min >60 [facility] Work Phone: Comment on above: Non- GFR Calc Serum or plasma creatinine m easurement (mass/volume)on 07-17-2021 Creatinine [Mass/Vol] 0.87 mg/dL 0.55-1.02 [facility] Work Phone: Comment on above: The validity of the calculated GFR & GFRAA in patients over 70 years has not been determined. Clinical correlation is essential. Serum or plasma urea nitroge n measurement (mass/volume)on 07-17-2021 Urea nitrogen [Mass/Vol] 9 mg/dL 7-18 [facility] Work Phone: Basophil percentageon 2021 Cholesterol [Mass/Vol] 155 mg/dL <200 [facility] Work Phone: Comment on above: <200 mg/dL Desirable 200-240 mg/dL Borderline >240 mg/dL High Risk Triglyceride [Mass/Vol] 171 mg/dL <199 [facility] Work Phone: Comment on above: The drugs N-Acetylcy steine and Metamizole may falsely depress this assay.Serum Triglycerides Reference Interval Normal <150 mg/dL Borderline high 150 - 199 mg/dL High 200 - 499 mg/dL Very High > or = 500 mg/dL Serum or plasma cholesterol in HDL measurement (mass/volume)on 06-26-2021 Cholesterol in HDL [Mass/Vol] 45 mg/dL >40 [facility] Work Phone: Comment on above: The drugs N-Acetylcy steine and Metamizole may falsely depress this assay. Reference Range HDL <40 mg/dL Low HDL Cholesterol HDL >or= 60 mg/dL High HDL Cholesterol Serum or plasma cholesterol in VLDL measurement (mass/volume)on 06-26-2021 Cholesterol in VLDL [Mass/Vol] 34 mg/dL 5-40 [facility] Work Phone: Serum or plasma low density lipoprotein (LDL) cholesterol measurement (mass/volume)on 06-26-2021 Cholesterol in LDL [Mass/Vol] 76 mg/dL 0-130 [facility] Work Phone: XR FLUORO GUIDANCE FOR THERA PY INJECTIONon 05-03-2020 XR FLUORO GUIDANCE FOR THERAPY INJECTION ORIGINAL XR FLUORO GUIDANCE FOR THERAPY INJECTION ORDERING PROVIDER: SONNY CLINICAL STATEMENT: l/s inj Technical Details: Outside Films for Comparison - n; HISTORY - LESI; TECH TIME - 15 min; FLUORO TIME - 4.7 sec; TOTAL DOSE - 2.88 mGy; FILMS - 1; SUPERVISOR FRAME ASSEMBLY - jlm; C-ARM - oec elite; FINDINGS: Fluoroscopic spot images were provided for interpretation. They demonstrate guidance for therapeutic lumbar spine injection. Detail is limited. Please see the operative note for details. Interpreted By: Gary Roberts MD Preliminary Report By: Gary oRberts MD Electronically Signed By: Gary Roberts MD Dictated Date: 05/03/2020 5:20:22 AM Prelim Date: 05/03/2020 5:20:22 AM Sign Date: 05/03/2020 5:22:01 AM Ordering Provider:Alejandro Muñoz [facility]) XR FLUORO GUIDANCE FOR THERA PY INJECTIONon 10-28-2019 XR FLUORO GUIDANCE FOR THERAPY INJECTION ORIGINAL Images acquired, not reported on this accession number. [facility]) Vital Signs Date Time Vital Sign Value Performing Clinician Toribioi mario alberto 02-15-2025 [id number] Body height 154.94 cm Brittany Iverson MD Work Phone: [facility] 02-15-2025 14:11-0400 Body mass index (BMI) [Ratio] 32.8 kg/m2 Brittany Iverson MD Work Phone: [facility] 02-15-2025 [id number] Body weight 78.92 kg Brittany Iverson MD Work Phone: [facility] 02-15-2025 14:11-0400 Diastolic blood pressure 76 mm[Hg] Brittany Iverson MD Work Phone: [facility] 02-15-2025 14:11-0400 Respiratory rate 16 /min Brittany Iverson MD Work Phone: [facility] 02-15-2025 14:11-0400 Systolic blood pressure 114 mm[Hg] Brittany Iverson MD Work Phone: [facility] 10-18-2024 08:38-0400 Diastolic blood pressure 74 mm[Hg] Brittany Iverson MD Work Phone: [facility] 10-18-2024 08:38-0400 Systolic blood pressure 120 mm[Hg] Brittany Iverson MD Work Phone: [facility] 10-18-2024 06:58-0400 Body height 154.94 cm Brittany Iverson MD Work Phone: [facility] 10-18-2024 06:58-0400 Body mass index (BMI) [Ratio] 33.4 kg/m2 Brittany Iverson MD Work Phone: [facility] 10-18-2024 06:58-0400 Body weight 80.28 kg Brittany Iverson MD Work Phone: [facility] 10-18-2024 06:58-0400 Heart rate 60 /min Brittany Iverson MD Work Phone: [facility] 10-18-2024 06:58-0400 Respiratory rate 18 /min Brittany Iverson MD Work Phone: [facility] 10-18-2024 06:58-0400 SaO2% (BldA) [Mass fraction] 96 % Brittany Iverson MD Work Phone: [facility] 04-29-2024 08:36-0500 Body height 154.94 cm Brittany Iverson MD Work Phone: [facility] 04-29-2024 08:36-0500 Body mass index (BMI) [Ratio] 32.1 kg/m2 Brittany Iverson MD Work Phone: [facility] 04-29-2024 08:36-0500 Body weight 77.11 kg Brittany Iverson MD Work Phone: [facility] 04-29-2024 08:36-0500 Diastolic blood pressure 80 mm[Hg] Brittany Iverson MD Work Phone: [facility] 04-29-2024 08:36-0500 Heart rate 69 /min Brittany Iverson MD Work Phone: [facility] 04-29-2024 08:36-0500 Respiratory rate 18 /min Brittany Iverson MD Work Phone: [facility] 04-29-2024 08:36-0500 SaO2% (BldA) [Mass fraction] 96 % Brittany Iverson MD Work Phone: [facility] 04-29-2024 08:36-0500 Systolic blood pressure 129 mm[Hg] Brittany Iverson MD Work Phone: [facility] 04-30-2023 10:33-0500 Body height 154.94 cm DO Josie Fabián Work Phone: [facility] 04-30-2023 10:33-0500 Body mass index (BMI) [Ratio] 28.6 kg/m2 DO Josie Fabián Work Phone: [facility] 04-30-2023 10:33-0500 Body weight 68.71 kg DO Josie Fabián Work Phone: [facility] 04-02-2023 14:07-0500 Body height 154.94 cm DO Josie Fabián Work Phone: [facility] 04-02-2023 14:07-0500 Body mass index (BMI) [Ratio] 29.8 kg/m2 DO Josie Fabián Work Phone: [facility] 04-02-2023 14:07-0500 Body temperature 98 [degF] DO Josie Fabián Work Phone: [facility] 04-02-2023 14:07-0500 Body weight 71.58 kg DO Josie Fabián Work Phone: [facility] 04-02-2023 14:07-0500 Diastolic blood pressure 80 mm[Hg] DO Josie Fabián Work Phone: [facility] 04-02-2023 14:07-0500 Heart rate 64 /min DO Josie Fabián Work Phone: [facility] 04-02-2023 14:07-0500 Respiratory rate 17 /min DO Josie Fabián Work Phone: [facility] 04-02-2023 14:07-0500 SaO2% (BldA) [Mass fraction] 99 % DO Josie Fabián Work Phone: [facility] 04-02-2023 14:07-0500 Systolic blood pressure 140 mm[Hg] DO Josie Fabián Work Phone: [facility] 04-01-2023 08:11-0500 Body mass index (BMI) [Ratio] 30 kg/m2 DO Josie Fabián Work Phone: [facility] 04-01-2023 08:11-0500 Body temperature 97.8 [degF] DO Josie Fabián Work Phone: [facility] 04-01-2023 08:11-0500 Body weight 72.2 kg DO Josie Fabián Work Phone: [facility] 04-01-2023 08:11-0500 Diastolic blood pressure 80 mm[Hg] DO Josie Fabián Work Phone: [facility] 04-01-2023 08:11-0500 Heart rate 80 /min DO Josie Fabián Work Phone: [facility] 04-01-2023 08:11-0500 Respiratory rate 17 /min DO Josie Fabián Work Phone: [facility] 04-01-2023 08:11-0500 SaO2% (BldA) [Mass fraction] 97 % DO Josie Fabián Work Phone: [facility] 04-01-2023 08:11-0500 Systolic blood pressure 130 mm[Hg] DO Josie Fabián Work Phone: [facility] 01-09-2023 15:39-0400 Body height 154.94 cm DO Josie Fabián Work Phone: [facility] 01-09-2023 15:39-0400 Body mass index (BMI) [Ratio] 29.6 kg/m2 DO Josie Fabián Work Phone: [facility] 01-09-2023 15:39-0400 Body temperature 97.6 [degF] DO Josie Fabián Work Phone: [facility] 01-09-2023 15:39-0400 Body weight 71.21 kg DO Josie Fabián Work Phone: [facility] 01-09-2023 15:39-0400 Diastolic blood pressure 58 mm[Hg] DO Josie Fabián Work Phone: [facility] 01-09-2023 15:39-0400 Heart rate 70 /min DO Josie Fabián Work Phone: [facility] 01-09-2023 15:39-0400 Respiratory rate 18 /min DO Josie Fabián Work Phone: [facility] 01-09-2023 15:39-0400 SaO2% (BldA) [Mass fraction] 97 % DO Josie Fabián Work Phone: [facility] 01-09-2023 15:39-0400 Systolic blood pressure 136 mm[Hg] DO Josie Fabián Work Phone: [facility] 11-01-2022 10:56-0400 Body height 154.94 cm DO Josie Fabián Work Phone: [facility] 11-01-2022 10:56-0400 Body mass index (BMI) [Ratio] 29.8 kg/m2 DO Josie Fabián Work Phone: [facility] 11-01-2022 10:56-0400 Body weight 71.66 kg DO Josie Fabián Work Phone: [facility] 11-01-2022 10:56-0400 Diastolic blood pressure 70 mm[Hg] DO Josie Fabián Work Phone: [facility] 11-01-2022 10:56-0400 Heart rate 69 /min DO Josie Fabián Work Phone: [facility] 11-01-2022 10:56-0400 Respiratory rate 18 /min DO Josie Fabián Work Phone: [facility] 11-01-2022 10:56-0400 SaO2% (BldA) [Mass fraction] 95 % DO Josie Fabián Work Phone: [facility] 11-01-2022 10:56-0400 Systolic blood pressure 115 mm[Hg] DO Josie Fabián Work Phone: [facility] 09-30-2022 15:20-0400 Body mass index (BMI) [Ratio] 30.1 kg/m2 DO Josie Fabián Work Phone: [facility] 09-30-2022 15:20-0400 Body temperature 98.4 [degF] DO Josie Fabián Work Phone: [facility] 09-30-2022 15:20-0400 Body weight 72.29 kg DO Josie Fabián Work Phone: [facility] 09-30-2022 15:20-0400 Diastolic blood pressure 62 mm[Hg] DO Josie Fabián Work Phone: [facility] 09-30-2022 15:20-0400 Heart rate 67 /min DO Josie Fabián Work Phone: [facility] 09-30-2022 15:20-0400 Respiratory rate 16 /min DO Josie Lockwood Work Phone: [facility] 09-30-2022 15:20-0400 SaO2% (BldA) [Mass fraction] 96 % DO Josie Lockwood Work Phone: [facility] 09-30-2022 15:20-0400 Systolic blood pressure 134 mm[Hg] DO Josietimoteo Garynger Work Phone: [facility] 08-12-2022 08:03-0400 Body height 154.[address] Cornelius Srinivasan Work Phone: [facility] 08-12-2022 08:03-0400 Body mass index (BMI) [Ratio] 30.2 kg/m2 Dr. Cornelius Srinivasan Work Phone: [facility] 08-12-2022 08:03-0400 Body temperature 98 [degF] Dr. Cornelius Srinivasan Work Phone: [facility] 08-12-2022 08:03-0400 Body weight 72.[address] Cornelius Srinivasan Work Phone: [facility] 08-12-2022 08:03-0400 Diastolic blood pressure 64 mm[Hg] Dr. Cornelius Srinivasan Work Phone: [facility] 08-12-2022 08:03-0400 Heart rate 70 /min Dr. Cornelius Srinivasan Work Phone: [facility] 08-12-2022 08:03-0400 Respiratory rate 17 /min Dr. Cornelius Srinivasan Work Phone: [facility] 08-12-2022 08:03-0400 SaO2% (BldA) [Mass fraction] 98 % Dr. Cornelius Srinivasan Work Phone: [facility] 08-12-2022 08:03-0400 Systolic blood pressure 116 mm[Hg] Dr. Cornelius Srinivasan Work Phone: [facility] 05-03-2022 09:35-0500 Body height 154.[address] Cornelius Srinivasan Work Phone: [facility] 05-03-2022 09:35-0500 Body mass index (BMI) [Ratio] 29 kg/m2 Dr. Cornelius Srinivasan Work Phone: [facility] 05-03-2022 09:35-0500 Body weight 69.[address] Cornelius Srniivasan Work Phone: [facility] 05-03-2022 09:35-0500 Diastolic blood pressure 76 mm[Hg] Dr. Cornelius Srinivasan Work Phone: [facility] 05-03-2022 09:35-0500 Heart rate 70 /min Dr. Cornelius Srinivasan Work Phone: [facility] 05-03-2022 09:35-0500 Respiratory rate 18 /min Dr. Cornelius Srinivasan Work Phone: [facility] 05-03-2022 09:35-0500 SaO2% (BldA) [Mass fraction] 98 % Dr. Cornelius Srinivasan Work Phone: [facility] 05-03-2022 09:35-0500 Systolic blood pressure 133 mm[Hg] Dr. Cornelius Srinivasan Work Phone: [facility] 03-04-2022 08:02-0500 Body height 154.[address] Cornelius Srinivasan Work Phone: [facility] Work Phone: 03-04-2022 08:02-0500 Body mass index (BMI) [Ratio] 28.7 kg/m2 Dr. Cornelius Srinivasan Work Phone: [facility] 03-04-2022 08:02-0500 Body temperature 98.6 [degF] Dr. Cornelius Srinivasan Work Phone: [facility] 03-04-2022 08:02-0500 Body weight 68.[address] Cornelius Srinivasan Work Phone: [facility] 03-04-2022 08:02-0500 Diastolic blood pressure 80 mm[Hg] Dr. Cornelius Srinivasan Work Phone: [facility] 03-04-2022 08:02-0500 Heart rate 68 /min Dr. Cornelius Srinivasan Work Phone: [facility] 03-04-2022 08:02-0500 Respiratory rate 17 /min Dr. Cornelius Srinivasan Work Phone: [facility] 03-04-2022 08:02-0500 SaO2% (BldA) [Mass fraction] 98 % Dr. Cornelius Srinivasan Work Phone: [facility] 03-04-2022 08:02-0500 Systolic blood pressure 150 mm[Hg] Dr. Cornelius Srinivasan Work Phone: [facility] 09-12-2021 12:03-0400 Body weight 65.[address] Cornelius Srinivasan Work Phone: [facility] Work Phone: 09-06-2021 13:25-0400 Body height 154.[address] Cornelius Srinivasan Work Phone: [facility] Work Phone: 09-06-2021 13:25-0400 Body mass index (BMI) [Ratio] 27.4 kg/m2 Dr. Cornelius Srinivasan Work Phone: [facility] Work Phone: 09-06-2021 13:25-0400 Body temperature 98.2 [degF] Dr. Cornelius Srinivasan Work Phone: [facility] Work Phone: 09-06-2021 13:25-0400 Body weight 65.[address] Cornelius Srinivasan Work Phone: [facility] Work Phone: 09-06-2021 13:25-0400 Diastolic blood pressure 78 mm[Hg] Dr. Cornelius Srinivasan Work Phone: [facility] Work Phone: 09-06-2021 13:25-0400 Heart rate 62 /min Dr. Cornelius Srinivasan Work Phone: [facility] Work Phone: 09-06-2021 13:25-0400 Respiratory rate 16 /min Dr. Cornelius Srinivasan Work Phone: [facility] Work Phone: 09-06-2021 13:25-0400 SaO2% (BldA) [Mass fraction] 97 % Dr. Cornelius Srinivasan Work Phone: [facility] Work Phone: 09-06-2021 13:25-0400 Systolic blood pressure 142 mm[Hg] Dr. Cornelius Srinivasan Work Phone: [facility] Work Phone: Encounters Encounter Date Encounter Type Care Provider Facility Start: 03-23-2025 ambulatory Sunitha Thomas y:[facility] Start: 02-15-2025 End: 02-15-[address] Sunitha Maki MD -[facility] Work Phone: Start: 02-15-2025 End: 02-15-2025 ambulatory Brittany Iverson MD Work Phone: -[facility] Start: 02-07-2025 End: 02-07-[address] Brittany Iverson MD -[facility] Start: 02-07-2025 End: 02-07-2025 ambulatory Brittany Iverson Facility:[facility] Start: 12-01-2024 ambulatory Luis Alberto Das Facility :[facility] Start: 10-18-2024 End: 10-18-2024 Patient encounter procedure Luis Alberto Das PA -[facility] Work Phone: Start: 10-18-2024 End: 10-18-2024 ambulatory Brittany Iverson MD Work Phone: [facility] Work Phone: Start: 07-05-2024 End: 07-05-2024 ambulatory Brittany Iverson MD Work Phone: [facility] Work Phone: Start: 07-05-2024 End: 07-05-[address] Ayala Causey MD -[facility] Work Phone: Start: 07-05-2024 End: 07-05-2024 ambulatory Ayala Causey Facility:[facility] Start: 05-10-2024 ambulatory Donna ABBASI Facility:[facility] Start: 05-10-2024 Non-patient / Non-visit Dr. Jesus Gillette MD -[facility] [facility] Start: 05-10-2024 End: 05-10-2024 Patient encounter procedure Donna ABBASI -Cardiovascular Services Work Phone: Start: 05-10-2024 End: 05-10-2024 ambulatory Chalon Zayra Facility:[facility] Start: 04-29-2024 ambulatory Chalalejandro Zayra Facility:[facility] Start: 04-29-2024 Non-patient / Non-visit Dr. Сергей Chavez MD -[facility] Start: 04-29-2024 End: 04-29-[address] Louie Logan MD -Cardiovascular Services Work Phone: Start: 04-29-2024 End: 04-29-2024 Patient encounter procedure Donna ABBASI -[facility] Work Phone: Start: 04-29-2024 End: 04-29-2024 ambulatory Chalalejandro Zayra Facility:[facility] Start: 04-29-2024 End: 04-29-2024 ambulatory Chalon Zayra Facility:[facility] Start: 04-08-2024 End: 04-08-[address] Brittany Iverson MD -Outpatient Breast Imaging Work Phone: Start: 04-08-2024 End: 04-08-2024 [facility] Facility:[facility] Start: 02-19-2024 End: 02-19-2024 Telephone encounter Bam Lora MD Work Phone: Cardiology Start: 01-12-2024 End: 01-12-2024 ambulatory Lisa O'Odell PT [facility] Comment on above: Unilateral primary o steoarthritis, right hip (Primary Dx) Start: 01-07-2024 End: 01-07-2024 ambulatory Lisa O'Odell PT [facility] Comment on above: Unilateral primary o steoarthritis, right hip (Primary Dx) Start: 12-26-2023 End: 12-26-2023 ambulatory Lisa O'Odell PT [facility] Comment on above: Unilateral primary o steoarthritis, right hip (Primary Dx) Start: 07-07-2023 End: 07-07-2023 ambulatory DO Josie Katia Fabián Work Phone: [facility] Work Phone: Start: 07-07-2023 End: 07-07-2023 Patient encounter procedure DO Josie Lockwood Work Phone: [facility] Work Phone: Start: 06-23-2023 End: 06-23-2023 Patient encounter procedure DO Josie Lockwood Work Phone: [facility] Work Phone: Start: 06-09-2023 End: 06-09-2023 ambulatory DO Josie Katia Fabián Work Phone: [facility] Work Phone: Start: 06-09-2023 End: 06-09-2023 Patient encounter procedure DO Josie Lockwood Work Phone: [facility]-Cat Scan, [facility] Work Phone: Start: 05-16-2023 End: 05-16-2023 ambulatory DO Josie Lockwood Work Phone: [facility] Work Phone: Start: 05-16-2023 End: 05-16-2023 Patient encounter procedure DO Josie Lockwood Work Phone: [facility]-Cardiovascular Services Work Phone: Start: 04-30-2023 End: 04-30-2023 Patient encounter procedure DO Josie Goodwiner Work Phone: [facility] Work Phone: Start: 04-02-2023 End: 04-02-2023 Patient encounter procedure DO Josie Goodwiner Work Phone: [facility] Neurology Work Phone: Start: 04-01-2023 End: 04-01-2023 Patient encounter procedure DO Josie Goodwiner Work Phone: [facility] Neurology Work Phone: Start: 02-05-2023 End: 02-05-2023 ambulatory DO Josie Lockwood Work Phone: [facility] Work Phone: Start: 02-05-2023 End: 02-05-2023 Discharged Recurring DO Josie Goodwiner Work Phone: [facility]-Physical Therapy Work Phone: Start: 01-09-2023 End: 01-09-2023 ambulatory DO Josie Lockwood Work Phone: [facility] Work Phone: Start: 01-09-2023 End: 01-09-2023 Patient encounter procedure DO Josie Goodwiner Work Phone: [facility] Neurology Work Phone: Start: 11-13-2022 Non-patient / Non-visit DO Josie Goodwiner Work Phone: [facility] Start: 11-13-2022 End: 11-13-2022 Patient encounter procedure DO Josie Goodwiner [facility] Phone[facility] Start: 11-05-2022 End: 11-05-2022 ambulatory DO Josie M Fabián Work Phone: [facility] Work Phone: Start: 11-05-2022 End: 11-05-2022 Patient encounter procedure DO Josie Garynger Work Phone: [facility] Start: 11-01-2022 End: 11-01-2022 Patient encounter procedure DO Josie Garynger Work Phone: [facility] Work Phone: Start: 09-30-2022 End: 09-30-2022 Patient encounter procedure DO Josie Garynger Work Phone: [facility] Neurology Work Phone: Start: 08-16-2022 End: 08-16-[address] Cornelius Srinivasan Work Phone: [facility] Work Phone: Start: 08-16-2022 End: 08-16-[address] Cornelius Srinivasan Work Phone: [facility]-Cardiovascular Services Start: 08-12-2022 End: 08-12-[address] Cornelius Srinivasan Work Phone: [facility] Start: 07-08-2022 End: 07-08-[address] Cornelius Srinivasan Work Phone: [facility] Start: 05-21-2022 End: 05-21-[address] Cornelius Srinivasan Work Phone: [facility] Work Phone: Start: 05-21-2022 End: 05-21-[address] Cornelius Srinivasan Work Phone: [facility]-Outpatient Breast Imaging Start: 05-13-2022 Non-patient / Non-visit Dr. Cornelius Srinivasan Work Phone: [facility] Start: 05-13-2022 End: 05-13-[address] Cornelius Srinivasan Work Phone: [facility] Work Phone: Start: 05-13-2022 End: 05-13-[address] Cornelius Srinivasan [facility] Start: 05-06-2022 End: 05-06-[address] Cornelius Srinivasan Work Phone: [facility] Work Phone: Start: 05-06-2022 End: 05-06-[address] Cornelius Srinivasan Work Phone: [facility] Start: 05-03-2022 End: 05-03-[address] Cornelius Srinivasan Work Phone: [facility] Start: 03-28-2022 End: 03-28-[address] Cornelius Srinivasan Work Phone: [facility] Work Phone: Start: 03-28-2022 End: 03-28-[address] Cornelius Srinivasan [facility] Start: 03-28-2022 Non-patient / Non-visit Dr. Cornelius Srinivasan Work Phone: [facility] Start: 03-08-2022 End: 03-08-[address] Cornelius Srinivasan Work Phone: [facility] Work Phone: Start: 03-08-2022 End: 03-08-[address] Cornelius Srinivasan Work Phone: [facility] Start: 03-04-2022 End: 03-04-[address] Cornelius Srinivasan Work Phone: [facility] Start: 02-26-2022 End: 02-26-[address] Cornelius Srinivasan Work Phone: [facility]-Cardiovascular Services Start: 10-11-2021 End: 10-11-[address] Cornelius Srinivasan [facility] Phone[facility] 3[facility] Flr Start: 09-12-2021 End: 09-12-[address] Cornelius [facility]rinivasan [facility] Start: 09-06-2021 End: 09-06-[address] Cornelius Srinivasan Work Phone: [facility] Start: 07-31-2021 End: 07-31-[address] Cornelius Srinivasan Work Phone: [facility] Start: 07-17-2021 End: 07-17-[address] Cornelius Srinivasan Work Phone: [facility]-Laboratory Start: 06-26-2021 Non-patient / Non-visit Dr. Cornelius Srinivasan Work Phone: [facility] Start: 06-26-2021 End: 06-26-[address] Cornelius Srinivasan [facility] Phone[facility] Start: 02-21-2010 Patient encounter status Lisa Fraga PT [facility] Procedures Date Procedure Procedure Detail Performing Clinician Start: 02-07-2025 Vitamin D, 25-hydrox y measurement Brittany Iverson MD Work Phone: Comment on above: Vitamin D StatusDefi ciency: <20 ng/mL (50nmol/L)Insufficiency: 20-30 ng/mL (50-75 nmol/L)Sufficiency: 30-100 ng/mL (75-250 nmol/L)Toxicity: >100 ng/mL (>250 nmol/L) Start: 05-10-2024 Cardiovascular stres s test using pharmacologic stress agent Brittany Iverson MD Work Phone: Start: 04-08-2024 Screening mammography Sandrita Iverson MD Work Phone: Start: 07-07-2023 MRI of lumbar spine DO Josie Garynger Work Phone: Start: 06-09-2023 CT of abdominal aort a with contrast DO Josie Lockwood Work Phone: Start: 01-09-2023 Plain x-ray of pelvi s and lower extremity DO Josie Lockwood Work Phone: Start: 07-08-2022 Plain X-ray of shoulder Dr. Cornelius Srinivasan Work Phone: Start: 05-21-2022 Screening mammography D rojelio Srinivasan Work Phone: Start: 05-13-2022 Radionuclide imaging of perfusion of myocardium under exercise stress Dr. Cornelius Srinivasan Work Phone: Start: 08-14-2021 Ecg routine ecg w/le ast 12 lds i&r only Start: 07-31-2021 CT of abdominal aort a with contrast Dr. Cornelius Srinivasan Work Phone: Start: 01-30-2016 Lipid 1996 panel - S stephanie or Plasma Lisa Fraga PT Start: 03-28-2011 Colonoscopy Lisa Bain PT Plan of Treatment Date Care Activity Detail Author Start: 03-23-2025 Colonoscopy [facility] Start: 08-14-2024 Diabetes Screening Diabetes Screenin g [facility] Start: 02-12-2024 End: 02-12-2024 ambulatory 02/12/2024 8:00 AM EDT OT/PT/Speech Visit [facility] [address] [place] [address] Lisa Fraga, PT Unilateral primary osteoarthritis, right hip [M16.11] [facility] Comment on above: Unilateral primary o steoarthritis, right hip [M16.11] Start: 02-09-2024 End: 02-09-2024 ambulatory 02/09/2024 8:45 AM EDT OT/PT/Speech Visit [facility] [address] [place] [address] O'Odell, Lisa, PT Unilateral primary osteoarthritis, right hip [M16.11] [facility] Comment on above: Unilateral primary o steoarthritis, right hip [M16.11] Start: 02-05-2024 End: 02-05-2024 ambulatory 02/05/2024 8:00 AM EDT OT/PT/Speech Visit [facility] [address] [place] [address] O'Odell, Lisa, PT Unilateral primary osteoarthritis, right hip [M16.11] [facility] Comment on above: Unilateral primary o steoarthritis, right hip [M16.11] Start: 02-02-2024 End: 02-02-2024 ambulatory 02/02/2024 8:45 AM EDT OT/PT/Speech Visit [facility] [address] [place] [address] O'Odell, Lisa, PT Unilateral primary osteoarthritis, right hip [M16.11] [facility] Comment on above: Unilateral primary o steoarthritis, right hip [M16.11] Start: 01-29-2024 End: 01-29-2024 ambulatory 01/29/2024 9:30 AM EDT OT/PT/Speech Visit [facility] [address] [place] [address] O'Odell, Lisa, PT Unilateral primary osteoarthritis, right hip [M16.11] [facility] Comment on above: Unilateral primary o steoarthritis, right hip [M16.11] Start: 01-27-2024 End: 01-27-2024 ambulatory 01/27/2024 9:00 AM EDT OT/PT/Speech Visit [facility] [address] [place] [address] O'Odell, Lisa, PT Unilateral primary osteoarthritis, right hip [M16.11] [facility] Comment on above: Unilateral primary o steoarthritis, right hip [M16.11] Start: 01-23-2024 End: 01-23-2024 ambulatory 01/23/2024 8:30 AM EDT OT/PT/Speech Visit [facility] [address] [place] [address] O'Odell, Lisa, PT Unilateral primary osteoarthritis, right hip [M16.11] [facility] Comment on above: Unilateral primary o steoarthritis, right hip [M16.11] Start: 01-21-2024 End: 01-21-2024 ambulatory 01/21/2024 9:45 AM EDT OT/PT/Speech Visit [facility] [address] [place] [address] O'Odell, Lisa, PT Unilateral primary osteoarthritis, right hip [M16.11] [facility] Comment on above: Unilateral primary o steoarthritis, right hip [M16.11] Start: 01-14-2024 End: 01-14-2024 ambulatory 01/14/2024 9:45 AM EDT OT/PT/Speech Visit [facility] [address] [place] [address] O'Odell, Lisa, PT Unilateral primary osteoarthritis, right hip [M16.11] [facility] Comment on above: Unilateral primary o steoarthritis, right hip [M16.11] Start: 01-12-2024 End: 01-12-2024 ambulatory 01/12/2024 9:30 AM EDT OT/PT/Speech Visit [facility] [address] [place] [address] O'Odell, Lias, PT Unilateral primary osteoarthritis, right hip [M16.11] [facility] Comment on above: Unilateral primary o steoarthritis, right hip [M16.11] Start: 01-07-2024 End: 01-07-2024 ambulatory 01/07/2024 9:45 AM EDT OT/PT/Speech Visit [facility] [address] [place] [address] O'Lisa Bain, PT Unilateral primary osteoarthritis, right hip [M16.11] [facility] Comment on above: Unilateral primary o steoarthritis, right hip [M16.11] Start: 01-05-2024 End: 01-05-2024 ambulatory 01/05/2024 2:45 PM EDT OT/PT/Speech Visit [facility] [address] [place] [address] Charlie'Lisa Bain, PT Unilateral primary osteoarthritis, right hip [M16.11] [facility] Comment on above: Unilateral primary o steoarthritis, right hip [M16.11] Start: 12-28-2023 Covid-19 Vaccine ( season) Covid-19 Vaccine ( season) [facility] Start: 12-28-2023 Covid-19 Vaccine ( season) Covid-19 Vaccine () [facility] Start: 12-28-2023 Influenza vaccination Influenza Vacc ine (#1) [facility] Start: 06-23-2023 Patient referral [facility] Work Phone: Start: 04-28-2023 Advance Directive Discussion Advance Directive Discussion [facility] Start: 04-01-2023 Patient referral [facility] Work Phone: Start: 01-09-2023 Patient referral [facility] Work Phone: Start: 12-27-2022 Covid-19 Vaccine ( season) Covid-19 Vaccine ( season) [facility] Start: 10-26-2021 Pneumococcal Vaccine : 65+ (2 of 2 - PCV) Pneumococcal Vaccine: 65+ (2 of 2 - PCV) [facility] Start: 01-29-2021 Lipid panel Lipid Screening [facility] Start: 11-27-2019 Screening for osteoporosis Bone Density Screening [facility] Start: 08-06-2019 Urine microalbumin profile DTaP,Tdap,Td Vaccine (1 - Tdap) [facility] Start: 01-30-2017 Screening for malign ant neoplasm of breast Mammogram Screening [facility] Start: 2014 RSV Vaccine (1 - 1-d ose 60+ series) RSV Vaccine (1 - 1-dose 60+ series) [facility] Start: 2014 RSV Vaccine (1 - Ris k 60-74 years 1-dose series) RSV Vaccine (1 - Risk 60-74 years 1-dose series) [facility] Start: 03-28-2012 Screening for malign ant neoplasm of colon [facility] Start: 2004 Shingrix Vaccine (1 of 2) Shingrix Vaccine (1 of 2) [facility] Start: 11-27-1999 Screening for malign ant neoplasm of colon [facility] Start: 1972 Annual PCP Team Br[employer] 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 graciela Disease Visit Annual PCP Team Chronic Disease Visit [facility] Start: 1972 Anxiety Screening Anxiety Screening [facility] Start: 1972 BP Controlled (<130/80) BP Controlle d (<130/80) [facility] Start: 1972 Spirometry Spirometry [facility] Patient referral [facility] Work Phone: [facility] Work Phone: [facility] Immunizations Immunization Date Immunization Notes Care Provider Fa reed 01-23-2021 influenza virus vacc ine, unspecified formulation Lisa Fraga PT [facility] 01-28-2011 influenza virus vacc ine, unspecified formulation Lisa Fraga PT [facility] Work Phone: 01-28-2011 pneumococcal polysaccharide vaccine, 23 valent Lisa Fraga PT [facility] 03-14-1988 tetanus and diphther ia toxoids, adsorbed, preservative free, for adult use (2 Lf of tetanus toxoid and 2 Lf of diphtheria toxoid) Lisa Fraga PT [facility] Work Phone: Payers Date Payer Category Payer Self-pay [id number] 2020 Unknown [facility] [employer] HMO [id number] 2020-Present [phone] [address] [place] [address] HMO [id number] 2020 Medicare [id number] 2012 Medicare [id number] Unknown [id number] Unknown [id number] Unknown [id number] Unknown [id number] Unknown [id number] Unknown [id number] Unknown [id number] Unknown [id number] Unknown [id number] Unknown [id number] Unknown [id number] Unknown [id number] Unknown [id number] Social History Date Type Detail Facility Start: 09-12-2021 End: 06-23-2023 Tobacco smoking status NHIS Unknown if ever smoked [facility] Start: 12-11-2019 Spouse/ Signif icant Other [facility] Start: 07-15-2019 Cigarettes [place] [facility] Start: 1955 Sex Assigned At Female [facility] Start: 01-29-2016 Tobacco smoking stat us NHIS Occasional tobacco smoker [facility] Work Phone: History of tobacco use Cigarette Smoker [facility] Start: 01-29-2016 End: 12-26-2023 Cigarettes smoked current (pack per day) - Reported 1 [facility] Start: 01-29-2016 Tobacco use and exposure Former smokeless tobacco user [facility] End: 01-28-2015 History of tobacco use User of smokeless tobacco [facility] Start: 12-12-2021 Alcoholic beverage intake Current drinker of alcohol (finding) [facility] Start: 12-12-2021 End: 12-26-2023 Tobacco use panel [facility] National Score (1-10 0), lower number is lower risk 92 [facility] Start: 01-29-2016 Tobacco Comment occasional smoker [facility] Start: 03-02-2010 Alcohol Comment [facility] Start: 1955 Sex assigned at Not on file C [facility] Start: 11-16-2023 End: 11-16-2023 Tobacco smoking status NHIS Smokes tobacco daily (finding) [facility] Start: 07-15-2024 Sex Female (finding) [facility] Medical Equipment Procedure Code Equipment Code Equipment Origin al Text Equipment Identifier Dates ORIF, fracture, wrist 8.0 Carbon Fiber Rods FDA Start: 06-04-2019 ORIF, fracture, wrist Adjustable Clamp 4.0mm FDA Start: 06-04-2019 ORIF, fracture, wrist Adjustable Clamp 4.0mm FDA Start: 06-04-2019 ORIF, fracture, wrist Self-Drilling Schanz Screws FDA Start: 06-04-2019 ORIF, fracture, wrist Self-Drilling Schanz Screws FDA Start: 06-04-2019 ORIF, fracture, wrist Self-Drilling Schanz Screws FDA Start: 06-04-2019 ORIF, fracture, wrist Self-Drilling Schanz Screws FDA Start: 06-04-2019 ORIF, fracture, wrist 8.0 Carbon Fiber Rods FDA Start: 06-04-2019 ORIF, fracture, wrist Adjustable Clamp 4.0mm FDA Start: 06-04-2019 ORIF, fracture, wrist Adjustable Clamp 4.0mm FDA Start: 06-04-2019 ORIF, fracture, wrist Self-Drilling Schanz Screws FDA Start: 06-04-2019 ORIF, fracture, wrist Self-Drilling Schanz Screws FDA Start: 06-04-2019 ORIF, fracture, wrist Self-Drilling Schanz Screws FDA Start: 06-04-2019 ORIF, fracture, wrist Self-Drilling Schanz Screws FDA Start: 06-04-2019 ORIF, fracture, wrist 8.0 Carbon Fiber Rods FDA Start: 06-04-2019 ORIF, fracture, wrist Adjustable Clamp 4.0mm FDA Start: 06-04-2019 ORIF, fracture, wrist Adjustable Clamp 4.0mm FDA Start: 06-04-2019 ORIF, fracture, wrist Self-Drilling Schanz Screws FDA Start: 06-04-2019 ORIF, fracture, wrist Self-Drilling Schanz Screws FDA Start: 06-04-2019 ORIF, fracture, wrist Self-Drilling Schanz Screws FDA Start: 06-04-2019 ORIF, fracture, wrist Self-Drilling Schanz Screws FDA Start: 06-04-2019 ORIF, fracture, wrist 8.0 Carbon Fiber Rods FDA Start: 06-04-2019 ORIF, fracture, wrist Adjustable Clamp 4.0mm FDA Start: 06-04-2019 ORIF, fracture, wrist Adjustable Clamp 4.0mm FDA Start: 06-04-2019 ORIF, fracture, wrist Self-Drilling Schanz Screws FDA Start: 06-04-2019 ORIF, fracture, wrist Self-Drilling Schanz Screws FDA Start: 06-04-2019 ORIF, fracture, wrist Self-Drilling Schanz Screws FDA Start: 06-04-2019 ORIF, fracture, wrist Self-Drilling Schanz Screws FDA Start: 06-04-2019 ORIF, fracture, wrist 8.0 Carbon Fiber Rods FDA Start: 06-04-2019 ORIF, fracture, wrist Adjustable Clamp 4.0mm FDA Start: 06-04-2019 ORIF, fracture, wrist Adjustable Clamp 4.0mm FDA Start: 06-04-2019 ORIF, fracture, wrist Self-Drilling Schanz Screws FDA Start: 06-04-2019 ORIF, fracture, wrist Self-Drilling Schanz Screws FDA Start: 06-04-2019 ORIF, fracture, wrist Self-Drilling Schanz Screws FDA Start: 06-04-2019 ORIF, fracture, wrist Self-Drilling Schanz Screws FDA Start: 06-04-2019 ORIF, fracture, wrist 8.0 Carbon Fiber Rods FDA Start: 06-04-2019 ORIF, fracture, wrist Adjustable Clamp 4.0mm FDA Start: 06-04-2019 ORIF, fracture, wrist Adjustable Clamp 4.0mm FDA Start: 06-04-2019 ORIF, fracture, wrist Self-Drilling Schanz Screws FDA Start: 06-04-2019 ORIF, fracture, wrist Self-Drilling Schanz Screws FDA Start: 06-04-2019 ORIF, fracture, wrist Self-Drilling Schanz Screws FDA Start: 06-04-2019 ORIF, fracture, wrist Self-Drilling Schanz Screws FDA Start: 06-04-2019 ORIF, fracture, wrist 8.0 Carbon Fiber Rods FDA Start: 06-04-2019 ORIF, fracture, wrist Adjustable Clamp 4.0mm FDA Start: 06-04-2019 ORIF, fracture, wrist Adjustable Clamp 4.0mm FDA Start: 06-04-2019 ORIF, fracture, wrist Self-Drilling Schanz Screws FDA Start: 06-04-2019 ORIF, fracture, wrist Self-Drilling Schanz Screws FDA Start: 06-04-2019 ORIF, fracture, wrist Self-Drilling Schanz Screws FDA Start: 06-04-2019 ORIF, fracture, wrist Self-Drilling Schanz Screws FDA Start: 06-04-2019 ORIF, fracture, wrist 8.0 Carbon Fiber Rods FDA Start: 06-04-2019 ORIF, fracture, wrist Adjustable Clamp 4.0mm FDA Start: 06-04-2019 ORIF, fracture, wrist Adjustable Clamp 4.0mm FDA Start: 06-04-2019 ORIF, fracture, wrist Self-Drilling Schanz Screws FDA Start: 06-04-2019 ORIF, fracture, wrist Self-Drilling Schanz Screws FDA Start: 06-04-2019 ORIF, fracture, wrist Self-Drilling Schanz Screws FDA Start: 06-04-2019 ORIF, fracture, wrist Self-Drilling Schanz Screws FDA Start: 06-04-2019 ORIF, fracture, wrist 8.0 Carbon Fiber Rods FDA Start: 06-04-2019 ORIF, fracture, wrist Adjustable Clamp 4.0mm FDA Start: 06-04-2019 ORIF, fracture, wrist Adjustable Clamp 4.0mm FDA Start: 06-04-2019 ORIF, fracture, wrist Self-Drilling Schanz Screws FDA Start: 06-04-2019 ORIF, fracture, wrist Self-Drilling Schanz Screws FDA Start: 06-04-2019 ORIF, fracture, wrist Self-Drilling Schanz Screws FDA Start: 06-04-2019 ORIF, fracture, wrist Self-Drilling Schanz Screws FDA Start: 06-04-2019 ORIF, fracture, wrist 8.0 Carbon Fiber Rods FDA Start: 06-04-2019 ORIF, fracture, wrist Adjustable Clamp 4.0mm FDA Start: 06-04-2019 ORIF, fracture, wrist Adjustable Clamp 4.0mm FDA Start: 06-04-2019 ORIF, fracture, wrist Self-Drilling Schanz Screws FDA Start: 06-04-2019 ORIF, fracture, wrist Self-Drilling Schanz Screws FDA Start: 06-04-2019 ORIF, fracture, wrist Self-Drilling Schanz Screws FDA Start: 06-04-2019 ORIF, fracture, wrist Self-Drilling Schanz Screws FDA Start: 06-04-2019 ORIF, fracture, wrist 8.0 Carbon Fiber Rods FDA Start: 06-04-2019 ORIF, fracture, wrist Adjustable Clamp 4.0mm FDA Start: 06-04-2019 ORIF, fracture, wrist Adjustable Clamp 4.0mm FDA Start: 06-04-2019 ORIF, fracture, wrist Self-Drilling Schanz Screws FDA Start: 06-04-2019 ORIF, fracture, wrist Self-Drilling Schanz Screws FDA Start: 06-04-2019 ORIF, fracture, wrist Self-Drilling Schanz Screws FDA Start: 06-04-2019 ORIF, fracture, wrist Self-Drilling Schanz Screws FDA Start: 06-04-2019 ORIF, fracture, wrist 8.0 Carbon Fiber Rods FDA Start: 06-04-2019 ORIF, fracture, wrist Adjustable Clamp 4.0mm FDA Start: 06-04-2019 ORIF, fracture, wrist Adjustable Clamp 4.0mm FDA Start: 06-04-2019 ORIF, fracture, wrist Self-Drilling Schanz Screws FDA Start: 06-04-2019 ORIF, fracture, wrist Self-Drilling Schanz Screws FDA Start: 06-04-2019 ORIF, fracture, wrist Self-Drilling Schanz Screws FDA Start: 06-04-2019 ORIF, fracture, wrist Self-Drilling Schanz Screws FDA Start: 06-04-2019 ORIF, fracture, wrist 8.0 Carbon Fiber Rods FDA Start: 06-04-2019 ORIF, fracture, wrist Adjustable Clamp 4.0mm FDA Start: 06-04-2019 ORIF, fracture, wrist Adjustable Clamp 4.0mm FDA Start: 06-04-2019 ORIF, fracture, wrist Self-Drilling Schanz Screws FDA Start: 06-04-2019 ORIF, fracture, wrist Self-Drilling Schanz Screws FDA Start: 06-04-2019 ORIF, fracture, wrist Self-Drilling Schanz Screws FDA Start: 06-04-2019 ORIF, fracture, wrist Self-Drilling Schanz Screws FDA Start: 06-04-2019 ORIF, fracture, wrist 8.0 Carbon Fiber Rods FDA Start: 06-04-2019 ORIF, fracture, wrist Adjustable Clamp 4.0mm FDA Start: 06-04-2019 ORIF, fracture, wrist Adjustable Clamp 4.0mm FDA Start: 06-04-2019 ORIF, fracture, wrist Self-Drilling Schanz Screws FDA Start: 06-04-2019 ORIF, fracture, wrist Self-Drilling Schanz Screws FDA Start: 06-04-2019 ORIF, fracture, wrist Self-Drilling Schanz Screws FDA Start: 06-04-2019 ORIF, fracture, wrist Self-Drilling Schanz Screws FDA Start: 06-04-2019 ORIF, fracture, wrist 8.0 Carbon Fiber Rods FDA Start: 06-04-2019 ORIF, fracture, wrist Adjustable Clamp 4.0mm FDA Start: 06-04-2019 ORIF, fracture, wrist Adjustable Clamp 4.0mm FDA Start: 06-04-2019 ORIF, fracture, wrist Self-Drilling Schanz Screws FDA Start: 06-04-2019 ORIF, fracture, wrist Self-Drilling Schanz Screws FDA Start: 06-04-2019 ORIF, fracture, wrist Self-Drilling Schanz Screws FDA Start: 06-04-2019 ORIF, fracture, wrist Self-Drilling Schanz Screws FDA Start: 06-04-2019 ORIF, fracture, wrist 8.0 Carbon Fiber Rods FDA Start: 06-04-2019 ORIF, fracture, wrist Adjustable Clamp 4.0mm FDA Start: 06-04-2019 ORIF, fracture, wrist Adjustable Clamp 4.0mm FDA Start: 06-04-2019 ORIF, fracture, wrist Self-Drilling Schanz Screws FDA Start: 06-04-2019 ORIF, fracture, wrist Self-Drilling Schanz Screws FDA Start: 06-04-2019 ORIF, fracture, wrist Self-Drilling Schanz Screws FDA Start: 06-04-2019 ORIF, fracture, wrist Self-Drilling Schanz Screws FDA Start: 06-04-2019 Goals Date Patient Goal Desired Activity /State Clinical Notes 04-24-2023 to 02-15-2025 Note Date & Type Note Facility 02-15-2025 Progress note [facility] 02-15-2025 Evaluation note Diagnosis Onset Date Resolution Blood per rectum acute February 15, 2025 1:51pm Hemorrhoids acute February 15, 2025 1:51pm [facility] Work Phone: 1(100) 685-222710-21-2025 Progress note Author Sunitha Maki [facility] Note Date/Time February 15, 2025 4 :06pm [facility] [address] [place] [address]. [address] [place] [address] OFFICE VISIT Date of Service: 02/15/25 MR#: [id number] Acct: [id number] Name: NALLELY MOYA Rep #: [id number] : 1955 Provider: Dr. Narciso Maki MD Age/Sex: 69/F Location: [facility] Status: Signed Intake Vital Signs 10/18/24 06:58 02/15/25 14:11 Height 5 ft 1 in 5 ft 1 in Weight: 174 lb BMI 32.8 BP 114/76 Blood Pressure Location Rt brachial Position Sitting Respiration 16 Intake Visit Reasons: BLOODY STOOL Chief Complaint: blood per rectum Personal Caregiver Required: No Is patient in pain?: No Allergies No Known Allergies Allergy (Verified 02/15/25 14:11) Medications ?Medication ?Instructions ?Recorded ?Confirmed ?Type levothyroxine 50 mcg tablet 50 mcg PO DAILY thyroid 02/15/25 History cyanocobalamin (vitamin B-12) 1,000 mcg PO DAILY 12/2102/15/25 History 1,000 mcg capsule furosemide 40 mg tablet 40 mg PO DAILY 12/22/1901/27 History vitamin E (dl, acetate) 450 mg 450 mg PO DAILY 0 02/15/25 History (1,000 unit) capsule metoprolol succinate 50 mg 50 mg PO DAILY #90 tabs 02/15/25 Rx tablet,extended release 24 hr (Toprol XL) biotin 10,000 mcg capsule mcg PO 01/04/21 02/15/25 His tory cholecalciferol (vitamin D3) 125 125 mcg PO DAILY 01/1602/15/25 History mcg (5,000 unit) capsule potassium chloride 20 mEq tablet PO 01/04/21 02/15/25 History tablet,extended release(part/cryst) lisinopril 20 mg tablet 20 mg PO DAILY bp #90 tabs 1 06/18/20 02/15/25 Rx clopidogrel 75 mg tablet (Plavix) 75 mg PO DAILY 03/0402/15/25 History ascorbate calcium (vitamin C) 500 500 mg PO DAILY 07/1902/15/25 History mg tablet lamotrigine 200 mg tablet 100 mg PO DAILY seizures 02/15/25 History vitamin K2 (MK-4) 100 mcg tablet 50 mcg PO DAILY 08/0302/15/25 History atorvastatin 20 mg tablet 20 mg PO DAILY #90 tabs 11/2602/15/25 Rx baclofen 10 mg tablet 10 mg PO TID PRN musculoskel etal 12/09/23 02/15/25 Rx pain/muscle spasm #270 tabs flurbiprofen 100 mg tablet 100 mg PO TID PRN Musculosk eletal 12/09/23 02/15/25 Rx pain #270 tabs fluoxetine 10 mg capsule (Prozac) 10 mg PO QDAY 02/15/25 History hydrocortisone 2.5 % topical cream [address] BID-QID PRN 02/15/25 02/15/25 Rx with perineal applicator hemorrhoids #30 grams (Proctozone-HC) hydrocortisone 2.5 % topical cream [address] BID-QID PRN 02/15/25 02/15/25 Rx with perineal applicator hemorrhoids #30 grams (Proctozone-HC) Have you fallen in the past year?: No PFSH Medical History (Updated 02/15/25 @ 16:[address] Sunitha Maki MD) Moderate pulmonary hypertension Peripheral vascular occlusive disease Stenosis of right carotid artery Aneurysm of right iliac artery Aneurysm of infrarenal abdominal aorta DDD (degenerative disc disease), lumbosacral Secondary pulmonary arterial hypertension Chronic diastolic (congestive) heart failure Alcohol abuse COPD (chronic obstructive pulmonary disease) Hyponatremia Diastolic dysfunction Essential (primary) hypertension Hyperlipidemia Insomnia Nicotine dependence Bipolar disorder Hypothyroidism Anxiety and depression Elevated LFTs Arthritis Pulmonary nodule Surgical History (Updated 02/15/25 @ 14:11 by Kalpana San) S/P wrist surgery Hip joint replacement status History of angioplasty of peripheral vessel (08/14/21) History of hysterectomy History of cataract surgery Family History Mother CAD (coronary artery disease) CABG x 3 post op age 63 Brother CAD (coronary artery disease) CABG x 3 age 65 Social History Smoking Status: Current every day smoker tobacco type: cigarettes second hand exposure: Yes alcohol intake: never substance use type: does not use what type of physical activity do you participate in: walking and bicycling HPI HPI HPI: 69-year-old female presents due to blood per rectum. Patient states that about a week and a half ago she had some blood in the toilet with no stool and she would also have stool with no blood. Patient does have a history of hemorrhoidsthat has caused an occasional issues in the past. Patient is on Plavix due to PVD. Patient denies any family history of colon cancer. Last colonoscopy was by Dr. Fonseca 5 years ago do not have the current report patient believes it wasnegative. Patient states she has bowel movements daily. ROS General General: Yes weight change and fatigue; No appetite, colon cancer, breast cancer or weakness HEENT HEENT: No difficulty swallowing, eye injury, eye surgery, swollen glands or hoarseness Endo Endocrine: No thyroid disease, diabetes mellitus, thyroid cancer, Hair loss, heat intolerance or cold intolerance Skin Skin: No rash or changing moles Breast Breast: No left breast lump, right breast lump, nipple discharge, breast pain, abnormal mammogram, abnormal US or breast enlargement Musc Musculoskeletal: Yes back problems and arthritis; No rheumatoid arthritis, gout or joint pain Cardio Cardiovascular: Yes high blood pressure; No murmur, pacemaker, heart disease, atrial fibrillation, heart attack, heart stent, palpitations, shortness of breath with exertion or chest pain Psych Psychiatric: Yes anxiety; No depression or hearing voices Resp Respiratory: Yes shortness of breath, No sleep apnea, No cough, No COPD, No asthma, No emphysema and No wheezing Gastro Gastrointestinal: No abdominal pain, No nausea or vomiting, No diarrhea, No constipation, No blood in stool, No acid reflux, Yes hemorrhoids, No ulcers, No gallbladder problem and No black,tarry stools Hansel Hematologic: Yes blood thinners, No blood disorders, No bleeding, No anemia and No blood clots Neuro Neurologic: No system reviewed and no additional complaints, except as documented, No as per HPI, No abnormal gait, No abnormal hearing, No abnormal movements, No abnormal speech, No behavioral changes, No burning sensations, No confusion, No convulsions, No disequilibrium, No dizziness, No localized weakness, No frequent falls, No headache(s), No lack of coordination, No loss ofvision, No memory loss, No numbness, No other visual disturbances, No radicular pain, No restless legs, No sensory deficit, No syncope, No tingling, No tremor(s), No weakness and No other Exam Const General: cooperative, healthy appearing, comfortable and no acute distress [facility] Head: normocephalic and atraumatic Neck Neck: supple Resp Effort & Inspection: normal respiratory effort Cardio Rate: regular rate GI Inspection: non-distended Palpation: soft and nontender Other: TANNER internal grade 2 hemorrhoid at 5:00 likely source of bleeding, no gross blood currently no other masses on exam. Skin General: no rashes or lesions noted Neuro General: CN's II-XI intact bilaterally Extrem General: normal to inspection Psych Mental Status: mental status grossly normal Attitude: cooperative Assessment and Plan Assessment and Plan (1) Blood per rectum: Status: Acute (2) Hemorrhoids: Status: Acute Orders: Orders Colonoscopy 03/23/25 Hanna ABBASI PA-C Medications: New hydrocortisone 2.5% (Proctozone-HC) [address] BID-QID PRN [address] Sunitha Maki MD hydrocortisone 2.5% (Proctozone-HC) [address] BID-QID PRN [address] Sunitha Maki MD Plan Likely source of blood per rectum is a internal hemorrhoid at 5:00. Plan to give patient 2.5% hydrocortisone and she plans to use at applicator to get it infor a suppository. Also try to get patient's last colonoscopy report. I have discussed the above with the patient. I have offered the patient colonoscopy for evaluation. I have explained the risks/benefits of the procedure and described the procedure. I have discussed the risks with the patient, including but not limited to: infection, bleeding, perforation of the GI tract requiring emergency surgery, inability to complete the procedure, injury to any internal organs, complications of anesthesia, etc. - the patient understands and agrees to proceed. I have answered all the patient's questions to the patient's satisfaction and the patient has no further questions. The patient has been given instructions for the colon cleansing preparation. 1 day clears MiraLAX Dulcolax prep Sunitha Maki M.D. Pager: [phone] [facility] [address] [place] [address], [address] [place] [address] Office: [phone] Plan Details Goals & Barriers: Goals Decrease pain Decrease inflammation Improve strength for walking Barriers DDD Coding Level of Care Code Off vis,new,level 3 Diagnoses Blood per rectum K62.5 Hemorrhoids K64.9 Clinical Quality Measures Falls Risk Screening/Assistive Devices Have you fallen in the past year?: No 02/15/25 0444 <Electronically signed by Sunitha Lanier am, MD> Date _ Sunitha Maki MD Cosigner Signature: Date (if applicable) CC: Dr. Brittany Iverson MD ~ [facility] Work Phone: 1(928) 398-276301-02-2025 Evaluation note* Diagnosis Onset Date Resolution Status Admit Date Coronary artery calcificatio n seen on CAT scan acute April 29 8:29am Fatigue acute April 29 8:29am Moderate pulmonary hypertension acut e April 29, 2024 8:29am Diastolic dysfunction chronic Apr 8:29am Essential (primary) hypertension chronic April 29 8:29am Hyperlipidemia chronic April 8:29am Peripheral arterial disease chronic April 29, 2024 8:29am Stenosis of right carotid artery chronic April 29 8:29am [facility] Work Phone: 1(726) 233-134710-24-2024 Telephone encounter Note* Telephone Encounter - Joyce Freeman RN - 02/19/2024 10:16 AM EDT Opened in error. Joyce Freeman RN [facility]10-24-2024 Miscellaneous Notes* Telephone Encounter - Joyce Freeman RN - 02/19/2024 10:16 AM EDT Opened in error. Joyce Freeman RN documented in this encounterOhio[facility]-2024 NoteHNO ID: [id number] Author: LISA FRAGA PT Service: ? Author Type: Physical Therapist Type: Progress Notes Filed: 01/12/2024 10:01 Note Text: Episode Visit Count: 3 Therapist That Will Accept/Oversee The Plan Of Care: Lisa Fraga Start of Care Date: 12/26/23 Onset Date: 11/11/23 Plan of Care Certification Date: 12/26/23 Next Certification Due Date: 02/06/24 RE[facility]ABIL[facility]ATION AND SPORTS THERAPY PHYSICAL THERAPY TREATMENT NOTE ASSESSMENT: Nallely Moya tolerated the session with decreased symptoms. She demonstrated difficulty with Anterior R hip pain with full ROM marches on foam but this improved when hip flexion ROM was reduced <90 with these marches. The patient will continue to benefit from ongoing skilled physical therapy to progress toward set goals. PLAN FOR NEXT VISIT: Frequency of visits reduced to 1x/wk SUBJECTIVE: Pt. reports she had a great weekend. She had no trouble driving, power washing, and push mowing. Patient Goals: indep with ADLs Pain: Pain Pain Level: 0 Pain Location: Hip - Right Description: Aching Post Treatment Pain Post Treatment Pain Level: No Change Post Treatment Pain Location: Hip - Left OBJECTIVE MEASURES WITH LEVEL OF FUNCTION: TREATMENT: Therapeutic Exercise: 1: TRX mini squats 2x10 2: seated stepper 5 min, level 2, 1:1 throughout subjective collected, seat 10 3: TRX mini lunges 2x10 4: TRX squat 5x5 sec hold 5: TRX 3/4 squats 2x15 6: supine piriformis stretch 2x30 sec each side Skilled Intervention: Patient was educated in proper exercise technique and purpose for exercises. Reviewed and educated patient on additions/changes for home exercise program as above (*). Skilled judgment was used in selection of appropriate interventions. Correct performance of therapeutic exercises was facilitated with verbal, visual, and tactile cuing. Educated patient on rationale for performing exercises in regards to decreasing fatigue , including balance, increase ease of ADL, and ROM and function . Patient education as noted. Neuromuscular Re-Education: 1: static standing on foam 30 sec 2: hook lying TA activation using biofeedback 20 mmHg to 40 mmHg 2x10, 10 sec hold 3: marches on foam 3x30 sec, x1 UE support 4: Hip abd on foam 2x12 5: hip ext on foam 2x12 6: step ups fwd on BOSU ball, x1 UE support 2x15 Skilled Intervention: Skilled judgment used to assess appropriate program for balance and coordination activity. Education in proprioceptive/kinesthetic awareness during dynamic activities. Ensured patient safety with use of // bars within reach. Reviewed and educated patient on additions/changes for home program as noted above with an (*). Patient education as noted. Billing Therapeutic Exercise Treatment Minutes: 15 Neuromuscular Re-Education Treatment Minutes: 25 Skilled Treatment Time Minutes (timed and untimed codes): 40 Total Session Time (minutes): 40 Session Start Time : 0920 Session Stop Time : 1000 Lisa Fraga, [facility]09-16-2024 History of Present illness Narrative* Lisa Fraga, PT - 01/12/2024 9:21 AM EDT Episode Visit Count: 3 Therapist That Will Accept/Oversee The Plan Of Care: Lisa Fraga Start of Care Date: 12/26/23 Onset Date: 11/11/23 Plan of Care Certification Date: 12/26/23 Next Certification Due Date: 02/06/24 REHABILITATION AND SPORTS THERAPY PHYSICAL THERAPY TREATMENT NOTE ASSESSMENT: Nallely Moya tolerated the session with decreased symptoms. She demonstrated difficulty with Anterior R hip pain with full ROM marches on foam but this improved when hip flexion ROM was reduced <90 with these marches. The patient will continue to benefit from ongoing skilled physical therapy to progress toward set goals. PLAN FOR NEXT VISIT: Frequency of visits reduced to 1x/wk SUBJECTIVE: Pt. reports she had a great weekend. She had no trouble driving, power washing, and push mowing. Patient Goals: indep with ADLs Pain: Pain Pain Level: 0 Pain Location: Hip - Right Description: Aching Post Treatment Pain Post Treatment Pain Level: No Change Post Treatment Pain Location: Hip - Left OBJECTIVE MEASURES WITH LEVEL OF FUNCTION: TREATMENT: Therapeutic Exercise: 1: TRX mini squats 2x10 2: seated stepper 5 min, level 2, 1:1 throughout subjective collected, seat 10 3: TRX mini lunges 2x10 4: TRX squat 5x5 sec hold 5: TRX 3/4 squats 2x15 6: supine piriformis stretch 2x30 sec each side Skilled Intervention: Patient was educated in proper exercise technique and purpose for exercises. Reviewed and educated patient on additions/changes for home exercise program as above (*). Skilled judgment was used in selection of appropriate interventions. Correct performance of therapeutic exercises was facilitated with verbal, visual, and tactile cuing. Educated patient on rationale for performing exercises in regards to decreasing fatigue , includingbalance, increase ease of ADL, and ROM and function . Patient education as noted. Neuromuscular Re-Education: 1: static standing on foam 30 sec 2: hook lying TA activation using biofeedback 20 mmHg to 40 mmHg 2x10, 10 sec hold 3: marches on foam 3x30 sec, x1 UE support 4: Hip abd on foam 2x12 5: hip ext on foam 2x12 6: step ups fwd on BOSU ball, x1 UE support 2x15 Skilled Intervention: Skilled judgment used to assess appropriate program for balance and coordination activity. Education in proprioceptive/kinesthetic awareness during dynamic activities. Ensured patient safety with use of // bars within reach. Reviewed and educated patient on additions/changes for home program as noted above with an (*). Patient education as noted. Billing Therapeutic Exercise Treatment Minutes: 15 Neuromuscular Re-Education Treatment Minutes: 25 Skilled Treatment Time Minutes (timed and untimed codes): 40 Total Session Time (minutes): 40 Session Start Time : 0920 Session Stop Time : 1000 Lisa Fraga PT documented in this encounterOhio[facility]09-11-2024 History of Present illness Narrative* Lisa Fraga, PT - 01/07/2024 10:21 AM EDT Program_ID:[id number] Access Code: [email or web address] URL: [email or web address] Date: 01-07-2024 Prepared By: Lisa Fraga Program Notes Exercises - Sidelying Hip Abduction - 1 x daily - 7 x weekly - 4 sets - 10 reps - Prone Hip Extension - 1 x daily - 7 x weekly - 4 sets - 10 reps - Hooklying Small March - 1 x daily - 7 x weekly - 4 sets - reps - Supine Figure 4 Piriformis Stretch - 1 x daily - 7 x weekly - 1 sets - 3 reps - Active Straight Leg Raise with Quad Set - 1 x daily - 7 x weekly - 3 sets - 8 reps - Supine Transversus Abdominis Bracing with Heel Slide - 1 x daily - 7 x weekly - 4 sets - 10 reps * Lisa Fraga, PT - 01/07/2024 9:39 AM EDT Episode Visit Count: 2 Therapist That Will Accept/Oversee The Plan Of Care: Lisa Fraga Start of Care Date: 12/26/23 Onset Date: 11/11/23 Plan of Care Certification Date: 12/26/23 Next Certification Due Date: 02/06/24 REHABILITATION AND SPORTS THERAPY PHYSICAL THERAPY TREATMENT NOTE ASSESSMENT: Nallely Moya tolerated the session with fatigue and decreased symptoms. She demonstrateddifficulty with correct TA activation. Improved R hip AROM flexion following supine piriformis stretch. The patient will continue to benefit from ongoing skilled physical therapy to progress toward set goals. PLAN FOR NEXT VISIT: step ups, mini squats SUBJECTIVE: Denies pain. HEP is going well. She wants to know if she can ER her hip to put Patient Goals: indep with ADLs Functional Limitations: walking, standing, walking in the community, walking in the house, bending,stair negotiation, dressing (yard work,) Pain: Pain Pain Level: 0 Pain Location: Hip - Right Description: Aching Post Treatment Pain Post Treatment Pain Level: 0 Post Treatment Pain Location: Hip - Left OBJECTIVE MEASURES WITH LEVEL OF FUNCTION: TREATMENT: Therapeutic Exercise: 1: *Access Code: [email or web address] URL: [email or web address] Date: 01/07/2024 Prepared by: Lisa Oliver Exercises - Sidelying Hip Abduction - 1 x daily - 7 x weekly - 4 sets - 10 reps -Prone Hip Extension - 1 x daily - 7 x weekly - 4 sets - 10 reps - Hooklying Small March - 1 x daily- 7 x weekly - 4 sets - Supine Figure 4 Piriformis Stretch - 1 x daily - 7 x weekly - 1 sets - 3 reps - 30 hold - Active Straight Leg Raise with Quad Set - 1 x daily - 7 x weekly - 3 sets - 8 reps - Supine Transversus Abdominis Bracing with Heel Slide - 1 x daily - 7 x weekly - 4 sets - 10 reps 2: seated stepper 5 min, level 2, 1:1 throughout subjective collected Skilled Intervention: Patient was educated in proper exercise technique and purpose for exercises. Reviewed and educated patient on additions/changes for home exercise program as above (*). Provided written instruction for home exercise program to facilitate proper performance and compliance. Correct performance of therapeutic exercises was facilitated with verbal, visual, and tactile cuing. Educated patient on rationale for performing exercises in regards to decreasing fatigue , includingbalance, increase ease of ADL, and ROM and function . Patient education as noted. Neuromuscular Re-Education: 1: hook lying TA activation using biofeedback 20 mmHg to 40 mmHg 4x10 2: hook lying TA activation using biofeedback 20 mmHg to 40 mmHg 2x10, 10 sec hold Skilled Intervention: Skilled judgment used to assess appropriate program for balance and coordination activity. Education in proprioceptive/kinesthetic awareness during hook lying TA activation with biofeedback. Reviewed and educated patient on additions/changes for home program as noted above with an (*). Patient education as noted. Billing Therapeutic Exercise Treatment Minutes: 36 Neuromuscular Re-Education Treatment Minutes: 10 Skilled Treatment Time Minutes (timed and untimed codes): 46 Total Session Time (minutes): 46 Session Start Time : 941 Session Stop Time : 1027 Lisa Fraga PT documented in this encounterOhio[facility]09-11-2024 NoteHNO ID: [id number] Author: LISA FRAGA PT Service: ? Author Type: Physical Therapist Type: Progress Notes Filed: 01/07/2024 10:33 Note Text: Episode Visit Count: 2 Therapist That Will Accept/Oversee The Plan Of Care: Lisa Fraga Start of Care Date: 12/26/23 Onset Date: 11/11/23 Plan of Care Certification Date: 12/26/23 Next Certification Due Date: 02/06/24 REHABILITATION AND SPORTS THERAPY PHYSICAL THERAPY TREATMENT NOTE ASSESSMENT: Nallely Moya tolerated the session with fatigue and decreased symptoms. She demonstrated difficulty with correct TA activation. Improved R hip AROM flexion following supine piriformis stretch. The patient will continue to benefit from ongoing skilled physical therapy to progress toward set goals. PLAN FOR NEXT VISIT: step ups, mini squats SUBJECTIVE: Denies pain. HEP is going well. 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 Date: 01/07/2024 Prepared by: Lisa Fraga Exercises - Sidelying Hip Abduction - 1 x daily - 7 x weekly - 4 sets - 10 reps - Prone Hip Extension - 1 x daily - 7 x weekly - 4 sets - 10 reps - Hooklying Small March - 1 x daily - 7 x weekly - 4 sets - Supine Figure 4 Piriformis Stretch - 1 x daily - 7 x weekly - 1 sets - 3 reps - 30 hold - Active Straight Leg Raise with Quad Set - 1 x daily - 7 x weekly - 3 sets - 8 reps - Supine Transversus Abdominis Bracing with Heel Slide - 1 x daily - 7 x weekly - 4 sets - 10 reps 2: seated stepper 5 min, level 2, 1:1 throughout subjective collected Skilled Intervention: Patient was educated in proper exercise technique and purpose for exercises. Reviewed and educated patient on additions/changes for home exercise program as above (*). Provided written instruction for home exercise program to facilitate proper performance and compliance. Correct performance of therapeutic exercises was facilitated with verbal, visual, and tactile cuing. Educated patient on rationale for performing exercises in regards to decreasing fatigue , including balance, increase ease of ADL, and ROM and function . Patient education as noted. Neuromuscular Re-Education: 1: hook lying TA activation using biofeedback 20 mmHg to 40 mmHg 4x10 2: hook lying TA activation using biofeedback 20 mmHg to 40 mmHg 2x10, 10 sec hold Skilled Intervention: Skilled judgment used to assess appropriate program for balance and coordination activity. Education in proprioceptive/kinesthetic awareness during hook lying TA activation with biofeedback. Reviewed and educated patient on additions/changes for home program as noted above with an (*). Patient education as noted. Billing Therapeutic Exercise Treatment Minutes: 36 Neuromuscular Re-Education Treatment Minutes: 10 Skilled Treatment Time Minutes (timed and untimed codes): 46 Total Session Time (minutes): 46 Session Start Time : 941 Session Stop Time : 1027 Lisa Fraga [facility]08-30-2024 History of Present illness Narrative* Lisa Fraga, PT - 12/26/2023 1:38 PM EDT Program_ID:[id number] Access Code: [email or web address] URL: [email or web address] Date: 12-26-2023 Prepared By: Lisa Fraga Program Notes Exercises - Sidelying Hip Abduction - 1 x daily - 7 x weekly - 4 sets - 10 reps - Prone Hip Extension - 1 x daily - 7 x weekly - 4 sets - 10 reps - Clamshell - 1 x daily - 7 x weekly - 4 sets - 15 reps - Gastroc Heel Raise in Stride Stance Position - 1 x daily - 7 x weekly - 4 sets - 10 reps * Lisa Fraga, PT - 12/26/2023 1:08 PM EDT Images from the original note were not included. Episode Visit Count: 1 Therapist That Will Accept/Oversee The Plan Of Care: Lisa Fraga Start of Care Date: 12/26/23 Onset Date: 11/11/23 Plan of Care Certification Date: 12/26/23 Next Certification Due Date: 02/06/24 Patient Identified by Name and Date of : Yes REHABILITATION AND SPORTS THERAPY PHYSICAL THERAPY EVALUATION PLAN OF CARE: Assessment: Nallely Moya presents with diagnosis of unilateral primary OA R hip that interferes withwalking, standing, walking in the community, walking in the house, bending, stair negotiation, dressing (yard work,) . She presents with impairments in ADL's, balance, flexibility, gait, independencein exercise, joint mobility, overall function, patient reported outcome measures, range of motion, strength, symptom management, and tissue tenderness. PROMIS (Patient-Reported Outcomes Measurement Information System) scores were reviewed and identified as a rehabilitation concern. Prognosis for therapy is Good due to: acuteness of condition, good overall health status, current objective clinicalpresentation, good support system/ coping skills . She will benefit from skilled therapy services to meet the goals established for this plan of care as noted below. Goals for Episode of Care: established 12/26/23 [place] in home exercise program. Patient will decrease pain to 1-2/10 with functional activities to allow patient to improve ambulation, transfers, and standing tolerance for ADLs. Patient will demonstrate increase in R hip ER, abd, and ext strength to 4/5 during manual muscle testing in order to improve function for moderate to heavy functional tasks and prior functional tasks. Perform ADLs with decreased report of symptoms/pain in 6 weeks. Perform lifting and carrying a #20-30 KB (to simulate dog food bag) without pain. Normal gait. Reciprocal stair negotiation. Patient Goals: indep with ADLs Time Frame for Goals and Treatment : 02/06/24 Planned Interventions, Frequency, and Duration: Current Frequency: 2x/week Duration: 6 weeks Total Number of Visits Planned: 12 Planned Treatment Interventions: Gait Training (13995), Self-snf management (55030), Therapeutic activities (41953), Therapeutic exercise (24032), Neuromuscular re-education (72876), Manual therapy (41004) PLAN FOR NEXT VISIT: functional strengthening: step ups, squats, balance training on unable surfaceand SLS. Patient demonstrates good understanding of plan of care and treatment. The above goals and plan of care were discussed and agreed upon by patient/family. SUBJECTIVE: for s/p R AWAIS 11/11/23 anterior approach. She mentions hx of chronic LBP. Patient Goals: indep with ADLs Functional Limitations: walking, standing, walking in the community, walking in the house, bending,stair negotiation, dressing (yard work,) Prior Level of Function: Independent without limitations Relevant History Employment: Retired Intake Information: Prescription present Previous Treatment: Home Therapy , Acute Hospital Falls Interview: No positive findings with falls interview Pain: Pain Pain Level: 0 Pain Location: Hip - Right Description: Aching Post Treatment Pain Post Treatment Pain Level: No Change Post Treatment Pain Location: Hip - Left PROMIS Scales 12/26/2023 Higher is Better Phys Func - Score 43 (mild dysfunction) Phys Func - Percentile 24 Self-Eff Symptom - Score 50 (Average) Self-Eff Symptom - Percentile 50 T-scores: mean of general population = 50. 5 points is clinically meaningfully difference Percentiles provide an indication of how the patient's score ranks in relation to the general population. Higher percentile rankings indicate better function/quality of life. 50th percentile is the average of the general population and indicates half of respondents had a worse score. OBJECTIVE MEASURES WITH LEVEL OF FUNCTION: Sensation - Lower Extremity LE Light Touch Sensation: Grossly Intact LE AROM R Hip Flexion: 116 Degrees LE Flexibility Flexibility: Gastrocnemius Flexibility R Gastrocnemius Flexibility: limited LE Strength R Hip Extension: 3/5 R Hip ABduction: 3/5 R Hip External Rotation: 3/5 Gait Gait: Independent Gait Distance (feet): 40' 6x Gait Device: None Gait Deviations: Left Lower Extremity, General Deviations Gait Deviations Left Lower Extremity: Lacks hip extension beyond mid-stance, Lacks full knee extension during terminal swing, Knee stability during stance phase decreased, Push off during terminal stance decreased Education: Education Learning Preferences: Demonstration, Explanation, Performance, Printed Materials Barriers: None Learning/educational needs: Plan of Care, Home exercise program, Gait Training, Posture Education Provided: Yes, see treatment interventions for education provided Education Provided To: Patient Education Mode/Type: Performance, Literature/Printed Materials, Explanation/Discussion, Demonstration Response to Education/Teach Back: States/Identifies, Return Demonstration TREATMENT: PT Treatment Interventions: Therapeutic Exercise, Self-Mcc Management Evaluation Therapeutic Exercise: 1: *Access Code: [email or web address] URL: [email or web address] Date: 12/26/2023 Prepared by: Lisa Oliver Exercises - Sidelying Hip Abduction - 1 x daily - 7 x weekly - 4 sets - 10 reps -Prone Hip Extension - 1 x daily - 7 x weekly - 4 sets - 10 reps - Clamshell - 1 x daily - 7 x weekly - 4 sets - 15 reps - Gastroc Heel Raise in Stride Stance Position - 1 x daily - 7 x weekly - 4 sets - 10 reps Skilled Intervention: Patient was educated in proper exercise technique and purpose for exercises. Reviewed and educated patient on additions/changes for home exercise program as above (*). Skilled judgment was used in selection of appropriate interventions. Provided written instruction for home exercise program to facilitate proper performance and compliance. Correct performance of therapeutic exercises was facilitated with verbal, visual, and tactile cuing. Educated patient on rationale for performing exercises in regards to decreasing fatigue , includingbalance, increase ease of ADL, and ROM and function . Patient education as noted. Self-Mcc Management: 1: discussed type of approach AWAIS pt. had 2: discussed that pt. may progress her ADLs as she can safely perform and tolerate 3: discussed goal to improve the strength of the hip abductors which will improve her gait. Skilled Intervention: Skilled judgment in the selection of proper modification for activity of daily living/home management based on clinical presentation, deficits, and needs. Provided written instruction for activities of daily living techniques to facilitate proper performance and compliance. Reviewed patient specific diagnosis in relation to activities of daily living/home management. Activity progression based on professional judgement. Reviewed and educated patient on additions/changes for home program as noted above with an (*). Provided written instruction for home program to facilitate proper performance and compliance. Correct performance of home program was facilitated with verbal, visual, and tactile cueing. Billing * Evaluation Low Complexity: 1 Unit Therapeutic Exercise Treatment Minutes: 10 Self-Care/Home Management Treatment Minutes: 15 Skilled Treatment Time Minutes (timed and untimed codes): 45 Total Session Time (minutes): 45 Session Start Time : 1310 Session Stop Time : 1355 Lisa Fraga [facility] NoteHNO ID: [id number] Author: LISA FRAGA PT Service: ? Author Type: Physical Therapist Type: Progress Notes Filed: 12/26/2023 13:54 Note Text: Episode Visit Count: 1 Therapist That Will Accept/Oversee The Plan Of Care: Lisa Fraga Start of Care Date: 12/26/23 Onset Date: 11/11/23 Plan of Care Certification Date: 12/26/23 Next Certification Due Date: 02/06/24 Patient Identified by Name and Date of : Yes REHABILITATION AND SPORTS THERAPY PHYSICAL THERAPY EVALUATION PLAN OF CARE: Assessment: Nallely Moya presents with diagnosis of unilateral primary OA R hip that interferes with walking, standing, walking in the community, walking in the house, bending, stair negotiation, dressing (yard work,) . She presents with impairments in ADL's, balance, flexibility, gait, independence in exercise, joint mobility, overall function, patient reported outcome measures, range of motion, strength, symptom management, and tissue tenderness. PROMIS? (Patient-Reported Outcomes Measurement Information System) scores were reviewed and identified as a rehabilitation concern. Prognosis for therapy is Good due to: acuteness of condition, good overall health status, current objective clinical presentation, good support system/ coping skills . She will benefitfrom skilled therapy services to meet the goals established for this planof care as noted below. Goals for Episode of Care: established 12/26/23 [place] in home exercise program. Patient will decrease pain to 1-2/10 with functional activities to allow patient to improve ambulation, transfers, and standing tolerance for ADLs. Patient will demonstrate increase in R hip ER, abd, and ext strength to 4/5 during manual muscle testing in order to improve function for moderate to heavy functional tasks and prior functional tasks. Perform ADLs with decreased report of symptoms/pain in 6 weeks. Perform lifting and carrying a #20-30 KB (to simulate dog food bag) without pain. Normal gait. Reciprocal stair negotiation. Patient Goals: indep with ADLs Time Frame for Goals and Treatment : 02/06/24 Planned Interventions, Frequency, and Duration: Current Frequency: 2x/week Duration: 6 weeks Total Number of Visits Planned: 12 Planned Treatment Interventions: Gait Training (62704), Self-snf management (68466), Therapeutic activities (86089), Therapeutic exercise (37671), Neuromuscular re-education (26777), Manual therapy (55801) PLAN FOR NEXT VISIT: functional strengthening: step ups, squats, balance training on unable surface and SLS. Patient demonstrates good understanding of plan of care and treatment. The above goals and plan of care were discussed and agreed upon by patient/family. SUBJECTIVE: for s/p R AWAIS 11/11/23 anterior approach. She mentions hx of chronic LBP. Patient Goals: indep with ADLs Functional Limitations: walking, standing, walking in the community, walking in the house, bending, stair negotiation, dressing (yard work,) Prior Level of Function: Independent without limitations Relevant History Employment: Retired Intake Information: Prescription present Previous Treatment: Home Therapy , Acute Hospital [place] Interview: No positive findings with falls interview Pain: Pain Pain Level: 0 Pain Location: Hip - Right Description: Aching Post Treatment Pain Post Treatment Pain Level: No Change Post Treatment Pain Location: Hip - Left PROMIS Scales 12/26/2023 Higher is Better Phys Func - Score 43 (mild dysfunction) Phys Func - Percentile 24 Self-Eff Symptom - Score 50 (Average) Self-Eff Symptom - Percentile 50 T-scores: mean of general population = 50. 5 points is clinically meaningfully difference Percentiles provide an indication of how the patient's score ranks in relation to the general population. Higher percentile rankings indicate better function/quality of life. 50th percentile is the average of the general population and indicates half of respondents had a worse score. OBJECTIVE MEASURES WITH LEVEL OF FUNCTION: Sensation - Lower Extremity LE Light Touch Sensation: Grossly Intact LE AROM R Hip Flexion: 116 Degrees LE Flexibility Flexibility: Gastrocnemius Flexibility R Gastrocnemius Flexibility: limited LE Strength R Hip Extension: 3/5 R Hip ABduction: 3/5 R Hip External Rotation: 3/5 Gait Gait: Independent Gait Distance (feet): 40' 6x Gait Device: None Gait Deviations: Left Lower Extremity, General Deviations Gait Deviations Left Lower Extremity: Lacks hip extension beyond mid-stance, Lacks full knee extension during terminal swing, Knee stability during stance phase decreased, Push off during terminal stance decreased Education: Education Learning Preferences: Demonstration, Explanation, Performance, Printed Materials Barriers: None Learning/educational needs: Plan of Care, Home exercise program, Gait Training, Posture Education Provided: [place] (more content not included)...[facility] 04-24-2023 Discharge summary Author Kalpana Rojas [facility] April 24, 2023 8:08am Note Date/Time April 24, 2023 8:08am [facility] Physical Therapy Health[address] [place] [id number] / REHABILITATION SERVICES DISCHARGE SUMMARY MR#: [id number] Acct: [id number] Name: NALLELY MOYA Rep #: [id number] : 1955 67 From: Kalpana Scott Referring Dr.: Dr. Louie Logan MD Status: REG [facility] Insurance: [employer]URANCE Patient Information Patient Information: NALLELY MOYA was seen in my office for initial evaluation on 01/16/23. The following Plan of Care was established for this patient: POC Established Initial Frequency: 2x /Week Initial Duration: 4 Weeks Anticipated Interventions Patient/Client Instruction: Educate patient on: Benefits of Fitness Program Therapeutic Exercise to Include: Strength training, Endurance training, Balance training, Coordination, Agility training, Body mechanics, Postural training, Flexibilty training, Gait and locomotor training, Neuromotor development, Dynamic Lumbar Stabilization and Scapular Strength/Stabilization For the Purpose of:: To improve muscle performance and motor function TENS: Yes Cryotherapy (ice pack, ice massage): Yes Thermo therapy (hot pack): Yes Last Seen Last Seen: This patient was last seen in our office . Pertinent comments regarding their Physical therapy will appear below: Patient attended PT for 2 visits after initial evaluation and had increased pain-she has not attended in 8 weeks and is appropriate to return to MD for further evaluation. At this point I will be discontinuing this patient from physical therapy. I would be happy to see this patient again in the future if found appropriate by the physician. Thank you! Kalpana Rojas, DPT Balance/Gait/Functional tests Balance/Special Test Scores Lower Extremity Functional Score: 39 <Electronically signed by Kalpana Rojas DPT> 04/24/23 0808 CC: Dr. Louie Logan MD; Josie Lockwood, DO ~ ELR Signed [facility] Work Phone: Evaluation note* Diagnosis Onset Date Resolution Status Hyperlipidemia chronic Low back pain chronic Left leg claudication resolv ed Back pain acute Segmental and somatic dysfunction of cervical region acute Segmental and somatic dysfunction of lumbar region acute Segmental and somatic dysfunction of pelvic region acute Segmental and somatic dysfunction of thoracic region acute DDD (degenerative disc disease) chronic [facility] Work Phone: Evaluation note* Diagnosis Onset Date Resolution Status Hyperlipidemia chronic Peripheral arterial disease chronic Stenosis of right carotid artery chronic [facility] Work Phone: Evaluation note* Diagnosis Onset Date Resolution Status Hyperlipidemia chronic Peripheral arterial disease chronic Stenosis of right carotid artery chronic Chest pain acute Diastolic dysfunction chroni c Essential (primary) hypertension chronic Hyperlipidemia chronic Peripheral arterial disease chronic Stenosis of right carotid artery chronic [facility] Work Phone: Evaluation note* Diagnosis Onset Date Resolution Status Chest pain acute Diastolic dysfunction chroni c Essential (primary) hypertension chronic Hyperlipidemia chronic Peripheral arterial disease chronic Stenosis of right carotid artery chronic Hyperlipidemia chronic Peripheral arterial disease chronic Stenosis of right carotid artery chronic [facility] Work Phone: Evaluation note* Diagnosis Onset Date Resolution Status Hyperlipidemia chronic Peripheral arterial disease chronic Stenosis of right internal carotid artery chronic Hyperlipidemia chronic Left shoulder pain chronic Peripheral arterial disease chronic Stenosis of right internal carotid artery chronic Moderate pulmonary hypertension acute Diastolic dysfunction chroni c Essential (primary) hypertension chronic Hyperlipidemia chronic Peripheral arterial disease chronic Stenosis of right carotid artery chronic [facility] Work Phone: Evaluation note* Diagnosis Onset Date Resolution Status Hyperlipidemia chronic Left shoulder pain chronic Peripheral arterial disease chronic Stenosis of right internal carotid artery chronic Moderate pulmonary hypertension acute Diastolic dysfunction chroni c Essential (primary) hypertension chronic Hyperlipidemia chronic Peripheral arterial disease chronic Stenosis of right carotid artery chronic Right hip pain acute [facility] Work Phone: Evaluation note* Diagnosis Onset Date Resolution Status Right hip pain acute Left shoulder pain chronic Peripheral arterial disease chronic Stenosis of right internal carotid artery chronic Right hip pain acute Hyperlipidemia chronic Left shoulder pain chronic Stenosis of right internal carotid artery chronic Myalgia acute Right hip pain acute Low back pain chronic [facility] Work Phone: Evaluation note* Diagnosis Onset Date Resolution Status Right hip pain acute Hyperlipidemia chronic Left shoulder pain chronic Stenosis of right internal carotid artery chronic Myalgia acute Right hip pain acute Low back pain chronic Degenerative joint disease of right hip acute Spinal stenosis of lumbar region acute Tobacco abuse acute Peripheral arterial disease chronic [facility] Work Phone: Evaluation note* Diagnosis Onset Date Resolution Status Right hip pain acute Hyperlipidemia chronic Left shoulder pain chronic Stenosis of right internal carotid artery chronic Myalgia acute Right hip pain acute Low back pain chronic Degenerative joint disease of right hip acute Spinal stenosis of lumbar region acute Tobacco abuse acute Peripheral arterial disease chronic Degenerative joint disease of right hip acute Moderate pulmonary hypertension acute Spinal stenosis of lumbar region acute Tobacco abuse acute Aneurysm of infrarenal abdominal aorta chronic Chronic diastolic (congestive) heart failure chronic Essential (primary) hypertension chronic Peripheral arterial disease chronic Secondary pulmonary arterial hypertension chronic [facility] Work Phone: Evaluation note* Diagnosis Unilateral primary osteoarthritis, right hip- [facility] Diagnosis Unilateral primary osteoarthritis, right hip- [facility] Diagnosis Unilateral primary osteoarthritis, right hip- Primary documented in this encounter [facility] note* Diagnosis Onset Date Resolution Status Admit Date Coronary artery calcificatio n seen on CAT scan acute October 18, 2024 7:56am Moderate pulmonary hypertension acut e October 18, 2024 7:56am Diastolic dysfunction chronic Rober e 2024 7:56am Essential (primary) hypertension chr onic October 18, 2024 7:56am Hyperlipidemia chronic October 18, 2024 7:56am Secondary pulmonary arterial hypertension chronic October 18, 2024 7:56am Stenosis of right carotid artery chr onic October 18, 2024 7:56am [facility] Work Phone: Reason for referral (narrative)No reason for [facility] information [facility] Work Phone: Summary Purpose Family History No Family History Records Found Relationship Condition Age at Onset Recorded Date/T kiersten mother Coronary artery disease Unknown brother Coronary artery disease Unknown Advance Directives No Advanced Directives Records Found Advance Directive Response Recorded Date/ Time Advance Directives No May 12:15pm Living Will Yes November 04, 2020 12:11pm Power of Junior Network Administrator Yes November 04 12:11pm Advance Directive Response Recorded Date/ Time Advance Directives No May 11:15am Living Will Yes November 04, 2020 11:11am Power of Junior Network Administrator Yes November 04 11:11am Advance Directive Response Recorded Date/ Time Living Will Yes November 16, 2023 3:35pm Do you have a Healthcare Power of Junior Network Administrator? Yes November 16, 2023 3:35pm Advance Directives No May 12:15pm Advance Directive Response Recorded Date/ Time Living Will Yes November 04, 2020 12:11pm Do you have a Healthcare Power of Junior Network Administrator? Yes November 04, 2020 12:11pm Advance Directives No May 12:15pm Advance Directive Response Recorded Date/ Time Advance Directives No May 11:15am Chief Complaint and Reason for Visit Chief Complaint PAD NEED LAB ORDER ATHEROSCLEROSIS 6 WK FU REEVAL UPPER/LOWER BACK Reason for Visit Hyperlipidemia Low back pain Left leg claudication Back pain Segmental and somatic dysfunction of cervical region Segmental and somatic dysfunction of lumbar region Segmental and somatic dysfunction of pelvic region Segmental and somatic dysfunction of thoracic region DDD (degenerative disc disease) Chief Complaint ATHEROSCLEROSIS OF A [place]ICK[place] copy dr logan 6 M FU EORDER Reason for Visit Hyperlipidemia Peripheral arterial disease Stenosis of right carotid artery Chief Complaint ATHEROSCLEROSIS OF A RICK[place] copy dr logan 6 M FU EORDER I65.21 Reason for Visit Hyperlipidemia Peripheral arterial disease Stenosis of right carotid artery Chief Complaint ATHEROSCLEROSIS OF A [place]ICK[place] copy dr logan 6 M FU EORDER I65.21 1 Y FU CP CP Reason for Visit Hyperlipidemia Peripheral arterial disease Stenosis of right carotid artery Chest pain Diastolic dysfunction Essential (primary) hypertension Hyperlipidemia Peripheral arterial disease Stenosis of right carotid artery Chief Complaint ATHEROSCLEROSIS OF A RICK[place] copy dr logan 6 M FU EORDER I65.21 1 Y FU CP CP SCREENING Reason for Visit Hyperlipidemia Peripheral arterial disease Stenosis of right carotid artery Chest pain Diastolic dysfunction Essential (primary) hypertension Hyperlipidemia Peripheral arterial disease Stenosis of right carotid artery Chief Complaint 1 Y FU CP CP SCREENING 6 M FU PVD Reason for Visit Chest pain Diastolic dysfunction Essential (primary) hypertension Hyperlipidemia Peripheral arterial disease Stenosis of right carotid artery Hyperlipidemia Peripheral arterial disease Stenosis of right carotid artery Chief Complaint 6 M FU PVD DISCUSS RESULTS 6 M FU Reason for Visit Hyperlipidemia Peripheral arterial disease Stenosis of right internal carotid artery Hyperlipidemia Left shoulder pain Peripheral arterial disease Stenosis of right internal carotid artery Moderate pulmonary hypertension Diastolic dysfunction Essential (primary) hypertension Hyperlipidemia Peripheral arterial disease Stenosis of right carotid artery Chief Complaint DISCUSS RESULTS 6 M FU DYSPNEA/SOB PROBLEMS WITH LEG AND GETTING WORSE E ORDER Reason for Visit Hyperlipidemia Left shoulder pain Peripheral arterial disease Stenosis of right internal carotid artery Moderate pulmonary hypertension Diastolic dysfunction Essential (primary) hypertension Hyperlipidemia Peripheral arterial disease Stenosis of right carotid artery Right hip pain Chief Complaint PROBLEMS WITH LEG AN D GETTING WORSE E ORDER R HIP PAIN RX HERE 6 M FU TRIGGER POINT INJECTION Reason for Visit Right hip pain Left shoulder pain Peripheral arterial disease Stenosis of right internal carotid artery Right hip pain Hyperlipidemia Left shoulder pain Stenosis of right internal carotid artery Myalgia Right hip pain Low back pain Chief Complaint R HIP PAIN RX HERE 6 M FU TRIGGER POINT INJECTION RIGHT HIP MONITOR CARTOID STENOSIS Reason for Visit Right hip pain Hyperlipidemia Left shoulder pain Stenosis of right internal carotid artery Myalgia Right hip pain Low back pain Degenerative joint disease of right hip Spinal stenosis of lumbar region Tobacco abuse Peripheral arterial disease Chief Complaint 6 M FU TRIGGER POINT INJECTION RIGHT HIP MONITOR CARTOID STENOSIS PAD Reason for Visit Right hip pain Hyperlipidemia Left shoulder pain Stenosis of right internal carotid artery Myalgia Right hip pain Low back pain Degenerative joint disease of right hip Spinal stenosis of lumbar region Tobacco abuse Peripheral arterial disease Chief Complaint 6 M FU TRIGGER POINT INJECTION RIGHT HIP MONITOR CARTOID STENOSIS PAD RIGHT HIP LUMBAR PAIN Reason for Visit Right hip pain Hyperlipidemia Left shoulder pain Stenosis of right internal carotid artery Myalgia Right hip pain Low back pain Degenerative joint disease of right hip Spinal stenosis of lumbar region Tobacco abuse Peripheral arterial disease Degenerative joint disease of right hip Moderate pulmonary hypertension Spinal stenosis of lumbar region Tobacco abuse Aneurysm of infrarenal abdominal aorta Chronic diastolic (congestive) heart failure Essential (primary) hypertension Peripheral arterial disease Secondary pulmonary arterial hypertension Chief Complaint Admit Date SCREENING April 08, 2024 7:23am 6 M FU April 29, 2024 8: 29am RIGHT CAROTID ARTERY STENOSIS April 1:51pm BISHOP May 10, 2024 6 :22am BISHOP May 10, 2024 1 0:11am AFTER CARE July 05, 2024 7:5 5am Reason for Visit Admit Date Coronary artery calcification seen on CA T scan April 29, 2024 8:29am Fatigue April 29, 2024 8: 29am Moderate pulmonary hypertension April 29, 2024 8:29am Diastolic dysfunction April 29, 2024 8:29am Essential (primary) hypertension April 29, 2024 8:29am Hyperlipidemia April 29, 2024 8: 29am Peripheral arterial disease April 29, 2024 8:29am Stenosis of right carotid artery April 29, 2024 8:29am Chief Complaint Admit Date AFTER CARE July 05, 2024 7:5 5am 1 Y FU October 18, 2024 7:56 am Reason for Visit Admit Date Coronary artery calcification seen on CA T scan October 18, 2024 7:56am Moderate pulmonary hypertension September 7:56am Diastolic dysfunction October 18, 2024 7: 56am Essential (primary) hypertension October 182024 7:56am Hyperlipidemia October 18, 2024 7:56 am Secondary pulmonary arterial hypertensio n October 18, 2024 7:56am Stenosis of right carotid artery October 182024 7:56am Chief Complaint Admit Date BLOODY STOOL February 15, 2025 1 :51pm Reason for Visit Admit Date Blood per rectum February 15, 2025 1 :51pm Hemorrhoids February 15, 2025 1 :51pm Additional Source Comments INFORMATION SOURCE (unrecogn ized section and content) DATE CREATED AUTHOR 05/06/2020 [facility] ([place]) DATE CREATED AUTHOR AUTHOR'S ORGANIZ ATION 08/20/2021 [facility] kiet Ortiz DATE CREATED AUTHOR AUTHOR'S ORGANIZ ATION 02/20/2024 [facility] DATE CREATED AUTHOR AUTHOR'S ORGANIZ ATION [facility]/10/20[facility] Care Teams (unrecognized sec tion and content) Team Status: Active Member Role Status Dates Dr. Cornelius Srinivasan MD Family Provider Active Josie Lockwood DO Primary Care Provider Active Team Status: Inactive Member Role Status Dates Dr. Cornelius Srinivasan MD Referring Provider Active Donna Matthews PA, PA Attending Provider Active Josie Lockwood DO Primary Care Provider Active Team Status: Inactive Member Role Status Dates Dr. Cornelius Srinivasan MD Referring Provider Active Dr. Louie Logan MD Attending Provider Active Josie Lockwood DO Primary Care Provider Active Team Status: Active Member Role Status Dates Josie Lockwood DO Primary Care Provider Active Dr. Michael Sanchez MD Attending Provider Active Dr. Louie Logan MD Referring Provider Active Team Status: Active Member Role Status Dates Josie Lockwood DO Primary Care Provider Active Donna Matthews PA, PA Other Provider Active Dr. Jesus Gillette MD Attending Provider Active Team Status: Inactive Member Role Status Dates Dr. Ayala Causey MD Attending Provider, Referring Provider Active Josie Lockwood DO Primary Care Provider Active Team Status: Inactive Member Role Status Dates Josie Lockwood DO Primary Care Provider Active Dr. Louie Logan MD Attending Provider, Referring Provider Active Team Status: Inactive Member Role Status Dates Josie Lockwood DO Primary Care Provider Active Dr. Louie Logan MD Attending Provider Active Team Status: Active Member Role Status Dates Josie Lockwood DO Primary Care Provider Active Donna Matthews PA, PA Attending Provider Active Team Status: Inactive Member Role Status Dates Josie Lockwood DO Primary Care Provider, Attending Provider Active Team Status: Inactive Member Role Status Dates Josie Lockwood DO Primary Care Provider Active Donna Matthews PA, PA Attending Provider Active Team Status: Active Member Role Status Dates Josie Lockwood , DO Primary Care Provi jas, Attending Provider, Referring Provider Active Team Status: Inactive Member Role Status Dates Josie Goodwiner , DO Primary Care Provi jas, Attending Provider, Referring Provider Active Team Status: Inactive Member Role Status Dates Josie Garynger , DO Primary Care Provider, Referring Provider Active Dr. Louie Logan MD Attending Provider Active Team Status: Inactive Member Role Status Dates Josie Lockwood , DO Primary Care Provider Active Emperatriz Billy NP-C Attending Provider, Referring Pr ovider Active Team Status: Inactive Member Role Status Dates Josie Montalvo Fabián , DO Primary Care Provider, Referring Provider Active Donna Matthews PA, PA Attending Provider Active Team Status: Active Member Role Status Dates Josietimoteo Lockwood , DO Primary Care Provider Active Dr. Jesus Gillette MD Attending Provider Active Donna Matthews PA, PA Referring Provider Active Team Status: Inactive Member Role Status Dates Josietimoteo Lockwood , DO Primary Care Provider Active Donna Matthews PA, PA Attending Provider, Referr ing Provider Active Team Status: Inactive Member Role Status Dates Josietimoteo Lockwood , DO Primary Care Provider, Referring Provider Active Dr. Miguel Vieyra , DO Attending Provider Active Team Status: Inactive Member Role Status Dates Josietimoteo Lockwood , DO Primary Care Provider Active Dr. Ayala Causey MD Attending Provider, Referring Provider Active Team Status: Inactive Member Role Status Dates Josietimoteo Lockwood , DO Primary Care Provider Active Dr. 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 Relationship Specialty Start Date End Date Cornelius Srinivasan Chi [address] [place] [address] PCP - General Gerontology 03/02/21 Manufactured 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 Supervisor Relationship Specialty Start Date End Date Cornelius Srinivasan Chi [address] [place] [address] PCP - General Gerontology 03/02/21 Team Status: Active Member Role Status Amos Iverson MD Primary Care Provider Active Team Status: Inactive Member Role Status Amos Iverson MD Primary Care Provider Active St art: April 08, 2024 End: April 08, 2024 Brittany Iverson MD Attending Provider Active Start : April 08, 2024 End: April 08, 2024 Brittany Iverson MD Referring Provider Active Start : April 08, 2024 End: April 08, 2024 Team Status: Inactive Member Role Status Amos Iverson MD Primary Care Provider Active St art: April 29, 2024 End: April 29, 2024 Brittany Iverson MD Referring Provider Active Start : April 29, 2024 End: April 29, 2024 Donna ABBASI PA Attending Provider Active Start: April 29, 2024 End: April 29, 2024 Team Status: Inactive Member Role Status Amos Iverson MD Primary Care Provider Active St art: April 29, 2024 End: April 29, 2024 Donna ABBASI PA Attending Provider Active Start: April 29, 2024 End: April 29, 2024 Donna ABBASI PA Referring Provider Active Start: April 29, 2024 End: April 29, 2024 Team Status: Inactive Member Role Status Amos Iverson MD Primary Care Provider Active St art: April 29, 2024 End: April 29, 2024 Dr. Louie Logan MD Attending Provider Active Start: April 29, 2024 End: April 29, 2024 Dr. Louie Logan MD Referring Provider Active Start: April 29, 2024 End: April 29, 2024 Team Status: Active Member Role Status Amos Iverson MD Primary Care Provider Active St art: April 29, 2024 Dr. Сергей Chavez MD Attending Provider Active S tart: April 29, 2024 Dr. Louie Logan MD Referring Provider Active Start: April 29, 2024 Team Status: Inactive Member Role Status Amos Iverson MD Primary Care Provider Active St art: May 10, 2024 End: May 10, 2024 Donna ABBASI, PA Attending Provider Active Start: May 10, 2024 End: May 10, 2024 Donna Matthews PA, PA Referring Provider Active Start: May 10, 2024 End: May 10, 2024 Team Status: Active Member Role Status Amos Iverson MD Primary Care Provider Active St art: May 10, 2024 Donna Matthews PA, PA Referring Provider Active Start: May 10, 2024 Donna Matthews PA, PA Other Provider Active Start: May 10, 2024 Dr. Jesus Gillette MD Attending Provider Active S tart: May 10, 2024 Team Status: Inactive Member Role Status Amos Iverson MD Primary Care Provider Active St art: July 05, 2024 End: July 05, 2024 Dr. Ayala Causey MD Attending Provider Active Start: July 05, 2024 End: July 05, 2024 Dr. Ayala Causey MD Referring Provider Active Start: July 05, 2024 End: July 05, 2024 Team Status: Inactive Member Role Status Amos Iverson MD Primary Care Provider Active St art: October 18, 2024 End: October 18, 2024 Brittany Iverson MD Referring Provider Active Start : October 18, 2024 End: October 18, 2024 AYLEEN Pulido Attending Provider Active St art: October 18, 2024 End: October 18, 2024 Team Status: Active Member Role/Relationship Status Amos Iverson MD Primary care physician Active Team Status: Inactive Member Role/Relationship Status Amso Iverson MD Primary care physician Active S tart: February 07, 2025 End: February 07, 2025 Brittany Iverson MD Attending physician Active Star t: February 07, 2025 End: February 07, 2025 Team Status: Inactive Member Role/Relationship Status Amos Iverson MD Primary care physician Active S tart: February 15, 2025 End: February 15, 2025 Brittany Iverson MD Referring Provider Active Start : February 15, 2025 End: February 15, 2025 Dr. Sunitha Maki MD Attending physician Active Start: February 15, 2025 End: February 15, 2025 Source Comments (unrecognize d section and content) In the event this informatio n is protected by the Federal Confidentiality of Alcohol and Drug Abuse Patient Records regulations: The Federal rules restrict any use of the information to criminally investigate or prosecute any alcohol or drug abuse patient.[facility] the event this information is protected by the Federal Confidentiality of Alcohol and Drug Abuse Patient Records regulations: The Federal rules restrict any use of the information to criminally investigate or prosecute any alcohol or drug abuse patient.[facility] the event this information is protected by the Federal Confidentiality of Alcohol and Drug Abuse Patient Records regulations: The Federal rules restrict any use of the information to criminally investigate or prosecute any alcohol or drug abuse patient.[facility] the event this information is protected by the Federal Confidentiality of Alcohol and Drug Abuse Patient Records regulations: The Federal rules restrict any use of the information to criminally investigate or prosecute any alcohol or drug abuse patient.[facility] Reason for Visit (unrecogniz ed section and content) Reason Comments Physical Therapy Specialty Diagnoses / Procedures Referred By Contkelsey t Referred To Contact Physical Therapy / PHYSICAL THERAPY Diagnoses Unilateral Primary Osteoathritis Right Hip Procedures NEW RS PT ORTH Sharon Ajay Tillman Nora [address] [place] [address] Lisa Fraga, MARIAM Referral ID Status Reason Start Date Expiration Date V isits Requested Visits Authorized [id number] Authorized 04/28/2023 04/27/2024 20 20 Reason Comments PT Eval FOR RECORDS PERTAINING TO PATIENTS WHO ARE [...] BE BASED ON THE PRIMARY CLINICAL RECORDS. [employer] [facility]. provides no warranty or guarantee of the accuracy or completeness of information in this document.
[2025-03-23] MEDS: Lactated Ringers 1,000 ML 15 ML IV (07:51)
--- NOTE | 2025-03-23 08:12 | H&P.OPEN ---
HPI - General General Date of Service: 03/23/25 HPI Narrative ERIKA MOYA, is a 69 F who presents for colonoscopy due to blood per rectum. Patient denies further bleeding in her stool. Patient did use the hemorrhoid cream mostly on the outside as not for like applicator worked as well states she did think it got a little bit smaller. 02/15/2025 office visit HPI HPI: 69-year-old female presents due to blood per rectum. Patient states that about a week and a half ago she had some blood in the toilet with no stool and she would also have stool with no blood. Patient does have a history of hemorrhoids that has caused an occasional issues in the past. Patient is on Plavix due to PVD. Patient denies any family history of colon cancer. Last colonoscopy was by Dr. Fonseca 5 years ago do not have the current report patient believes it was negative. Patient states she has bowel movements daily. [facility] Medical History (Updated 03/22/25 @ 10:01 by Delmi Mcintyre) Wears hearing aid Wears glasses Post-menopausal Alcohol use Thyroid disease High cholesterol Smoker Chronic cough History of echocardiogram History of stress test History of CHF (congestive heart failure) Aneurysm Cardiology follow-up encounter Moderate pulmonary hypertension Peripheral vascular occlusive disease Stenosis of right carotid artery Aneurysm of right iliac artery Aneurysm of infrarenal abdominal aorta DDD (degenerative disc disease), lumbosacral Secondary pulmonary arterial hypertension Chronic diastolic (congestive) heart failure Alcohol abuse COPD (chronic obstructive pulmonary disease) Hyponatremia Diastolic dysfunction Essential (primary) hypertension Hyperlipidemia Insomnia Nicotine dependence Bipolar disorder Hypothyroidism Anxiety and depression Elevated LFTs Arthritis Pulmonary nodule Home Medications ?Medication ?Instructions ?Recorded ?Last Taken ?Type levothyroxine 50 mcg tablet 50 mcg PO DAILY thyroid 07/15/19 03/23/25 06:40 History cyanocobalamin (vitamin B-12) 1,000 mcg PO DAILY 12/22/19 Unknown History 1,000 mcg capsule furosemide 40 mg tablet 40 mg PO DAILY 12/22/19 Unknown History vitamin E (dl, acetate) 450 mg 450 mg PO DAILY 12/22/19 Unknown History (1,000 unit) capsule metoprolol succinate 50 mg 50 mg PO DAILY #90 tabs 12/26/20 03/23/25 06:40 Rx tablet,extended release 24 hr (Toprol XL) biotin 10,000 mcg capsule 5,000 mcg PO DAILY 01/04/21 Unknown History cholecalciferol (vitamin D3) 125 125 mcg PO DAILY 01/04/21 Unknown History mcg (5,000 unit) capsule potassium chloride 20 mEq 20 meq PO QHS 01/04/21 Unknown History tablet,extended release(part/cryst) lisinopril 20 mg tablet 20 mg PO DAILY bp #90 tabs 04/17/21 Unknown Rx clopidogrel 75 mg tablet (Plavix) 75 mg PO DAILY 03/04/22 03/18/25 History ascorbate calcium (vitamin C) 500 500 mg PO DAILY 04/30/23 Unknown History mg tablet lamotrigine 200 mg tablet 100 mg PO DAILY 07/11/23 03/23/25 06:40 History vitamin K2 (MK-4) 100 mcg tablet 50 mcg PO DAILY 08/04/23 Unknown History atorvastatin 20 mg tablet 20 mg PO DAILY #90 tabs 12/09/23 Unknown Rx baclofen 10 mg tablet 10 mg PO TID PRN musculoskeletal 12/09/23 Unknown Rx pain/muscle spasm #270 tabs fluoxetine 10 mg capsule (Prozac) 10 mg PO QDAY 10/18/24 Unknown History hydrocortisone 2.5 % topical cream 1 applic [place] BID-QID PRN 02/15/25 Unknown Rx with perineal applicator hemorrhoids #30 grams (Proctozone-HC) hydrocortisone 2.5 % topical cream 1 applic LA BID-QID PRN 02/15/25 Unknown Rx with perineal applicator hemorrhoids #30 grams (Proctozone-HC) Allergy/AdvReac Type Severity Reaction Status Date / Time No Known Allergies Allergy Verified 03/23/25 07:39 Family History Mother CAD (coronary artery disease) CABG x 3 post op age 63 Brother CAD (coronary artery disease) CABG x 3 age 65 Surgical History (Updated 03/22/25 @ 09:59 by Delmi Mcintyre) S/P wrist surgery Hip joint replacement status History of angioplasty of peripheral vessel (08/14/21) History of hysterectomy History of cataract surgery Social History Smoking Status: Current every day smoker tobacco type: cigarettes second hand exposure: Yes alcohol intake: never substance use type: does not use what type of physical activity do you participate in: walking and bicycling Past Medical/Surgical History Planned Operation Planned Operative Procedure(s): COLONOSCOPY S.O.S: No Previous Hospitalizations/Surgeries HX Hospitalizations: No HX of Surgeries: HYSTERECTOMY LEFT CATARACT 06/13 right cataract 2015 cscope Any Problems With Anesthesia: No You/Your Family Experience Fever (Hyperthermia) With Anes: No Cholinesterase deficiency: No Cardiovascular Hx Chest Pain within Last 2 months: No Hx of Irregular Heartbeat and/or Afib: No Hx Heart Attack: No Hx Congestive Heart Failure: No Hx Rheumatic Fever: No Hx Hypertension: Yes (controlled with meds) Hx Internal Defibrillator: No Hx Pacemaker: No Hx Cardiac Catheterization: No Hx Cardiac Surgery/Stents/Etc.: No Hx Stress Test: Yes (2018 and echo 2017) Hx Pain in Legs when Walking/Leg Cramps: No Respiratory Chronic Cough: No HX of Shortness of Breath: No (saw dr arredondo 11/2018) Hoarseness: No Hx Chronic Obstructive Pulmonary Disease (COPD): No Hx Asthma: No Hx Emphysema: No Hx Sleep Apnea: No Hx Respiratory Tract Infection/Cold (presently): No Do You Snore Loudly (louder than talking or can be heard): No Do You Often Feel Tired/ Fatigued/ Sleepy Dring Daytime?: No Has Anyone Observed You Stop Breathing During Sleep?: No Result (for STOP score): Negative Hx Smoking: Yes (40 yrs) Smoking Status: Current every day smoker Gastrointestinal Hx Gastrointestinal Disorders: No Hx Gastrointestinal Bleed: No Hx Ulcer: No Hx Hiatal Hernia: No Difficulty Chewing/Swallowing: No Special diet followed at home: No Hx Unplanned Weight Loss of 20#: No HX Unplanned Weight Gain of 20#: No Neurological Hx Seizures: No HX Syncope/Blackout Spells/Unconsciousness: No Hx Transient Ischemic Attacks (TIA): No Hx Multiple Sclerosis: No Hx Parkinson's Disease: No Hx Head/Neck Injury: No Hx Headaches: No Hx Back Injury/Pain: Yes (HERNIATED DISCS/chronic pain.injections) Recent Onset of Speech Difficulty: No Restless Legs: No Does patient have nerve stimulator: No Blood Disorder Hx Leukemia: No Bleeding Tendencies: No Hx Deep Vein Thrombosis: No Hx High Cholesterol: No Blood Transmitted Disease: No Hx Hepatitis: No (.) Hx Cirrhosis: No (fatty liver) Hx Anemia: No Hx Blood Disorders: No Reproduction : No Is Patient Lactating: No Hx Hysterectomy: Yes Hx Tubal Ligation: No Are You Post Menopause: Yes Genitourinary Hx Renal Disease: No Hx Dialysis: No Musculoskeletal Hx Arthritis: Yes (IN BACK) Hx Rheumatoid Arthritis: No Hx Gout: No Recent Onset of an Orthopedic Problem: Yes (left wrist fx) Endocrine Hx Diabetes: No Thyroid Disease: Yes (on med) Hx Steroid Therapy: No Psycho/Social Hx Substance Use: No Hx Alcohol Use: Yes (I was, it's been a long time) Hx Anxiety: Yes (on med) Hx Depression: Yes (on med) Mental Illness: Yes (bipolar) Hx Dementia: No Miscellaneous Hx Cancer: No Recent Exposure to Contagious Disease: No Hx of C-Diff: No Any Loose Teeth: No (UPPER/LOWER DENTURES) Allergies No Known Allergies Allergy (Verified 03/23/25 07:39) Discharge Is Pt Admitted From a Skilled Nursing, or a Retirement: No After D/C, Where Do you Plan to Go: Return Home From the PAT History Number of Risk Factors: 5 Vital Signs Vital Signs Vital Signs: 03/23/25 07:42 03/23/25 07:42 03/23/25 07:45 Temperature 97.2 F L Temperature Source Temporal Pulse Rate 77 Respiratory Rate 16 Respiratory Pattern Normal Blood Pressure 151/71 H Blood Pressure Mean 97 Blood Pressure Source Monitor Blood Pressure Position Sitting Blood Pressure Location Right Arm Baseline BP 151/71 Pulse Ox 96 Oxygen Delivery Method Room Air Weight Weight: 174 lb 2.643 oz Body Mass Index (BMI) 31.8 Physical Exam Const alert, oriented x3 and no apparent distress HEENT normocephalic and head/scalp atraumatic Resp normal respiratory effort Cardio regular rate GI soft to palpation and non-tender; Negative for non-distended Palpation: Negative for guarding Extremity no clubbing, cyanosis or edema Skin no rashes or lesions noted Neuro CN's II-XII intact bilaterally Psych mental status grossly normal Assessment & Plan Assessment/Plan (1) Blood per rectum: (2) Hemorrhoids: Surgery Risks - Colonoscopy I discussed with the patient the risks of the procedure: Yes Risks Include but are not Limited To: Risks include but are not limited to: Bleeding, perforation requiring further surgery, inability to complete colonoscopy requiring barium enema.
--- NOTE | 2025-03-23 08:14 | PRE.ANES_ITS ---
ASA Classification* ASA Classification ASA Classification: 3 (CAD, HTN, diastolic dysfxn, peripheral vascular disease, carotid artery disease . COPD, smoker.) Assessment & Plan Anesthesia* Anesthesia Assessment Anesthesia Assessment: Discussed sedation and/or anesthesia options, risks, benefits, and alternatives with patient/parents/legal guardian/POA. Questions invited. The patient/parents/legal guardian/POA seems to understand and agrees to proceed with anesthesia plan. Reviewed the physical assessment, medical history, allergy history and patient home medications list prior to surgery/procedure/anesthetic and documented any changes. Performed airway and anesthesia risk assessments. Anesthesia Type Anesthesia Type: MAC History Source History Obtained from:: Patient and Chart Anesthesia Focused Assessment* Temperature: 97.2 F Pulse Rate: 77 Blood Pressure: 151/71 Respiratory Rate: 16 Pulse Ox: 96 Oxygen Delivery Method: Room Air Airway Assessment Mouth opens: >3 cm Mallampati Score: III Teeth Condition: Dentures Neck Range of motion (ROM): Full ROM Labs Anesthesia Preop lab: CBC WBC, (4.4-11.0) 6.4 K/mm3 02/07/25, 08:53 RBC, (4.2-5.4) 4.41 M/mm3 02/07/25, 08:53 Hgb, (12.0-15.0) 13.0 g/dL 02/07/25, 08:53 Hct, (37-47) 39.7 % 02/07/25, 08:53 Plt Count, (150-450) 353 K/mm3 02/07/25, 08:53 CHEMISTRY Potassium, (3.3-5.1) 4.2 mmol/L 02/07/25, 08:53 Sodium, (133-145) 134 mmol/L 02/07/25, 08:53 Magnesium, (1.6-2.6) 2.3 mg/dL 04/29/24, 09:15 Phosphorus, (2.5-4.9) 3.6 mg/dL 05/10/20, 10:37 BUN, (4-19) 13 mg/dL 02/07/25, 08:53 Creatinine, (0.70-1.20) 0.91 mg/dL 02/07/25, 08:53 Glucose, (70-99) 131 mg/dL H 02/07/25, 08:53 TSH, (0.300-4.200) 3.690 uIU/mL 02/07/25, 08:53 COAG Pre-Assessment Diagnosis/Proposed Procedure Planned Operative Procedure(s): COLONOSCOPY Anesthesia History Anesthesia History - registration manager: Anesthesia History - registration manager Hx Hospitalization No 03/23/25 08:14 Any Problems With Anesthesia No 03/23/25 08:14 Cholinesterase deficiency No 03/23/25 08:14 You/Your Family Experience No 03/23/25 08:14 fever (hyperthermia) with Relationship Recent Exposure to Contagious No 03/23/25 08:14 Disease Does patient have nerve No 03/23/25 08:14 stimulator Patient instructed to have device shut off --Does patient have Pacemaker No 03/23/25 07:42 or ICD? When Was Last Pacemaker Check QUESTION #4 FULL TEXT: You/Your Family Experience fever (hyperthermia) with Anesthesia Last Oral Intake Last Oral intake: Last Oral Intake NPO since 17:00 03/23/25 07:42 Meds taken in AM with sips of Yes 03/23/25 07:42 water? Meds patient instructed to see med list 03/23/25 07:42 take am of surgery PONV PONV - registration manager: PONV - registration manager Female Yes 03/22/25 09:59 HX of Motion Sickness No 03/22/25 09:59 HX of N/V After Surgery No 03/22/25 09:59 Non-Smoker No 03/22/25 09:59 Duration of Surgery greater No 03/22/25 09:59 than 60 minutes Number of Risk Factors 1 03/22/25 09:59 PONV Score Low Risk 03/22/25 09:59 Height & Weight Height & Weight: Anesthesia: Height & Weight Height 5 ft 2 in 03/23/25 07:42 Weight: 79 kg 03/23/25 07:42 Body Mass Index (BMI) 31.8 03/23/25 07:42 Respiratory Assessment Respiratory Assessment - registration manager: Respiratory Tract Infection Hx - registration manager Hx Respiratory Tract Infection No 03/23/25 08:14 STOP Sleep Apnea STOP Sleep Apnea - registration manager: STOP Sleep Apnea - registration manager Hx Hypertension Yes: controlled with meds 03/23/25 08:14 Hx Sleep Apnea No 03/23/25 08:14 CPAP BIPAP Do you snore loudly (louder No 03/23/25 08:14 than talking or can be heard Do you often feel tired/ No 03/23/25 08:14 fatigued/ sleepy during daytime? Has anyone observed you stop No 03/23/25 08:14 breathing during sleep? STOP Results Negative 03/23/25 08:14 QUESTION #5 FULL TEXT : Do you snore loudly (louder than talking or can be heard through closed doors)? Tobacco Use History Tobacco Use History - registration manager: Tobacco Use History - registration manager Tobacco Use Smoking Status Current every day smoker 03/23/25 08:14 Hx Tobacco Use Yes 03/22/25 09:59 Years Smoking Packs Smoked per Day Smoking Cessation Date was within the last 15 years Hx Smoking Cessation Date Hx Smoking Cessation Counseling Hematologic Medial History Hematologic Hx - registration manager: Hematologic Medical Hx - under cutter Hx of Blood Transfusion No 03/22/25 09:59 Hx of Transfusion in last 3 No 03/22/25 09:59 Months Date of Last Transfusion (if within last 3 months) Ever experience any problems No 03/22/25 09:59 with transfusion(s)? Specify any problems Hx of Preganancy in last 3 No 03/22/25 09:59 Months Nurse Filling Out Transfusion VCHRISTIN 03/22/25 09:59 & Questions: Date: 03/22/25 03/22/25 09:59 Time: 10:00 03/22/25 09:59 Patient unable to answer at this time (ie. confused, unrespo /Reproduction History /Reproductive History - registration manager: /Reproductive Hx- registration manager Hx Now No 03/23/25 08:14 Gestational Age (in weeks): EDC: Hx Hx Para Hx Section SAB No 03/22/25 09:59 Does the father of the baby or his family experience fever w Father of the baby Malignant Hypertension history comment Active Medications Active Medications: Current Medications Generic Name Dose Route Start Last Admin Trade Name Freq PRN Reason Stop Dose Admin Lactated Ringer's 1,000 mls @ 15 mls/hr 03/23/25 07:30 03/23/25 07:51 IV 15 mls/hr .Q48H RICA Administration PFSH Medical History (Updated 03/22/25 @ 10:01 by Delmi Mcintyre) Wears hearing aid Wears glasses Post-menopausal Alcohol use Thyroid disease High cholesterol Smoker Chronic cough History of echocardiogram History of stress test History of CHF (congestive heart failure) Aneurysm Cardiology follow-up encounter Moderate pulmonary hypertension Peripheral vascular occlusive disease Stenosis of right carotid artery Aneurysm of right iliac artery Aneurysm of infrarenal abdominal aorta DDD (degenerative disc disease), lumbosacral Secondary pulmonary arterial hypertension Chronic diastolic (congestive) heart failure Alcohol abuse COPD (chronic obstructive pulmonary disease) Hyponatremia Diastolic dysfunction Essential (primary) hypertension Hyperlipidemia Insomnia Nicotine dependence Bipolar disorder Hypothyroidism Anxiety and depression Elevated LFTs Arthritis Pulmonary nodule Home Medications ?Medication ?Instructions ?Recorded ?Last Taken ?Type levothyroxine 50 mcg tablet 50 mcg PO DAILY thyroid 03/23/25 06:40 History cyanocobalamin (vitamin B-12) 1,000 mcg PO DAILY 12/21 Unknown History 1,000 mcg capsule furosemide 40 mg tablet 40 mg PO DAILY 12/22/19 Unkn own History vitamin E (dl, acetate) 450 mg 450 mg PO DAILY 0 Unknown History (1,000 unit) capsule metoprolol succinate 50 mg 50 mg PO DAILY #90 tabs 03/23/25 06:40 Rx tablet,extended release 24 hr (Toprol XL) biotin 10,000 mcg capsule 5,000 mcg PO DAILY 01/04/21 Unknown History cholecalciferol (vitamin D3) 125 125 mcg PO DAILY 01/16 Unknown History mcg (5,000 unit) capsule potassium chloride 20 mEq 20 meq PO QHS 01/04/21 Unkno wn History tablet,extended release(part/cryst) lisinopril 20 mg tablet 20 mg PO DAILY bp #90 tabs 1 06/18/20 Unknown Rx clopidogrel 75 mg tablet (Plavix) 75 mg PO DAILY 03/0403/18/25 History ascorbate calcium (vitamin C) 500 500 mg PO DAILY 07/19 Unknown History mg tablet lamotrigine 200 mg tablet 100 mg PO DAILY 07/11/23 06:40 History vitamin K2 (MK-4) 100 mcg tablet 50 mcg PO DAILY 08/03 Unknown History atorvastatin 20 mg tablet 20 mg PO DAILY #90 tabs 11/26 07/19 Unknown Rx baclofen 10 mg tablet 10 mg PO TID PRN musculoskel etal 12/09/23 Unknown Rx pain/muscle spasm #270 tabs fluoxetine 10 mg capsule (Prozac) 10 mg PO QDAY Unknown History hydrocortisone 2.5 % topical cream 1 applic [place] BID-QID PRN 02/15/25 Unknown Rx with perineal applicator hemorrhoids #30 grams (Proctozone-HC) hydrocortisone 2.5 % topical cream 1 applic [place] BID-QID PRN 02/15/25 Unknown Rx with perineal applicator hemorrhoids #30 grams (Proctozone-HC) Allergy/AdvReac Type Severity Reaction Status Date / Time No Known Allergies Allergy Verified 03/23/25 07:39 Family History Mother CAD (coronary artery disease) CABG x 3 post op age 63 Brother CAD (coronary artery disease) CABG x 3 age 65 Surgical History (Updated 03/22/25 @ 09:59 by Delmi Mcintyre) S/P wrist surgery Hip joint replacement status History of angioplasty of peripheral vessel (08/14/21) History of hysterectomy History of cataract surgery Social History Smoking Status: Current every day smoker tobacco type: cigarettes second hand exposure: Yes alcohol intake: never substance use type: does not use what type of physical activity do you participate in: walking and bicycling Review of Systems (Anesthesia) ROS Narrative System reviewed and no additional complaints, except as documented. Physical Exam Const alert, oriented x3 and average body habitus Resp normal respiratory effort, normal air movement and clear to auscultation bilaterally Cardio regular rate, regular rhythm and no murmurs; Negative for diaphoretic
--- NOTE | 2025-03-23 09:00 | COLBX_PTH ---
PATIENT: ERIKA MOYA LOC: EN U#:[id number] AGE/SX: 69/F ROOM: RE03/23/[address]: Dr. Sunitha Maki MD : 1955 BED: DIS: 03/23/2025 SPEC #: [id number] RECD: 03/23/25 10:25 STATUS: SANNA AMILCAR #: [id number] TANIKA: 03/23/25 09:[address]: Sunitha Maki DEPT: SURGICAL PATHOLOGY RECD BY: Javier Serrano ENTERED: 03/23/25 11:36 SP TYPE: COLON BX OTHR DR: Brittany Iverson MD Tissues: A - Rectum, NOS Procedures: Surgery Specimen Level IV HEADER OPERATION: Colonoscopy with biopsy PRE-OP DIAGNOSIS: Blood per rectum, hemorrhoids TISSUE SUBMITTED: A- Rectal polyp biopsy MICROSCOPIC DIAGNOSIS A. Rectum, polyp, biopsy: - Hyperplastic polyp. MICROSCOPIC DESCRIPTION Slides are reviewed. GROSS DESCRIPTION A. Received in fixative is one container labeled with the patient's name and designated Rectal polyp biopsy. The specimen consists of two irregular fragments of ronquillo tissue that measure 0.2 and 0.3 cm. The specimen is totally submitted in one cassette. [place] 03/23/2025 CPT:77610
--- NOTE | 2025-03-23 10:12 | OP.PROVAT_ITS ---
03/23/2025 Brittany Iverson Md Re : Colonoscopy procedure for Nallely Iverson This procedure was performed on Sunday, March 23, 2025. My impressions and recommendations are as follows: Impressions : - Hemorrhoids found on perianal exam. - One less than 5 mm polyp in the rectum, removed with a cold biopsy forceps. Resected and retrieved. - Non-bleeding external and internal hemorrhoids. - The examination was otherwise normal. Recommendations : - Discharge patient to home. - Resume previous diet. - Continue present medications. - Resume Plavix (clopidogrel) at prior dose tomorrow. - Await pathology results. - Repeat colonoscopy in 5-10 years for surveillance based on pathology results. - depending on overall health at time of possible repeat My findings are described in the full procedure note, which is enclosed. If I can be of further assistance, please feel free to contact me at Doctor phone number(s): , Work: . Sincerely, MD Sunitha Su MD 03/23/2025 10:12:10 AM This report has been signed electronically.
--- NOTE | 2025-03-23 10:12 | OP.COLON_ITS ---
Patient Name: Nallely Miller Procedure Date: 03/23/2025 9:22 AM Date of : 1955 Age: 69 Procedure: Colonoscopy Indications: Rectal bleeding Providers: Sunitha Maki MD Referring MD: Brittany Iverson Md Medicines: Monitored Anesthesia Care Patient Profile: Last Colonoscopy: 5 years ago. Complications: No immediate complications. Procedure: Pre-Anesthesia Assessment: - Prior to the procedure, a History and Physical was performed, and patient medications and allergies were reviewed. The patient's tolerance of previous anesthesia was also reviewed. The risks and benefits of the procedure and the sedation options and risks were discussed with the patient. All questions were answered, and informed consent was obtained. Prior Anticoagulants: The patient has taken Plavix (clopidogrel), last dose was 5 days prior to procedure. ASA Grade Assessment: Per anesthesia. After reviewing the risks and benefits, the patient was deemed in satisfactory condition to undergo the procedure. After I obtained informed consent, the scope was passed under direct vision. Throughout the procedure, the patient's blood pressure, pulse, and oxygen saturations were monitored continuously. The pediatric colonoscope was introduced through the anus and advanced to the cecum, identified by the appendiceal orifice, ileocecal valve and palpation. Scope In: 9:35:52 AM Scope Withdrawal Time 0 hours 11 minutes 10 seconds Scope Out: 9:51:46 AM Total Procedure Duration Time 0 hours 15 minutes 54 seconds Findings: Hemorrhoids were found on perianal exam. A less than 5 mm polyp was found in the rectum. The polyp was sessile. The polyp was removed with a cold biopsy forceps. Resection and retrieval were complete. Non-bleeding external and internal hemorrhoids were found. The hemorrhoids were Grade I (internal hemorrhoids that do not prolapse). The exam was otherwise without abnormality. Impression: - Hemorrhoids found on perianal exam. - One less than 5 mm polyp in the rectum, removed with a cold biopsy forceps. Resected and retrieved. - Non-bleeding external and internal hemorrhoids. - The examination was otherwise normal. Recommendation: - Discharge patient to home. - Resume previous diet. - Continue present medications. - Resume Plavix (clopidogrel) at prior dose tomorrow. - Await pathology results. - Repeat colonoscopy in 5-10 years for surveillance based on pathology results. - depending on overall health at time of possible repeat Procedure Code(s): --- Professional --- 54337, Colonoscopy, flexible; with biopsy, single or multiple Diagnosis Code(s): --- Professional --- K64.0, First degree hemorrhoids D12.8, Benign neoplasm of rectum K62.5, Hemorrhage of anus and rectum CPT copyright 2021 [employer]. All rights reserved. The codes documented in this report are preliminary and upon correctional officer review may be revised to meet current compliance requirements. MD Sunitha Su MD 03/23/2025 10:12:10 AM This report has been signed electronically. Number of Addenda: 0 Note Initiated On: 03/23/2025 9:22 AM
--- NOTE | 2025-03-23 10:25 | PCM.POST.ANE ---
Anesthesia: Postop Eval I Current Vital Signs Temperature: 99.2 F Pulse Rate: 67 Blood Pressure: 86/62 Respiratory Rate: 16 Pulse Ox: 95 Oxygen Delivery Method: Room Air Assessment Airway patent: Yes Spontaneous unlabored respirations: Yes Mental status: Awake and Calm nausea: No Vomiting: No Anesthesia Complication: No Fluid Hydration Crystalloid volume administer (ml): 500 Total IV fluid infused: 500 Progress Note Anesthesia document: Postop Eval 1 completed: Yes
--- NOTE | 2025-03-23 11:34 | PCM.POSTANE2 ---
Anesthesia Postop Eval I Sum Postop Eval Completion status Anesthesia document: Postop Eval 1 completed: Yes Anesthesia Postop Eval I Summary Anesthesia Postop Eval I Summary: Anesthesia Postop Eval I: Assessment Summary Airway patent Yes 03/23/25 10:28 [email or web address] Spontaneous unlabored Yes 03/23/25 10:28 [email or web address] respirations Mental status Awake,Calm 03/23/25 10:28 [email or web address] nausea No 03/23/25 10:28 [email or web address] Vomiting No 03/23/25 10:28 [email or web address] Anesthesia Postop Eval I: Fluid Summary Crystalloid volume administer 500 03/23/25 10:28 [email or web address] (ml) Colloids volume administered ( ml) Blood Product volume administered (ml) Total IV fluid infused 500 03/23/25 10:28 [email or web address] Anesthesia Postop Eval I: Summary Notes Anesthesia Complication No 03/23/25 10:28 [email or web address] Anesthesia Complication Comment: Post-operative progress note Anesthesia: Postop Eval II Evaluation Mental status: Awake Pain Level: 0 nausea: No Vomiting: No Complications Anesthesia Complication: No
== END 2025-03-23 10:33 | disposition home or self-care (01) ==
LOC: EN 07:22 → AC 07:23
PROVIDERS: PCP Family Medicine; Referring Provider Family Medicine; Visit Provider Surgery
PROC: 0DJD8ZZ Inspection of Lower Intestinal Tract, Via Natural or Artificial Opening Endoscopic (ICD-10-PCS; CPT 45378; principal; 2025-03-23 08:55)
DX: K62.1 Rectal polyp (principal); I11.0 Hypertensive heart disease with heart failure; I50.32 Chronic diastolic (congestive) heart failure; J44.9 Chronic obstructive pulmonary disease, unspecified; Z79.02 Long term (current) use of antithrombotics/antiplatelets; F17.200 Nicotine dependence, unspecified, uncomplicated; I73.9 Peripheral vascular disease, unspecified; K64.4 Residual hemorrhoidal skin tags; E78.00 Pure hypercholesterolemia, unspecified; Z79.899 Other long term (current) drug therapy; K64.0 First degree hemorrhoids; I25.10 Atherosclerotic heart disease of native coronary artery without angina pectoris; E03.9 Hypothyroidism, unspecified; Z79.890 Hormone replacement therapy
CPT/HCPCS: 45380; 88305; J2405